=== PATIENT | female | born 1960 | race Caucasian/White ===

== ENCOUNTER → 2020-09-03 15:12 | Outpatient (BNVA) | payer OTHER, SELFPAY | PROVIDERS: PCP Internal Medicine; Visit Provider Surgery Vascular Surgery | DX: I83.11 Varicose veins of right lower extremity with inflammation (principal) | CPT/HCPCS: 99203 ==

== ENCOUNTER → 2022-03-23 11:59 | Outpatient (RCR) | payer OTHER, SELFPAY ==
--- NOTE | 2020-09-16 17:28 | MHC.PT.EP ---
[facility] [place] Office [place] Office [place] Office [address] Shantal Espinoza [address] [phone] F: [phone] F: [phone] F: [phone] F: [phone] Physical Therapy Plan of Care Date of Evaluation: 09/16/20 Date of Surgery: Diagnosis: R hip and R knee pain. Assessment: Pt is a 60 y/o female referred to PT for R hip and knee OA who presents with decreased tolerance for walking, negotiating stairs, standing and sitting for duration secondary to decreased R hip and knee ROM and strength, gait abnormality, increased R LE tissue tension, and pain. Frequency and Duration: The patient will be seen 2x/wk x 5 wks. Short Term Goals: In 1 week: initiate HEP with evidence of compliance. In 3 Weeks: achieve > 120 degrees R knee flexion; initial 110. Skilled Nursing Goals: In 5 weeks: I with home program. In 5 weeks: Pt will be able to negotiate 1 flight of stairs with reciprocal fashion; initial: non reciprocal. Treatment Plan: Modalities to reduce pain, spasms and effusion. Manual therapy to restore motion and function. Therapeutic exercise to improve strength and flexibility. Neuromuscular re-education for posture and balance. Therapeutic activities to return to functional activities of daily living. Please sign and return to therapist. Thank you for your referral.
--- NOTE | 2020-09-23 16:31 | MHC.PT.DC ---
[facility] [place] Office [place] Office [place] Office [address] Masoud Espinoza [address] [phone] F: [phone] F: [phone] F: [phone] F: [phone] Physical Therapy Discharge Report Diagnosis: R hip and R knee pain. Date of Surgery: Date of Evaluation: 09/16/20 Date of Discharge: 09/23/20 Treatments to Date: 1 Cancellations to Date: 2 evaluations cancelled. No Shows to Date: 2. Discharge Status: Did not follow through with appointments despite reminder calls. Discharge Summary: Erika logged 2 no show appointments after her evaluation and is discharged per [facility] attendance policy. Electronically signed by: Timoteo Toledo PT. Please sign and return to therapist. Thank you for your referral.
--- NOTE | 2022-03-23 11:59 | MHC.PT.DC ---
[facility] [place] Office [place] Office [place] Office [address] Masoud Espinoza [address] [phone] F: [phone] F: [phone] F: [phone] F: [phone] Physical Therapy Discharge Report Diagnosis: R hip and R knee pain. Date of Surgery: Date of Evaluation: 09/16/20 Date of Discharge: 10/12/20 Treatments to Date: 1 Cancellations to Date: 0 No Shows to Date: 0 Discharge Status: Patient Elected to Stop Discharge Summary: Pt did not follow up with more appts. Pt is a 60 y/o female referred to PT for R hip and knee OA who presents with decreased tolerance for walking, negotiating stairs, standing and sitting for duration secondary to decreased R hip and knee ROM and strength, gait abnormality, increased R LE tissue tension, and pain. Electronically signed by: Kelvin Rowan PT Please sign and return to therapist. Thank you for your referral.
== END | disposition home or self-care (01) ==
LOC: HO.PTCHIC 09-16 15:03
PROVIDERS: PCP Internal Medicine; Visit Provider Orthopaedic Surgery
DX: M16.11 Unilateral primary osteoarthritis, right hip (principal); M17.11 Unilateral primary osteoarthritis, right knee
CPT/HCPCS: 97110; 97116; 97161

== ENCOUNTER 2022-06-30 08:47 | Outpatient (REF) | payer OTHER, SELFPAY ==
--- NOTE | ~2022-06-30 | XR_ITS ---
EXAMINATION: XR PELVIS CLINICAL INFORMATION: Hip pain. COMPARISON: 07/06/[address] scan of 07/22/2020. TECHNIQUE: AP view of the pelvis. FINDINGS: There is severe degenerative change of the right hip which has progressed since previous CT scan of 07/22/2020 with deformity of the superior aspect of the right femoral head with flattening and increased sclerosis. There is loss of the joint space superiorly. There is some deformity of the acetabulum with what appears to be some superior subluxation of the right femoral head. There is no evidence of acute fracture or diastasis of the pelvis. Sacroiliac joints appear unremarkable. There is degenerative disc disease seen L4 through S1. Subchondral cyst formation is present. Patient is status post left total hip arthroplasty with components in position. XR/XR pelvis 1-2V IMPRESSION: Progression in severe right hip joint degenerative change compared to previous CT scan of 07/22/2020 as described.
== END 2022-06-30 08:48 | disposition home or self-care (01) ==
LOC: HO.HOSX 08:47
PROVIDERS: Visit Provider Orthopaedic Surgery
DX: M25.551 Pain in right hip (principal); M16.11 Unilateral primary osteoarthritis, right hip; Z96.642 Presence of left artificial hip joint
CPT/HCPCS: 72170; 99212

== ENCOUNTER → 2022-07-29 10:31 | Outpatient (REF) | payer OTHER, SELFPAY ==
--- NOTE | ~2022-07-29 | XR_ITS ---
EXAMINATION: XR CHEST CLINICAL INFORMATION: Weight gain. SOB. COMPARISON: None TECHNIQUE: 2 views of the chest were obtained. FINDINGS: The lungs are well-expanded and clear of acute process. The heart size and pulmonary vascularity is normal. There is mild spondylosis dorsal spine. No lytic process seen. XR/XR chest 2V IMPRESSION: Unremarkable chest exam. Mild spondylosis dorsal spine.
--- NOTE | 2022-07-29 10:35 | CA_ITS ---
Transthoracic Echocardiogram Patient (Last, First, Middle): Erika Smith J Gender: Female Date of : 1960 Age: 62 Procedure Date: 07/29/2022 Procedure Type: Transthoracic Echocardiogram Location: OP Height: 170.18 cm Weight: 99.79 kg BSA: 2.11 m2 Heart Rate: bpm BP: 122 / 60 mmHg Mis Manager: Referring MD: Luisito Gonzalez MD Material Crew Supervisor: Mk Baxter MD Symptoms: R94.31 ABNORMAL EKG, PRE OP Study Quality: Technically Difficult ECG Rhythm: Sinus Conclusions: - 1. Normal LV systolic function with impaired relaxation filling pattern 2. Normal cardiac valvular Doppler 3. Normal measured RV systolic pressure 4. No gross pericardial effusion Findings Left Ventricle Normal left ventricular size and systolic function. There is mildly increased left ventricular wall thickness. The visually estimated ejection fraction is between 55-60%. Regional wall motion abnormalities can not be excluded due to suboptimal endocardial definition. Spectral Doppler is indicative of an impaired relaxation filling pattern. E/E prime ratio is between 8 and 15 consistent with indeterminate filling pressures. Right Ventricle Normal right ventricular cavity size and systolic function. Atria The left atrium is normal in size. There is no evidence of interatrial shunt. The right atrium is normal in size. Aortic Valve The aortic valve structure and function is likely normal. There is no aortic valve stenosis. There is no aortic valve regurgitation. Mitral Valve There is mild anterior and posterior mitral leaflet thickening. There is trace mitral valve regurgitation. There is no mitral valve stenosis. Pulmonic Valve The pulmonic valve was not well visualized. Tricuspid Valve Likely normal tricuspid valve structure and function. There is trace tricuspid valve regurgitation. The right ventricular systolic pressure is normal. The right ventricular systolic pressure is 19 mmHg. Normal right atrial pressure. There is no evidence of pulmonary hypertension. Great Vessels All visible segments of the aorta are normal in size. The pulmonary artery was not well visualized. Venous The inferior vena cava is normal in size and collapses greater than 50% with inspiration. Pericardium/Pleural There is no evidence of pericardial effusion. Prior Study Comparison Changes noted compared to prior study dated: 07/31/2020. RV systolic pressure is measured to be normal on this study Measurements 2D Linear Measurements IVSd: 1.27 0.6-0.9/0.6-1.0 cm LVIDd: 4.31 3.9-5.3/4.2-5.9 cm LVIDd Index: 2.04 2.4-3.2/2.2-3.1 cm/m2 LVIDs: 2.67 2.0-3.6 cm LVPWd: 1.23 0.7-1.1 cm Ao Root: 3.00 2.1-3.5 cm LA Diam: 3.30 2.7-3.8/3.0-4.0 cm LAIDs Index: 1.56 1.5-2.3 cm/m2 LV Mass: 245.19 67-162/88-224 g LV Mass Index: 116.20 43-95/49-115 g/m2 LVOT Diam: 2.00 3.0+(-)1.3 cm Mitral Valve MV Pk E: 0.58 MV PK A: 0.87 MV Decel Time: 177.00 E/A: 0.70 E'Lateral: 10.60 E'Medial: 4.46 E/E' Med: 13.00 E/E' Lat: 5.50 PHT: 52.00 MVA PHT: 4.23 Decel [place]: 3.27 Aortic Valve AoV Pk Jose Luis: 2.08 AoV Mn Jose Luis: 1.22 AoV VTI: 0.36 AoV Pk Grad: 17.00 Aov Mn Grad: 8.00 AMENA Cont.VTI: 2.27 LVOT LVOT Pk Jose Luis: 1.28 LVOT Mn Jose Luis: 0.77 LVOT VTI: 0.26 LVOT Pk Grad: 7.00 LVOT Mn Grad: 3.00 LVOT Diam: 2.00 LVOT Area: 3.14 Diastolic Function MV Pk E: 0.58 MV Pk A: 0.87 E/A: 0.70 E'Medial: 4.46 E/E' Med: 13.00 E' Laterial: 10.60 E/E' Lat: 5.50 Right Ventricle TAPSE (mm): 32.00 TVS' Jose Luis: 14.00 Tricuspid Valve TR Pk Jose Luis: 2.01 TR Pk Grad: 16.00 RA Press: 3.00 RVSP: 19.00 Great Vessels Aorta Ao Root-2D: 3.00 2.0-3.7 cm Pulmonary Valve PV Pk Jose Luis: 1.18 Peak PV Grad: 6.00 Updated in Other Vendor System with Status of Final Mk Baxter MD electronically signed on 07/30/2022 12:20:21 PM with status of Final
[2022-07-29 12:37] LABS: Alanine Aminotransferase 50 U/L (0-31); Albumin Level 4.4 g/dL (3.5-5.0); Alkaline Phosphatase 98 U/L (39-117); Anion Gap 18 (12-20); Aspartate Amino Transferase 74 U/L (5-31); Bilirubin Total 1.5 mg/dL (0.0-1.0); Blood Urea Nitrogen 5 mg/dL (9-16); C Reactive Protein 0.42 mg/dL (< or = 0.50); Calcium 9.6 mg/dL (8.4-10.2); Carbon Dioxide 22 mmol/L (22-29); Chloride 99 mmol/L (96-108); Cholesterol 174 mg/dL; Estimated Glomerular Filt Rate > 60; Glucose Random 104 mg/dL (60-115); Potassium 4.3 mmol/L (3.3-5.1); Sodium 135 mmol/L (135-145); Total Protein 7.2 g/dL (6.5-8.0)
== END ==
LOC: HO.CARD 10:31
PROVIDERS: Visit Provider Internal Medicine
DX: Z00.00 Encounter for general adult medical examination without abnormal findings (principal); R63.5 Abnormal weight gain; E55.9 Vitamin D deficiency, unspecified; M19.90 Unspecified osteoarthritis, unspecified site; R94.31 Abnormal electrocardiogram [ECG] [EKG]
CPT/HCPCS: 36415; 71046; 80053; 82306; 82465; 84443; 86140; 93306

== ENCOUNTER → 2022-08-03 12:43 | Outpatient (BNVA) | payer OTHER, SELFPAY ==
--- NOTE | 2022-08-04 13:16 | HP_ITS ---
DATE OF SERVICE: 08/03/2022 HISTORY OF PRESENT ILLNESS: The patient is a 62-year-old female who is seen in the office for preop evaluation annual checkup on 07/21/2022. Patient is planning a right hip surgery for replacement for severe arthritis. The patient states she feels okay. She is using p.r.n. ibuprofen for the arthritis or diclofenac. She is also supposed to be on vitamin D. PAST MEDICAL HISTORY: Significant for arthritis in the hip, arthritis in the right shoulder, hypertension, back pain, varicose veins, left hip replacement in 2016, left carpal tunnel procedure, left knee surgery in the past, total hysterectomy. FAMILY HISTORY: Mother at 81. Father at 48 from heart disease. One brother at 35 from heart disease. Two sisters, 1 with arthritis from back problems. SOCIAL HISTORY: She lives with her daughter. She has 4 children. REVIEW OF SYSTEMS: No fevers, chills, or sweats. Weight has gone up by 24 pounds in the last 2 years. No headaches or dizziness. No peripheral edema. No palpitations or chest pain. Some shortness of breath with activity. Denies coughing or wheezing. No heartburn or stomach pains. No dysuria, arthritis in the joints as described. Sleep and appetite are normal. She does have seasonal allergies. She has a rash in the left ankle and atopic dermatitis. No complaints of bleeding problems. No swollen glands. PHYSICAL EXAMINATION: GENERAL: She is awake and alert, in no distress. VITAL SIGNS: Temperature 98.3, pulse 82, respirations 12, blood pressure is up at 134/104, oxygen saturation 96%, weight is 221, height is 5 feet 7 inches. HEENT: Clear. NECK: Supple. No nodes, bruits, or masses. HEART: Sounds S1 and S2. Regular rate. LUNGS: Clear. ABDOMEN: Soft and nontender with positive bowel sounds. EXTREMITIES: Trace pulses. No clubbing, cyanosis, or edema. Some venous stasis changes. NEUROLOGIC: Cranial nerves II through XII are intact. She is awake and alert and oriented x3. ASSESSMENT AND PLAN: 1. Preop right total hip replacement scheduled. 2. Hypertension. Recheck with Cardiology. 3. Weight gain, patient advised. 4. Venous stasis disease. 5. EKG shows some nonspecific ST changes. The patient was referred for cardiology evaluation. The patient was seen by Dr. Salazar, who states she has low to intermediate cardiac risk for surgery. When Sofía checked her blood pressure on August 03, she was 126/84 with a pulse of 88, and her EKG was normal in their office. They did an echo, which does not show any wall motion abnormalities. She has a 1/6 to 2/6 systolic ejection murmur and described as aortic sclerosis. Based on the cardiology evaluation, she is medically stable for the proposed procedure with the description of intermediate risk as above. As a smoker, she also has increased risk related to that. She may have some peripheral vascular disease, which will have to be followed carefully postoperatively. MD JESÚS Miller/CORINNE / [id number]
== END ==
PROVIDERS: PCP Internal Medicine; Visit Provider Internal Medicine
DX: Z01.810 Encounter for preprocedural cardiovascular examination (principal); M16.11 Unilateral primary osteoarthritis, right hip; R94.31 Abnormal electrocardiogram [ECG] [EKG]; F17.210 Nicotine dependence, cigarettes, uncomplicated
CPT/HCPCS: 93005; 99202

== ENCOUNTER → 2022-08-04 13:51 | Outpatient (BNVA) | payer OTHER, SELFPAY | PROVIDERS: PCP Internal Medicine; Visit Provider Physician Assistant | DX: M16.11 Unilateral primary osteoarthritis, right hip (principal) | CPT/HCPCS: 99212 ==

== ENCOUNTER 2022-08-09 10:03 | Inpatient (IN) | payer OTHER, SELFPAY ==
[2022-08-02 12:03] VITALS: BMI 33.2
[2022-08-02 12:11] VITALS: BP 133/87; PULSE 86; RESP 20; O2SAT 97
[2022-08-02 12:49] LABS: MANUAL DIFF FLAG NO
[2022-08-02 13:22] LABS: Basophils Percent Auto 0.5 % (0-2); Eosinophils Absolute Auto 0.2 X10*3/uL (0.0-0.4); Eosinophils Percent Auto 2.8 % (0-4); Hematocrit 39.2 % (37.0-47.0); Hemoglobin 14.2 g/dl (12.0-16.0); Imm Gran Abs Auto 0.02 X10*3/uL (0.00-0.03); Imm Gran Pct Auto 0.3 % (0.0-0.4); Lymphocytes Absolute Auto 1.7 X10*3/uL (1.2-4.9); Lymphocytes Percent Auto 23.3 % (20-40); Mean Corpuscular HGB Conc 36.2 g/dl (31.0-35.0); Mean Corpuscular Hemoglobin 37.5 pg (27.0-33.0); Mean Corpuscular Volume 103.4 fL (80.0-98.0); Mean Platelet Volume 10.6 fL (9.4-12.3); Monocytes Absolute Auto 0.6 X10*3/uL (0.1-1.2); Monocytes Percent Auto 8.1 % (2-11); Neutrophils Absolute Auto 4.8 x10*3/uL (2.0-8.3); Platelet Count 164 X10*3/uL (160-400); Red Blood Count 3.79 X10*6/uL (4.20-5.50); Red Cell Distribution Width 12.7 % (11.0-16.0); White Blood Count 7.4 X10*3/uL (4.8-10.8)
[2022-08-02 15:03] LABS: MRSA Nasal PCR NEGATIVE (Negative); SA Nasal PCR NEGATIVE (Negative)
--- NOTE | 2022-08-05 13:23 | P.CONAN_ITS ---
Documented by User: Nimco Mcginnis NP 08/05/22 13:26 HPI - Anesthesia Eval Consult details Narrative: 62yo F for Right Hip Total Replacement Cleared by PCP and Cardiology [facility] Active Problems Active Problems: All Active Problems (Updated 08/03/22 @ 13:24 by Marc Salazar MD) Smoking (Acute) Abnormal EKG (Acute) Preoperative cardiovascular examination (Acute) Varicose veins of right lower extremity with inflammation (Acute) Primary osteoarthritis of right hip (Acute) Past Medical History Medical History Anxiety Arthritis Carpal tunnel syndrome Heart murmur Family History Family History Father Heart problem Mother No problems noted. Surgical History Surgical History Abdominal mass H/O: hysterectomy History of arthroscopy of right knee History of carpal tunnel surgery of left wrist History of tonsillectomy History of tubal ligation Hx of section Status post left hip replacement Social History Social History Are you a primary home care and home health aides teacher to a significant other at home: No Do you presently have visiting nurse or other home services: No (to live with son post op) Patient Tobacco Use Status: Current everyday Tobacco user Tobacco use type: Cigarette Cigarettes Per Day: 5 Smoked in Last 30 Days: Yes Patient Interested in Nicotine Replacement: Yes Patient Given Instructions on How to Stop Smoking: No Second Hand Smoke Exposure: Yes Use of substances other than those prescribed or required for medical reasons: No Substance Use Frequency: Occasionally Have you been hit, kicked, punched, or otherwise hurt by someone within the past year? If so, by whom?: No Are you DNR?: No Advance Directives: No Advance Directives Information Provided: Yes (info given) Advance Directives on File: No Recently lost weight without trying: No Eating poorly because of decreased appetite: No Nutrition Risks: No Nutritional Risk Patient : No : No Current occupational status: unemployed Meds Allergies Allergy/AdvReac Type Severity Reaction Status Date / Time No Known Allergies Allergy Verified 08/04/22 14:02 [No Known Allergies*] Home Medications Medication Instructions Recorded Confirmed Last Taken Type acetaminophen 325 mg capsule 650 mg PO Q6H PRN 08/04/22 Unknown History (Tylenol) Exam Exam Date and Time: August 05, 2022 1323 Height,Weight and Vital Signs: Height 5 ft 7 in Weight 96.162 kg Last Vital Signs Pulse 86 08/02/22 12:11 Resp 20 08/02/22 12:11 BP 133/87 08/02/22 12:11 Pulse Ox 97 08/02/22 12:11 O2 Del Method 08/02/22 12:11 Pertinent Lab Results Pertinent Lab Results: Laboratory Tests 08/02/22 08/02/22 08/02/22 12:43 12:46 Unknown WBC 7.4 RBC 3.79 L Hgb 14.2 Hct 39.2 MCV 103.4 H MCH 37.5 H MCHC 36.2 H RDW 12.7 Plt Count 164 MPV 10.6 Immature Gran % (Auto) 0.3 Neut % (Auto) 65.0 Lymph % (Auto) 23.3 [place] % (Auto) 8.1 Eos % (Auto) 2.8 Baso % (Auto) 0.5 Lymph # (Auto) 1.7 [place] # (Auto) 0.6 Eos # (Auto) 0.2 Baso # (Auto) 0.0 Abs Immat Gran (auto) 0.02 Absolute Neuts (auto) 4.8 Absolute Nucleated RBC 0.000 Nucleated RBC % (auto) 0.0 Nasal Screen MRSA (PCR) NEGATIVE Nasal S. aureus Screen NEGATIVE Nasal MRSA/S.aureus Interp SEE NOTE Blood Type O Negative Antibody Screen NEGATIVE Laboratory Tests 07/29/22 11:39 Sodium 135 Potassium 4.3 Chloride 99 Carbon Dioxide 22 BUN 5 L Creatinine 0.60 Narrative Narrative: ECHO 07/2022 Conclusions: - 1. Normal LV systolic function with impaired relaxation filling pattern? 2. Normal cardiac valvular Doppler ? 3. Normal measured RV systolic pressure? 4. No gross pericardial effusion ? ? ? EKG 07/2022 ?sinus rhythm at 89/Min; no significant ST-T changes; normal MT and corrected QT Assessment and Plan Assessment Anesthesia Assessment: Chart Reviewed Documented by User: Cornelius Collins MD 08/09/22 16:57 PMFSH Past Medical History Medical History Anxiety Arthritis Carpal tunnel syndrome Heart murmur Family History Family History Father Heart problem Mother No problems noted. Family history of problems with anesthesia: No Surgical History Surgical History Abdominal mass H/O: hysterectomy History of arthroscopy of right knee History of carpal tunnel surgery of left wrist History of tonsillectomy History of tubal ligation Hx of section Status post left hip replacement History of Problems with Anesthesia: No Social History Social History Are you a primary home care and home health aides teacher to a significant other at home: No Do you presently have visiting nurse or other home services: No (to live with son post op) Patient Tobacco Use Status: Current everyday Tobacco user Tobacco use type: Cigarette Cigarettes Per Day: 5 Smoked in Last 30 Days: Yes Patient Interested in Nicotine Replacement: Yes Patient Given Instructions on How to Stop Smoking: No Second Hand Smoke Exposure: Yes Use of substances other than those prescribed or required for medical reasons: No Substance Use Frequency: Occasionally Have you been hit, kicked, punched, or otherwise hurt by someone within the past year? If so, by whom?: No Are you DNR?: No Advance Directives: No Advance Directives Information Provided: Yes (info given) Advance Directives on File: No Recently lost weight without trying: No Eating poorly because of decreased appetite: No Nutrition Risks: No Nutritional Risk Patient : No : No Current occupational status: unemployed Meds Allergies Allergy/AdvReac Type Severity Reaction Status Date / Time No Known Allergies Allergy Verified 08/04/22 14:02 [No Known Allergies*] Home Medications Medication Instructions Recorded Confirmed Last Taken Type acetaminophen 325 mg capsule 650 mg PO Q6H PRN 08/04/22 Unknown History (Tylenol) Exam Airway Mallampati Class: III TM Dist: >3cm Neck ROM: Full Denture: Upper and Lower Loose/Missing/Broken Teeth: Yes Heart: S1,S2 Lungs: b/l breath sounds Assessment and Plan Assessment Anesthesia Assessment: Anesthesia Plan Discussed and Smoking Cess. Discussed Final Anesthetic Review Family History of Problems with Anesthesia: No History of Problems with Anesthesia: No NPO: Yes ASA Class: III Final Preanesthetic Review: Meds/Allgs Chart Reviewed, Consent Obtained/Reviewed and Anes Risks/Benef Reviewed Patient Risk: Intermediate Procedure Risk: Intermediate Anesthetic Plan Anesthetic Plan: GA Disposition: Standard PACU
[2022-08-09] VITALS (15 sets, daily range): BP systolic 84–112; BP diastolic 51–81; PULSE 64–93; RESP 16–18; TEMP 36.2–37.1; O2SAT 96–100
--- NOTE | ~2022-08-09 | XR_ITS ---
EXAMINATION: XR HIP, RIGHT CLINICAL INFORMATION: Post right hip replacement COMPARISON: Previous x-ray from yesterday TECHNIQUE: AP view of the lower pelvis/both hips and AP and shoot through lateral view of the right hip. FINDINGS: There are bilateral hip replacements in satisfactory position. No fracture or dislocation is seen. There are postoperative changes to the soft tissues on the right. XR/XR hip RT w PEL1V IMPRESSION: No fracture or dislocation.
--- NOTE | ~2022-08-09 | CT_ITS ---
EXAMINATION: CT ANGIOGRAM CHEST, ABDOMEN AND PELVIS WITH LEFT UPPER EXTREMITY RUN-OFF CLINICAL INFORMATION: Decreased left upper extremity pulses. COMPARISON: Ultrasound from 08/10/2022 TECHNIQUE: Multiple axial images were obtained through the abdomen, pelvis, and lower extremities following the administration of 70 mL of Omnipaque 350 intravenous contrast. Sagittal, coronal, and MIP oblique sagittal reformatted images were obtained on the CT workstation, uploaded to PACS, and reviewed. Images were evaluated on independent dedicated 3-D workstation and 3-D images were reconstructed with concurrent radiologist supervision and subsequently interpreted. This CT examination was performed using dose optimization techniques as appropriate, variously including the following: *Automated exposure control *Adjustment of mA and/or kV according to patient size (this includes techniques or standardized protocols for targeted exams where dose is matched to indication/reason for exam; i.e. extremities or head) *Use of iterative reconstruction technique DLP: 980 mGy-cm FINDINGS: VASCULATURE: Aorta: Thoracic and abdominal aorta is normal in caliber. Diffuse calcified plaque is seen. No evidence of a aneurysm, stenosis or dissection. The right brachiocephalic artery, right subclavian artery, bilateral common carotid arteries and bilateral vertebral arteries are patent with mild calcified plaque. Celiac axis, superior mesenteric artery, inferior mesenteric artery and bilateral renal arteries are patent without significant stenosis. Right iliac arteries: Common iliac, external iliac and internal iliac arteries demonstrate mild atherosclerotic wall calcifications without significant stenosis. Left iliac arteries: Common iliac, external iliac and internal iliac arteries demonstrate mild atherosclerotic wall calcifications without significant stenosis. Left upper extremity: Heavily calcified plaque is seen at the ostium of the left subclavian artery causing a severe stenosis. The mid and distal portions of the left subclavian artery are patent without significant stenosis. The left axillary artery, brachial artery, radial artery, ulnar artery and interosseous artery are patent without significant stenosis. NONVASCULAR: Mild centrilobular emphysema. Subsegmental atelectasis seen in the bilateral lower lobes. Heart is normal in size. Pericardium is normal. Coronary artery calcification: Present Liver demonstrates a mildly nodular contour concerning for underlying cirrhosis. No focal hepatic lesions. Solid abdominal organs are otherwise unremarkable. Bowel loops are unremarkable. No free fluid seen in the abdomen and pelvis. Urinary bladder is unremarkable. No pathologic lymphadenopathy or mass lesion seen in the abdomen and pelvis. Patient is status post bilateral hip total arthroplasty. Degenerative disc disease seen throughout the thoracic and lumbar spine CT/CT angio chest aorta IMPRESSION: 1. Heavily calcified plaque seen at the ostium of the left subclavian artery causing a severe stenosis. Remaining arterial vessels of the left upper extremity are patent without significant stenosis 2. Atherosclerotic wall calcification seen within the thoracic and abdominal aorta without aneurysm, stenosis or dissection. 3. Coronary artery calcifications 4. Mild emphysema 5. Nodular contour of the liver concerning for underlying cirrhosis
--- NOTE | ~2022-08-09 | XR_ITS ---
EXAMINATION: XR PELVIS CLINICAL INFORMATION: Post right hip replacement COMPARISON: Previous x-ray June 2022 TECHNIQUE: AP view of the pelvis. FINDINGS: There is a new right hip replacement. Imaging of the right hip replacement is incomplete. The inferior stem of the femoral component is not included in the [id number]. No fracture or dislocation is seen. There is a left hip replacement in satisfactory position. There are postoperative changes to the soft tissues. XR/XR pelvis 1-2V IMPRESSION: Incomplete imaging of the right hip replacement. Inferior stem of the femoral component is not included in the [id number]. No fracture or dislocation seen.
--- NOTE | ~2022-08-09 | US_ITS ---
EXAMINATION: NONINVASIVE ASSESSMENT OF THE ARTERIES OF LEFT UPPER EXTREMITY Ravindra Dobson MD CLINICAL INFORMATION: Decreased radial pulse TECHNIQUE: Duplex Doppler techniques were used to examine the left upper extremity.. Velocity measurements and color flow Doppler imaging were performed in the subclavian arteries, axillary arteries and brachial arteries along with the radial and ulnar arteries COMPARISON: None FINDINGS: Left ARM: Triphasic flow is noted in the proximal subclavian artery with biphasic flow and mid subclavian artery with monophasic flow noted distal to this in the axillary, brachial and radial and ulnar arteries. Only minimal plaque is seen. Velocity measurements in cm per second are listed below: Subclavian artery proximal: 107 Subclavian artery mid: 59 Subclavian artery distal: 49 Axillary artery: 39 Brachial artery proximal: 35 Brachial artery mid: 44 Brachial artery distal: 40 Radial artery mid: 27 Ulnar artery mid: 35 US/US arterial duplex UE LT IMPRESSION: There is monophasic flow seen in the distal subclavian artery and all vessels distal to this. An inflow stenosis is suggested. CT angiography of the thoracic aorta and left upper extremity vasculature could always be performed for better evaluation
[2022-08-09] MEDS: oxyCODONE HCl ER 10 MG TAB.ER.12H PO ×2 (10:56→21:53)
[2022-08-09 11:00] LABS: COVID-19 Test Negative (Negative); IDNOW Serial# 08D9AD1C
[2022-08-09] MEDS: Lactated Ringers 1,000 ML 100 ML IVCONT (11:19)
--- NOTE | 2022-08-09 12:19 | MHC.SHP ---
Pre-Procedural Eval Section A Date of Service: 08/09/22 The patient is an INPATIENT: No Changes since office visit: Yes Patient answered all questions; No Cold of Flu in the past 2 weeks, No New Medical Problems and No Changes in Medication The History & Physical has been completed within 30 days and I have reviewed it.: Yes Section B Chief Complaint: RT MARCO A Allergies: Allergies Allergy/AdvReac Type Severity Reaction Status Date / Time No Known Allergies Allergy Verified 08/04/22 14:02 [No Known Allergies*] Plan I have reviewed the history and physical and performed a pertinent physical examination on my patient. No changes have occurred unless specified.
--- NOTE | 2022-08-09 16:15 | P.BOP_ITS ---
Brief Operative Note Date of Service: 08/09/22 Pre-op diagnosis: right hip OA Post-op diagnosis: same Procedure: Right MARCO A Implants: Dax 54 GIANCARLO cup with 4 acetabular screws Mcgreg[place] Accolade2 #6 132 +5 36 Surgeon: Panda Angelo MD Anesthesia: GETA and local Was an Risk Intern used for this Procedure?: Yes Risk Intern: Chuck Evangelista Estimated blood loss (mL): 200 IV fluids (mL): 1,000 Pathology: other Condition: stable Disposition: PACU
--- NOTE | 2022-08-09 16:16 | P.OP_ITS ---
Operative Note Operative Note Date of Service: 08/09/22 Narrative: Brief Operative Note Date of Service: 08/09/22 Pre-op diagnosis: right hip OA Post-op diagnosis: same Procedure: Right MARCO A Implants: [place] 54 GIANCARLO cup with 4 acetabular screws [place] Accolade2 #6 132 +5 36 Surgeon: Panda Angelo MD Anesthesia: GETA and local Was an Medical Reimbursement Specialist used for this Procedure?: Yes Medical Reimbursement Specialist: Chuck Evangelista Estimated blood loss (mL): 200 IV fluids (mL): 1,000 Pathology: other Condition: stable Disposition: PACU Procedure in detail: Patient was brought into the operating room and placed in the left lateral decubitus position. All bony prominences were well padded and the limb was prepped and draped in standard sterile fashion. Time-out was called to identify proper site procedure proper surgeon IV antibiotics and 1 g of transaxemic acid were administered. I began by making a curvilinear incision over the posterolateral aspect of the greater trochanter. Dissection was taken down to the tensor fascia which was incised in line with the incision and a Charnley retractor was placed. Cautery was used to maintain hemostasis. A werewolf device was also used. The hip was internally rotated and the external rotators were identified. The vessels were cauterized and a full-thickness capsular/external rotator layer was developed starting just proximal to the piriformis. This layer was tagged and a dull Hohmann retractor was placed underneath the neck in the hip was dislocated. A neck cut was made 1 cm proximal to the lesser trochanter and the head and neck were removed. The head was extremely deformed and it was not measurable. I started with 44mm reamer and medialized. THere was loss of superior bone and posterior bone. I medialized down to the inner table and there was insufficient bone for fixation posteriorly. I made sure not to ream superior and reamed up to a 54 and placeda 56 GIANCARLO cup. This required screws for fixation. @ acetabular screws were placed superiorly using standard AO technique. Two additional RIM screws were placed through the superior appendage of the cup. Prior to this I reamed the femoral head and placed medial bone graft in the acetabulum. I was satisfied with the stability of the cup. A neutral liner was impacted in place. I identified the piriformis insertion and used this as a starting point for my brittany cutter. The medius tendon was protected with a Hibs retractor. I then used a Charnley awl to identify the canal and a curved curette to remove the lateral bone. I irrigated copiously. I then sequentially broached in the patient's natural version to a size #6 and placed my trial implants (132 deg).. Using a trail head I took the hip through range of motion. I was very satisfied with the stability and length. Therefore I removed all instrumentation and copiously irrigated. I placed my final femoral implant and again took the hip through range of motion and was satisfied with the stability and length using a +5 36. I then irrigated for 3 minutes with iodine and placed 1 g of local tranaxemic acid. I then performed a capsular closure with 2.0 fiberwire, Juanito's fascia with 0 Vicryl, subcuticular with 2-0 Vicryl and the skin with stella. Patient was placed into a sterile dressing. Radiographs were obtained at the completion of the case and I was satisfied with the component position. Patient was extubated brought to the recovery room in stable condition. There were no known complications.
[2022-08-09] MEDS: ceFAZolin Sodium/Dextrose,Iso 2 GM/50 ML PIGGYBACK IV (19:19)
[2022-08-09] MEDS: Celecoxib 200 MG CAPSULE PO (21:53)
[2022-08-09] MEDS: Docusate Sodium 100 MG CAPSULE PO (21:53)
[2022-08-10] VITALS (9 sets, daily range): BP systolic 96–128; BP diastolic 57–76; PULSE 66–99; RESP 16–18; TEMP 35.6–36.8; O2SAT 94–98
[2022-08-10] MEDS: Lactated Ringers 1,000 ML 100 ML IVCONT ×2 (01:28→11:27)
[2022-08-10 07:01] LABS: MANUAL DIFF FLAG NO
[2022-08-10 07:15] LABS: Basophils Percent Auto 0.3 % (0-2); Eosinophils Percent Auto 0.1 % (0-4); Hematocrit 29.4 % (37.0-47.0); Hemoglobin 10.2 g/dl (12.0-16.0); Imm Gran Abs Auto 0.04 X10*3/uL (0.00-0.03); Imm Gran Pct Auto 0.4 % (0.0-0.4); Lymphocytes Absolute Auto 1.2 X10*3/uL (1.2-4.9); Lymphocytes Percent Auto 12.3 % (20-40); Mean Corpuscular HGB Conc 34.7 g/dl (31.0-35.0); Mean Corpuscular Hemoglobin 36.2 pg (27.0-33.0); Mean Corpuscular Volume 104.3 fL (80.0-98.0); Monocytes Absolute Auto 0.8 X10*3/uL (0.1-1.2); Monocytes Percent Auto 8.6 % (2-11); Neutrophils Absolute Auto 7.5 x10*3/uL (2.0-8.3); Neutrophils Percent Auto 78.3 % (45-73); Platelet Count 143 X10*3/uL (160-400); Red Blood Count 2.82 X10*6/uL (4.20-5.50); Red Cell Distribution Width 12.6 % (11.0-16.0); White Blood Count 9.6 X10*3/uL (4.8-10.8)
--- NOTE | 2022-08-10 07:32 | PM.PNORT ---
Subjective Subjective Date of Service: 08/10/22 Interval history: POD1 s/p RTHA. Patient is resting in bed comfortably. No overnight events. Pain is managed. No additional complaints. Physical Exam Vital Signs: Vital Signs: Last Vital Signs Temp 98 F 08/10/22 06:59 Pulse 72 08/10/22 06:59 Resp 18 08/10/22 06:59 BP 124/60 08/10/22 06:59 Pulse Ox 97 08/10/22 06:59 O2 Del Method 08/10/22 06:59 O2 Flow Rate 2 08/09/22 18:58 BMI result Body Mass Index 33.2 Const: General: cooperative, healthy appearing and no acute distress Resp: Effort & Inspection: normal respiratory effort and able to speak in complete sentences Cardio: Rate: regular rate Peripheral pulses: Peripheral pulses 2+ throughout GI: Palpation (GI): Soft to palpation Skin: Lesions: no lesions Rashes: no rashes Extrem: Other: Right hip Aquacel is clean, dry, and intact. Patient is able to dorsiflex and plantarflex. Able to move all digits. NVI. Procedures Date of Service Date of Service: 08/10/22 Progress Note: A&P Assessment and plan (1) S/P total right hip arthroplasty: Status: Acute Assessment and Plan: Continue pain mgmnt Begin Lovenox for dvt ppx begin PT for RTHA Dispo planning-Pending PT eval, pain mgmnt Time Spent With Patient Time: Total time spent is greater than 50% in coordination of care (as documented) at patient's floor/unit and/or counseling patient: Quality Stroke Does the patient have a stroke diagnosis?: No VTE Prior VTE?: No VTE Risk Level:: Medical - moderate - high VTE Device Contraindication: N/A - Device Ordered VTE Drug Contraindication: N/A - Med Ordered
[2022-08-10] MEDS: oxyCODONE HCl ER 10 MG TAB.ER.12H PO ×2 (07:40→20:40)
[2022-08-10] MEDS: HYDROmorphone HCl 0.5 MG/0.5 ML SYRINGE 0.25 MG IVPUSH (07:40)
[2022-08-10] MEDS: Celecoxib 200 MG CAPSULE PO ×2 (07:40→20:39)
[2022-08-10] MEDS: Docusate Sodium 100 MG CAPSULE PO ×2 (07:40→20:39)
[2022-08-10 08:09] LABS: Anion Gap 14 (12-20); Blood Urea Nitrogen 11 mg/dL (9-16); Calcium 8.8 mg/dL (8.4-10.2); Carbon Dioxide 23 mmol/L (22-29); Chloride 102 mmol/L (96-108); Creatinine Clr Calc Pharmacy 114.2; Estimated Glomerular Filt Rate > 60; Glucose Fasting 104 mg/dL (60-99); Potassium 4.3 mmol/L (3.3-5.1); Sodium 135 mmol/L (135-145)
--- NOTE | 2022-08-10 12:48 | P.CONHOSP_ITS ---
History of Present Illness Data of Consult Service Date: 08/10/22 Requesting physician: Panda Angelo Primary Care Provider: Luisito Gonzalez MD COUNTS INCLUDE 234 BEDS AT THE [facility] Medical History Anxiety Arthritis Carpal tunnel syndrome Heart murmur Family History Father Heart problem Mother No problems noted. Surgical History Abdominal mass H/O: hysterectomy History of arthroscopy of right knee History of carpal tunnel surgery of left wrist History of tonsillectomy History of tubal ligation Hx of section Status post left hip replacement Social History Are you a primary animal care provider to a significant other at home: No Do you presently have visiting nurse or other home services: No (to live with son post op) Patient Tobacco Use Status: Current everyday Tobacco user Tobacco use type: Cigarette Cigarettes Per Day: 5 Smoked in Last 30 Days: Yes Patient Interested in Nicotine Replacement: Yes Patient Given Instructions on How to Stop Smoking: No Second Hand Smoke Exposure: Yes Use of substances other than those prescribed or required for medical reasons: No Substance Use Frequency: Occasionally Currently Displaying Signs/Symptoms of Drug Intoxication Withdrawal: No Have you been hit, kicked, punched, or otherwise hurt by someone within the past year? If so, by whom?: No Are you DNR?: No Advance Directives: No Advance Directives Information Provided: Yes (info given) Advance Directives on File: No Recently lost weight without trying: No Eating poorly because of decreased appetite: No Nutrition Risks: No Nutritional Risk Patient : No : No Current occupational status: unemployed Meds Allergies Allergy/AdvReac Type Severity Reaction Status Date / Time No Known Allergies Allergy Verified 08/04/22 14:02 [No Known Allergies*] Active Medications: Current Medications Acetaminophen (Acetaminophen 325 Mg Tablet) 650 mg PO Q6H PRN PRN Reason: Pain, Mild (Pain Scale 1-3) Celecoxib (Celecoxib 200 Mg Capsule) 200 mg PO BID [facility] Last Admin: 08/10/22 07:40 Dose: 200 mg Docusate Sodium (Docusate Sodium 100 Mg Capsule) 100 mg PO BID [facility] Last Admin: 08/10/22 07:40 Dose: 100 mg Enoxaparin Sodium (Enoxaparin Sodium 40 Mg/0.4 Ml Syringe) 40 mg SUBCUT Q24H [facility] Fentanyl (Fentanyl Citrate/Pf 100 Mcg/2 Ml Vial) 25 mcg IVPUSH Q5M PRN; Protocol PRN Reason: Pain, Moderate (Pain Scale 4-6 Hydromorphone HCl (Hydromorphone Hcl 0.5 Mg/0.5 Ml Syringe) 0.25 mg IVPUSH Q5M PRN; Protocol PRN Reason: Pain, Severe (Pain Scale 7-10) Hydromorphone HCl (Hydromorphone Hcl 0.5 Mg/0.5 Ml Syringe) 0.25 mg IVPUSH Q4H PRN; Protocol PRN Reason: Pain, Severe (Pain Scale 7-10) Last Admin: 08/10/22 07:40 Dose: 0.25 mg Lactated Ringer's (Lr) 1,000 mls @ 100 mls/hr IVCONT .Q10H [facility] Stop: 08/10/22 16:17 Last Admin: 08/10/22 11:27 Dose: 100 mls/hr Sodium Chloride (Ns) 1,000 mls @ 999 mls/hr IV .Q1H1M [facility] Stop: 08/10/22 13:00 Ondansetron HCl (Ondansetron Hcl 4 Mg/2 Ml Vial) 4 mg IVPUSH Q8H PRN PRN Reason: Nausea and Vomiting Oxycodone HCl (Oxycodone Hcl Immed Release 5 Mg Tablet) 10 mg PO Q4H PRN PRN Reason: Pain, Moderate (Pain Scale 4-6 Oxycodone HCl (Oxycodone Hcl Er 10 Mg Tab.Er.12h) 10 mg PO BID [facility] Last Admin: 08/10/22 07:40 Dose: 10 mg Sodium Chloride (0.9 % Sodium Chloride Flush 3 Ml Syringe) 3 ml IVFLUSH QSHIFT [facility] Last Admin: 08/10/22 06:51 Dose: Not Given Home Medications Medication Instructions Recorded Confirmed Last Taken Type No Known Home Meds 08/09/22 08/09/22 Unknown History Physical Exam Vital Signs and Narrative: Vital Signs: Last Vital Signs Temp 96.4 F L 08/10/22 11:43 Pulse 78 08/10/22 11:43 Resp 16 08/10/22 11:43 BP 119/58 L 08/10/22 11:43 Pulse Ox 96 08/10/22 11:43 O2 Del Method 08/10/22 11:43 O2 Flow Rate 2 08/09/22 18:58 BMI result Body Mass Index 33.2 Results Labs CBC and Chem 7: 08/10/22 05:57 08/10/22 05:57 Labs: Laboratory Results - last 24 hr 08/10/22 08/10/22 05:57 05:57 MCV 104.3 H MCH 36.2 H MCHC 34.7 RDW 12.6 Plt Count 143 L MPV 11.0 Immature Gran % (Auto) 0.4 Neut % (Auto) 78.3 H Lymph % (Auto) 12.3 L Metcalfe % (Auto) 8.6 Eos % (Auto) 0.1 Baso % (Auto) 0.3 Lymph # (Auto) 1.2 [place] # (Auto) 0.8 Eos # (Auto) 0.0 Baso # (Auto) 0.0 Abs Immat Gran (auto) 0.04 H Absolute Neuts (auto) 7.5 Absolute Nucleated RBC 0.000 Nucleated RBC % (auto) 0.0 Anion Gap 14 Estim Creat Clear Calc 114.2 Estimated GFR > 60 Fasting Glucose 104 H Calcium 8.8 D Imaging Radiologist's Impressions: Impressions Pelvis X-Ray 08/09/22 16:03 IMPRESSION: Incomplete imaging of the right hip replacement. Inferior stem of the femoral component is not included in the [id number]. No fracture or dislocation seen.
[2022-08-10] MEDS: oxyCODONE HCl Immed Release 5 MG TABLET 10 MG PO ×2 (13:29→17:39)
[2022-08-10] MEDS: 0.9 % Sodium Chloride 1,000 ML 999 ML IV (13:31)
--- NOTE | 2022-08-10 13:54 | HO.PM.IMCN ---
History of Present Illness Data of Consult Service Date: 08/10/22 Requesting physician: Chuck Evangelista Primary Care Provider: Luisito Gonzalez MD [facility] Reason for consult: hypotension s/p right total hip arthroplasty 62 year old female who is a current every smoker with history of osteoarthritis, anxiety, cardiac murmur, and carpal tunnel syndrome admitted to orthopedics team for right total hip arthroplasty post-op day 1 with consult placed to medical team due to low blood pressures last night. Patient has persistent postoperative low normal blood pressure readings with SBP 90s and one recorded episode of hypotension at 84/57 that was not sustained. Nurse and patient note blood pressures had been taken on the left arm. Pt has been receiving IVF. Today, blood pressures have not been able to be obtained on the left arm and radial pulse is noted to be weak. Pt states bps were taken on left arm last week with pcp. Has no known history of PAD. Denies sob, lightheadedness, cp, palpitations, pain or numbness in the extremities or cyanosis. She has no complaints at this time. Review of Systems Review of Systems: General: No fevers, malaise, unintentional weight loss Cardiovascular: No chest pain, palpitations, or leg edema Respiratory: No shortness of breath, wheezing, cough Neuro: No headaches, weakness, paresthesias Skin: No rashes or lesions PMFSH Medical History Anxiety Arthritis Carpal tunnel syndrome Heart murmur Family History Father Heart problem Mother No problems noted. Surgical History Abdominal mass H/O: hysterectomy History of arthroscopy of right knee History of carpal tunnel surgery of left wrist History of tonsillectomy History of tubal ligation Hx of section Status post left hip replacement Social History Are you a primary professional healthcare representative to a significant other at home: No Do you presently have visiting nurse or other home services: No (to live with son post op) Patient Tobacco Use Status: Current everyday Tobacco user Tobacco use type: Cigarette Cigarettes Per Day: 5 Smoked in Last 30 Days: Yes Patient Interested in Nicotine Replacement: Yes Patient Given Instructions on How to Stop Smoking: No Second Hand Smoke Exposure: Yes Use of substances other than those prescribed or required for medical reasons: No Substance Use Frequency: Occasionally Currently Displaying Signs/Symptoms of Drug Intoxication Withdrawal: No Have you been hit, kicked, punched, or otherwise hurt by someone within the past year? If so, by whom?: No Are you DNR?: No Advance Directives: No Advance Directives Information Provided: Yes (info given) Advance Directives on File: No Recently lost weight without trying: No Eating poorly because of decreased appetite: No Nutrition Risks: No Nutritional Risk Patient : No : No Current occupational status: unemployed Meds Allergies Allergy/AdvReac Type Severity Reaction Status Date / Time No Known Allergies Allergy Verified 08/04/22 14:02 [No Known Allergies*] Active Medications: Current Medications Acetaminophen (Acetaminophen 325 Mg Tablet) 650 mg PO Q6H PRN PRN Reason: Pain, Mild (Pain Scale 1-3) Celecoxib (Celecoxib 200 Mg Capsule) 200 mg PO BID [facility] Last Admin: 08/10/22 07:40 Dose: 200 mg Docusate Sodium (Docusate Sodium 100 Mg Capsule) 100 mg PO BID [facility] Last Admin: 08/10/22 07:40 Dose: 100 mg Enoxaparin Sodium (Enoxaparin Sodium 40 Mg/0.4 Ml Syringe) 40 mg SUBCUT Q24H [facility] Fentanyl (Fentanyl Citrate/Pf 100 Mcg/2 Ml Vial) 25 mcg IVPUSH Q5M PRN; Protocol PRN Reason: Pain, Moderate (Pain Scale 4-6 Hydromorphone HCl (Hydromorphone Hcl 0.5 Mg/0.5 Ml Syringe) 0.25 mg IVPUSH Q5M PRN; Protocol PRN Reason: Pain, Severe (Pain Scale 7-10) Hydromorphone HCl (Hydromorphone Hcl 0.5 Mg/0.5 Ml Syringe) 0.25 mg IVPUSH Q4H PRN; Protocol PRN Reason: Pain, Severe (Pain Scale 7-10) Last Admin: 08/10/22 07:40 Dose: 0.25 mg Lactated Ringer's (Lr) 1,000 mls @ 100 mls/hr IVCONT .Q10H [facility] Stop: 08/10/22 16:17 Last Admin: 08/10/22 11:27 Dose: 100 mls/hr Ondansetron HCl (Ondansetron Hcl 4 Mg/2 Ml Vial) 4 mg IVPUSH Q8H PRN PRN Reason: Nausea and Vomiting Oxycodone HCl (Oxycodone Hcl Immed Release 5 Mg Tablet) 10 mg PO Q4H PRN PRN Reason: Pain, Moderate (Pain Scale 4-6 Last Admin: 08/10/22 13:29 Dose: 10 mg Oxycodone HCl (Oxycodone Hcl Er 10 Mg Tab.Er.12h) 10 mg PO BID [facility] Last Admin: 08/10/22 07:40 Dose: 10 mg Sodium Chloride (0.9 % Sodium Chloride Flush 3 Ml Syringe) 3 ml IVFLUSH QSHIFT [facility] Last Admin: 08/10/22 06:51 Dose: Not Given Home Medications Medication Instructions Recorded Confirmed Last Taken Type No Known Home Meds 08/09/22 08/09/22 Unknown History Physical Exam Vital Signs and Narrative: Vital Signs: Last Vital Signs Temp 96.4 F L 08/10/22 11:43 Pulse 78 08/10/22 11:43 Resp 16 08/10/22 11:43 BP 119/58 L 08/10/22 11:43 Pulse Ox 96 08/10/22 11:43 O2 Del Method 08/10/22 11:43 O2 Flow Rate 2 08/09/22 18:58 BMI result Body Mass Index 33.2 Constitutional - Awake and Alert, No apparent distress Eyes - PERRLA, EOMI Cardiovascular - S1S2, RRR, no edema. Left radial pulse 1+, right radial pulse 2+. 2+ pedal pulses b/l. Capillary refill <2s left hand Respiratory - Normal lung expansion, Normal respiratory effort, No respiratory distress, CTA bilaterally Gastrointestinal - NT / ND; +BS; No rebound or guarding Extremities - no calf tenderness bilaterally, no swelling Skin - Warm/Dry, no cyanosis Neurological - Alert & oriented x3, 5/5 strength BUE Psychological - Appropriate affect Results Labs CBC and Chem 7: 08/10/22 05:57 08/10/22 05:57 Labs: Laboratory Results - last 24 hr 08/10/22 08/10/22 05:57 05:57 MCV 104.3 H MCH 36.2 H MCHC 34.7 RDW 12.6 Plt Count 143 L MPV 11.0 Immature Gran % (Auto) 0.4 Neut % (Auto) 78.3 H Lymph % (Auto) 12.3 L Preston % (Auto) 8.6 Eos % (Auto) 0.1 Baso % (Auto) 0.3 Lymph # (Auto) 1.2 [place] # (Auto) 0.8 Eos # (Auto) 0.0 Baso # (Auto) 0.0 Abs Immat Gran (auto) 0.04 H Absolute Neuts (auto) 7.5 Absolute Nucleated RBC 0.000 Nucleated RBC % (auto) 0.0 Anion Gap 14 Estim Creat Clear Calc 114.2 Estimated GFR > 60 Fasting Glucose 104 H Calcium 8.8 D Imaging Radiologist's Impressions: Impressions Pelvis X-Ray 08/09/22 16:03 IMPRESSION: Incomplete imaging of the right hip replacement. Inferior stem of the femoral component is not included in the [id number]. No fracture or dislocation seen. Assessment and Plan (1) S/P total right hip arthroplasty: Status: Acute Plan 62 year old female who is a current every smoker with history of osteoarthritis, anxiety, cardiac murmur, and carpal tunnel syndrome admitted to orthopedics team for right total hip arthroplasty post-op day 1 with consult placed to medical team due to low blood pressures last night. 1- Weak left radial pulse -Left hand warm without cyanosis with 1+radial pulse, 2+right. No swelling, erythema, or warmth -Unable to capture blood pressure LUE -Arterial doppler RUE ordered -Pt has risk factors for PAD including smoking 2-Low blood pressure post-operatively -SBPs in the 90s. Bp 108/56 on exam RUE -Continue IVF -MOnitor BPs Thank you for this consult. Will continue to follow.
--- NOTE | 2022-08-10 14:39 | MHC.CM.PN ---
REFERRAL TO [facility] FOR HOME P.T. NEEDS. PATIENT CURRENTLY WITH FOOD SERVICES, RN, AND P.T. IN ROOM. THIS TAPPET ADJUSTER TO RETURN AT A MORE APPROPRIATE TIME TO COMPLETE ASSESSMENT.
--- NOTE | 2022-08-10 14:45 | HO.POSTANES ---
Post Anesthesia Evaluation Post Anesthesia Evaluation Vital Signs: Vital Signs Temp Pulse Resp BP Pulse Ox O2 Del Method 08/10/22 11:43 96.4 F L 78 16 119/58 L 96 Room Air 08/10/22 11:08 96.1 F L 99 17 128/76 97 Room Air 08/10/22 06:59 98 F 72 18 124/60 97 Room Air 08/10/22 03:29 97.4 F 66 17 114/68 97 Room Air Anesthesia: General Mental Status: Awake Pain Control: Satisfactory Nausea/Vomiting: None Hydration: Adequate Anesthesia-Related Issues: No Anes. Related Issues
--- NOTE | 2022-08-10 15:25 | MHC.CM.PN ---
PATIENT LIVES WITH HER DAUGHTER (NEW HCP) COPY TO BE PLACED IN CHART. PATIENT HAS A CANE BUT NO WALKER YET SHE WILL BE STAYING WITH HER SON JOE AT [address] IN [place]. MONTEZ MADE AWARE. JOEL BRISENO TOMORROW
[2022-08-10] MEDS: Enoxaparin Sodium 40 MG/0.4 ML SYRINGE SUBCUT (16:01)
[2022-08-10] MEDS: 0.9 % Sodium Chloride Flush 3 ML SYRINGE IVFLUSH (20:40)
[2022-08-11] VITALS (8 sets, daily range): BP systolic 114–148; BP diastolic 56–78; PULSE 69–95; RESP 18; TEMP 36.5–37.1; O2SAT 93–99
[2022-08-11 06:11] LABS: MANUAL DIFF FLAG NO
[2022-08-11 06:26] LABS: Basophils Absolute Auto 0.1 X10*3/uL (0.0-0.2); Basophils Percent Auto 0.7 % (0-2); Eosinophils Absolute Auto 0.2 X10*3/uL (0.0-0.4); Hematocrit 26.2 % (37.0-47.0); Hemoglobin 9.1 g/dl (12.0-16.0); Imm Gran Abs Auto 0.03 X10*3/uL (0.00-0.03); Imm Gran Pct Auto 0.4 % (0.0-0.4); Lymphocytes Absolute Auto 1.3 X10*3/uL (1.2-4.9); Lymphocytes Percent Auto 16.9 % (20-40); Mean Corpuscular HGB Conc 34.7 g/dl (31.0-35.0); Mean Corpuscular Hemoglobin 36.4 pg (27.0-33.0); Mean Corpuscular Volume 104.8 fL (80.0-98.0); Mean Platelet Volume 11.2 fL (9.4-12.3); Monocytes Absolute Auto 0.8 X10*3/uL (0.1-1.2); Monocytes Percent Auto 10.8 % (2-11); Neutrophils Absolute Auto 5.1 x10*3/uL (2.0-8.3); Neutrophils Percent Auto 68.2 % (45-73); Platelet Count 114 X10*3/uL (160-400); Red Cell Distribution Width 12.7 % (11.0-16.0); White Blood Count 7.4 X10*3/uL (4.8-10.8)
[2022-08-11 06:40] LABS: Anion Gap 13 (12-20); Blood Urea Nitrogen 10 mg/dL (9-16); Calcium 8.5 mg/dL (8.4-10.2); Carbon Dioxide 24 mmol/L (22-29); Chloride 103 mmol/L (96-108); Creatinine Clr Calc Pharmacy 120.3; Estimated Glomerular Filt Rate > 60; Glucose Fasting 121 mg/dL (60-99); Potassium 3.7 mmol/L (3.3-5.1); Sodium 136 mmol/L (135-145)
[2022-08-11] MEDS: oxyCODONE HCl ER 10 MG TAB.ER.12H PO ×2 (07:40→19:55)
[2022-08-11] MEDS: Docusate Sodium 100 MG CAPSULE PO ×2 (07:41→19:55)
[2022-08-11] MEDS: Celecoxib 200 MG CAPSULE PO ×2 (07:41→19:55)
[2022-08-11] MEDS: 0.9 % Sodium Chloride Flush 3 ML SYRINGE IVFLUSH ×3 (07:41→19:56)
[2022-08-11] MEDS: HYDROmorphone HCl 0.5 MG/0.5 ML SYRINGE 0.25 MG IVPUSH ×2 (07:42→15:30)
--- NOTE | 2022-08-11 08:50 | P.DS_ITS ---
DS: Providers Provider Date of Service: 08/12/22 Date of admission: 08/09/22 10:03 Primary care physician: Luisito Gonzalez MD Consults: 08/10/22 11:48 Consult to Hospitalist Routine Consulting Provider: Hospitalist Reason For Exam: s/p rt irina, hypotension 08/10/22 18:35 Consult to Vascular Surgery Routine Consulting Provider: Kevon Steinberg Reason for consultation: inflow stenosis subclavian artery lue DS: Diagnosis Discharge Diagnosis (1) S/P total right hip arthroplasty: Status: Acute DS: Summary Hospital Course Hospital Course: The patient underwent a successful right total hip arthroplasty, they were transferred to PACU and then to the floor to recover. During their stay, their vitals were stable, afebrile at 98.0. Labs were unremarkable, H/H 9.1/26.8. POD 1 they were started on Lovenox for DVT ppx, they also received Physical Therapy services twice a day. Prior to discharge, their dressing was changed, incision clean dry and intact, new Aquacel dressing applied and the plan was to be discharged home with VNA services. Time Spent with Patient Time attestation: Total time spent providing and/or coordinating discharge services: Discharge coordination time: Less than 30 minutes Quality: Safe Use of Opioids Does Pt have an Active Cancer Diagnosis on the Problem List?: No Quality: Stroke Does the patient have a stroke diagnosis?: No Physical Exam Vital Signs: Vital Signs: Last Vital Signs Temp 98 F 08/11/22 06:58 Pulse 75 08/11/22 06:58 Resp 18 08/11/22 06:58 BP 133/62 08/11/22 06:58 Pulse Ox 96 08/11/22 06:58 O2 Del Method 08/11/22 06:58 O2 Flow Rate 2 08/09/22 18:58 BMI result Body Mass Index 33.2 Extrem: Other: Right hip Aquacel is clean, dry, and intact. Incision site intact. No erythema or drainage. Sensation intact. Able to dorsiflex and plantarflex. NVI. DS: Data Data Completed and Pending Pending studies at discharge: Pending at discharge 08/09/22 15:29 Surgical [PTH] Routine Labs on day of discharge: Laboratory Results - last 24 hr 08/11/22 08/11/22 05:30 06:02 WBC 7.4 RBC 2.50 L Hgb 9.1 L Hct 26.2 L MCV 104.8 H MCH 36.4 H MCHC 34.7 RDW 12.7 Plt Count 114 L MPV 11.2 Immature Gran % (Auto) 0.4 Neut % (Auto) 68.2 Lymph % (Auto) 16.9 L [place] % (Auto) 10.8 Eos % (Auto) 3.0 Baso % (Auto) 0.7 Lymph # (Auto) 1.3 [place] # (Auto) 0.8 Eos # (Auto) 0.2 Baso # (Auto) 0.1 Abs Immat Gran (auto) 0.03 Absolute Neuts (auto) 5.1 Absolute Nucleated RBC 0.000 Nucleated RBC % (auto) 0.0 Sodium 136 Potassium 3.7 Chloride 103 Carbon Dioxide 24 Anion Gap 13 BUN 10 Creatinine 0.57 Estim Creat Clear Calc 120.3 Estimated GFR > 60 Fasting Glucose 121 H Calcium 8.5 Discharge Plan Discharge Patient Disposition: Home Health Service Discharge Diagnosis: RT IRINA Referrals: Chuck Evangelista PA-C [Physician Bioinformatics Developer] - 2 Weeks (2:00 [facility] Chuck Evangelista PA-C) Discharge Medications: New enoxaparin 40 mg/0.4 mL Syringe 40 mg subcut Q24H 42 Days Qty: 16.8 0RF celecoxib 200 mg Capsule 200 mg PO BID 14 Days Qty: 28 0RF acetaminophen 325 mg Tablet 650 mg PO Q6H PRN (Reason: Pain, Mild (Pain Scale 1-3)) 30 Days Qty: 240 0RF oxycodone 10 mg tablet 10 mg PO Q4H PRN (Reason: Pain, Moderate (Pain Scale 4-6) 7 Days Qty: 42 0RF Rx Instructions: Partial Fill upon patient request. docusate sodium 100 mg Capsule 100 mg PO BID 14 Days Qty: 28 0RF Discharge Orders: Discharge Order (Routine); Ordered 08/12/22 Ordered By: Patience Gandhi Diet: Regular diet Activity on Discharge: Use cane or walker Stand Alone Forms: Patient Portal Discharge page Care Plan Goals: Restore function of joint Health Concerns: none Plan of Treatment: Physical Therapy Pain management DVT prophylaxis Assessment: * Physical Therapy for Total hip arthroplasty: wbat, posterior precautions, gait training, ROM, strength * Limit stair climbing * No showering, no tub bath-keep dressing clean, dry and intact * No driving x6 weeks * Continue Lovenox once a day x 6 weeks * Follow up with [facility] Orthopedics in 2 weeks: 08/25/22 @ 2pm * --you will also have your first out patient PT jackie on the day of your post op appt-so please plan on being in the office that day for an extended period of time.
--- NOTE | 2022-08-11 13:27 | P.CONGS_ITS ---
History of Present Illness Consult details Consult date: 08/11/22 Narrative: Pleasant 62-year-old female who presented to to the hospital for right hip arthroplasty. Postprocedure she was noted to have a blood pressure differential between right and left arm. She actually reports that it had been noticed in her primary cares office prior to this admission. She reports that she may even have an element of hypertension noted on the right arm and she thought that was secondary to white coat syndrome. Upon discussion with her she is totally asymptomatic from the left arm. She denies any difficulty using it no pain or discomfort. Also of note she smokes about half pack per day Review of Systems Review of Systems: Yes all other systems are reviewed and are negative Constitutional: Constitutional: Reports no additional constitutional comp laints ENT: Reports Normal hearing present Cardiovascular: Cardiovascular: Denies chest pain, Denies chest pain at rest, Denies chest pain with activity and Denies pedal edema Respiratory: Respiratory: Denies cough Gastrointestinal: Gastrointestinal: Denies abdominal pain Musculoskeletal: Musculoskeletal: Denies abnormal gait, Denies muscle cramps and Denies radiating pain into limb Integumentary/Breasts: Skin/Breast: Denies skin ulcer and Denies wounds Neurologic: Reports Normal hearing present and Denies abnormal gait Psychiatric: Psychiatric: Reports no additional psychiatric complaints PMF Past Medical History Medical History Anxiety Arthritis Carpal tunnel syndrome Heart murmur Family History Family History Father Heart problem Mother No problems noted. Surgical History Surgical History Abdominal mass H/O: hysterectomy History of arthroscopy of right knee History of carpal tunnel surgery of left wrist History of tonsillectomy History of tubal ligation Hx of section Status post left hip replacement Social History Social History Are you a primary career development counselor to a significant other at home: No Do you presently have visiting nurse or other home services: No (to live with son post op) Patient Tobacco Use Status: Current everyday Tobacco user Tobacco use type: Cigarette Cigarettes Per Day: 5 Smoked in Last 30 Days: Yes Patient Interested in Nicotine Replacement: Yes Patient Given Instructions on How to Stop Smoking: No Second Hand Smoke Exposure: Yes Use of substances other than those prescribed or required for medical reasons: No Substance Use Frequency: Occasionally Currently Displaying Signs/Symptoms of Drug Intoxication Withdrawal: No Have you been hit, kicked, punched, or otherwise hurt by someone within the past year? If so, by whom?: No Are you DNR?: No Advance Directives: No Advance Directives Information Provided: Yes (info given) Advance Directives on File: No Recently lost weight without trying: No Eating poorly because of decreased appetite: No Nutrition Risks: No Nutritional Risk Patient : No : No service: No Current occupational status: unemployed Meds Allergies Allergy/AdvReac Type Severity Reaction Status Date / Time No Known Allergies Allergy Verified 08/04/22 14:02 [No Known Allergies*] Active Medications: Current Medications Acetaminophen (Acetaminophen 325 Mg Tablet) 650 mg PO Q6H PRN PRN Reason: Pain, Mild (Pain Scale 1-3) Celecoxib (Celecoxib 200 Mg Capsule) 200 mg PO BID [facility] Last Admin: 08/11/22 07:41 Dose: 200 mg Docusate Sodium (Docusate Sodium 100 Mg Capsule) 100 mg PO BID [facility] Last Admin: 08/11/22 07:41 Dose: 100 mg Enoxaparin Sodium (Enoxaparin Sodium 40 Mg/0.4 Ml Syringe) 40 mg SUBCUT Q24H [facility] Last Admin: 08/10/22 16:01 Dose: 40 mg Fentanyl (Fentanyl Citrate/Pf 100 Mcg/2 Ml Vial) 25 mcg IVPUSH Q5M PRN; Protocol PRN Reason: Pain, Moderate (Pain Scale 4-6 Hydromorphone HCl (Hydromorphone Hcl 0.5 Mg/0.5 Ml Syringe) 0.25 mg IVPUSH Q5M PRN; Protocol PRN Reason: Pain, Severe (Pain Scale 7-10) Hydromorphone HCl (Hydromorphone Hcl 0.5 Mg/0.5 Ml Syringe) 0.25 mg IVPUSH Q4H PRN; Protocol PRN Reason: Pain, Severe (Pain Scale 7-10) Last Admin: 08/11/22 07:42 Dose: 0.25 mg Ondansetron HCl (Ondansetron Hcl 4 Mg/2 Ml Vial) 4 mg IVPUSH Q8H PRN PRN Reason: Nausea and Vomiting Oxycodone HCl (Oxycodone Hcl Immed Release 5 Mg Tablet) 10 mg PO Q4H PRN PRN Reason: Pain, Moderate (Pain Scale 4-6 Last Admin: 08/10/22 17:39 Dose: 10 mg Oxycodone HCl (Oxycodone Hcl Er 10 Mg Tab.Er.12h) 10 mg PO BID [facility] Last Admin: 08/11/22 07:40 Dose: 10 mg Sodium Chloride (0.9 % Sodium Chloride Flush 3 Ml Syringe) 3 ml IVFLUSH QSHIFT [facility] Last Admin: 08/11/22 07:41 Dose: 3 ml Physical Exam Vital Signs: Vital Signs: Last Vital Signs Temp 98 F 08/11/22 10:47 Pulse 77 08/11/22 10:47 Resp 18 08/11/22 10:47 BP 125/60 08/11/22 10:47 Pulse Ox 99 08/11/22 10:47 O2 Del Method 08/11/22 10:47 O2 Flow Rate 2 08/09/22 18:58 BMI result Body Mass Index 33.2 Const: General: cooperative, healthy appearing and comfortable Orientation/consciousness: oriented to person, oriented to place and oriented to time HEENT: Head: Yes normal to inspection Neck: Neck: Yes normal visual inspection Carotids: no bruits Chest: Chest palpation & inspection: normal inspection of the chest Resp: Effort & Inspection: normal respiratory effort and able to speak in complete sentences Auscultation: clear to auscultation bilaterally, no crackles, no rales, no rhonchi and no wheezes Cardio: Other: Right arm palpable brachial radial and ulnar pulse, left arm palpable brachi al diminished radial pulse but is present. Rate: regular rate Rhythm: regular rhythm Heart sounds: S1 normal heart sound present and S2 normal heart sound present Bruits: no carotid bruits GI: Inspection: Yes normal to inspection Skin: Wounds: no wounds Hair: normal Neuro: General: oriented to person, oriented to place and oriented to time Cranial nerves: Yes CN's II-XII intact bilaterally and Yes Normal hearing present Cognition (Neuro): normal cognition Motor exam (neuro): 5/5 motor strength present throughout Extrem: Other: venous exam: No significant superficial varicosities or spider telangiectasias, minimal edema General: No clubbing, No cyanosis and No edema Psych: Appearance: grossly normal Mental Status: mental status grossly normal Speech and movement: Normal speech and movement present Results Labs Result diagrams: 08/11/22 05:30 08/11/22 06:02 Labs: Abnormal lab results 08/11/22 08/11/22 Range/Units 05:30 06:02 RBC 2.50 L (4.20-5.50) X10*6/uL Hgb 9.1 L (12.0-16.0) g/dl Hct 26.2 L (37.0-47.0) % MCV 104.8 H (80.0-98.0) fL MCH 36.4 H (27.0-33.0) pg Plt Count 114 L (160-400) X10*3/uL Lymph % (Auto) 16.9 L (20-40) % Fasting Glucose 121 H (60-99) mg/dL Short CBC 08/11/22 Range/Units 05:30 WBC 7.4 (4.8-10.8) X10*3/uL Hgb 9.1 L (12.0-16.0) g/dl Hct 26.2 L (37.0-47.0) % Plt Count 114 L (160-400) X10*3/uL BMP 08/11/22 06:02 Sodium 136 Potassium 3.7 Chloride 103 Carbon Dioxide 24 BUN 10 Creatinine 0.57 Calcium 8.5 All other labs normal. Assessment and Plan (1) Stenosis of left subclavian artery: Status: Acute Plan in short patient may have an element left subclavian stenosis. Noninvasive arterial ultrasound was reviewed and does appear to have monophasic flow Of the left arm. We did discuss risk factor modification and the importance of smoking cessation. She does not require any emergent intervention. She can follow up with me as an outpatient. Thank you for allowing us to assist in her care. If there are any questions or concerns please do not hesitate to contact us. Procedures Date of Service Date of Service: 08/11/22
[2022-08-11] MEDS: iohexoL 350 MG/ML 100 ML INFUS..BTL IV (14:00)
--- NOTE | 2022-08-11 15:30 | MHC.CM.PN ---
PATIENT EXPECTED TO RETURN HOME (TO HER SON'S HOME) TOMORROW 08/12/22 WILL NEED SCRIPT FOR WALKER AND TOILET RISER - ORTHO PA MADE AWARE.
[2022-08-11] MEDS: Enoxaparin Sodium 40 MG/0.4 ML SYRINGE SUBCUT (15:31)
[2022-08-11] MEDS: oxyCODONE HCl Immed Release 5 MG TABLET 10 MG PO (19:55)
--- NOTE | 2022-08-11 20:59 | PM.PNORT ---
Subjective Subjective Date of Service: 08/11/22 Interval history: POD 2 s/p RTHA. Patient is resting in bed comfortably. No overnight events. Pain is managed. No additional complaints. Physical Exam Vital Signs: Vital Signs: Last Vital Signs Temp 98.3 F 08/11/22 19:22 Pulse 74 08/11/22 19:22 Resp 18 08/11/22 19:22 BP 123/58 L 08/11/22 19:22 Pulse Ox 98 08/11/22 19:22 O2 Del Method 08/11/22 19:22 O2 Flow Rate 2 08/09/22 18:58 BMI result Body Mass Index 33.2 Const: General: cooperative, healthy appearing and no acute distress Resp: Effort & Inspection: normal respiratory effort and able to speak in complete sentences Cardio: Rate: regular rate Peripheral pulses: Peripheral pulses 2+ throughout GI: Palpation (GI): Soft to palpation Skin: General skin exam: no rashes or lesions noted Extrem: Other: incision clean dry and intact. Theresa intact. No erythema or effusion. Calf supple nontender. Neurovascularly intact. Procedures Date of Service Date of Service: 08/11/22 Progress Note: A&P Assessment and plan (1) S/P total right hip arthroplasty: Status: Acute Assessment and Plan: Continue pain mgmnt Lovenox for dvt ppx PT /OT for RTHA Vascular consult: +/- subclavian stenosis, no acute intervention warranted. Recommend smoking cessation. Dispo planning-Pending PT eval, pain mgmnt Time Spent With Patient Time: Total time spent is greater than 50% in coordination of care (as documented) at patient's floor/unit and/or counseling patient: Quality Stroke Does the patient have a stroke diagnosis?: No VTE Prior VTE?: No VTE Risk Level:: Medical - moderate - high VTE Device Contraindication: N/A - Device Ordered VTE Drug Contraindication: N/A - Med Ordered
[2022-08-12 03:11] VITALS: BP 143/65; PULSE 64; RESP 18; TEMP 36.6; O2SAT 96
[2022-08-12 07:02] VITALS: BP 150/69; PULSE 81; RESP 18; TEMP 36.1; O2SAT 99
[2022-08-12 07:10] LABS: MANUAL DIFF FLAG NO
[2022-08-12 07:22] LABS: Basophils Percent Auto 0.5 % (0-2); Eosinophils Absolute Auto 0.3 X10*3/uL (0.0-0.4); Eosinophils Percent Auto 4.5 % (0-4); Hematocrit 26.8 % (37.0-47.0); Hemoglobin 9.1 g/dl (12.0-16.0); Imm Gran Abs Auto 0.02 X10*3/uL (0.00-0.03); Imm Gran Pct Auto 0.3 % (0.0-0.4); Lymphocytes Absolute Auto 1.1 X10*3/uL (1.2-4.9); Lymphocytes Percent Auto 18.4 % (20-40); Mean Corpuscular Volume 105.9 fL (80.0-98.0); Mean Platelet Volume 11.6 fL (9.4-12.3); Monocytes Absolute Auto 0.5 X10*3/uL (0.1-1.2); Monocytes Percent Auto 8.8 % (2-11); Neutrophils Absolute Auto 4.1 x10*3/uL (2.0-8.3); Neutrophils Percent Auto 67.5 % (45-73); Platelet Count 125 X10*3/uL (160-400); Red Blood Count 2.53 X10*6/uL (4.20-5.50); Red Cell Distribution Width 12.7 % (11.0-16.0)
[2022-08-12 07:40] LABS: Anion Gap 16 (12-20); Blood Urea Nitrogen 9 mg/dL (9-16); Calcium 8.7 mg/dL (8.4-10.2); Carbon Dioxide 23 mmol/L (22-29); Chloride 102 mmol/L (96-108); Creatinine Clr Calc Pharmacy 124.6; Estimated Glomerular Filt Rate > 60; Glucose Fasting 134 mg/dL (60-99); Potassium 3.5 mmol/L (3.3-5.1); Sodium 137 mmol/L (135-145)
[2022-08-12 09:07] VITALS: BP 150/69; PULSE 81; O2SAT 99
[2022-08-12] MEDS: oxyCODONE HCl ER 10 MG TAB.ER.12H PO (09:48)
[2022-08-12] MEDS: Docusate Sodium 100 MG CAPSULE PO (09:48)
[2022-08-12] MEDS: Celecoxib 200 MG CAPSULE PO (09:48)
[2022-08-12] MEDS: 0.9 % Sodium Chloride Flush 3 ML SYRINGE IVFLUSH ×2 (09:48→14:28)
--- NOTE | 2022-08-12 09:51 | MHC.CM.PN ---
Addendum entered by Kristan David 08/12/22 15:12: INSURANCE AUTH RECEIVED, NEGATIVE COVID RESULTS SENT PT WILL DC TO [facility] VIA [employer] BLS AT 1700 HOURS Addendum entered by Kristan David 08/12/22 13:03: CM RECEIVED A CALL FROM [facility] LIAISON WHO REPORTS CONCERN REGARDING PTS INITIAL ASSESSMENT HE REPORTS ON THE NURSING ASSESSMENT IT INDICATES PT DOES NOT USE ANY SUBSTANCES THAT ARE NOT PRESCRIBED HOWEVER UNDER THAT IT SAYS OCCASIONALLY. CM MET WITH PT WHO REPORTS IT WAS [place] THAT SHE USED A FEW TIMES FOR PAIN CM UPDATED LIAISON WHO REPORTS THAT IS FINE AND HE IS STILL WAITING FOR INSURANCE AUTH Original Note: PATIENT SEEN BY PT/OT THIS MORNING AND IS NOW STR APPROPRIATE PT REPORTS SHE FEELS SHE NEEDS STR SHE IS UNABLE TO STAND/WALK CM INFORMED HER THAT HER INSURANCE WAS CONTACTED WITH FEW FACILITIES, SHE IS AGREEABLE TO A BROAD REFERRAL BEING MADE. REFERRAL WAS PLACED AND [facility] IS OFFERING A BED FOR TODAY PENDING INSURANCE AUTH
[2022-08-12 11:15] VITALS: BP 122/75; PULSE 81; RESP 18; TEMP 36.1; O2SAT 96
[2022-08-12 11:22] LABS: COVID-19 Test Negative (Negative); IDNOW Serial# 55D5AD1C
[2022-08-12] MEDS: Enoxaparin Sodium 40 MG/0.4 ML SYRINGE SUBCUT (14:28)
[2022-08-12 14:43] VITALS: BP 122/75; PULSE 81; O2SAT 96
[2022-08-12 15:29] VITALS: BP 137/64; PULSE 76; RESP 17; TEMP 36.8; O2SAT 100
--- NOTE | 2022-08-12 16:55 | HO.PM.IMPN ---
Subjective Subjective Date of Service: 08/12/22 Interval History: seen and examined this morning follow up for hypotension following right MARCO A bp improved. no dizziness, sob, chest pain found to have left subclavian stenosis no overnight events Review of Systems Review of Systems: Yes all other systems are reviewed and are negative Constitutional Constitutional: Denies chills and Denies fever(s) ENT Ears, Nose, Mouth, and Throat: Denies dizziness Cardiovascular Cardiovascular: Denies chest pain, Denies palpitations and Denies dyspnea Respiratory Respiratory: Denies cough and Denies dyspnea Gastrointestinal Gastrointestinal: Denies abdominal pain, Denies diarrhea, Denies nausea and Denies vomiting Neurologic Neurologic: Denies dizziness Endocrine Endocrine: Denies palpitations Physical Exam Vital Signs: Vital Signs: Last Vital Signs Temp 98.2 F 08/12/22 15:29 Pulse 76 08/12/22 15:29 Resp 17 08/12/22 15:29 BP 137/64 08/12/22 15:29 Pulse Ox 100 08/12/22 15:29 O2 Del Method 08/12/22 15:29 O2 Flow Rate 2 08/09/22 18:58 BMI result Body Mass Index 33.2 Const: General: alert and awake Nutritional Appearance: overweight Orientation/consciousness: patient oriented x3 Resp: Effort & Inspection: normal respiratory effort and able to speak in complete sentences Auscultation: diminished lung sounds Cardio: Rate: regular rate Heart sounds: S1 normal heart sound present and S2 normal heart sound present GI: Inspection: No distended Palpation (GI): Soft to palpation and nontender Neuro: General: patient oriented x3 and CN's II-XI intact bilaterally Extrem: General: Yes no pedal edema Objective Data Active Medications Acetaminophen (Acetaminophen 325 Mg Tablet) 650 mg PO Q6H PRN PRN Reason: Pain, Mild (Pain Scale 1-3) Celecoxib (Celecoxib 200 Mg Capsule) 200 mg PO BID [facility] Last Admin: 08/12/22 09:48 Dose: 200 mg Documented By: UNRULY Docusate Sodium (Docusate Sodium 100 Mg Capsule) 100 mg PO BID [facility] Last Admin: 08/12/22 09:48 Dose: 100 mg Documented By: UNRULY Enoxaparin Sodium (Enoxaparin Sodium 40 Mg/0.4 Ml Syringe) 40 mg SUBCUT Q24H [facility] Last Admin: 08/12/22 14:28 Dose: 40 mg Documented By: UNRULY Fentanyl (Fentanyl Citrate/Pf 100 Mcg/2 Ml Vial) 25 mcg IVPUSH Q5M PRN; Protocol PRN Reason: Pain, Moderate (Pain Scale 4-6 Hydromorphone HCl (Hydromorphone Hcl 0.5 Mg/0.5 Ml Syringe) 0.25 mg IVPUSH Q5M PRN; Protocol PRN Reason: Pain, Severe (Pain Scale 7-10) Hydromorphone HCl (Hydromorphone Hcl 0.5 Mg/0.5 Ml Syringe) 0.25 mg IVPUSH Q4H PRN; Protocol PRN Reason: Pain, Severe (Pain Scale 7-10) Last Admin: 08/11/22 15:30 Dose: 0.25 mg Documented By: UNRULY Ondansetron HCl (Ondansetron Hcl 4 Mg/2 Ml Vial) 4 mg IVPUSH Q8H PRN PRN Reason: Nausea and Vomiting Oxycodone HCl (Oxycodone Hcl Immed Release 5 Mg Tablet) 10 mg PO Q4H PRN PRN Reason: Pain, Moderate (Pain Scale 4-6 Last Admin: 08/11/22 19:55 Dose: 10 mg Documented By: CHIARA Oxycodone HCl (Oxycodone Hcl Er 10 Mg Tab.Er.12h) 10 mg PO BID [facility] Last Admin: 08/12/22 09:48 Dose: 10 mg Documented By: UNRULY Sodium Chloride (0.9 % Sodium Chloride Flush 3 Ml Syringe) 3 ml IVFLUSH QSHIFT [facility] Last Admin: 08/12/22 14:28 Dose: 3 ml Documented By: UNRULY Labs CBC & Chem 7: 08/12/22 05:55 08/12/22 05:55 Labs: Laboratory Results - last 24 hr 08/12/22 08/12/22 08/12/22 05:55 05:55 11:00 MCV 105.9 H MCH 36.0 H MCHC 34.0 RDW 12.7 Plt Count 125 L MPV 11.6 Immature Gran % (Auto) 0.3 Neut % (Auto) 67.5 Lymph % (Auto) 18.4 L [place] % (Auto) 8.8 Eos % (Auto) 4.5 H Baso % (Auto) 0.5 Lymph # (Auto) 1.1 L [place] # (Auto) 0.5 Eos # (Auto) 0.3 Baso # (Auto) 0.0 Abs Immat Gran (auto) 0.02 Absolute Neuts (auto) 4.1 Absolute Nucleated RBC 0.000 Nucleated RBC % (auto) 0.0 Anion Gap 16 Estim Creat Clear Calc 124.6 Estimated GFR > 60 Fasting Glucose 134 H Calcium 8.7 COVID-19 ([place]) Negative COVID-19 Clin Com See Note Assessment and Plan (1) Stenosis of left subclavian artery: Status: Acute (2) S/P total right hip arthroplasty: Status: Acute Plan 62 year old female who is a current every smoker with history of osteoarthritis, anxiety, cardiac murmur, and carpal tunnel syndrome admitted to orthopedics team for right total hip arthroplasty post-op day 1 with consult placed to medical team due to low blood pressures last night. Weak left radial pulse arterial ultrasound showed monophasic flow the left arm and severe stenosis of left subclavian artery seen by vascular surgery, no acute intervention required -outpatient follow-up recommended Low blood pressure post-operatively Improved with IVF tobacco dependence smoking cessation advised POD#2 s/p right MARCO A management per ortho dvt ppx - lovenox attending - dr. ewing Quality Stroke Does the patient have a stroke diagnosis?: No VTE Prior VTE?: No VTE Risk Level:: Medical - moderate - high VTE Device Contraindication: N/A - Device Ordered VTE Drug Contraindication: N/A - Med Ordered
[2022-08-12] MEDS: oxyCODONE HCl Immed Release 5 MG TABLET 10 MG PO (17:07)
== END 2022-08-12 18:19 | disposition skilled nursing facility (03) | DRG 324 ==
LOC: HO.SSSA 10:18 → HO.S3 19:22
PROVIDERS: Physician Assistant; Admitting Provider Orthopaedic Surgery; PCP Internal Medicine; Visit Provider Orthopaedic Surgery
PROC: 0SR90JA Replacement of Right Hip Joint with Synthetic Substitute, Uncemented, Open Approach (ICD-10-PCS; CPT 27130; principal; 2022-08-09 11:50)
DX: M16.11 Unilateral primary osteoarthritis, right hip (principal); F17.210 Nicotine dependence, cigarettes, uncomplicated; I70.208 Unspecified atherosclerosis of native arteries of extremities, other extremity; I95.81 Postprocedural hypotension; R01.1 Cardiac murmur, unspecified; F41.9 Anxiety disorder, unspecified; Z96.642 Presence of left artificial hip joint; Z71.6 Tobacco abuse counseling; Z20.822 Contact with and (suspected) exposure to COVID-19; Z79.899 Other long term (current) drug therapy
CPT/HCPCS: 36415; 71275; 72170; 73206; 73502; 80048; 85025; 86850; 86900; 86901; 87635; 87640; 87641; 88305; 88311; 93931; 97110; 97116; 97162; 97166; 97535; C1713; C1776; J0131; J0690; J1100; J1170; J1650; J2250; J2370; J2405; J2795; J3010; Q9967

== ENCOUNTER 2022-08-18 13:01 | Emergency (ER) | payer OTHER, SELFPAY ==
--- NOTE | ~2022-08-18 | CT_ITS ---
EXAMINATION: CT HIP WITH CONTRAST, RIGHT CLINICAL INFORMATION: Status post hip arthroplasty with cellulitis and drainage. COMPARISON: Pelvis and right hip radiographs 08/11/2022 TECHNIQUE: Axial images were obtained through the right hip following the intravenous administration of 85 mL Omnipaque 350. Coronal and sagittal reformatted images were generated. This CT examination was performed using dose optimization techniques as appropriate, variously including the following: *Automated exposure control *Adjustment of mA and/or kV according to patient size (this includes techniques or standardized protocols for targeted exams where dose is matched to indication/reason for exam; i.e. extremities or head) *Use of iterative reconstruction technique DLP: 227 mGy-cm FINDINGS: Status post noncemented right total hip arthroplasty. No periprosthetic fracture or dislocation. No periprosthetic radiolucency. No periosteal reaction. No periarticular fluid collection to suggest abscess. There is skin edema and subcutaneous edema overlying the lateral aspect of the hip and thigh. A couple small bubbles of subcutaneous gas in the subcutaneous fat anterolateral to the greater trochanter, presumably representing resolving postoperative gas. No other tracking soft tissue gas. Moderate to severe right gluteus minimus minimus muscle atrophy is noted. Prominent right inguinal lymph node measuring 1.1 cm in short axis is most likely reactive. Visualized bladder is grossly unremarkable, limited assessment due to streak artifact. CT/CT hip RT w IV con IMPRESSION: 1. Skin and subcutaneous edema overlying the lateral left hip and along the thigh consistent with history of cellulitis. 2. No loculated fluid collection/abscess identified. 3. Couple small bubbles of subcutaneous gas, likely resolving postoperative change. No other tracking gas identified.
--- NOTE | 2022-08-18 13:24 | ED_ITS ---
HPI - General Adult General Chief complaint: General Medical Stated complaint: surgical wound check Time Seen by Provider: 08/18/22 13:23 Source: patient Mode of arrival: ambulatory History of Present Illness HPI narrative: 62-year-old female with a past medical history of anxiety, carpal tunnel, s/p right hip total arthroplasty on 08/12/[address] Angelo, presenting to the ED for active drainage from surgical site. Patient was evaluated in orthopedic office on 08/16, new Aquacel dressing was applied, patient is currently at [facility] getting physical therapy, was also started on Keflex at their facility at outpatient venous duplex ultrasound which was unremarkable per patient. States today after physical therapy noted large amount of wetness to RLE. denies increasing pain, fever, chills, numbness/ tingling, SOB Onset (ago): day(s) Related Data Previous Rx's Medication Instructions Recorded acetaminophen 325 mg tablet 650 mg PO Q6H PRN Pain, Mild (Pain 08/10/22 Scale 1-3) 30 days #240 tabs celecoxib 200 mg capsule 200 mg PO BID 14 days #28 caps 08/10/22 docusate sodium 100 mg capsule 100 mg PO BID 14 days #28 caps 08/10/22 enoxaparin 40 mg/0.4 mL 40 mg (0.4 mL) subcut Q24H 42 days 08/10/22 subcutaneous syringe #16.8 mL oxycodone 10 mg tablet 10 mg PO Q4H PRN Pain, Moderate 08/10/22 (Pain Scale 4-6 7 days #42 tabs Elevated toliet seat #1 ea 08/18/22 doxycycline hyclate 100 mg tablet 100 mg PO BID 7 days #14 tabs 08/18/22 Allergies Allergy/AdvReac Type Severity Reaction Status Date / Time No Known Allergies Allergy Verified 08/04/22 14:02 [No Known Allergies*] Review of Systems Review of Systems: Constitutional: No Fever, No Chills, No Fatigue, No Malaise ENT/Mouth: No Ear Pain, No Nasal Congestion,No sore throat, No Rhinorrhea, No Swallowing Difficulty Eyes: No Eye Pain, No Swelling, No Redness, No Vision Changes Cardiovascular: No Chest Pain, No SOB, No Dyspnea on Exertion, No Orthopnea, No Edema, No Palpitations Respiratory: No Cough, No Sputum, No Dyspnea Gastrointestinal: No Nausea, No Vomiting, No Diarrhea, No Constipation, No Abdominal pain Genitourinary: No Dysuria, No Urinary Frequency, No Hematuria, No Flank Pain Musculoskeletal: + joint pain, No Myalgias, No Joint Swelling Skin: No Skin Lesions, No rash Neuro: No Weakness, No Numbness, No Paresthesias, No Loss of Consciousness, No Dizziness, No Headache Yes all other systems are reviewed and are negative Constitutional: Constitutional: Reports as per [facility] Past Medical History Attestation statement: The following information was validated with the patient. Medical History Anxiety Arthritis Carpal tunnel syndrome Heart murmur Surgical History Abdominal mass H/O: hysterectomy History of arthroscopy of right knee History of carpal tunnel surgery of left wrist History of tonsillectomy History of tubal ligation Hx of section Status post left hip replacement Family History Family History Father Heart problem Mother No problems noted. Social History Social History Are you a primary healthcare network consultant to a significant other at home: No Do you presently have visiting nurse or other home services: No (to live with son post op) Patient Tobacco Use Status: Current everyday Tobacco user Tobacco use type: Cigarette Cigarettes Per Day: 5 Second Hand Smoke Exposure: Yes Advance Directives: Yes Advance Directives on File: Yes Advance Directives Date on File: 08/15/22 Patient : No service: No Current occupational status: unemployed Physical Exam ED Vital Signs: Vital Signs - 24 hr 08/18/22 13:29 Temperature 98.7 F Pulse Rate 74 Respiratory Rate 18 Blood Pressure 113/52 L Pulse Oximetry 97 Oxygen Delivery Method Room Air BMI result Body Mass Index 32.8 Const General: cooperative, healthy appearing and no acute distress Orientation/consciousness: patient oriented x3 Limitations: no limitations HENMT Head: Yes normal to inspection and Yes atraumatic Ears: hearing grossly normal bilaterally General nose exam: Normal external nose present Face and sinus: Yes normal facial exam Eyes General: appearance normal, both eyes and all related structures EOM: EOMs intact bilaterally Neck Neck: Yes normal visual inspection and Yes no meningeal signs Resp Effort & Inspection: normal respiratory effort and no respiratory distress Auscultation: clear to auscultation bilaterally Cardio Rate: regular rate Heart sounds: S1 normal heart sound present and S2 normal heart sound present Peripheral pulses: Peripheral pulses 2+ throughout GI Inspection: Yes normal to inspection Palpation (GI): Soft to palpation, nontender, no guarding and not rigid Skin Rashes: no rashes Wounds: no wounds Neuro General: patient oriented x3, tone normal and no meningeal signs Extrem Other: please refer to image above. [place] intact to the right hip with surrounding erythema and warmth. Active bloody drainage noted with small hematoma distally. No fluctuance or induration. No streaking. Neurovascular intact distally Course Course Course Narrative: -1456-- empiric IV Zosyn and IVF ordered - H&H at patient's baseline (slowly dropping since postsurgical, no evidence of extensive extravasation at wound site) no leukocytosis. Mild hyponatremia at 133, labs otherwise reassuring. CT hip RT w IV con IMPRESSION: ? 1. Skin and subcutaneous edema overlying the lateral left hip and along the thigh consistent with history of cellulitis. 2. No loculated fluid collection/abscess identified. 3. Couple small bubbles of subcutaneous gas, likely resolving postoperative change. No other tracking gas identified. >> case discussed with Orthopoedics Dr. Angelo. Does not feel patient is having significant drainage or evidence of infection/joint at this time, small hematoma as noted. Was seen in their office 2 days ago. reports their nurse will be visiting patient in her rehab/ home and she should be seeing them in the office early next week. Stressed with patient importance of needing to move/ ambulate and risk of infected hip. She verbalized understanding. Will discharge with p.o. antibiotics back to SNF Medical Decision Making MDM Narrative Medical decision making narrative: 62-year-old female with a past medical history of anxiety, arthritis, carpal tunnel, s/p right hip total arthroplasty on 08/12/[address] Angelo, presenting to the ED for active drainage from surgical site. on exam vital signs stable, NAD, nontoxic appearing, physical exam as above, please refer to image. Concern for wound site infection vs underlying abscess or seroma. low suspicion for DVT. Low suspicion for septic joint plan: Labs, lactic/ blood cultures, CT, orthopedic consult Medical Records Medical records reviewed: Yes I reviewed the patient's medical records. Lab Data Lab results reviewed: Yes I reviewed the patient's lab results. Result diagrams: 08/18/22 14:43 08/18/22 14:43 Labs: Lab Results 08/18/22 08/18/22 08/18/22 Range/Units 14:43 14:43 14:43 WBC 7.8 (4.8-10.8) X10*3/uL RBC 2.52 L (4.20-5.50) X10*6/uL Hgb 8.9 L (12.0-16.0) g/dl Hct 25.9 L (37.0-47.0) % MCV 102.8 H (80.0-98.0) fL MCH 35.3 H (27.0-33.0) pg MCHC 34.4 (31.0-35.0) g/dl RDW 12.4 (11.0-16.0) % Plt Count 212 D (160-400) X10*3/uL MPV 10.5 (9.4-12.3) fL Immature Gran % (Auto) 0.8 H (0.0-0.4) % Neut % (Auto) 62.1 (45-73) % Lymph % (Auto) 23.3 (20-40) % Delta % (Auto) 10.1 (2-11) % Eos % (Auto) 3.3 (0-4) % Baso % (Auto) 0.4 (0-2) % Lymph # (Auto) 1.8 (1.2-4.9) X10*3/uL Delta # (Auto) 0.8 (0.1-1.2) X10*3/uL Eos # (Auto) 0.3 (0.0-0.4) X10*3/uL Baso # (Auto) 0.0 (0.0-0.2) X10*3/uL Abs Immat Gran (auto) 0.06 H (0.00-0.03) X10*3/uL Absolute Neuts (auto) 4.9 (2.0-8.3) x10*3/uL Absolute Nucleated RBC 0.000 (0.0-0.012) X10*3/uL Nucleated RBC % (auto) 0.0 (0.0-0.2) /100WBC PT 13.9 H (10.0-13.1) SEC INR 1.2 H (0.9-1.1) Sodium (135-145) mmol/L Potassium (3.3-5.1) mmol/L Chloride (96-108) mmol/L Carbon Dioxide (22-29) mmol/L Anion Gap (12-20) BUN (9-16) mg/dL Creatinine (0.5-1.4) mg/dL Estim Creat Clear Calc Estimated GFR Random Glucose (60-115) mg/dL Lactic Acid 1.0 (0.5-2.0) mmol/L Calcium (8.4-10.2) mg/dL 08/18/22 Range/Units 14:43 WBC (4.8-10.8) X10*3/uL RBC (4.20-5.50) X10*6/uL Hgb (12.0-16.0) g/dl Hct (37.0-47.0) % MCV (80.0-98.0) fL MCH (27.0-33.0) pg MCHC (31.0-35.0) g/dl RDW (11.0-16.0) % Plt Count (160-400) X10*3/uL MPV (9.4-12.3) fL Immature Gran % (Auto) (0.0-0.4) % Neut % (Auto) (45-73) % Lymph % (Auto) (20-40) % Delta % (Auto) (2-11) % Eos % (Auto) (0-4) % Baso % (Auto) (0-2) % Lymph # (Auto) (1.2-4.9) X10*3/uL Delta # (Auto) (0.1-1.2) X10*3/uL Eos # (Auto) (0.0-0.4) X10*3/uL Baso # (Auto) (0.0-0.2) X10*3/uL Abs Immat Gran (auto) (0.00-0.03) X10*3/uL Absolute Neuts (auto) (2.0-8.3) x10*3/uL Absolute Nucleated RBC (0.0-0.012) X10*3/uL Nucleated RBC % (auto) (0.0-0.2) /100WBC PT (10.0-13.1) SEC INR (0.9-1.1) Sodium 133 L (135-145) mmol/L Potassium 3.7 (3.3-5.1) mmol/L Chloride 99 (96-108) mmol/L Carbon Dioxide 24 (22-29) mmol/L Anion Gap 14 (12-20) BUN 10 (9-16) mg/dL Creatinine 0.59 (0.5-1.4) mg/dL Estim Creat Clear Calc 115.6 Estimated GFR > 60 Random Glucose 103 (60-115) mg/dL Lactic Acid (0.5-2.0) mmol/L Calcium 8.6 (8.4-10.2) mg/dL Discharge Plan Discharge Clinical Impression: Cellulitis Patient Disposition: er SNF Transfer Details: [facility] Instructions: Cellulitis (ED) Additional Instructions: your blood work was reassuring today. Your CT scan shows cellulitis, no evidence of abscess or other fluid collection. Doxycycline is an antibiotic, please take as prescribed, 100 mg twice daily for 7 days You need to follow-up in Dr. Angelo office early next week. His nurse will visit you at home/[facility]. YOU NEED TO BE UP/ MOVING AND AMBULATING, YOUR PUTTING HERSELF AT RISK OF INFECTING HER JOINT IF YOUR NOT MOVING if symptoms persist or worsen, redness worsens, spreads, you develop fever, or persistent unremitting drainage return to the emergency department Prescriptions: New doxycycline hyclate 100 mg tablet 100 mg PO BID 7 Days Qty: 14 0RF No Action (DME) Elevated toliet seat See Rx Instructions .ROUTE .MEDSUPPLY Qty: 1 0RF Rx Instructions: As directed enoxaparin 40 mg/0.4 mL Syringe 40 mg subcut Q24H 42 Days Qty: 16.8 0RF celecoxib 200 mg Capsule 200 mg PO BID 14 Days Qty: 28 0RF acetaminophen 325 mg Tablet 650 mg PO Q6H PRN (Reason: Pain, Mild (Pain Scale 1-3)) 30 Days Qty: 240 0RF oxycodone 10 mg tablet 10 mg PO Q4H PRN (Reason: Pain, Moderate (Pain Scale 4-6) 7 Days Qty: 42 0RF Rx Instructions: Partial Fill upon patient request. docusate sodium 100 mg Capsule 100 mg PO BID 14 Days Qty: 28 0RF Referrals: Panda Angelo MD [Physician] - 5 days ( early next week)
[2022-08-18 13:29] VITALS: BP 113/52; BP 92/60; PULSE 60; PULSE 74; RESP 18; TEMP 37.1; O2SAT 97; BMI 32.8
[2022-08-18 14:50] LABS: MANUAL DIFF FLAG NO
[2022-08-18 15:02] LABS: Basophils Percent Auto 0.4 % (0-2); Eosinophils Absolute Auto 0.3 X10*3/uL (0.0-0.4); Eosinophils Percent Auto 3.3 % (0-4); Hematocrit 25.9 % (37.0-47.0); Hemoglobin 8.9 g/dl (12.0-16.0); Imm Gran Abs Auto 0.06 X10*3/uL (0.00-0.03); Imm Gran Pct Auto 0.8 % (0.0-0.4); Lymphocytes Absolute Auto 1.8 X10*3/uL (1.2-4.9); Lymphocytes Percent Auto 23.3 % (20-40); Mean Corpuscular HGB Conc 34.4 g/dl (31.0-35.0); Mean Corpuscular Hemoglobin 35.3 pg (27.0-33.0); Mean Corpuscular Volume 102.8 fL (80.0-98.0); Mean Platelet Volume 10.5 fL (9.4-12.3); Monocytes Absolute Auto 0.8 X10*3/uL (0.1-1.2); Monocytes Percent Auto 10.1 % (2-11); Neutrophils Absolute Auto 4.9 x10*3/uL (2.0-8.3); Neutrophils Percent Auto 62.1 % (45-73); Platelet Count 212 X10*3/uL (160-400); Red Blood Count 2.52 X10*6/uL (4.20-5.50); Red Cell Distribution Width 12.4 % (11.0-16.0); White Blood Count 7.8 X10*3/uL (4.8-10.8)
[2022-08-18 15:03] LABS: INTERNATIONAL NORM RATIO 1.2 (0.9-1.1); Prothrombin Time 13.9 SEC (10.0-13.1)
[2022-08-18 15:06] LABS: Anion Gap 14 (12-20); Blood Urea Nitrogen 10 mg/dL (9-16); Calcium 8.6 mg/dL (8.4-10.2); Carbon Dioxide 24 mmol/L (22-29); Chloride 99 mmol/L (96-108); Creatinine Clr Calc Pharmacy 115.6; Estimated Glomerular Filt Rate > 60; Glucose Random 103 mg/dL (60-115); Potassium 3.7 mmol/L (3.3-5.1); Sodium 133 mmol/L (135-145)
[2022-08-18] MEDS: iohexoL 350 MG/ML 100 ML INFUS..BTL IV (16:55)
[2022-08-18] MEDS: Piperacillin Sodium/Tazobactam 4.5 GM in 0.9 % Sodium Chloride 100 ML IV (18:12)
[2022-08-18] MEDS: 0.9 % Sodium Chloride 1,000 ML 999 ML IV (18:13)
--- NOTE | 2022-08-18 18:58 | PC.NURSE ---
pt going back to [facility] with Ramez. Ramez is not sure how long but there are two people in the que ahead of this pt
--- NOTE | 2022-08-18 19:58 | PC.NURSE ---
Report attempted to be called to [facility] twice . report given to EMT patient in transport to facility . patient aware of plan of care .
== END 2022-08-18 20:01 | disposition skilled nursing facility (03) ==
PROVIDERS: Physician Assistant; Emergency Provider Student in an Organized Health Care Education/Training Program; PCP Internal Medicine
DX: L03.115 Cellulitis of right lower limb (principal); T81.89XA Other complications of procedures, not elsewhere classified, initial encounter; Y82.8 Other medical devices associated with adverse incidents; Y92.9 Unspecified place or not applicable; Z96.641 Presence of right artificial hip joint
CPT/HCPCS: 36415; 73701; 80048; 83605; 85025; 85610; 87040; 96365; 99284; J2543; Q9967

== ENCOUNTER 2022-08-31 11:05 | Day surgery (SDC) | payer OTHER, SELFPAY ==
--- NOTE | 2022-08-30 09:29 | HO.ANESPROP2 ---
Documented by User: Nimco Mcginnis NP 08/30/22 09:32 HPI - Anesthesia Eval Consult details Narrative: 62yo F for Right I&D of hip s/p total hip 07/2022 with GA-ETT Lovenox post total hip PMFSH Active Problems Active Problems: All Active Problems (Updated 08/29/22 @ 11:48 by Jennifer Rios) Seroma, post-traumatic (Acute) Hematoma (Acute) Stenosis of left subclavian artery (Acute) Weak arterial pulse (Acute) S/P total right hip arthroplasty (Acute) Smoking (Acute) Abnormal EKG (Acute) Preoperative cardiovascular examination (Acute) Varicose veins of right lower extremity with inflammation (Acute) Primary osteoarthritis of right hip (Acute) Past Medical History Medical History Anxiety Arthritis Carpal tunnel syndrome Heart murmur Family History Family History Father Heart problem Mother No problems noted. Family history of problems with anesthesia: No Surgical History Surgical History Abdominal mass H/O: hysterectomy History of arthroscopy of right knee History of carpal tunnel surgery of left wrist History of tonsillectomy History of tubal ligation Hx of section Status post left hip replacement History of Problems with Anesthesia: No Social History Social History Are you a primary progressive care manager to a significant other at home: No Do you presently have visiting nurse or other home services: No (to live with son post op) Patient Tobacco Use Status: Current someday Tobacco user Tobacco use type: Cigarette Cigarettes Per Day: 5 Years Smoked: 45 Smoked in Last 30 Days: Yes Second Hand Smoke Exposure: Yes Use of substances other than those prescribed or required for medical reasons: No Are you DNR?: No Advance Directives: No Advance Directives Information Provided: Yes Advance Directives Date on File: 08/15/22 service: No Current occupational status: unemployed Meds Allergies Allergy/AdvReac Type Severity Reaction Status Date / Time No Known Allergies Allergy Verified 08/31/22 11:22 [No Known Allergies*] Exam Exam Date and Time: August 30, 2022928 Pertinent Lab Results Pertinent Lab Results: Laboratory Tests 08/18/22 08/18/22 14:43 14:43 WBC 7.8 Hgb 8.9 L Hct 25.9 L Plt Count 212 D Sodium 133 L Potassium 3.7 Chloride 99 Carbon Dioxide 24 BUN 10 Creatinine 0.59 Narrative Narrative: ECHO 07/2022 Conclusions: - 1. Normal LV systolic function with impaired relaxation filling pattern? 2. Normal cardiac valvular Doppler ? 3. Normal measured RV systolic pressure? 4. No gross pericardial effusion ? ? ? EKG 07/2022 ?sinus rhythm at 89/Min; no significant ST-T changes; normal MA and corrected QT Assessment and Plan Assessment Anesthesia Assessment: Chart Reviewed Final Anesthetic Review Family History of Problems with Anesthesia: No History of Problems with Anesthesia: No Documented by User: Cornelius Collins MD 08/31/22 15:45 PMFSH Past Medical History Medical History Anxiety Arthritis Carpal tunnel syndrome Heart murmur Family History Family History Father Heart problem Mother No problems noted. Surgical History Surgical History Abdominal mass H/O: hysterectomy History of arthroscopy of right knee History of carpal tunnel surgery of left wrist History of tonsillectomy History of tubal ligation Hx of section Status post left hip replacement Social History Social History Are you a primary progressive care manager to a significant other at home: No Do you presently have visiting nurse or other home services: No (to live with son post op) Patient Tobacco Use Status: Current someday Tobacco user Tobacco use type: Cigarette Cigarettes Per Day: 5 Years Smoked: 45 Smoked in Last 30 Days: Yes Second Hand Smoke Exposure: Yes Use of substances other than those prescribed or required for medical reasons: No Are you DNR?: No Advance Directives: No Advance Directives Information Provided: Yes Advance Directives Date on File: 08/15/22 service: No Current occupational status: unemployed Meds Allergies Allergy/AdvReac Type Severity Reaction Status Date / Time No Known Allergies Allergy Verified 08/31/22 11:22 [No Known Allergies*] Exam Airway Mallampati Class: III TM Dist: >3cm Neck ROM: Full Denture: Upper and Lower Loose/Missing/Broken Teeth: Yes Heart: S1,S2 Lungs: b/l breath sounds Assessment and Plan Assessment Anesthesia Assessment: Anesthesia Plan Discussed and Smoking Cess. Discussed Final Anesthetic Review NPO: Yes ASA Class: III Final Preanesthetic Review: Meds/Allgs Chart Reviewed, Consent Obtained/Reviewed and Anes Risks/Benef Reviewed Patient Risk: Intermediate Procedure Risk: Intermediate Anesthetic Plan Anesthetic Plan: GA Disposition: Standard PACU
[2022-08-31] VITALS (13 sets, daily range): BP systolic 89–160; BP diastolic 43–68; PULSE 64–76; RESP 14–17; TEMP 36.8–37.2; O2SAT 90–100; BMI 32.8
[2022-08-31] MEDS: Lactated Ringers 1,000 ML 100 ML IVCONT (11:49)
--- NOTE | 2022-08-31 12:02 | MHC.SHP ---
Pre-Procedural Eval Section A Date of Service: 08/31/22 The patient is an INPATIENT: No Changes since office visit: Yes Patient answered all questions; No Cold of Flu in the past 2 weeks, No New Medical Problems and No Changes in Medication The History & Physical has been completed within 30 days and I have reviewed it.: Yes Section B Chief Complaint: Traumatic secondary and recurrent hemorrhage Allergies: Allergies Allergy/AdvReac Type Severity Reaction Status Date / Time No Known Allergies Allergy Verified 08/31/22 11:22 [No Known Allergies*] Plan I have reviewed the history and physical and performed a pertinent physical examination on my patient. No changes have occurred unless specified.
--- NOTE | 2022-08-31 13:22 | W.PM.OPN ---
Operative Note Operative Note Date of Service: 08/31/22
--- NOTE | 2022-08-31 13:24 | PM.OP ---
Brief Operative Note Date of Service: 08/31/22 Pre-op diagnosis: Right hip post operative seroma Post-op diagnosis: same Procedure: irrigation and debridement right hip Surgeon: Panda Angelo MD Anesthesia: GETA and local Was an Superintendent [employer] used for this Procedure?: Yes Superintendent [employer]: Patience Gandhi Estimated blood loss (mL): 50 IV fluids (mL): 500 Pathology: other (culture) Condition: stable Disposition: PACU
--- NOTE | 2022-09-06 11:25 | W.PM.OPN ---
Operative Note Operative Note Date of Service: 08/31/22 Narrative: Date of Service: 08/31/22 Pre-op diagnosis: Right hip post operative seroma Post-op diagnosis: same Procedure: irrigation and debridement right hip Surgeon: Panda Angelo MD Anesthesia: GETA and local Was an Photoengraving Finisher used for this Procedure?: Yes Photoengraving Finisher: Patience Gandhi Estimated blood loss (mL): 50 IV fluids (mL): 500 Pathology: other (culture) Condition: stable Disposition: PACU Procedure in detail: Patient was brought into the operating room and placed in the left lateral decubitus position. All bony prominences were well padded and the limb was prepped and draped in standard sterile fashion. Time-out was called to identify proper site procedure proper surgeon IV antibiotics were administered. The most distal cm of the incision was erythematous with seromatous discharge. I made an incision over the distal half of the prior incision. I expressed fat and seromatous fluid. Thefre was no josue purulence. I explored the wound and there was an intact tensor fascia with no deep involvement. I debrided necrotic tissue aggressively using a rongeur and a currette.. I copiously irrigated with 6 L saline. I then closed with a running nylon. Patient was placed into a sterile dressing. Cultures were taken. Pateint was extubated and taken to recovery room in stable condition. There were no known complications.
== END 2022-08-31 16:14 | disposition home or self-care (01) ==
PROVIDERS: PCP Internal Medicine; Visit Provider Orthopaedic Surgery
PROC: (CPT 10140; principal; 2022-08-31 12:50)
DX: T79.2XXA Traumatic secondary and recurrent hemorrhage and seroma, initial encounter (principal); M96.842 Postprocedural seroma of a musculoskeletal structure following a musculoskeletal system procedure; Z96.641 Presence of right artificial hip joint; Y83.8 Other surgical procedures as the cause of abnormal reaction of the patient, or of later complication, without mention of misadventure at the time of the procedure; Y79.8 Miscellaneous orthopedic devices associated with adverse incidents, not elsewhere classified; Y92.9 Unspecified place or not applicable; F41.1 Generalized anxiety disorder; M19.90 Unspecified osteoarthritis, unspecified site; R01.1 Cardiac murmur, unspecified; Z79.899 Other long term (current) drug therapy; Z88.2 Allergy status to sulfonamides; F17.210 Nicotine dependence, cigarettes, uncomplicated
CPT/HCPCS: 10140; 87070; 87147; 87205; J0690; J1170; J2250; J2405; J2795; J3010

== ENCOUNTER 2022-09-16 11:47 | Day surgery (SDC) | payer OTHER, SELFPAY ==
[2022-09-16 12:23] VITALS: BP 141/69; PULSE 83; RESP 18; TEMP 36.8; O2SAT 96; BMI 31.3
[2022-09-16 13:19] VITALS: BP 115/64; PULSE 85; RESP 18; TEMP 37.4; O2SAT 99
[2022-09-16 13:20] VITALS: BP 146/73
--- NOTE | 2022-09-16 14:31 | PM.OP ---
Brief Operative Note Date of Service: 09/16/22 Pre-op diagnosis: Right hip post operative seroma Post-op diagnosis: same Procedure: irrigation and debridement with delayed primary closure right hip Implants: SANDHYA F7 drain Surgeon: Panda Angelo MD Anesthesia: local Was an Manager Banking used for this Procedure?: No Estimated blood loss (mL): 25 Pathology: none sent Condition: stable Disposition: PACU
--- NOTE | 2022-10-21 09:19 | W.PM.OPN ---
Operative Note Operative Note Date of Service: 09/16/22 Narrative: Date of Service: 09/16/22 Pre-op diagnosis: Right hip post operative seroma Post-op diagnosis: same Procedure: irrigation and debridement with delayed primary closure right hip Implants: SANDHYA F7 drain Surgeon: Panda Angelo MD Anesthesia: local Was an Wastewater Analyst Lab Analyst used for this Procedure?: No Estimated blood loss (mL): 25 Pathology: none sent Condition: stable Disposition: PACU Procedure in detail: Patient was brought to the operating room and placed in a sloppy lateral on the surgical table. All bony prominences were well padded. She was prepped and draped in standard sterile fashion and a time out was called to identify proper site, proper procedure and IV antibiotics per weight were administered. I began by opening up the distal half of the prior incision. There was no erythema or evidence of infection but the closure was incomplete and there was abundant seromatous fluid deep. There was no involvement deep to the fascia. I irrigated copiously with saline and debrided with tissue with a curette and rongeur until the tissue was bleeding and healthy. There was no evidence of infection. I then placed a SANDHYA drain and closed with interrupted vertical mattress nylon.
== END 2022-09-16 13:57 | disposition home or self-care (01) ==
PROVIDERS: PCP Internal Medicine; Visit Provider Orthopaedic Surgery
PROC: (CPT 13160; principal; 2022-09-16 12:30)
DX: T81.31XA Disruption of external operation (surgical) wound, not elsewhere classified, initial encounter (principal); T79.2XXA Traumatic secondary and recurrent hemorrhage and seroma, initial encounter; M16.11 Unilateral primary osteoarthritis, right hip; Y83.8 Other surgical procedures as the cause of abnormal reaction of the patient, or of later complication, without mention of misadventure at the time of the procedure; Y79.2 Prosthetic and other implants, materials and accessory orthopedic devices associated with adverse incidents; Y92.9 Unspecified place or not applicable; Z96.641 Presence of right artificial hip joint; R01.1 Cardiac murmur, unspecified; F41.1 Generalized anxiety disorder; Z88.2 Allergy status to sulfonamides; F17.210 Nicotine dependence, cigarettes, uncomplicated
CPT/HCPCS: 13160; 11044; J2795

== ENCOUNTER 2022-11-04 11:43 | Outpatient (REF) | payer OTHER, SELFPAY ==
--- NOTE | ~2022-11-04 | XR_ITS ---
EXAMINATION: XR HIP, RIGHT
== END 2022-11-04 11:44 | disposition home or self-care (01) ==
LOC: HO.HOSX 11:43
PROVIDERS: PCP Internal Medicine; Visit Provider Orthopaedic Surgery
DX: T79.2XXD Traumatic secondary and recurrent hemorrhage and seroma, subsequent encounter (principal); Z96.641 Presence of right artificial hip joint
CPT/HCPCS: 73502

== ENCOUNTER 2022-12-21 11:00 | Outpatient (RCR) | payer MEDICARE, OTHER, MEDICAID, SELFPAY ==
--- NOTE | 2022-10-12 12:57 | MHC.PT.EP ---
[facility] [place] Office [place] Office [place] Office [address] Masoud Espinoza [address] [phone] F: [phone] F: [phone] F: [phone] F: [phone] Physical Therapy Plan of Care Date of Evaluation: Date of Surgery: 08/09/22 Diagnosis: s/p R hip MARCO A (post approach) with delayed wound healing Assessment: Patient is 62 y.o. female who is referred to PT by Dr. Panda Angelo MD with Dx of s/p R MARCO A with delayed wound healing. PT Dx is consistent with post operative status, impairments include pain, limited ROM (limitations also with hip precautions), weakness, balance. Her functional limitations involve gait, stair use, bend/squat, prolonged standing, sleeping and being unable to work. Patient will need skilled and monitored PT due to delayed tissue healing, requires slow progression. Frequency and Duration: The patient will be seen 2x/week for 8 weeks Short Term Goals: 4 weeks Patient demonstrates consistency and safety awareness with posterior hip precautions to allow tissue healing. Patient is independent with HEP to increase strength and endurance in R LE. Deburring Machine Operator Goals: 8 weeks Patient presents with increased R hip extension 10 degrees to be able to restore normalized gait pattern. Patient presents with increased R hip glute med 4/5 to be able to ascend/descend stairs reciprocally with railing at home. Treatment Plan: Modalities to reduce pain, spasms and effusion. Manual therapy to restore motion and function. Therapeutic exercise to improve strength and flexibility. Neuromuscular re-education for posture and balance. Therapeutic activities to return to functional activities of daily living. Electronically signed by: Vita Hinton, PT, DPT Please sign and return to therapist. Thank you for your referral.
--- NOTE | 2022-12-21 11:47 | MHC.PT.DC ---
[facility] [place] Office [place] Office [place] Office [address] Masoud Espinoza [address] [phone] F: [phone] F: [phone] F: [phone] F: [phone] Physical Therapy Discharge Report Diagnosis: s/p R hip MARCO A (post approach) with delayed wound healing Date of Surgery: 08/09/22 Date of Evaluation: 10/12/22 Date of Discharge: 12/21/22 Treatments to Date: 12 Cancellations to Date: 5 No Shows to Date: 3 Discharge Status: Achieved Goals Improved Function Independent with HEP Discharge Summary: 12/21/2022: Pt has made progress since beginning skilled PT. She has been unable to wean off the cane however this is more related to her knee vs her hip. At this point max benefits of PT have been provided for her hip and skilled PT is no longer indicated. Recommend continuing with exercises at home to maintain all benefits thus far. Also recommend following up with ortho if the knee continues to give her problems. She is understanding and in agreement with plan. Electronically signed by: Nuria Ko, PT, DPT, ATC Please sign and return to therapist. Thank you for your referral.
== END 2022-12-21 11:49 | disposition home or self-care (01) ==
LOC: HO.PTCHIC 11:00
PROVIDERS: PCP Internal Medicine; Visit Provider Orthopaedic Surgery
DX: T81.31XA Disruption of external operation (surgical) wound, not elsewhere classified, initial encounter (principal); Z96.641 Presence of right artificial hip joint
CPT/HCPCS: 97110; 97112; 97116; 97162; 97530

== ENCOUNTER → 2023-01-30 11:07 | Outpatient (BNVA) | payer MEDICARE, MEDICAID, SELFPAY | PROVIDERS: PCP Internal Medicine; Visit Provider Orthopaedic Surgery | DX: T79.2XXD Traumatic secondary and recurrent hemorrhage and seroma, subsequent encounter (principal); M17.11 Unilateral primary osteoarthritis, right knee; Z96.641 Presence of right artificial hip joint | CPT/HCPCS: 99212 ==

== ENCOUNTER 2023-03-24 09:32 | Outpatient (REF) | payer MEDICARE, MEDICAID, SELFPAY ==
[2023-03-24 11:22] LABS: MANUAL DIFF FLAG NO
[2023-03-24 11:31] LABS: Basophils Percent Auto 0.4 % (0-2); Eosinophils Absolute Auto 0.2 X10*3/uL (0.0-0.4); Eosinophils Percent Auto 3.5 % (0-4); Hematocrit 38.2 % (37.0-47.0); Hemoglobin 13.3 g/dl (12.0-16.0); Imm Gran Abs Auto 0.01 X10*3/uL (0.00-0.03); Imm Gran Pct Auto 0.2 % (0.0-0.4); Lymphocytes Absolute Auto 1.2 X10*3/uL (1.2-4.9); Lymphocytes Percent Auto 27.3 % (20-40); Mean Corpuscular HGB Conc 34.8 g/dl (31.0-35.0); Mean Corpuscular Hemoglobin 34.8 pg (27.0-33.0); Mean Platelet Volume 10.6 fL (9.4-12.3); Monocytes Absolute Auto 0.4 X10*3/uL (0.1-1.2); Monocytes Percent Auto 7.7 % (2-11); Neutrophils Absolute Auto 2.8 x10*3/uL (2.0-8.3); Neutrophils Percent Auto 60.9 % (45-73); Platelet Count 153 X10*3/uL (160-400); Red Blood Count 3.82 X10*6/uL (4.20-5.50); Red Cell Distribution Width 13.6 % (11.0-16.0); White Blood Count 4.6 X10*3/uL (4.8-10.8)
[2023-03-24 12:33] LABS: Alanine Aminotransferase 37 U/L (0-31); Albumin Level 4.2 g/dL (3.5-5.0); Alkaline Phosphatase 95 U/L (39-117); Anion Gap 14 (12-20); Aspartate Amino Transferase 45 U/L (5-31); Bilirubin Total 1.6 mg/dL (0.0-1.0); Blood Urea Nitrogen 8 mg/dL (9-16); Calcium 9.5 mg/dL (8.4-10.2); Carbon Dioxide 23 mmol/L (22-29); Chloride 106 mmol/L (96-108); Cholesterol 158 mg/dL; Estimated Glomerular Filt Rate > 60; Glucose Random 90 mg/dL (60-115); Iron 98 mcg/dL (30-160); Percent Iron Saturation 39 % (15-50); Sodium 139 mmol/L (135-145); Total Iron Binding Capacity 250 mcg/dL (228-428); Total Protein 6.7 g/dL (6.5-8.0); Unsaturated Iron Binding 152 ug/dL
== END 2023-03-24 09:33 | disposition home or self-care (01) ==
LOC: HO.HMGCLDS 09:32
PROVIDERS: PCP Internal Medicine; Visit Provider Internal Medicine
DX: Z01.818 Encounter for other preprocedural examination (principal); D64.9 Anemia, unspecified; G45.8 Other transient cerebral ischemic attacks and related syndromes
CPT/HCPCS: 36415; 80053; 82465; 83540; 85025

== ENCOUNTER 2023-03-30 11:52 | Outpatient (REF) | payer MEDICARE, MEDICAID, SELFPAY ==
--- NOTE | ~2023-03-30 | XR_ITS ---
EXAMINATION: XR BOTH KNEES AP STANDING XR RIGHT KNEE, 2 VIEWS CLINICAL INFORMATION: Pain in the unspecified knee. COMPARISON: 07/29/2020 TECHNIQUE: Standing AP view of both knees and lateral and sunrise views of the right knee. FINDINGS: LEFT KNEE: Small marginal osteophytes and chondrocalcinosis are present in both the medial and lateral compartments without significant joint space narrowing. Osteophytes are also noted at the patella. Bones are osteopenic. No acute fractures. RIGHT KNEE: Severe lateral compartment joint space narrowing is again noted with increased articular cortical remodeling, articular sclerosis, and prominent lateral compartment osteophytes. There is patellofemoral compartment joint space narrowing which is more pronounced the lateral facets and associated with prominent marginal osteophytes and articular cortical remodeling. Valgus angulation is present at the right knee, similar to prior. No acute fractures. Bones are osteopenic. Calcific atherosclerosis is present in the popliteal and runoff arteries. Trace effusion. XR/XR knee standing BI IMPRESSION: 1. Severe lateral compartment osteoarthritis in the right knee with associated valgus angulation, similar to prior. 2. Moderate patellofemoral compartment osteoarthritis in the right knee. 3. Mild osteoarthritis in the medial and lateral compartments of the left knee.
--- NOTE | ~2023-03-30 | XR_ITS ---
EXAMINATION: XR BOTH KNEES AP STANDING XR RIGHT KNEE, 2 VIEWS CLINICAL INFORMATION: Pain in the unspecified knee. COMPARISON: 07/29/2020 TECHNIQUE: Standing AP view of both knees and lateral and sunrise views of the right knee. FINDINGS: LEFT KNEE: Small marginal osteophytes and chondrocalcinosis are present in both the medial and lateral compartments without significant joint space narrowing. Osteophytes are also noted at the patella. Bones are osteopenic. No acute fractures. RIGHT KNEE: Severe lateral compartment joint space narrowing is again noted with increased articular cortical remodeling, articular sclerosis, and prominent lateral compartment osteophytes. There is patellofemoral compartment joint space narrowing which is more pronounced the lateral facets and associated with prominent marginal osteophytes and articular cortical remodeling. Valgus angulation is present at the right knee, similar to prior. No acute fractures. Bones are osteopenic. Calcific atherosclerosis is present in the popliteal and runoff arteries. Trace effusion. XR/XR knee RT 2V IMPRESSION: 1. Severe lateral compartment osteoarthritis in the right knee with associated valgus angulation, similar to prior. 2. Moderate patellofemoral compartment osteoarthritis in the right knee. 3. Mild osteoarthritis in the medial and lateral compartments of the left knee.
--- NOTE | 2023-03-31 11:48 | HP_ITS ---
DATE OF SERVICE: 03/30/2023 HISTORY OF PRESENT ILLNESS: The patient is a 63-year-old female, who was seen in the office for preop evaluation on 03/20 prior to right total knee replacement scheduled with Dr. Angelo on April 04. Presently, patient is not on any medicines. PAST MEDICAL HISTORY: Significant for hypertension, left subclavian steal syndrome, arthritis of the knees, tobacco use, ongoing COPD, anemia, low vitamin D, left hip replacement and carpal tunnel on the left, left knee surgery in the past, total hysterectomy, back pain, varicose veins. FAMILY HISTORY: Mother at 81 from pelvic cancer, unknown utero-ovarian. Father from heart disease at 48. One brother from heart disease at 35. She has 2 sisters, alive. SOCIAL HISTORY: Lives with her daughter. She has 4 children. REVIEW OF SYSTEMS: She has taken off 5 pounds. No headaches. No fevers or sweats. No chest pains or palpitations. No peripheral edema. No complaints of shortness of breath. No stomach pains or heartburn. No dysuria. She does get up twice at night to go to the bathroom, arthritis as described. No speech or confusion problems. Sleep and appetite are normal. She does have hay fever. She has a superficial rash in the left lateral lower extremity. PHYSICAL EXAMINATION: GENERAL: She is awake and alert, in no distress. Somewhat anxious. VITAL SIGNS: Temperature 98.6, pulse 83, respirations 12, blood pressure 170/80 on the right, 120/80 on the left. Recheck 160/84 on the right. Awake and alert, in no distress. HEENT: TMs clear. Pharynx clear. NECK: Supple. No lymph nodes, bruits, or masses. HEART: Sounds S1, S2. Regular rate. LUNGS: Clear. A little distant. ABDOMEN: Soft and nontender. EXTREMITIES: No clubbing, cyanosis, or edema. 1 to 2+ pulses. NEUROLOGIC: Cranial nerves II through XII are intact. She is alert and oriented x3. She was asked to come back in for another blood pressure check and was 160/80 on March 30. She has been started on 5 mg of lisinopril, which she has had in the past and continued that. She is medically stable for the proposed surgery. I will be available if there are any medical issues. She has no reported allergies to medicines. MD JESÚS Miller/CORINNE / [id number]
== END 2023-03-30 11:53 | disposition home or self-care (01) ==
LOC: HO.HOSX 11:52
PROVIDERS: Visit Provider Physician Assistant
DX: Z01.818 Encounter for other preprocedural examination (principal); M17.11 Unilateral primary osteoarthritis, right knee; M25.562 Pain in left knee; Z79.899 Other long term (current) drug therapy
CPT/HCPCS: 73560; 73565; 99212

== ENCOUNTER 2023-04-04 07:30 | Day surgery (SDC) | payer MEDICARE, MEDICAID, SELFPAY ==
[2023-03-28 12:08] VITALS: BP 139/91; PULSE 68; RESP 16; O2SAT 98; BMI 28.9
--- NOTE | 2023-03-28 12:31 | HO.ANESPROP2 ---
Documented by User: Nimco Mcginnis NP 04/03/23 09:18 HPI - Anesthesia Eval Consult details Narrative: 63yo F for Right?Knee Replacement Total PCP cleared PMFSH Active Problems Active Problems: All Active Problems (Updated 01/30/23 @ 11:17 by Osman Kidd) Osteoarthritis of right knee (Acute) Postoperative wound breakdown (Acute) Seroma, post-traumatic (Acute) Hematoma (Acute) Stenosis of left subclavian artery (Acute) Weak arterial pulse (Acute) S/P total right hip arthroplasty (Acute) Smoking (Acute) Abnormal EKG (Acute) Preoperative cardiovascular examination (Acute) Varicose veins of right lower extremity with inflammation (Acute) Primary osteoarthritis of right hip (Acute) Past Medical History Medical History Anxiety Arthritis Carpal tunnel syndrome Heart murmur HTN (hypertension) Family History Family History Father Heart problem Mother No problems noted. Family history of problems with anesthesia: No Surgical History Surgical History Abdominal mass H/O: hysterectomy History of arthroscopy of right knee History of carpal tunnel surgery of left wrist History of tonsillectomy History of tubal ligation Hx of section Hx of total hip arthroplasty Status post left hip replacement Social History Social History Household Members: Family Household Members Other:: son Housing: House Are you a primary child care center administrator to a significant other at home: No Do you presently have visiting nurse or other home services: No Patient Tobacco Use Status: Current everyday Tobacco user Tobacco use type: Cigarette Cigarettes Per Day: 5 Years Smoked: 40 Smoked in Last 30 Days: Yes Patient Interested in Nicotine Replacement: No Patient Given Instructions on How to Stop Smoking: No Second Hand Smoke Exposure: Yes Use of substances other than those prescribed or required for medical reasons: No Currently Displaying Signs/Symptoms of Drug Intoxication Withdrawal: No Have you been hit, kicked, punched, or otherwise hurt by someone within the past year? If so, by whom?: No Do you feel safe in your current relationship?: No Current Relationship Is there a partner from a previous relationship who is making you feel unsafe now?: No Are you made to feel afraid or neglected: No Are you DNR?: No Advance Directives: Yes Advance Directives Information Provided: No Advance Directives on File: Yes Advance Directives Date on File: 08/15/22 Do you have thoughts of harming others: None Do you have a plan to hurt others: No Plan Recently lost weight without trying: No How much weight loss: Not applicable Eating poorly because of decreased appetite: No Nutrition screen score: 0 Nutrition Risks: No Nutritional Risk Patient : No : No Poor oral hygiene: No service: No Current occupational status: unemployed Narrative Narrative: No recent illness No CP/SOB with miinimal activity. Limited d/t pain Meds Allergies Allergy/AdvReac Type Severity Reaction Status Date / Time sulfamethoxazole Allergy Intermediate Rash Verified 04/04/23 07:54 [From Bactrim] trimethoprim [From Bactrim] Allergy Intermediate Rash Verified 04/04/23 07:54 Home Medications Medication Instructions Recorded Confirmed Last Taken Type ibuprofen 600 mg tablet 600 mg PO Q8H PRN Pain 01/30/23 03/30/23 03/14/23 History acetaminophen 325 mg tablet 650 mg PO Q6H PRN pain 03/27/23 03/30/23 04/03/23 History ascorbic acid (vitamin C) 500 mg 500 mg PO DAILY 03/27/23 03/30/23 04/03/23 History tablet (Vitamin C) cyanocobalamin (vitamin B-12) 1,000 mcg PO DAILY 03/27/23 03/30/23 04/03/23 History 1,000 mcg tablet (Vitamin B-12) ferrous sulfate 325 mg (65 mg 325 mg PO DAILY 03/27/23 03/30/23 04/02/23 History iron) tablet multivitamin 1 tab PO DAILY 03/27/23 03/30/23 04/02/23 History lisinopril 5 mg tablet 5 mg PO DAILY 04/04/23 04/04/23 04/03/23 History Exam Exam Date and Time: March 28, 2023 1231 Height,Weight and Vital Signs: Height 5 ft 7 in Weight 83.6 kg Last Vital Signs Pulse 68 03/28/23 12:08 Resp 16 03/28/23 12:08 BP 139/91 H 03/28/23 12:08 Pulse Ox 98 03/28/23 12:08 O2 Del Method Room Air 03/28/23 12:08 Pertinent Lab Results Pertinent Lab Results: Lab Results 03/28/23 03/28/23 Range/Units 12:30 13:00 Nasal Screen MRSA (PCR) NEGATIVE (Negative) Nasal S. aureus Screen NEGATIVE (Negative) Nasal MRSA/S.aureus Interp SEE NOTE Blood Type O Negative Antibody Screen NEGATIVE Laboratory Tests 03/24/23 03/24/23 09:54 09:54 WBC 4.6 L Hgb 13.3 D Hct 38.2 D Plt Count 153 L D Sodium 139 Potassium 4.0 Chloride 106 Carbon Dioxide 23 BUN 8 L Creatinine 0.62 Narrative Narrative: ECHO 07/2022 Conclusions: - 1. Normal LV systolic function with impaired relaxation filling pattern? 2. Normal cardiac valvular Doppler ? 3. Normal measured RV systolic pressure? 4. No gross pericardial effusion ? ? ? EKG 07/2022 ?sinus rhythm at 89/Min; no significant ST-T changes; normal ND and corrected QT Airway Mallampati Class: I TM Dist: >3cm Neck ROM: Full Denture: Upper and Lower Heart: RRR Lungs: CTAB Assessment and Plan Assessment Anesthesia Assessment: Anesthesia Plan Discussed, Smoking Cess. Discussed and PAT Visit Final Anesthetic Review Family History of Problems with Anesthesia: No Documented by User: Cornelius Collins MD 04/04/23 17:37 [facility] Past Medical History Medical History Anxiety Arthritis Carpal tunnel syndrome Heart murmur HTN (hypertension) Family History Family History Father Heart problem Mother No problems noted. Surgical History Surgical History Abdominal mass H/O: hysterectomy History of arthroscopy of right knee History of carpal tunnel surgery of left wrist History of tonsillectomy History of tubal ligation Hx of section Hx of total hip arthroplasty Status post left hip replacement History of Problems with Anesthesia: No Social History Social History Household Members: Family Household Members Other:: son Housing: House Are you a primary child care center administrator to a significant other at home: No Do you presently have visiting nurse or other home services: No Patient Tobacco Use Status: Current everyday Tobacco user Tobacco use type: Cigarette Cigarettes Per Day: 5 Years Smoked: 40 Smoked in Last 30 Days: Yes Patient Interested in Nicotine Replacement: No Patient Given Instructions on How to Stop Smoking: No Second Hand Smoke Exposure: Yes Use of substances other than those prescribed or required for medical reasons: No Currently Displaying Signs/Symptoms of Drug Intoxication Withdrawal: No Have you been hit, kicked, punched, or otherwise hurt by someone within the past year? If so, by whom?: No Do you feel safe in your current relationship?: No Current Relationship Is there a partner from a previous relationship who is making you feel unsafe now?: No Are you made to feel afraid or neglected: No Are you DNR?: No Advance Directives: Yes Advance Directives Information Provided: No Advance Directives on File: Yes Advance Directives Date on File: 08/15/22 Do you have thoughts of harming others: None Do you have a plan to hurt others: No Plan Recently lost weight without trying: No How much weight loss: Not applicable Eating poorly because of decreased appetite: No Nutrition screen score: 0 Nutrition Risks: No Nutritional Risk Patient : No : No Poor oral hygiene: No service: No Current occupational status: unemployed Meds Allergies Allergy/AdvReac Type Severity Reaction Status Date / Time sulfamethoxazole Allergy Intermediate Rash Verified 04/04/23 07:54 [From Bactrim] trimethoprim [From Bactrim] Allergy Intermediate Rash Verified 04/04/23 07:54 Home Medications Medication Instructions Recorded Confirmed Last Taken Type ibuprofen 600 mg tablet 600 mg PO Q8H PRN Pain 01/30/23 03/30/23 03/14/23 History acetaminophen 325 mg tablet 650 mg PO Q6H PRN pain 03/27/23 03/30/23 04/03/23 History ascorbic acid (vitamin C) 500 mg 500 mg PO DAILY 03/27/23 03/30/23 04/03/23 History tablet (Vitamin C) cyanocobalamin (vitamin B-12) 1,000 mcg PO DAILY 03/27/23 03/30/23 04/03/23 History 1,000 mcg tablet (Vitamin B-12) ferrous sulfate 325 mg (65 mg 325 mg PO DAILY 03/27/23 03/30/23 04/02/23 History iron) tablet multivitamin 1 tab PO DAILY 03/27/23 03/30/23 04/02/23 History lisinopril 5 mg tablet 5 mg PO DAILY 04/04/23 04/04/23 04/03/23 History Assessment and Plan Assessment Anesthesia Assessment: Chart Reviewed Final Anesthetic Review History of Problems with Anesthesia: No NPO: Yes ASA Class: III Final Preanesthetic Review: Meds/Allgs Chart Reviewed, Consent Obtained/Reviewed and Anes Risks/Benef Reviewed Patient Risk: Intermediate Procedure Risk: Intermediate Anesthetic Plan Anesthetic Plan: GA, Neuraxial Block:, Regional Block and Agree w/ Assess. and Plan Disposition: Standard PACU
[2023-03-28 14:39] LABS: MRSA Nasal PCR NEGATIVE (Negative); SA Nasal PCR NEGATIVE (Negative)
[2023-04-04] VITALS (16 sets, daily range): BP systolic 131–199; BP diastolic 62–92; PULSE 60–83; RESP 10–20; TEMP 36.4–37; O2SAT 97–100; BMI 29.0
--- NOTE | ~2023-04-04 | XR_ITS ---
EXAMINATION: XR KNEE, RIGHT CLINICAL INFORMATION: Right TKA. COMPARISON: None available. TECHNIQUE: 2 views of the right knee. FINDINGS: There is a total right knee arthroplasty with prosthetic components in satisfactory alignment. Immediate postoperative changes with surgical stella along the anterior skin and gas and fluid within the suprapatellar bursa is noted. XR/XR knee RT 2V IMPRESSION: Total right knee arthroplasty with prosthetic components in satisfactory alignment. Immediate postoperative changes are noted.
[2023-04-04 08:11] LABS: Hematocrit 37.9 % (37.0-47.0); Hemoglobin 13.4 g/dl (12.0-16.0)
[2023-04-04] MEDS: Lactated Ringers 1,000 ML 100 ML IVCONT ×3 (08:42→23:38)
--- NOTE | 2023-04-04 09:38 | MHC.SHP ---
Pre-Procedural Eval Section A Date of Service: 04/04/23 The patient is an INPATIENT: No Changes since office visit: No Cold of Flu in the past 2 weeks, No New Medical Problems, No Changes in Medication and No Patient answered all questions The History & Physical has been completed within 30 days and I have reviewed it.: Yes Section B Chief Complaint: Unilateral primary osteoarthritis, right knee Allergies: Allergies Allergy/AdvReac Type Severity Reaction Status Date / Time sulfamethoxazole Allergy Intermediate Rash Verified 04/04/23 07:54 [From Bactrim] trimethoprim [From Bactrim] Allergy Intermediate Rash Verified 04/04/23 07:54 Plan I have reviewed the history and physical and performed a pertinent physical examination on my patient. No changes have occurred unless specified. Time Spent With Patient Time: Total time managing care of this patient today ____ minutes.
--- NOTE | 2023-04-04 11:55 | P.BOP_ITS ---
Brief Operative Note Date of Service: 04/04/23 Pre-op diagnosis: Right knee OA Post-op diagnosis: same Procedure: Right TKA Implants: [employer] Triathlon cemented posterior stabilized 01/14/11/a Surgeon: Panda Angelo MD Anesthesia: GETA and regional Was an Client Services Account Manager used for this Procedure?: Yes Client Services Account Manager: Chuck Evangelista Estimated blood loss (mL): 150 IV fluids (mL): 800 Pathology: other Condition: stable Disposition: PACU
--- NOTE | 2023-04-04 11:57 | P.OP_ITS ---
Operative Note Operative Note Date of Service: 04/04/23 Narrative: Date of Service: 04/04/23 Pre-op diagnosis: Right knee OA Post-op diagnosis: same Procedure: Right TKA Implants: [place] Triathlon cemented posterior stabilized 01/14/11ps/29a Surgeon: Panda Angelo MD Anesthesia: GETA and regional Was an Trust Operations Assistant used for this Procedure?: Yes Trust Operations Assistant: Chuck Evangelista Estimated blood loss (mL): 150 IV fluids (mL): 800 Pathology: other Condition: stable Disposition: PACU Procedure in detail: The patient was brought to the operating room and prepped and draped in standard sterile fashion. A time-out was called to identify proper site proper procedure proper surgeon and IV antibiotics were administered. 1 g of IV tranexamic acid was administered. I began by making a midline incision to the retinaculum and performed a medial parapatellar arthrotomy. The patella was translated laterally and the knee was flexed up. The lateral comaprtment was eburnated. I performed a small medial peel and resected the infrapatellar fat pad. Jake's line was then used to drill my intramedullary femoral guide and my distal femur cut of 10 mm was made in 5 degrees of valgus while protecting the soft tissues. I then measured a # 3 femur and placed my cutting guide and made my anterior posterior and chamfer cuts protecting the soft tissues at all times. I then made my box but removing the PCL. Once I was satisfied with my cuts I turned my attention to the tibia. I removed the meniscus medially and laterally and , using an external cutting guide, in line with the tibial crest and the third ray, I made my distal tibial cut in 0 deg slope of while protecting the posterior soft tissues at all times. An extension block was used to confirm appropriate amount of bony resection. I then sized a #3tibia and once I was satisfied that there was complete tibial coverage I placed my trial and with the trial femur in place took the knee through range of motion. I was satisfied with the extension and flexion as well as the stability at 0, 30 and 90 degrees. I then turned my attention to the patella where I removed 1 cm from the undersurface of the patella and then trialed a 29a patellar button. Again the knee was taken through range of motion I was satisfied with the tracking. I then returned to the femur and plugged the canal and prepared the tibia. The knee was irrigated copiously asnd 2 bags of bone cement was mixed on the back table. I then cemented the patella, tibia and femur in standard fashion while applying compression. I trialed different inserts until I selected a #11 insert. The final insert was placed and a 3 minutes iodine soak with local TXA was performed. The knee was then closed with a running Quill suture, a 3 0 Vicryl and stella on the skin. Patient was then placed in sterile dressing and brought to recovery room in stable condition there were no known complications.
[2023-04-04] MEDS: HYDROmorphone HCl 0.5 MG/0.5 ML SYRINGE 0.25 MG IVPUSH ×4 (12:20→12:35)
[2023-04-04] MEDS: Acetaminophen 1,000 MG/100 ML PIGGYBACK 400 MG IV (12:20)
[2023-04-04] MEDS: hydrALAZINE HCl 20 MG/ML VIAL 5 MG IVPUSH (12:58)
--- NOTE | 2023-04-04 13:43 | PHA.MEDREC ---
Pharmacy Consult ? Medication Reconciliation Pharmacy has reviewed the medication reconciliation completed by nursing.
--- NOTE | 2023-04-04 14:39 | PM.IMCN ---
History of Present Illness Data of Consult Service Date: 04/04/23 Primary Care Provider: Luisito Gonzalez MD HPI Reason for consult: Medical management A 63 years old lady with PMH of HTN, smoking, COPD among others who presents to the hospital for right total knee scheduled as outpatient. No current complaints. BP controlled as outpatient. reports smoking. Hospitalist team asked to evaluated for medical management. Review of Systems Review of Systems: No fever, chills or weakness No chest pain, palpitation No shortness of breath or coughing No abdominal pain, nausea or vomiting No urinary symptoms No any rash or wounds Right knee pain PMFSH Medical History Anxiety Arthritis Carpal tunnel syndrome Heart murmur HTN (hypertension) Family History Father Heart problem Mother No problems noted. Surgical History Abdominal mass H/O: hysterectomy History of arthroscopy of right knee History of carpal tunnel surgery of left wrist History of tonsillectomy History of tubal ligation Hx of section Hx of total hip arthroplasty Status post left hip replacement Social History Household Members: Family Household Members Other:: son Housing: House Are you a primary intensive care ambulance paramedic to a significant other at home: No Do you presently have visiting nurse or other home services: No Patient Tobacco Use Status: Current everyday Tobacco user Tobacco use type: Cigarette Cigarettes Per Day: 5 Years Smoked: 40 Smoked in Last 30 Days: Yes Patient Interested in Nicotine Replacement: No Patient Given Instructions on How to Stop Smoking: No Second Hand Smoke Exposure: Yes Use of substances other than those prescribed or required for medical reasons: No Currently Displaying Signs/Symptoms of Drug Intoxication Withdrawal: No Have you been hit, kicked, punched, or otherwise hurt by someone within the past year? If so, by whom?: No Do you feel safe in your current relationship?: No Current Relationship Is there a partner from a previous relationship who is making you feel unsafe now?: No Are you made to feel afraid or neglected: No Are you DNR?: No Advance Directives: Yes Advance Directives Information Provided: No Advance Directives on File: Yes Advance Directives Date on File: 08/15/22 Do you have thoughts of harming others: None Do you have a plan to hurt others: No Plan Recently lost weight without trying: No How much weight loss: Not applicable Eating poorly because of decreased appetite: No Nutrition screen score: 0 Nutrition Risks: No Nutritional Risk Patient : No : No Poor oral hygiene: No service: No Current occupational status: unemployed Meds Allergies Allergy/AdvReac Type Severity Reaction Status Date / Time sulfamethoxazole Allergy Intermediate Rash Verified 04/04/23 07:54 [From Bactrim] trimethoprim [From Bactrim] Allergy Intermediate Rash Verified 04/04/23 07:54 Active Medications: Current Medications Acetaminophen (Acetaminophen 325 Mg Tablet) 650 mg PO Q6H PRN PRN Reason: Pain, Mild (Pain Scale 1-3) Aspirin (Aspirin 325 Mg Tablet) 325 mg PO BID GLADIS Celecoxib (Celecoxib 200 Mg Capsule) 200 mg PO BID GLADIS Docusate Sodium (Docusate Sodium 100 Mg Capsule) 100 mg PO BID GLADIS Hydromorphone HCl (Hydromorphone Hcl 0.5 Mg/0.5 Ml Syringe) 0.25 mg IVPUSH Q4H PRN; Protocol PRN Reason: Pain, Severe (Pain Scale 7-10) Promethazine HCl 12.5 mg/ (Sodium Chloride) 50.5 mls @ 202 mls/hr IV ONCE PRN PRN Reason: Nausea and Vomiting Lactated Ringer's (Lr) 1,000 mls @ 100 mls/hr IVCONT .Q10H GLADIS Stop: 04/05/23 10:42 Cefazolin Sodium/Dextrose (Ancef) 2 gm in 50 mls @ 100 mls/hr IV POSTOP ONE Stop: 04/04/23 17:29 Ondansetron HCl (Ondansetron Hcl 4 Mg/2 Ml Vial) 4 mg IVPUSH Q8H PRN PRN Reason: Nausea and Vomiting Oxycodone HCl (Oxycodone Hcl Immed Release 5 Mg Tablet) 5 mg PO Q4H PRN PRN Reason: Pain, Moderate(Pain Scale 4-6) Oxycodone HCl (Oxycodone Hcl Er 10 Mg Tab.Er.12h) 10 mg PO BID GLADIS Sodium Chloride (0.9 % Sodium Chloride Flush 3 Ml Syringe) 3 ml IVFLUSH QSHIFT [facility] Home Medications Medication Instructions Recorded Confirmed Last Taken Type ibuprofen 600 mg tablet 600 mg PO Q8H PRN Pain 01/30/23 03/30/23 03/14/23 History acetaminophen 325 mg tablet 650 mg PO Q6H PRN pain 03/27/23 03/30/23 04/03/23 History ascorbic acid (vitamin C) 500 mg 500 mg PO DAILY 03/27/23 03/30/23 04/03/23 History tablet (Vitamin C) cyanocobalamin (vitamin B-12) 1,000 mcg PO DAILY 03/27/23 03/30/23 04/03/23 History 1,000 mcg tablet (Vitamin B-12) ferrous sulfate 325 mg (65 mg 325 mg PO DAILY 03/27/23 03/30/23 04/02/23 History iron) tablet multivitamin 1 tab PO DAILY 03/27/23 03/30/23 04/02/23 History lisinopril 5 mg tablet 5 mg PO DAILY 04/04/23 04/04/23 04/03/23 History Physical Exam Vital Signs and Narrative: Vital Signs: Last Vital Signs Temp 97.6 F 04/04/23 14:26 Pulse 64 04/04/23 14:26 Resp 18 04/04/23 14:26 BP 166/80 H 04/04/23 14:26 Pulse Ox 99 04/04/23 14:26 O2 Del Method Room Air 04/04/23 14:26 O2 Flow Rate 2 04/04/23 13:30 BMI result Body Mass Index 28.9 Const: Other: Constitutional : Awake, interactive, not in distress Neck : Normal inspection, Supple Cardiovascular : RRR, no JVP, no lower extremity edema Respiratory : good bilateral air entry, no crackles, wheezes or rhonchi Gastrointestinal: soft, lax, Normal bowel sounds, Non tender Skin : Warm, Dry Skeletal: Right knee in dressing Neurological : Alert & oriented x3, No focal deficit Results Labs 04/04/23 08:06 Imaging Radiologist's Impressions: Impressions Knee X-Ray 04/04/23 12:35 IMPRESSION: Total right knee arthroplasty with prosthetic components in satisfactory alignment. Immediate postoperative changes are noted. Assessment and Plan (1) Osteoarthritis of right knee: Status: Acute Plan A 63 years old lady with PMH of HTN, smoking, COPD among others who presents to the hospital for right total knee scheduled as outpatient. Right knee arthroplasty orthopedic team following HTN continue Lisinopril smoking advised to quit Thank you for the consult. will sign off. please contact hospitalist team for any further questions. Time Spent With Patient Time: Total time managing care of this patient today ____ minutes.
[2023-04-04] MEDS: 0.9 % Sodium Chloride Flush 3 ML SYRINGE IVFLUSH (14:46)
[2023-04-04] MEDS: oxyCODONE HCl Immed Release 5 MG TABLET PO (15:00)
[2023-04-04] MEDS: ceFAZolin Sodium/Dextrose,Iso 2 GM/50 ML PIGGYBACK IV (16:53)
[2023-04-04] MEDS: oxyCODONE HCl ER 10 MG TAB.ER.12H PO (20:58)
[2023-04-04] MEDS: Celecoxib 200 MG CAPSULE PO (20:58)
[2023-04-04] MEDS: Docusate Sodium 100 MG CAPSULE PO (20:58)
[2023-04-04] MEDS: Acetaminophen 325 MG TABLET 650 MG PO (23:37)
[2023-04-05 03:27] VITALS: BP 131/75; PULSE 60; RESP 16; TEMP 36.8; O2SAT 98
[2023-04-05 06:23] LABS: MANUAL DIFF FLAG NO
[2023-04-05 06:28] LABS: Basophils Percent Auto 0.1 % (0-2); Hematocrit 29.1 % (37.0-47.0); Hemoglobin 10.2 g/dl (12.0-16.0); Imm Gran Abs Auto 0.03 X10*3/uL (0.00-0.03); Imm Gran Pct Auto 0.4 % (0.0-0.4); Lymphocytes Absolute Auto 0.8 X10*3/uL (1.2-4.9); Lymphocytes Percent Auto 11.3 % (20-40); Mean Corpuscular HGB Conc 35.1 g/dl (31.0-35.0); Mean Corpuscular Hemoglobin 35.2 pg (27.0-33.0); Mean Corpuscular Volume 100.3 fL (80.0-98.0); Mean Platelet Volume 10.9 fL (9.4-12.3); Monocytes Absolute Auto 0.5 X10*3/uL (0.1-1.2); Monocytes Percent Auto 7.2 % (2-11); Neutrophils Absolute Auto 5.9 x10*3/uL (2.0-8.3); Platelet Count 143 X10*3/uL (160-400); Red Cell Distribution Width 12.9 % (11.0-16.0); White Blood Count 7.3 X10*3/uL (4.8-10.8)
[2023-04-05 07:01] LABS: Anion Gap 13 (12-20); Blood Urea Nitrogen 10 mg/dL (9-16); Calcium 9.3 mg/dL (8.4-10.2); Carbon Dioxide 22 mmol/L (22-29); Chloride 104 mmol/L (96-108); Creatinine Clr Calc Pharmacy 103.7; Estimated Glomerular Filt Rate > 60; Glucose Fasting 133 mg/dL (60-99); Potassium 4.4 mmol/L (3.3-5.1); Sodium 135 mmol/L (135-145)
[2023-04-05 07:38] VITALS: BP 131/75; PULSE 60; O2SAT 98
[2023-04-05 07:44] VITALS: BP 143/63; PULSE 64; RESP 18; TEMP 36.4; O2SAT 96
--- NOTE | 2023-04-05 07:47 | PM.PNORT ---
Subjective Subjective Date of Service: 04/05/23 Interval history: POD1 s/p RTKA. No overnight events. Patient is sitting in the padilla after working with PT. Pain is managed. No additional complaints. Physical Exam Vital Signs: Vital Signs: Last Vital Signs Temp 98.2 F 04/05/23 03:27 Pulse 60 04/05/23 07:38 Resp 16 04/05/23 03:27 BP 131/75 04/05/23 07:38 Pulse Ox 98 04/05/23 07:38 O2 Del Method Room Air 04/05/23 03:27 O2 Flow Rate 2 04/04/23 13:30 BMI result Body Mass Index 29.0 Const: General: cooperative, healthy appearing and no acute distress Resp: Effort & Inspection: normal respiratory effort and able to speak in complete sentences Cardio: Rate: regular rate Peripheral pulses: Peripheral pulses 2+ throughout GI: Palpation (GI): Soft to palpation Skin: Lesions: no lesions Rashes: no rashes Extrem: Other: Right knee Aquacel is c/d/i. Able to perform knee flexion and extension. NVI. Procedures Date of Service Date of Service: 04/05/23 Progress Note: A&P Assessment and plan (1) Status post total knee replacement, right: Status: Acute Plan Continue pain mgmnt Begin ASA fordvt ppx begin PT for RTKA Dispo planning-Pending PT eval, pain mgmnt Time Spent With Patient Time: Total time managing care of this patient today ____ minutes. Quality Stroke Does the patient have a stroke diagnosis?: No VTE Prior VTE?: No VTE Risk Level:: Medical - moderate - high VTE Device Contraindication: N/A - Device Ordered VTE Drug Contraindication: N/A - Med Ordered
[2023-04-05] MEDS: Celecoxib 200 MG CAPSULE PO ×2 (08:05→22:12)
[2023-04-05] MEDS: oxyCODONE HCl ER 10 MG TAB.ER.12H PO ×2 (08:05→22:12)
[2023-04-05] MEDS: Docusate Sodium 100 MG CAPSULE PO ×2 (08:05→22:13)
[2023-04-05] MEDS: Multivitamin TABLET 1 TAB PO (08:06)
[2023-04-05] MEDS: lisinopriL 5 MG TABLET PO (08:06)
[2023-04-05] MEDS: 0.9 % Sodium Chloride Flush 3 ML SYRINGE IVFLUSH ×2 (08:07→14:49)
--- NOTE | 2023-04-05 09:32 | MHC.CM.PN ---
[id number] S/P RT TKA She lives by herself. She will stay with her son post op. [facility] will provide services. The address has been given to the [address] [place] DP home with [facility]. Her Dtr or Sister will provide transport.
[2023-04-05] MEDS: oxyCODONE HCl Immed Release 5 MG TABLET PO ×2 (10:43→14:49)
[2023-04-05] MEDS: Aspirin 325 MG TABLET PO ×2 (10:43→22:13)
[2023-04-05] MEDS: Acetaminophen 325 MG TABLET 650 MG PO (10:43)
--- NOTE | 2023-04-05 11:56 | HO.POSTANES ---
Post Anesthesia Evaluation Post Anesthesia Evaluation Date of Service: 04/05/23 Vital Signs: Vital Signs Temp Pulse Resp BP Pulse Ox O2 Del Method 04/05/23 07:44 97.5 F 64 18 143/63 H 96 Room Air 04/05/23 07:38 60 131/75 98 04/05/23 03:27 98.2 F 60 16 131/75 98 Room Air Anesthesia: Nerve Block and General Mental Status: Awake Pain Control: Satisfactory Nausea/Vomiting: None Hydration: Adequate Anesthesia-Related Issues: No Anes. Related Issues
[2023-04-05 13:48] VITALS: BP 143/63; PULSE 64; O2SAT 96
[2023-04-05 15:28] VITALS: BP 99/52; PULSE 56; RESP 18; TEMP 36.3; O2SAT 97
[2023-04-05 19:24] VITALS: BP 134/62; PULSE 68; RESP 18; TEMP 36.2; O2SAT 97
[2023-04-06 04:00] VITALS: BP 108/55; PULSE 57; RESP 18; TEMP 36.4; O2SAT 97
[2023-04-06] MEDS: HYDROmorphone HCl 0.5 MG/0.5 ML SYRINGE 0.25 MG IVPUSH (06:42)
[2023-04-06] MEDS: Acetaminophen 325 MG TABLET 650 MG PO (06:45)
[2023-04-06 07:03] LABS: MANUAL DIFF FLAG NO
[2023-04-06 07:12] LABS: Basophils Percent Auto 0.3 % (0-2); Eosinophils Absolute Auto 0.1 X10*3/uL (0.0-0.4); Eosinophils Percent Auto 1.9 % (0-4); Hematocrit 26.5 % (37.0-47.0); Hemoglobin 9.1 g/dl (12.0-16.0); Imm Gran Abs Auto 0.02 X10*3/uL (0.00-0.03); Imm Gran Pct Auto 0.3 % (0.0-0.4); Lymphocytes Absolute Auto 1.9 X10*3/uL (1.2-4.9); Lymphocytes Percent Auto 29.2 % (20-40); Mean Corpuscular HGB Conc 34.3 g/dl (31.0-35.0); Mean Corpuscular Hemoglobin 35.5 pg (27.0-33.0); Mean Corpuscular Volume 103.5 fL (80.0-98.0); Mean Platelet Volume 11.2 fL (9.4-12.3); Monocytes Absolute Auto 0.6 X10*3/uL (0.1-1.2); Monocytes Percent Auto 8.8 % (2-11); Neutrophils Absolute Auto 3.8 x10*3/uL (2.0-8.3); Neutrophils Percent Auto 59.5 % (45-73); Platelet Count 135 X10*3/uL (160-400); Red Blood Count 2.56 X10*6/uL (4.20-5.50); Red Cell Distribution Width 13.2 % (11.0-16.0); White Blood Count 6.3 X10*3/uL (4.8-10.8)
[2023-04-06 07:25] LABS: Anion Gap 12 (12-20); Blood Urea Nitrogen 13 mg/dL (9-16); Carbon Dioxide 24 mmol/L (22-29); Chloride 107 mmol/L (96-108); Creatinine Clr Calc Pharmacy 113.1; Estimated Glomerular Filt Rate > 60; Glucose Fasting 97 mg/dL (60-99); Sodium 139 mmol/L (135-145)
[2023-04-06 07:33] VITALS: BP 108/55; PULSE 57; O2SAT 97
[2023-04-06 07:44] VITALS: BP 148/70; PULSE 67; RESP 17; TEMP 36.3; O2SAT 97
[2023-04-06] MEDS: oxyCODONE HCl Immed Release 5 MG TABLET PO (08:04)
[2023-04-06] MEDS: 0.9 % Sodium Chloride Flush 3 ML SYRINGE IVFLUSH (08:08)
--- NOTE | 2023-04-06 08:43 | P.DS_ITS ---
DS: Providers Provider Date of Service: 04/06/23 Primary care physician: Luisito Gonzalez MD Consults: 04/04/23 14:19 Consult to Hospitalist Routine Comment: Consulting Provider: Hospitalist Reason For Exam: post op medical managmenet DS: Diagnosis Discharge Diagnosis (1) Status post total knee replacement, right: Status: Acute DS: Summary Hospital Course Hospital Course: The patient underwent a successful Right total knee arthroplasty on, was transferred to PACU and then to the floor to recover. During their stay, their vitals were stable, afebrile at 97.4. Labs were unremarkable, H/H 9.1/26.5. POD 1 she was started on Aspirin 325mg tabs po bid for DVT ppx, they also received Physical Therapy services twice a day. Physical therapy should include gait training, ROM to tolerance and quad strength. He is WBAT. Prior to discharge, his dressing was changed, incision clean dry and intact, new Aquacel dressing applied. The Aquacel dressing shoulder remain intact and dry at all times. Any concerns with the dressing, please contact orthopedic office. No showering. The plan is to be discharged home with VNA services Time Spent with Patient Time attestation: Total time managing care of this patient today ____ minutes. Discharge coordination time: Less than 30 minutes Quality: Safe Use of Opioids Does Pt have an Active Cancer Diagnosis on the Problem List?: No Quality: Stroke Does the patient have a stroke diagnosis?: No Physical Exam Vital Signs: Vital Signs: Last Vital Signs Temp 97.4 F 04/06/23 07:44 Pulse 67 04/06/23 07:44 Resp 17 04/06/23 07:44 BP 148/70 H 04/06/23 07:44 Pulse Ox 97 04/06/23 07:44 O2 Del Method Room Air 04/06/23 07:44 O2 Flow Rate 2 04/04/23 13:30 BMI result Body Mass Index 29.0 Const: General: cooperative, healthy appearing and no acute distress Resp: Effort & Inspection: normal respiratory effort and able to speak in complete sentences Cardio: Rate: regular rate Peripheral pulses: Peripheral pulses 2+ throughout GI: Palpation (GI): Soft to palpation Skin: Lesions: no lesions Rashes: no rashes Extrem: Other: Right knee Aquacel is c/d/i. Able to perform knee flexion and extension. NVI. DS: Data Data Completed and Pending Completed studies during hospitalization [Text1]: Procedures Replacement of Right Hip Joint with Synthetic Substitute, Uncemented, Open Approach (08/09/22) Pending studies at discharge: Pending at discharge 04/04/23 11:37 Surgical [PTH] Routine Labs on day of discharge: Laboratory Results - last 24 hr 04/06/23 04/06/23 05:32 05:32 WBC 6.3 RBC 2.56 L Hgb 9.1 L Hct 26.5 L MCV 103.5 H MCH 35.5 H MCHC 34.3 RDW 13.2 Plt Count 135 L MPV 11.2 Immature Gran % (Auto) 0.3 Neut % (Auto) 59.5 Lymph % (Auto) 29.2 [place] % (Auto) 8.8 Eos % (Auto) 1.9 Baso % (Auto) 0.3 Lymph # (Auto) 1.9 [place] # (Auto) 0.6 Eos # (Auto) 0.1 Baso # (Auto) 0.0 Abs Immat Gran (auto) 0.02 Absolute Neuts (auto) 3.8 Absolute Nucleated RBC 0.000 Nucleated RBC % (auto) 0.0 Sodium 139 Potassium 4.0 Chloride 107 Carbon Dioxide 24 Anion Gap 12 BUN 13 Creatinine 0.56 Estim Creat Clear Calc 113.1 Estimated GFR > 60 Fasting Glucose 97 Calcium 9.0 Discharge Plan Discharge Patient Disposition: Home Health Service Referrals: Chuck Evangelista PA-C [Physician [facility]] - 2 Weeks (04/20/23 1:00 Chuck Evangelista PA-C) Discharge Medications: New celecoxib 200 mg Capsule 200 mg PO BID 30 Days Qty: 60 0RF acetaminophen 325 mg Tablet 650 mg PO Q6H PRN (Reason: Pain, Mild (Pain Scale 1-3)) 30 Days Qty: 240 0RF aspirin 325 mg Tablet 325 mg PO BID 42 Days Qty: 84 0RF docusate sodium 100 mg Capsule 100 mg PO BID 14 Days Qty: 28 0RF oxycodone 5 mg Tablet 5 mg PO Q4H PRN (Reason: Pain, Moderate(Pain Scale 4-6)) 7 Days Qty: 42 0RF Rx Instructions: Partial Fill upon patient request. Continued (DME) Elevated toliet seat See Rx Instructions .ROUTE .MEDSUPPLY Qty: 1 0RF Rx Instructions: As directed (DME) shower bench See Rx Instructions .ROUTE .MEDSUPPLY Qty: 1 0RF Rx Instructions: M16.11 Right hip OA height 67 210 lbs Patient is unable to shower or lift leg beyond 90 degrees. multivitamin Tablet 1 tab PO DAILY cyanocobalamin (vitamin B-12) [Vitamin B-12] 1,000 mcg Tablet 1,000 mcg PO DAILY ascorbic acid (vitamin C) [Vitamin C] 500 mg Tablet 500 mg PO DAILY ferrous sulfate 325 mg (65 mg iron) Tablet 325 mg PO DAILY lisinopril 5 mg tablet 5 mg PO DAILY Discontinued acetaminophen 325 mg tablet 650 mg PO Q6H PRN (Reason: pain) ibuprofen 600 mg tablet 600 mg PO Q8H PRN (Reason: Pain) Discharge Orders: Discharge Order (Routine); Ordered 04/06/23 Ordered By: Chuck Evangelista Diet: Regular diet Activity on Discharge: Use cane or walker Activity Restrictions/Additional Instructions: Physical Therapy for Total knee arthroplasty: WBAT, gait training, ROM 0-12, quad strength * Limit stair climbing * No showering, no tub bath-keep dressing clean, dry and intact * No driving x6 weeks * Continue Aspirin twice a day x 6 weeks * Follow up with [facility] in 2 weeks: * --you will also have your first out patient PT jackie on the day of your post op appt-so please plan on being in the office that day for an extended period of time.
--- NOTE | 2023-04-06 08:45 | W.MHC.F2F ---
Service Date Service Date: 04/06/23 Encounter Date of encounter: 04/06/23 Reasons for Services Signs and symptoms assessed: Right knee pain with ambulation, diff with balance, unable to drive, poor gait Reason for physical therapy: home safety and mobility, therapeutic exercises, restore joint function, gait/transfer training, ADL training and energy conservation Reason for occupational therapy: home safety and mobility, therapeutic exercises, restore joint function, gait/transfer training, ADL training and energy conservation Homebound: Leaving the home is medically contraindicated at this time without the asist of a device and/or another person due th the listed conditions above and below. Reason homebound: unsteady gait / fall risk, pain with ambulation, poor balance / fall risk and unable to drive Homebound supporting statement: Pt. is considered home bound due to recent surgery. Unable to drive, poor balance, poor gait mechanics. Certification: Based on the above findings, I certify that this patient is confined to the home and needs intermittent jail care, physical therapy and/or speech therapy, or continues to need occupational therapy. The patient is under my care, and I have initiated the establishment of the plan of care. The patient will be followed by a physician who will periodically review the plan of care. Time Spent With Patient Time: Total time managing care of this patient today ____ minutes.
--- NOTE | 2023-04-06 09:08 | MHC.CM.PN ---
PATIENT IS DC HOME TODAY WITH NEW [facility] SERVICES. SHE WILL NOT DC ON [facility]. RN AWARE OF PLAN. DAUGHTER TO PROVIDE TRANSPORTATION
[2023-04-06] MEDS: Multivitamin TABLET 1 TAB PO (09:32)
[2023-04-06] MEDS: oxyCODONE HCl ER 10 MG TAB.ER.12H PO (09:32)
[2023-04-06] MEDS: Celecoxib 200 MG CAPSULE PO (09:32)
[2023-04-06] MEDS: Aspirin 325 MG TABLET PO (09:32)
[2023-04-06] MEDS: Docusate Sodium 100 MG CAPSULE PO (09:33)
[2023-04-06] MEDS: lisinopriL 5 MG TABLET PO (09:33)
== END 2023-04-06 10:05 | disposition home health service (06) ==
LOC: HO.SSS 07:30 → HO.S3 13:55
PROVIDERS: Physician Assistant; PCP Internal Medicine; Visit Provider Orthopaedic Surgery
PROC: (CPT 27447; principal; 2023-04-04 09:40)
DX: M17.11 Unilateral primary osteoarthritis, right knee (principal); R26.2 Difficulty in walking, not elsewhere classified; I10 Essential (primary) hypertension; R01.1 Cardiac murmur, unspecified; F41.1 Generalized anxiety disorder; Z79.899 Other long term (current) drug therapy; Z79.1 Long term (current) use of non-steroidal anti-inflammatories (NSAID); Z88.1 Allergy status to other antibiotic agents; Z96.642 Presence of left artificial hip joint; Z98.890 Other specified postprocedural states; F17.210 Nicotine dependence, cigarettes, uncomplicated
CPT/HCPCS: 27447; 36415; 73560; 80048; 85014; 85018; 85025; 86850; 86900; 86901; 87640; 87641; 88305; 88311; 97110; 97116; 97162; C1713; C1776; J0131; J0690; J1100; J1170; J2250; J2405

== ENCOUNTER 2023-04-12 13:07 | Outpatient (REF) | payer MEDICARE, MEDICAID, SELFPAY ==
--- NOTE | ~2023-04-12 | US_ITS ---
EXAMINATION: US ARTERIAL DUPLEX, NONINVASIVE, LEFT UPPER EXTREMITY CLINICAL INFORMATION: Decreased radial pulse. COMPARISON: Previous ultrasound July 2022 of the left upper extremity and CTA of the left upper extremity and chest July 2022. TECHNIQUE: Duplex Doppler techniques were used to examine the left upper extremity. Velocity measurements and color flow Doppler imaging were performed in the subclavian arteries, axillary arteries and brachial arteries along with the radial and ulnar arteries. FINDINGS: There is abnormal monophasic flow seen in the left subclavian, axillary, brachial, radial and ulnar arteries. There is case-decrease in peak systolic velocity seen in all vessels of the left upper extremity, maximum peak systolic velocity measuring 46 cm/s in the proximal subclavian artery. Findings are suggestive of proximal left subclavian artery stenosis and more distal decreased monophasic flow. This is slightly increased or may be worsened in severity compared to July 2022. US/US arterial duplex UE LT IMPRESSION: There is monophasic flow seen in the distal subclavian artery and all vessels distal to this. An inflow stenosis is suggested. Peak systolic velocities are slightly decreased compared to July 2022 exam suggestive of increasing more proximal left subclavian stenosis.
== END 2023-04-12 13:08 | disposition home or self-care (01) ==
LOC: HO.US 13:07
PROVIDERS: PCP Internal Medicine; Visit Provider Internal Medicine
DX: G45.8 Other transient cerebral ischemic attacks and related syndromes (principal)
CPT/HCPCS: 93931

== ENCOUNTER → 2023-04-13 15:49 | Outpatient (BNVA) | payer MEDICARE, MEDICAID, SELFPAY | PROVIDERS: PCP Internal Medicine; Visit Provider Physician Assistant ==

== ENCOUNTER 2023-04-13 16:21 | Outpatient (REF) | payer MEDICARE, MEDICAID, SELFPAY ==
--- NOTE | ~2023-04-13 | US_ITS ---
EXAMINATION: US VENOUS ULTRASOUND WITH DOPPLER LOWER EXTREMITY, RIGHT CLINICAL INFORMATION: Calf swelling COMPARISON: None available. TECHNIQUE: Ultrasound of the deep veins is performed from the hip to the calf with compression sonography and color and pulse Doppler assessment. Spectral analysis with color-flow imaging is performed. FINDINGS: There is normal venous compression and respiratory variation and augmented flow. The visualized common femoral vein, superficial femoral vein, profunda femoral vein, popliteal vein, shows no evidence of deep venous thrombosis. There is no significant popliteal fossa cyst. Limited evaluation of the peroneal veins due to swelling. The visualized posterior tibial veins appear patent. If the patient's symptoms persist, followup ultrasound in 5 days 7 days might be of value to exclude proximal propagation from a non-visualized calf vein. US/US venous duplex LE RT IMPRESSION: No DVT demonstrated in the right lower extremity extending from the common femoral vein to the popliteal vein. Limited evaluation of the calf veins. If the patient's symptoms persist, followup ultrasound in 5 days 7 days might be of value to exclude proximal propagation from a non-visualized calf vein.
== END 2023-04-13 16:22 | disposition home or self-care (01) ==
LOC: HO.US 16:21
PROVIDERS: PCP Internal Medicine; Visit Provider Physician Assistant
DX: R60.0 Localized edema (principal); Z96.651 Presence of right artificial knee joint
CPT/HCPCS: 93971; 99212

== ENCOUNTER → 2023-04-17 08:50 | Outpatient (BNVA) | payer MEDICARE, MEDICAID, SELFPAY | PROVIDERS: PCP Internal Medicine; Visit Provider Physician Assistant | DX: Z47.1 Aftercare following joint replacement surgery (principal); Z96.651 Presence of right artificial knee joint | CPT/HCPCS: 99212 ==

== ENCOUNTER → 2023-04-20 13:06 | Outpatient (BNVA) | payer MEDICARE, MEDICAID, SELFPAY | PROVIDERS: PCP Internal Medicine; Visit Provider Physician Assistant | DX: Z47.1 Aftercare following joint replacement surgery (principal); Z96.651 Presence of right artificial knee joint | CPT/HCPCS: 99212 ==

== ENCOUNTER → 2023-04-27 11:11 | Outpatient (BNVA) | payer MEDICARE, MEDICAID, SELFPAY | PROVIDERS: PCP Internal Medicine; Visit Provider Physician Assistant | DX: Z47.1 Aftercare following joint replacement surgery (principal); Z96.651 Presence of right artificial knee joint | CPT/HCPCS: 99212 ==

== ENCOUNTER 2023-05-23 13:09 | Outpatient (AMB) | payer MEDICARE, MEDICAID, SELFPAY ==
[2023-05-23 13:09] VITALS: BMI 29.1
--- NOTE | 2023-05-23 13:09 | MHC.OFFVIS ---
Intake Vital Signs 05/23/23 13:09 Height 5 ft 7 in Weight 186 lb BMI 29.1 Intake Visit Reasons: Re-Referral new issue L subclav steal Intake Note: pt states that Left UE does not have pulse, had Art US 04/12/23, no numbness, tingling or discoloration of Left UE Accompanied by: Self / Same As Patient Allergies sulfamethoxazole [From Bactrim] Allergy (Intermediate, Verified 05/23/23 13:16) Rash trimethoprim [From Bactrim] Allergy (Intermediate, Verified 05/23/23 13:16) Rash HPI Re-Referral new issue L subclav steal HPI Details Very pleasant 63-year-old female presents for repeat evaluation regarding left subclavian artery stenosis. Upon discussion with her she is doing fairly well. She denies any significant discomfort of the left upper extremity. She denies any claudication type symptoms. She is able to use it in function fairly well. She now presents for follow-up evaluation with ultrasound. In addition she had actually seen us back in August of 2020 regarding venous disease. She has had knee and hip replacement. She is currently recuperating from that. [facility] Medical History Anxiety Arthritis Carpal tunnel syndrome Heart murmur HTN (hypertension) Osteoarthritis of right knee Surgical History Abdominal mass H/O: hysterectomy History of arthroscopy of right knee History of carpal tunnel surgery of left wrist History of tonsillectomy History of tubal ligation Hx of section Hx of total hip arthroplasty Status post left hip replacement Family History Father Heart problem Mother No problems noted. Social History Household Members: Family Household Members Other:: son Housing: House Are you a primary resident care manager to a significant other at home: No Do you presently have visiting nurse or other home services: No Patient Tobacco Use Status: Current everyday Tobacco user Tobacco use type: Cigarette Cigarettes Per Day: 5 Years Smoked: 40 Second Hand Smoke Exposure: Yes Advance Directives Date on File: 08/15/22 service: No Current occupational status: unemployed Review of Systems Const Reports as per HPI ENT Reports no additional complaints Card Denies chest pain, Denies chest pain at rest and Denies chest pain with activity Resp Denies chest congestion and Denies cough GI Reports no additional complaints Musc Details: pain over varicosities, aching of lower extremities, swelling, cramping, heaviness and tiredness, itching Denies abnormal gait Skin/Breast Reports pruritus and Denies wounds Neuro Reports no additional complaints and Denies abnormal gait Psych Denies no additional complaints Physical Exam Vital Signs: BMI result Body Mass Index 29.1 Const General: cooperative, healthy appearing and comfortable Orientation/consciousness: oriented to person, oriented to place and oriented to time Neck Carotids: no bruits Chest Chest palpation & inspection: normal inspection of the chest and normal palpation of entire chest wall Resp Effort & Inspection: normal respiratory effort and able to speak in complete sentences Cardio Other: Left arm palpable brachial and radial pulse. Triphasic ulnar signal Rate: regular rate Heart sounds: S1 normal heart sound present and S2 normal heart sound present Peripheral pulses: Peripheral pulses 2+ throughout GI Inspection: Yes normal to inspection Skin Other: +2 edema, large rope-like varicosities greater than 4 mm CEAP Classification C4 - skin color changes Ep - Etiology Primary As - superficial veins P - reflux General skin exam: dry skin Neuro General: oriented to person, oriented to place and oriented to time Extrem Right lower extremity: full ROM, normal capillary refill and edema Left lower extremity: full ROM, normal capillary refill and edema Psych Mental Status: mental status grossly normal Results Reviewed Results Reviewed: Ultrasound dated 04/12/2023 demonstrates distal left subclavian artery monophasic flow. Written report and images were reviewed. Assessment & Plan Assessment & Plan (1) Varicose veins of right lower extremity with inflammation: Code(s): I83.11 - Varicose veins of right lower extremity with inflammation Plan: In short patient does have varicose veins which may need to be addressed at some point. At the current time they are stable and she is undergoing of orthopedic interventions. Would manage them conservatively for now. She is scheduled for routine follow-up in 3 months to reassess her varicosities in particular the right lower extremity. We did discuss routine conservative measures including compression elevation and exercise. (2) Stenosis of left subclavian artery: Code(s): I77.1 - Stricture of artery Plan: The patient does clearly have stenosis of the left subclavian artery. At the current time would manage this conservatively as she is asymptomatic. I did discuss the findings in the pathophysiology with the patient. In addition I did request that a time she have was blood pressures IVs or blood draws they use the right arm. Once again she will continue to follow us for venous disease. We will recheck arm status on follow-up in approximately 3 months time. Coding Level of Care Code Est Pt Level 4 (13350) Diagnoses Varicose veins of right lower extremity with inflammation I83.11 Stenosis of left subclavian artery I77.1
== END 2023-05-23 13:35 | disposition home or self-care (01) ==
LOC: HO.HVS 13:09
PROVIDERS: PCP Internal Medicine; Visit Provider Surgery Vascular Surgery
DX: I83.11 Varicose veins of right lower extremity with inflammation (principal); I77.1 Stricture of artery
CPT/HCPCS: 99214

== ENCOUNTER → 2023-05-23 13:09 | Outpatient (BNVA) | payer MEDICARE, MEDICAID, SELFPAY | PROVIDERS: PCP Internal Medicine; Visit Provider Surgery Vascular Surgery | DX: I83.11 Varicose veins of right lower extremity with inflammation (principal); I77.1 Stricture of artery | CPT/HCPCS: 99212 ==

== ENCOUNTER 2023-06-08 09:51 | Outpatient (REF) | payer MEDICARE, MEDICAID, SELFPAY ==
--- NOTE | ~2023-06-08 | XR_ITS ---
EXAMINATION: XR BOTH KNEES AP STANDING XR RIGHT KNEE, 2 VIEWS CLINICAL INFORMATION: Pain in the unspecified knee. COMPARISON: 03/30/2023 bilateral, 04/04/2023 right knee TECHNIQUE: Standing AP view of both knees and lateral and sunrise views of the right knee. FINDINGS: LEFT KNEE: Small medial and lateral marginal osteophytes with chondrocalcinosis redemonstrated. The bones are diffusely demineralized. RIGHT KNEE: Status post right knee total arthroplasty with prosthetic components in satisfactory alignment. Hardware appears intact. Surgical stella have been removed. Persistent joint effusion. The bones are diffusely demineralized. XR/XR knee RT 2V IMPRESSION: 1. Status post right knee total arthroplasty with prosthetic components in satisfactory alignment. Hardware appears intact. 2. Mild osteoarthritis in the medial and lateral compartments of the left knee.
--- NOTE | ~2023-06-08 | XR_ITS ---
EXAMINATION: XR BOTH KNEES AP STANDING XR RIGHT KNEE, 2 VIEWS CLINICAL INFORMATION: Pain in the unspecified knee. COMPARISON: 03/30/2023 bilateral, 04/04/2023 right knee TECHNIQUE: Standing AP view of both knees and lateral and sunrise views of the right knee. FINDINGS: LEFT KNEE: Small medial and lateral marginal osteophytes with chondrocalcinosis redemonstrated. The bones are diffusely demineralized. RIGHT KNEE: Status post right knee total arthroplasty with prosthetic components in satisfactory alignment. Hardware appears intact. Surgical stella have been removed. Persistent joint effusion. The bones are diffusely demineralized. XR/XR knee standing BI IMPRESSION: 1. Status post right knee total arthroplasty with prosthetic components in satisfactory alignment. Hardware appears intact. 2. Mild osteoarthritis in the medial and lateral compartments of the left knee.
== END 2023-06-08 09:52 | disposition home or self-care (01) ==
LOC: HO.HOSX 09:51
PROVIDERS: Visit Provider Orthopaedic Surgery
DX: Z47.1 Aftercare following joint replacement surgery (principal); Z96.651 Presence of right artificial knee joint
CPT/HCPCS: 73560; 73565

== ENCOUNTER 2023-06-08 11:12 | Outpatient (AMB) | payer MEDICARE, MEDICAID, SELFPAY ==
[2023-06-08 11:28] VITALS: BMI 29.1
--- NOTE | 2023-06-08 11:28 | MHC.OFFVIS ---
Intake Vital Signs 06/08/23 11:28 Height 5 ft 7 in Weight 186 lb BMI 29.1 Intake Visit Reasons: PO - RT TKA 04/04/23 NE Intake Note: Erika is a 63 year old female who presents today for a post operative follow up of her right knee. S/p Right TKA 04/04/23. Patient reports Allergies sulfamethoxazole [From Bactrim] Allergy (Intermediate, Verified 06/08/23 11:29) Rash trimethoprim [From Bactrim] Allergy (Intermediate, Verified 06/08/23 11:29) Rash HPI PO - RT TKA 04/04/23 NE HPI Details Erika is a 63 year old woman ~2 months S/P right TKA. She says she is doing well and continues to work with PT. She has some mild pain with activity but says this is tolerable. She complains of left knee pain, along with a clicking sensation in her knee. [facility] Medical History Anxiety Arthritis Carpal tunnel syndrome Heart murmur HTN (hypertension) Osteoarthritis of right knee Surgical History Abdominal mass H/O: hysterectomy History of arthroscopy of right knee History of carpal tunnel surgery of left wrist History of tonsillectomy History of tubal ligation Hx of section Hx of total hip arthroplasty Status post left hip replacement Family History Father Heart problem Mother No problems noted. Social History Household Members: Family Household Members Other:: son Housing: House Are you a primary career services coordinator to a significant other at home: No Do you presently have visiting nurse or other home services: No Patient Tobacco Use Status: Current everyday Tobacco user Tobacco use type: Cigarette Cigarettes Per Day: 5 Years Smoked: 40 Second Hand Smoke Exposure: Yes Advance Directives Date on File: 08/15/22 service: No Current occupational status: unemployed Review of Systems Const All systems reviewed & are unremarkable except as noted in HPI and below Physical Exam Vital Signs: BMI result Body Mass Index 29.1 Const General: no acute distress and alert Orientation/consciousness: patient oriented x3 Neuro General: patient oriented x3 Extrem Other: Right Knee: Well-healed incision 0-130 degrees ROM Psych Appearance: grossly normal Affect: normal affect Attitude: cooperative Results Reviewed Results Reviewed: I personally reviewed relevant radiographs. Right total knee arthroplasty in expected post operative position with no hardware complications or evidence of loosening Assessment & Plan Assessment & Plan (1) Status post total knee replacement, right: Code(s): Z96.651 - Presence of right artificial knee joint Plan: This is a 63 year old woman S/P right TKA, DOS: 04/04/23. She says she is doing well and continues to work with PT. She denies any symptoms of infection and is happy with the results of her surgery. I recommend she continue to work with PT and at-home strengthening exercises. Discussed dental prophylaxis. She will follow up in 9 months. Plan Scribed for Panda Angelo MD by Osman Kidd, medical research scientist, on 06/08/23 at 11:40 AM, EST. Orders: Orders XR knee RT 2V 06/08/23 M25.569 - Pain in unspecified knee XR knee standing BI 06/08/23 M25.569 - Pain in unspecified knee Coding Level of Care Code Global (69527) Diagnoses Status post total knee replacement, right Z96.651
== END 2023-06-08 12:05 | disposition home or self-care (01) ==
PROVIDERS: PCP Internal Medicine; Visit Provider Orthopaedic Surgery
DX: Z96.651 Presence of right artificial knee joint (principal)
CPT/HCPCS: 99024

== ENCOUNTER 2023-12-22 09:49 | Outpatient (AMB) | payer MEDICARE, MEDICAID, SELFPAY ==
--- NOTE | 2023-12-22 10:05 | MHC.OFFVIS ---
Intake Intake Visit Reasons: OV-RT TKA 04/04/23 NE-F/U Intake Note: Erika is a 63 year old female who presents today for a post operative follow up of her right knee. about 8 months S/p Right TKA 04/04/23. Patient reports that dhe has concerns of nerve damage and skin discoloration. She complaints of left knee and left shoulfer pain Allergies sulfamethoxazole [From Bactrim] Allergy (Intermediate, Verified 12/22/23 10:07) Rash trimethoprim [From Bactrim] Allergy (Intermediate, Verified 12/22/23 10:07) Rash HPI OV-RT TKA 04/04/23 NE-F/U HPI Details Erika is a 63 year old woman who presents ~8 1/2 months S/P right TKA. She reports having some concerns about her right knee but overall this is mild. Her primary complaints are left knee & shoulder pain. At her last appointment she was to continue with PT and at-home exercises. [facility] Medical History Anxiety Arthritis Carpal tunnel syndrome Heart murmur HTN (hypertension) Osteoarthritis of right knee Surgical History Abdominal mass H/O: hysterectomy History of arthroscopy of right knee History of carpal tunnel surgery of left wrist History of tonsillectomy History of tubal ligation Hx of section Hx of total hip arthroplasty Status post left hip replacement Family History Father Heart problem Mother No problems noted. Social History Household Members: Family Household Members Other:: son Housing: House Are you a primary nanny caregiver to a significant other at home: No Do you presently have visiting nurse or other home services: No Comment: to go to sons house post op Patient Tobacco Use Status: Current everyday Tobacco user Tobacco use type: Cigarette Cigarettes Per Day: 5 Years Smoked: 40 Second Hand Smoke Exposure: Yes Advance Directives Date on File: 08/15/22 service: No Current occupational status: unemployed Review of Systems Const All systems reviewed & are unremarkable except as noted in HPI and below Physical Exam Const General: no acute distress, alert and awake Orientation/consciousness: patient oriented x3 HEENT Head: Yes normocephalic and Yes atraumatic Eyes EOM: EOMs intact bilaterally Resp Effort & Inspection: normal respiratory effort and able to speak in complete sentences Cardio Jugular venous distension: no JVD Skin General skin exam: turgor normal Rashes: no rashes Neuro General: patient oriented x3 Extrem Other: Full ROM right knee with well healed incision, stable arc of motion and no effusion. Left knee with 10-120 deg motion and medial compartment ttp Left shoulder iwth 4_/5 EC + lag Crepitus and pain with motion Psych Appearance: grossly normal Affect: normal affect Attitude: cooperative Results Reviewed Results Reviewed: I personally reviewed relevant radiographs. Left shoulder with high riding humeral head. Assessment & Plan Assessment & Plan (1) Status post total knee replacement, right: Code(s): Z96.651 - Presence of right artificial knee joint Plan: Doing very well No issues (2) Left rotator cuff tear arthropathy: Code(s): M75.102 - Unspecified rotator cuff tear or rupture of left shoulder, not specified as traumatic; M12.812 - Other specific arthropathies, not elsewhere classified, left shoulder Plan: Injections vs surgery vs non operative treatment. I strongly suspect chromnic RTC arthropathy but an MRI would be warranted to assess tendons but she is not interested in additional intervention at this time. She will let me know when this changes. PT mentioned as well. (3) Arthritis of left knee: Code(s): M17.12 - Unilateral primary osteoarthritis, left knee Plan: Limited motion and occasional giving way. Not bothersomee enough to warrant intervention at this time. She would like to walk without giving way and I do think she would benefit from arthroplasty. She is not interested in more injections. Plan Prepared for Panda Angelo MD by Osman Kidd, electromedical service engineer, on 12/22/23 at 10:10 AM, EST. Orders: Orders XR shoulder LT min 2V 12/22/23 M25.519 - Pain in unspecified shoulder Coding Level of Care Code Est Pt Level 4 (83170) Diagnoses Status post total knee replacement, right Z96.651 Left rotator cuff tear arthropathy M75.102; M12.812 Arthritis of left knee M17.12
== END 2023-12-22 10:47 | disposition home or self-care (01) ==
PROVIDERS: PCP Internal Medicine; Visit Provider Orthopaedic Surgery
DX: M17.0 Bilateral primary osteoarthritis of knee (principal); Z96.651 Presence of right artificial knee joint; M75.102 Unspecified rotator cuff tear or rupture of left shoulder, not specified as traumatic
CPT/HCPCS: 99214

== ENCOUNTER 2023-12-22 09:49 | Outpatient (REF) | payer MEDICARE, MEDICAID, SELFPAY ==
--- NOTE | ~2023-12-22 | XR_ITS ---
EXAMINATION: XR SHOULDER, LEFT CLINICAL INFORMATION: Pain COMPARISON: None available. TECHNIQUE: Three views of the left shoulder. FINDINGS: No acute visible fracture or dislocation. Degenerative arthropathy of the left glenohumeral and acromioclavicular joint. Joint spaces and alignment are otherwise maintained. Soft tissues are unremarkable. Visualized portions of the left chest are unremarkable. XR/XR shoulder LT min 2V IMPRESSION: 1. No acute visible fracture or dislocation. 2. Degenerative arthropathy of the left glenohumeral and acromioclavicular joint.
== END 2023-12-22 09:50 | disposition home or self-care (01) ==
LOC: HO.HOSX 09:49
PROVIDERS: PCP Internal Medicine; Visit Provider Orthopaedic Surgery
DX: M75.102 Unspecified rotator cuff tear or rupture of left shoulder, not specified as traumatic (principal); M17.12 Unilateral primary osteoarthritis, left knee; Z96.651 Presence of right artificial knee joint
CPT/HCPCS: 73030; 99212

== ENCOUNTER 2024-03-21 12:55 | Outpatient (AMB) | payer MEDICARE, MEDICAID, SELFPAY ==
[2024-03-21 13:01] VITALS: BMI 29.1
--- NOTE | 2024-03-21 13:01 | MHC.OFFVIS ---
Vital Signs 03/21/24 13:01 Height 5 ft 7 in Weight 186 lb BMI 29.1 Intake Visit Reasons: OV-RT TKA 04/04/23 NE Intake Note: Erika is a 63 year old female who presents today for a follow up of her right knee. S/p Right TKA 04/04/23. Patient reports that she is doing alight. She explains that the left knee is not painful but it is crunching and popping. The left shoulder is quite painful and she is looking to proceed with MRI & surgery Allergies sulfamethoxazole [From Bactrim] Allergy (Intermediate, Verified 12/22/23 10:07) Rash trimethoprim [From Bactrim] Allergy (Intermediate, Verified 12/22/23 10:07) Rash HPI HPI OV-RT TKA 04/04/23 NE: Details: Erika is a 64-year-old woman who comes in today with ongoing and longstanding left shoulder pain and weakness. 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 She describes pain at night and difficulty with activities of daily living. She is tried physical therapy and had injections. This has been present for at least 2 years. It did worsen after her knee replacement while she was using a walker. [facility] Medical History Anxiety Arthritis Carpal tunnel syndrome Heart murmur HTN (hypertension) Osteoarthritis of right knee Surgical History Abdominal mass H/O: hysterectomy History of arthroscopy of right knee History of carpal tunnel surgery of left wrist History of tonsillectomy History of tubal ligation Hx of section Hx of total hip arthroplasty Status post left hip replacement Family History Father Heart problem Mother No problems noted. Social History Household Members: Family Household Members Other:: son Housing: House Are you a primary farm or ranch animal caretaker to a significant other at home: No Do you presently have visiting nurse or other home services: No Comment: to go to sons house post op Patient Tobacco Use Status: Current everyday Tobacco user Tobacco use type: Cigarette Cigarettes Per Day: 5 Years Smoked: 40 Second Hand Smoke Exposure: Yes Advance Directives Date on File: 08/15/22 service: No Current occupational status: unemployed Physical Exam Vital Signs: BMI result Body Mass Index 29.1 Const General: no acute distress, alert and awake Orientation/consciousness: patient oriented x3 HEENT Head: Yes normocephalic and Yes atraumatic Eyes EOM: EOMs intact bilaterally Resp Effort & Inspection: normal respiratory effort and able to speak in complete sentences Cardio Jugular venous distension: no JVD Skin General skin exam: turgor normal Rashes: no rashes Neuro General: patient oriented x3 Extrem Other: Full ROM right knee with well healed incision, stable arc of motion and no effusion. Left knee with 10-120 deg motion and medial compartment ttp Left shoulder iwth 4_/5 EC + lag Crepitus and pain with motion Psych Appearance: grossly normal Affect: normal affect Attitude: cooperative Results Reviewed Results Reviewed: I personally reviewed relevant radiographs. Proximal migration of the left humeral head consistent with rotator cuff arthropathy. Assessment & Plan Assessment & Plan (1) Left rotator cuff tear arthropathy: Code(s): M75.102 - Unspecified rotator cuff tear or rupture of left shoulder, not specified as traumatic; M12.812 - Other specific arthropathies, not elsewhere classified, left shoulder Category: Medical Plan: This is a 64-year-old woman with left rotator cuff arthropathy. She has been suffering for years and is extremely weak on clinical exam. I recommend total shoulder arthroplasty. I discussed this with her as well as the nonoperative options. I discussed with her the risks, benefits and alternatives to surgery including, but not limited to, infection, this location, pain, stiffness, need for further surgery, medical complications such as pneumonia, blood clots, cardiopulmonary complications. She expressed understanding and we will proceed forward accordingly. Coding Level of Care Code Est Pt Level 4 (15207) Diagnoses Left rotator cuff tear arthropathy M75.102; M12.812
== END 2024-03-21 13:39 | disposition home or self-care (01) ==
PROVIDERS: PCP Internal Medicine; Visit Provider Orthopaedic Surgery
DX: M75.102 Unspecified rotator cuff tear or rupture of left shoulder, not specified as traumatic (principal); M12.812 Other specific arthropathies, not elsewhere classified, left shoulder
CPT/HCPCS: 99214

== ENCOUNTER → 2024-03-21 12:55 | Outpatient (BNVA) | payer MEDICARE, MEDICAID, SELFPAY | PROVIDERS: PCP Internal Medicine; Visit Provider Orthopaedic Surgery | DX: M75.102 Unspecified rotator cuff tear or rupture of left shoulder, not specified as traumatic (principal); M12.812 Other specific arthropathies, not elsewhere classified, left shoulder; Z96.651 Presence of right artificial knee joint | CPT/HCPCS: 99212 ==

== ENCOUNTER 2024-04-13 06:31 | Outpatient (REF) | payer MEDICARE, MEDICAID, SELFPAY ==
[2024-04-13 11:50] LABS: Basophils Percent Auto 0.7 % (0-2); Eosinophils Absolute Auto 0.2 X10*3/uL (0.0-0.4); Eosinophils Percent Auto 4.6 % (0-4); Hematocrit 38.9 % (37.0-47.0); Hemoglobin 13.8 g/dl (12.0-16.0); Imm Gran Abs Auto 0.01 X10*3/uL (0.00-0.03); Imm Gran Pct Auto 0.2 % (0.0-0.4); Lymphocytes Absolute Auto 1.3 X10*3/uL (1.2-4.9); Lymphocytes Percent Auto 28.7 % (20-40); MANUAL DIFF FLAG NO; Mean Corpuscular HGB Conc 35.5 g/dl (31.0-35.0); Mean Corpuscular Hemoglobin 36.5 pg (27.0-33.0); Mean Corpuscular Volume 102.9 fL (80.0-98.0); Mean Platelet Volume 10.5 fL (9.4-12.3); Monocytes Absolute Auto 0.4 X10*3/uL (0.1-1.2); Monocytes Percent Auto 9.3 % (2-11); Neutrophils Absolute Auto 2.6 x10*3/uL (2.0-8.3); Neutrophils Percent Auto 56.5 % (45-73); Platelet Count 166 X10*3/uL (160-400); Red Blood Count 3.78 X10*6/uL (4.20-5.50); Red Cell Distribution Width 13.2 % (11.0-16.0); White Blood Count 4.6 X10*3/uL (4.8-10.8)
[2024-04-13 12:31] LABS: Alanine Aminotransferase 36 U/L (0-31); Albumin Level 4.2 g/dL (3.5-5.0); Alkaline Phosphatase 105 U/L (39-117); Anion Gap 14 (12-20); Aspartate Amino Transferase 77 U/L (5-31); Bilirubin Total 1.7 mg/dL (0.0-1.0); Blood Urea Nitrogen 7 mg/dL (9-16); Calcium 9.8 mg/dL (8.4-10.2); Carbon Dioxide 23 mmol/L (22-29); Chloride 99 mmol/L (96-108); Cholesterol 146 mg/dL (<200); Estimated Glomerular Filt Rate > 60; Glucose Fasting 101 mg/dL (60-99); HDL Cholesterol 61 mg/dL (>40); Iron 195 mcg/dL (30-160); LDL Cholesterol Calculated 70 mg/dL (<100); Percent Iron Saturation 77 % (15-50); Potassium 4.2 mmol/L (3.3-5.1); Sodium 132 mmol/L (135-145); Total Iron Binding Capacity 254 mcg/dL (228-428); Total Protein 7.1 g/dL (6.5-8.0); Triglycerides 77 mg/dL (<150); Unsaturated Iron Binding 59 ug/dL
[2024-04-13 12:33] LABS: Vitamin D 25-OH Total 25.8 ng/mL (>30)
[2024-04-13 12:37] LABS: Vitamin B12 556 pg/mL (200-900)
== END 2024-04-13 06:32 | disposition home or self-care (01) ==
LOC: HO.HMGCLDS 06:31
PROVIDERS: PCP Internal Medicine; Visit Provider Internal Medicine
DX: I10 Essential (primary) hypertension (principal); J44.9 Chronic obstructive pulmonary disease, unspecified; E55.9 Vitamin D deficiency, unspecified; D64.9 Anemia, unspecified
CPT/HCPCS: 36415; 80053; 80061; 82306; 82607; 83540; 85025

== ENCOUNTER 2024-04-23 16:49 | Outpatient (REF) | payer MEDICARE, MEDICAID, SELFPAY ==
--- NOTE | ~2024-04-23 | CT_ITS ---
EXAMINATION: CT SHOULDER WITHOUT CONTRAST, LEFT CLINICAL INFORMATION: Left shoulder arthropathy. Pain. Preoperative evaluation. COMPARISON: Left shoulder radiographs dated 12/22/2023. TECHNIQUE: Contiguous axial CT images of the left shoulder were obtained as per Tournier protocol. Multiplanar reformats were provided and reviewed. This CT examination was performed using dose optimization techniques as appropriate, variously including the following: *Automated exposure control *Adjustment of mA and/or kV according to patient size (this includes techniques or standardized protocols for targeted exams where dose is matched to indication/reason for exam; i.e. extremities or head) *Use of iterative reconstruction technique. DOSE: 243 mGy-cm. FINDINGS: Visualized left lung: Unremarkable. Bone/joint: Posterosuperior subluxation humeral head related to underlying rotator cuff tendon tears. Lwfspoxi-xx-qkhvtg glenohumeral joint space narrowing with marginal osteophytes. Posterior glenoid subchondral cystic change. Moderate acromioclavicular osteoarthritis. No concerning lytic or blastic osseous lesion. No fracture. Glenoid version: No significant glenoid retroversion. Estimated depth of the glenoid vault: Approximately 2.8 cm. Glenoid morphology: Walch Type a 2 Joint fluid/bursa/soft tissues: Complete, full-thickness tears of the supraspinatus and infraspinatus tendons with vwmzopij-sd-xwibum muscle atrophy. Moderate subscapularis muscle atrophy. No soft tissue mass or fluid collection. No axillary lymphadenopathy. CT/CT shoulder LT wo IV con IMPRESSION: 1. Complete, full-thickness tears of the supraspinatus and infraspinatus tendons with moderate to severe muscle atrophy. Moderate subscapularis muscle atrophy. Posterosuperior subluxation of the humeral head related to underlying rotator cuff tendon tears. 2. Vyeulgwt-fd-oywtxy glenohumeral osteoarthritis. Moderate acromioclavicular osteoarthritis.
== END 2024-04-23 16:50 | disposition home or self-care (01) ==
LOC: HO.CT 16:49
PROVIDERS: PCP Internal Medicine; Visit Provider Orthopaedic Surgery
DX: M12.812 Other specific arthropathies, not elsewhere classified, left shoulder (principal); M75.102 Unspecified rotator cuff tear or rupture of left shoulder, not specified as traumatic
CPT/HCPCS: 73200

== ENCOUNTER 2024-05-02 10:32 | Outpatient (REF) | payer MEDICARE, OTHER, SELFPAY ==
--- NOTE | ~2024-05-02 | MM_ITS ---
EXAMINATION: MM SCREENING DIGITAL BREAST TOMOSYNTHESIS, BILATERAL CLINICAL INFORMATION: Screening. Asymptomatic. COMPARISON: Mammography: This study is compared with prior exams dating back to 2015. There are no interval examinations. TECHNIQUE: Digital breast tomosynthesis is performed in both the craniocaudal and mediolateral oblique views along with computer-aided detection (CAD). Synthesized 2D images are generated from the tomosynthesis. FINDINGS: There are scattered areas of fibroglandular density (ACR BI-RADS breast composition Category b). There are no significant masses, abnormal calcifications, or other abnormalities. MM/MM tomosynthesis screening BI IMPRESSION: No mammographic evidence of malignancy. ASSESSMENT: BI-RADS BI-RADS 1 - Negative RECOMMENDATION: Routine annual mammography screening. 1 year F/U This examination should not preclude the clinical evaluation of a suspicious palpable abnormality. This patient's information was entered into a reminder system with a target due date for their next mammogram.
--- NOTE | ~2024-05-02 | MM_ITS ---
EXAMINATION: BONE DENSITOMETRY CLINICAL INDICATION: Encounter for screening for osteoporosis. COMPARISON: This is the patient's baseline examination. TECHNIQUE: Using a [employer] DXA System (software version: 13.1) manufactured by [employer], dual-energy x-ray absorptiometry was performed of the lumbar spine and left forearm radius 33%. Patient has had bilateral hip surgery. The images are of good technical quality. Summary results are attached. FINDINGS: AP SPINE L1-L4: BMD 1.543 g/cm2, Z-score 3.9, T-score 3.0, normal. LEFT FOREARM RADIUS 33%: BMD 0.650 g/cm2, Z-score -1.2, T-score -2.6, osteoporosis. IDENTIFIED RISK FACTORS: Menopause, hysterectomy, bilateral oophorectomy, alcohol use, current smoker. HISTORY OF FRACTURE: None listed. MEDICATIONS: Calcium supplements or multivitamin, vitamin D. MM/XR DEXA appendicular skeleton IMPRESSION: 1. DIAGNOSIS: Osteoporosis based on the lowest T-score value of -2.6 in the forearm radius 33% applying World Health Organization criteria. 2. 10-YEAR FRACTURE RISK PREDICTION, FRAX: According to the guidelines, FRAX calculation should only be performed on patients in the osteopenia bone density category. Therefore, FRAX was not performed on this patient. 3. Treatment Recommendations: NOF guidelines recommend consideration for treatment in postmenopausal women and men age 50 and older presenting with the following: -A hip or vertebral (clinical or morphometric) fracture. -T-score less than or equal to -2.5 at the femoral neck or spine after appropriate evaluation to exclude secondary causes. -Low bone mass at the hip or spine and a 10-year fracture probability by FRAX of greater than or equal to 3% for hip fracture or greater than or equal to 20% for major osteoporotic fracture based on the [place] adapted WHO algorithm. 4. Other Recommendations: All treatment decisions require clinical judgment and consideration of individual patient factors, including patient preferences, comorbidities, previous drug use, risk factors not captured in the FRAX model (e.g. frailty, falls, vitamin D deficiency, increased bone turnover, interval significant decline in bone density) and possible under or overestimation of fracture risk by FRAX. Additional medical evaluation for secondary cause of low bone mineral density may be appropriate. FUTURE SCAN RECOMMENDATION: People with diagnosed cases of osteoporosis or at high risk for fracture should have regular bone mineral density tests. For patients eligible for Medicare, routine testing is allowed once every 2 years. The testing frequency can be increased to one year for patients who have rapidly progressing disease, those who are receiving or discontinuing medical therapy to restore bone mass, or have additional risk factors.
== END 2024-05-02 10:33 | disposition home or self-care (01) ==
LOC: HO.MAMMO 10:32
PROVIDERS: PCP Internal Medicine; Visit Provider Internal Medicine
DX: Z12.31 Encounter for screening mammogram for malignant neoplasm of breast (principal); Z13.820 Encounter for screening for osteoporosis; Z78.0 Asymptomatic menopausal state
CPT/HCPCS: 77063; 77067; 77081

== ENCOUNTER → 2024-05-02 10:45 | Outpatient (BNV) | payer MEDICARE, MEDICAID, SELFPAY | PROVIDERS: PCP Internal Medicine; Visit Provider Radiology Diagnostic Radiology | DX: Z12.31 Encounter for screening mammogram for malignant neoplasm of breast (principal) | CPT/HCPCS: 77063; 77067 ==

== ENCOUNTER 2024-05-03 09:56 | Outpatient (REF) | payer MEDICARE, MEDICAID, SELFPAY ==
--- NOTE | ~2024-05-03 | MR_ITS ---
EXAMINATION: MR SHOULDER WITHOUT CONTRAST, LEFT CLINICAL INFORMATION: Left shoulder pain. COMPARISON: None available. TECHNIQUE: MRI of the shoulder without contrast was performed on a high-field scanner. FINDINGS: ROTATOR CUFF: The supraspinatus tendon is completely torn and retracted beyond the glenoid with near-complete tearing of the infraspinatus tendon with retraction, most fibers remaining intact. Undersurface partial tearing of the distal subscapularis tendon. Moderate/severe atrophy and fatty infiltration of the supraspinatus and infraspinatus muscles. Mild fatty atrophy of the subscapularis and teres minor muscles. BICEPS: High-grade partial tearing of the biceps tendon just proximal to the bicipital groove. CORACOACROMIAL ARCH: The undersurface of the acromion is curved with no subacromial spur. Moderate acromioclavicular osteoarthritis. LABRUM/CAPSULE: Undersurface tearing of the posterior labrum. GLENOHUMERAL JOINT/MARROW: Humeral head is superiorly subluxed and abuts the undersurface of the acromion. Degenerative spurring and mild edema along the greater tuberosity. Small joint effusion. Cartilage loss and degenerative cysts along the posterior glenoid rim. Osteophytes along the humeral head and neck junction. MR/MR shoulder LT wo con IMPRESSION: 1. Completely torn and retracted supraspinatus tendon with moderate/severe muscle atrophy and fatty infiltration. 2. Near-complete tearing of the infraspinatus tendon with retraction and moderate/severe muscle atrophy/fatty infiltration. 3. Undersurface partial tearing of the distal subscapularis tendon with mild muscle atrophy. 4. High-grade partial tearing of the biceps tendon just proximal to the bicipital groove. 5. Moderate acromioclavicular and glenohumeral osteoarthritis. Undersurface tearing of the posterior labrum. Humeral head is superiorly subluxed and abuts the undersurface of the acromion.
== END 2024-05-03 09:57 | disposition home or self-care (01) ==
LOC: HO.MRI 09:56
PROVIDERS: PCP Internal Medicine; Visit Provider Orthopaedic Surgery
DX: M12.812 Other specific arthropathies, not elsewhere classified, left shoulder (principal); M75.102 Unspecified rotator cuff tear or rupture of left shoulder, not specified as traumatic
CPT/HCPCS: 73221

== ENCOUNTER 2024-05-09 10:11 | Outpatient (REF) | payer MEDICARE, MEDICAID, SELFPAY ==
--- NOTE | ~2024-05-09 | US_ITS ---
EXAMINATION: US ABDOMEN COMPLETE CLINICAL INFORMATION: Elevated LFTs. COMPARISON: CT abdomen pelvis 07/29/2020 TECHNIQUE: Real-time imaging of the abdominal viscera. FINDINGS: PANCREAS: Normal. ABDOMINAL AORTA: The proximal, mid, and distal segments are normal in caliber. INFERIOR VENA CAVA: Visualized portions are normal. LIVER: The liver is enlarged measuring over 18 cm in cephalocaudad dimension. The liver contour is normal. There is diffuse increased liver parenchymal echogenicity, consistent with hepatic steatosis. No focal hepatic lesion. There is no intrahepatic biliary duct dilatation seen. Portal vein is patent with normal hepatopedal flow GALLBLADDER: Normal. The gallbladder is physiologically distended without evidence of stones, sludge, polyps, wall thickening or pericholecystic fluid. COMMON BILE DUCT: Normal in caliber measuring 0.3 cm in diameter. RIGHT KIDNEY: Normal. No hydronephrosis. No renal calculi or focal parenchymal lesions. The kidney measures 10.3 cm in maximum dimension. LEFT KIDNEY: Normal. No hydronephrosis. No renal calculi or focal parenchymal lesions. The kidney measures 10.6 cm in maximum dimension. SPLEEN: Normal. The spleen measures 10.0 cm in maximum dimension. FREE FLUID: None. US/US abdomen complete IMPRESSION: Enlarged fatty liver.
== END 2024-05-09 10:12 | disposition home or self-care (01) ==
LOC: HO.US 10:11
PROVIDERS: PCP Internal Medicine; Visit Provider Internal Medicine
DX: R74.01 Elevation of levels of liver transaminase levels (principal)
CPT/HCPCS: 76700

== ENCOUNTER 2024-05-11 10:38 | Outpatient (REF) | payer MEDICARE, OTHER, SELFPAY ==
[2024-05-11 16:09] LABS: Alanine Aminotransferase 60 U/L (0-31); Albumin Level 4.2 g/dL (3.5-5.0); Alkaline Phosphatase 123 U/L (39-117); Aspartate Amino Transferase 123 U/L (5-31); Bilirubin Direct 0.4 mg/dL (0.0-0.5); Bilirubin Total 0.9 mg/dL (0.0-1.0); C Reactive Protein 0.41 mg/dL (< or = 0.50); Total Protein 7.4 g/dL (6.5-8.0)
[2024-05-11 16:23] LABS: Ferritin 841 ng/mL (10-250)
== END 2024-05-11 10:39 | disposition home or self-care (01) ==
LOC: HO.HMGCLDS 10:38
PROVIDERS: PCP Internal Medicine; Visit Provider Internal Medicine
DX: R94.5 Abnormal results of liver function studies (principal); E61.1 Iron deficiency
CPT/HCPCS: 36415; 80076; 82728; 86140

== ENCOUNTER → 2024-05-23 11:00 | Outpatient (BNVA) | payer MEDICARE, OTHER, SELFPAY | PROVIDERS: PCP Internal Medicine | DX: Z01.818 Encounter for other preprocedural examination (principal) ==

== ENCOUNTER 2024-06-10 | Outpatient (REF) | payer MEDICARE, MEDICAID, SELFPAY ==
[2024-06-10 12:57] VITALS: BP 185/86; PULSE 80; RESP 16; O2SAT 98; BMI 30.7
--- NOTE | 2024-06-10 13:15 | HO.ANESPROP2 ---
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 I did discuss the findings in the pathophysiology with the patient. In addition I did request that a time she have was blood pressures IVs or blood draws they use the right arm. Rec'd 3 month f/u, but patient has not been seen since. Awaiting vascular recommendations. Per Dr Steinberg,vascular Stable from vascular surgery perspective for proposed left total shoulder arthroplasty. She does have a known history of left subclavian stenosis. Would do all blood pressures, IVs, blood draws from right upper extremity. Cardiac evaluation pending. High risk CIWA PMFSH Active Problems Active Problems: All Active Problems Arthritis of left knee (Acute) Left rotator cuff tear arthropathy (Acute) Calf swelling (Acute) Status post total knee replacement, right (Acute) Postoperative wound breakdown (Acute) Seroma, post-traumatic (Acute) Hematoma (Acute) Stenosis of left subclavian artery (Acute) Weak arterial pulse (Acute) S/P total right hip arthroplasty (Acute) Smoking (Acute) Abnormal EKG (Acute) Preoperative cardiovascular examination (Acute) Primary osteoarthritis of right hip (Acute) Varicose veins of right lower extremity with inflammation (Acute) Past Medical History Medical History (Updated 06/10/24 @ 15:36 by Marc Salazar MD) Alcohol drinker Liver enlargement Elevated liver enzymes Smoker COPD (chronic obstructive pulmonary disease) 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 Family history of problems with anesthesia: No (Sister long to wake) Surgical History Surgical History (Updated 06/10/24 @ 09:47 by Daniella Lorenzana RN) History of total right knee replacement (03/2023) Hx of total hip arthroplasty History of carpal tunnel surgery of left wrist History of tonsillectomy Hx of section History of tubal ligation History of arthroscopy of right knee Status post left hip replacement H/O: hysterectomy Abdominal mass History of Problems with Anesthesia: No Social History Social History (Updated 06/10/24 @ 10:45 by Daniella Lorenzana RN) Household Members: Family Household Members Other:: daughter Housing: Apartment Are you a primary insurance healthcare consultant to a significant other at home: No Do you presently have visiting nurse or other home services: No Comment: to go to [facility] post op Patient Tobacco Use Status: Current everyday Tobacco user Tobacco use type: Cigarette Cigarettes Per Day: 5 Years Smoked: 40 Smoked in Last 30 Days: Yes Patient Interested in Nicotine Replacement: No Second Hand Smoke Exposure: Yes Use of substances other than those prescribed or required for medical reasons: No Have you been hit, kicked, punched, or otherwise hurt by someone within the past year? If so, by whom?: No Are you DNR?: No Advance Directives: Yes Advance Directives Information Provided: No Advance Directives on File: Yes Advance Directives Date on File: 08/15/22 Recently lost weight without trying: No Nutrition Risks: No Nutritional Risk service: No Current occupational status: unemployed Meds Allergies Allergy/AdvReac Type Severity Reaction Status Date / Time sulfamethoxazole Allergy Intermediate Rash Verified 06/13/24 13:09 [From Bactrim] trimethoprim [From Bactrim] Allergy Intermediate Rash Verified 06/13/24 13:09 Home Medications ?Medication ?Instructions ?Recorded ?Confirmed ?Last Taken ?Type cholecalciferol (vitamin D3) 25 25 mcg PO DAILY 06/10/24 06/10/24 Unknown History mcg (1,000 unit) capsule (Vitamin D3) lisinopril 5 mg tablet 10 mg PO ONCE 06/10/24 06/10/24 Unknown History Exam Height,Weight and Vital Signs: Height 5 ft 6 in Weight 86.183 kg Last Vital Signs Pulse 80 06/10/24 12:57 Resp 16 06/10/24 12:57 BP 185/86 H 06/10/24 12:57 Pulse Ox 98 06/10/24 12:57 O2 Del Method Room Air 06/10/24 12:57 Narrative Narrative: US arterial duplex UE LT 2022 IMPRESSION: There is monophasic flow seen in the distal subclavian artery and all vessels distal to this. An inflow stenosis is suggested. Peak systolic velocities are slightly decreased compared to July 2022 exam suggestive of increasing more proximal left subclavian stenosis. Airway Mallampati Class: II TM Dist: >3cm Neck ROM: Full Denture: Upper and Lower Heart: RRR Lungs: CTAB Assessment and Plan Assessment Anesthesia Assessment: Anesthesia Plan Discussed, Smoking Cess. Discussed and PAT Visit Final Anesthetic Review Family History of Problems with Anesthesia: No (Sister long to wake) History of Problems with Anesthesia: No
[2024-06-10 14:56] LABS: MRSA Nasal PCR NEGATIVE (Negative); SA Nasal PCR NEGATIVE (Negative)
== END 2024-06-10 00:01 | disposition home or self-care (01) ==
LOC: HO.PAT
PROVIDERS: Physician Assistant; PCP Internal Medicine; Visit Provider Orthopaedic Surgery
DX: Z01.810 Encounter for preprocedural cardiovascular examination (principal); I25.10 Atherosclerotic heart disease of native coronary artery without angina pectoris
CPT/HCPCS: 86850; 86900; 86901; 87640; 87641

== ENCOUNTER 2024-06-10 13:56 | Outpatient (AMB) | payer MEDICARE, MEDICAID, SELFPAY ==
[2024-06-10 14:09] VITALS: BP 180/80; PULSE 73; BMI 29.7
--- NOTE | 2024-06-10 14:09 | A.OFFVIS_ITS ---
Vital Signs 06/10/24 14:09 Height 5 ft 7 in Weight 189 lb 9.561 oz BMI 29.7 BP 180/80 H Blood Pressure Location Rt brachial Position Sitting Pulse 73 Pulse Source Monitor Intake Visit Reasons: Preop/ shaquille / TKA /6 abn ekg (HS pt) Allergies sulfamethoxazole [From Bactrim] Allergy (Intermediate, Verified 05/23/24 11:09) Rash trimethoprim [From Bactrim] Allergy (Intermediate, Verified 05/23/24 11:09) Rash Medication List - Last Reconciled 06/10/24 by Marc Salazar MD cholecalciferol (vitamin D3) (Vitamin D3) 25 mcg PO DAILY [Elevated toliet seat As directed] lisinopril 10 mg PO ONCE [shower bench M16.11 Right hip OA height 67 210 lbs Patient is unable to shower or lift leg beyond 90 degrees. ] HPI Comments Details: Erika returns for follow-up. Last seen in 2021. Previously, she was seen in consultation regarding preoperative evaluation for hip surgery. Currently, she is here for preoperative evaluation regarding shoulder surgery. No clear-cut cardiac symptoms. Longest smoking on still smokes. Additionally, has been diagnosed to have subclavian stenosis. No known coronary disease but has not been evaluated in the past. Blood pressure seems quite high but she states she is anxious. 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 Social History (Updated 06/10/24 @ 10:45 by Daniella Lorenzana, RN) Household Members: Family Household Members Other:: daughter Housing: Apartment Are you a primary care transition manager to a significant other at home: No Do you presently have visiting nurse or other home services: No Comment: aware of trip hazard Patient Tobacco Use Status: Current everyday Tobacco user Tobacco use type: Cigarette Cigarettes Per Day: 5 Years Smoked: 40 Second Hand Smoke Exposure: Yes Advance Directives Date on File: 08/15/22 service: No Current occupational status: unemployed Review of Systems Const Denies weakness ENT Denies dizziness Card Denies chest pain, Denies chest pain with activity, Denies syncope, Denies rapid heart rate, Denies pedal edema, Denies edema, Denies leg edema, Denies lightheadedness, Denies palpitations, Denies dyspnea, Denies dyspnea on exertion and Denies orthopnea Resp Denies cough, Denies dyspnea and Denies dyspnea on exertion GI Denies hematochezia and Denies change in stool character Musc Denies abnormal gait, Denies muscle cramps, Denies muscle weakness, Denies numbness, Denies radiating pain into limb and Denies tingling Neuro Denies abnormal gait, Denies dizziness, Denies syncope, Denies numbness, Denies tingling and Denies weakness Endo Denies palpitations Physical Exam Vital Signs: Last Vital Signs Pulse 73 06/10/24 14:09 BP 180/80 H 06/10/24 14:09 BMI result Body Mass Index 29.7 Const General: comfortable and no acute distress Orientation/consciousness: patient oriented x3 HEENT Other: Unremarkable Head: Yes normal to inspection Neck Neck: Yes normal visual inspection Chest Chest palpation & inspection: normal inspection of the chest Resp Auscultation: clear to auscultation bilaterally Cardio Palpation: normal PMI Heart sounds: S1 normal heart sound present, S2 normal heart sound present, no gallops, Murmur heart sound present systolic II/ and at the right sternal border and no rubs GI Palpation (GI): Soft to palpation Back/Spine/Pelvis Other: unremarkable Skin General skin exam: no rashes or lesions noted Neuro General: patient oriented x3 Extrem General: Yes normal to inspection Psych Mental Status: mental status grossly normal Office Procedures EKG Details: EKG with underlying sinus rhythm at 73/Min; no significant ST-T changes and otherwise [place]remark[place] [id number], Complete Assessment & Plan Assessment & Plan (1) Preoperative cardiovascular examination: Code(s): Z01.810 - Encounter for preprocedural cardiovascular examination Category: Medical (2) HTN (hypertension): Code(s): I10 - Essential (primary) hypertension Category: Medical (3) Atherosclerotic cardiovascular disease: Code(s): I25.10 - Atherosclerotic heart disease of [place] coronary artery without angina pectoris Category: Medical Plan In the prior chest CTA, description of left subclavian stenosis. Thoracic and abdominal aortic calcification. Coronary calcification. Blood pressure seems quite high today. She blames on anxiety however. Overall, smoker, poorly controlled hypertension, known vascular disease. Recommend further workup with echocardiogram and stress test for further evaluation. With regard to hypertension, will need to be better controlled. She is only on lisinopril 10 mg daily. We can add amlodipine 10 mg daily. If necessary, then go up on the lisinopril dosing. Once the testing reviewed, we can make an addendum. Blood pressure will also need to be better controlled before surgery. Orders: Orders CA echo transthoracic complete Today I25.10 - Atherosclerotic heart disease of [place] coronary artery without angina pectoris, Z01.810 - Encounter for preprocedural cardiovascular examination CA stress test Today R07.2 - Precordial pain, Z01.810 - Encounter for preprocedural cardiovascular examination NM cardiolite stress test Today R07.2 - Precordial pain, Z01.810 - Encounter for preprocedural cardiovascular examination Medications: New amlodipine 10 mg PO DAILY 90 tabs 3RF I10 - Essential (primary) hypertension Coding Level of Care Code Est Pt Level 4 (83083) Diagnoses Preoperative cardiovascular examination Z01.810 HTN (hypertension) I10 Atherosclerotic cardiovascular disease I25.10 CPT Codes EKG - CPT: [id number], Complete ([id number])
== END 2024-06-10 14:45 | disposition home or self-care (01) ==
PROVIDERS: PCP Internal Medicine; Visit Provider Internal Medicine
DX: I10 Essential (primary) hypertension (principal); I25.10 Atherosclerotic heart disease of native coronary artery without angina pectoris; Z01.810 Encounter for preprocedural cardiovascular examination
CPT/HCPCS: 93010; 99214

== ENCOUNTER → 2024-06-10 13:56 | Outpatient (BNVA) | payer MEDICARE, OTHER, SELFPAY | PROVIDERS: PCP Internal Medicine; Visit Provider Internal Medicine | DX: Z01.810 Encounter for preprocedural cardiovascular examination (principal); I10 Essential (primary) hypertension; I25.10 Atherosclerotic heart disease of native coronary artery without angina pectoris; R07.2 Precordial pain | CPT/HCPCS: 93005; 99212 ==

== ENCOUNTER → 2024-06-11 10:19 | Outpatient (REF) | payer MEDICARE, OTHER, SELFPAY ==
--- NOTE | ~2024-06-11 | NM_ITS ---
Lexiscan Myocardial perfusion study Indication: Preoperative cardiovascular evaluation Technique: The patient was brought in for a Lexiscan perfusion study on 06/11/2024 and was injected 0.4 mg of Lexiscan intravenously. Within a minute of this injection 30 mCi of sestamibi was given intravenously. Images were obtained using the SPECT gamma camera interlaced with the gating device. Images were obtained in supine position. Resting perfusion study was performed on 06/12/2024. Patient was administered 30 mCi of sestamibi intravenously at rest. Images were then obtained in supine position. Images were processed with the software and compared side to side in short axis, horizontal long axis and vertical long axis views. Total DLP 118mGy-cm. Findings: Raw acquisition reviewed. The stress perfusion study showed no significant perfusion abnormality. Both uncorrected as well as CT attenuation corrected images were reviewed. The gated study shows normal LV systolic function with calculated LVEF of 67%. LV cavity is normal in size. The gated study shows normal wall thickening and contraction of segments. Resting study shows no significant perfusion abnormality. Gating at rest reveals normal wall motion with ejection fraction at 66%. The findings are consistent with no clear reversible or fixed perfusion abnormality. NM/NM cardiolite stress test Impression: 1. Myocardial perfusion imaging study shows probably normal myocardial perfusion. No clear evidence of any ischemia or infarction. 2. Gated LVEF is 67% during stress and 66% during rest. 3. Transient ischemic dilatation not present. EKG component of the test reported separately.
--- NOTE | 2024-06-11 10:21 | CA_ITS ---
Acquisition Time: 2024-06-11 10:41:36 Total Exercise Time: 00:01:37 Test Indications: CAD Medications: LISINOPRIL AMLODIPINE Protocol: ASHU Max HR: 155 BPM 100% of Pred: 155 BPM Max BP: 210/090 mmHG Max Work Load: 3.9 METS Exercise stress test exercise 1 min 37 sec of Ashu protocol achieving 94% MPHR, with request to stop due to leg pain, with mild to moderate SOB, no chest discomfort, with isolated PVCs, with hypertensive response to exercise, resting HTN, with ST depressions leads 2, 3, aVF, V4-V6. with test changed to pharmacological due to suboptimal testing. Pharmacological stress test with Lexiscan injection once blood pressure returned to baseline, without anginal symptooms, with ispolated PVCs and venticular biminey, with normotensive response to injection, with nondiagnoistic EKGs. Aminophylline 75mg IVP given to reverse Lexisscan. Nuclear images pending. Test reviewed with Dr. Coats. Referred By: Marc Salazar Overread By: Velvet Gardner
== END ==
LOC: HO.CARD 10:19
PROVIDERS: Visit Provider Internal Medicine
DX: Z01.810 Encounter for preprocedural cardiovascular examination (principal); R07.2 Precordial pain
CPT/HCPCS: 78452; 93017; A9500; J0280; J2785

== ENCOUNTER → 2024-06-11 10:21 | Outpatient (BNV) | payer MEDICARE, MEDICAID, SELFPAY | PROVIDERS: Visit Provider Nurse Practitioner | DX: Z01.810 Encounter for preprocedural cardiovascular examination (principal) | CPT/HCPCS: 78452; 93016; 93018 ==

== ENCOUNTER → 2024-06-12 07:46 | Outpatient (REF) | payer MEDICARE, MEDICAID, SELFPAY ==
--- NOTE | 2024-06-12 07:48 | CA_ITS ---
Transthoracic Echocardiogram Patient (Last, First, Middle): Erika Smith J Gender: Female Date of : 1960 Age: 64 Procedure Date: 06/12/2024 Procedure Type: Transthoracic Echocardiogram Location: OP Height: 170.18 cm Weight: 85.73 kg BSA: 1.97 m2 Heart Rate: 68 bpm BP: 168 / 80 mmHg Child Adolescent Psychiatrist: SB Referring MD: Marc Salazar MD Outbound Sales Professional: Mk Baxter MD Symptoms: I25.10 - Atherosclerotic heart disease of [place] coronary artery without... Study Quality: Adequate ECG Rhythm: Sinus Conclusions: - 1. Normal LV ejection fraction 60 65% with impaired relaxation filling pattern with regional wall motion abnormality suggestive of coronary artery disease 2. Early mild aortic stenosis 3. Normal RV systolic pressure 4. Upper limits of normal ascending aortic size 5. No pericardial effusion Findings Left Ventricle Normal left ventricular size, thickness, and systolic function. The visually estimated ejection fraction is between 60-65%. Spectral Doppler is indicative of an impaired relaxation filling pattern. E/E prime ratio is between 8 and 15 consistent with indeterminate filling pressures. Wall Motion Rest Echo Findings The basal inferior and mid inferolateral segments are hypokinetic. The basal inferolateral segment is akinetic. All other scored wall segments showed normal motion. Right Ventricle Normal right ventricular cavity size and systolic function. Atria Both atria are normal in size. Aortic Valve The aortic valve was not well visualized. There is mild calcification of the aortic valve. There is mild aortic valve stenosis. The peak aortic gradient is 14 mmHg.The mean gradient is 7 mmHg. The aortic valve area is 1.86 cm2. There is no aortic valve regurgitation. Mitral Valve There is mild anterior and posterior mitral leaflet thickening. There is mild mitral annular calcification. There is trace mitral valve regurgitation. There is no mitral valve stenosis. Pulmonic Valve The pulmonic valve is likely normal. There is trace pulmonic valve regurgitation. Tricuspid Valve Likely normal tricuspid valve structure and function. There is trace tricuspid valve regurgitation. The right ventricular systolic pressure is normal. The right ventricular systolic pressure is 28 mmHg. Normal right atrial pressure. There is no evidence of pulmonary hypertension. Great Vessels The pulmonary artery was not well visualized. There is no dilatation of the ascending aorta. Venous The inferior vena cava is normal in size and collapses greater than 50% with inspiration. Pericardium/Pleural There is no evidence of pericardial effusion. Prior Study Comparison Changes noted compared to prior study dated: 07/29/2022. new regional wall motion abnormalities noted Measurements 2D Linear Measurements IVSd: 1.02 0.6-0.9/0.6-1.0 cm LVIDd: 4.36 3.9-5.3/4.2-5.9 cm LVIDd Index: 2.21 2.4-3.2/2.2-3.1 cm/m2 LVIDs: 3.31 2.0-3.6 cm LA Diam: 3.80 2.7-3.8/3.0-4.0 cm LAIDs Index: 1.93 1.5-2.3 cm/m2 LVOT Diam: 1.90 3.0+(-)1.3 cm 2D Systolic Function EF 4C: 48.80 >55% EF 2C: 66.10 >55% EF BiP: 61.00 >55% Mitral Valve MV Pk E: 0.80 MV PK A: 0.90 MV Decel Time: 151.00 E/A: 0.90 E'Lateral: 9.36 E'Medial: 5.55 E/E' Med: 14.40 E/E' Lat: 8.50 PHT: 44.00 MVA PHT: 5.00 Decel Williamson: 5.27 Aortic Valve AoV Pk Jose Luis: 1.88 AoV Mn Jose Luis: 1.24 AoV VTI: 0.43 AoV Pk Grad: 14.00 Aov Mn Grad: 7.00 AMENA Cont.VTI: 1.86 LVOT LVOT Pk Jose Luis: 1.23 LVOT Mn Jose Luis: 0.86 LVOT VTI: 0.28 LVOT Pk Grad: 6.00 LVOT Mn Grad: 3.00 LVOT Diam: 1.90 LVOT Area: 2.84 Diastolic Function MV Pk E: 0.80 MV Pk A: 0.90 E/A: 0.90 E'Medial: 5.55 E/E' Med: 14.40 E' Laterial: 9.36 E/E' Lat: 8.50 Right Ventricle TAPSE (mm): 26.30 TVS' Jose Luis: 14.20 Tricuspid Valve TR Pk Jose Luis: 2.25 TR Pk Grad: 20.00 RA Press: 8.00 RVSP: 28.00 Great Vessels Aorta Sinus of Valsalva: 2.70 2.0-3.5 cm Ao Asc: 3.50 2.1-3.4 cm Pulmonary Veins Pulm Vein S/D 1.40 Pulmonary Valve PV Pk Jose Luis: 0.94 Peak PV Grad: 4.00 Updated in Other Vendor System with Status of Final Mk Baxter MD electronically signed on 06/12/2024 12:29:15 PM with status of Final
== END ==
LOC: HO.CARD 07:46
PROVIDERS: PCP Internal Medicine; Visit Provider Internal Medicine
DX: Z01.810 Encounter for preprocedural cardiovascular examination (principal); I25.10 Atherosclerotic heart disease of native coronary artery without angina pectoris
CPT/HCPCS: 93306

== ENCOUNTER → 2024-06-12 07:48 | Outpatient (BNV) | payer MEDICARE, MEDICAID, SELFPAY | PROVIDERS: PCP Internal Medicine; Visit Provider Internal Medicine Cardiovascular Disease | DX: I35.0 Nonrheumatic aortic (valve) stenosis (principal); I34.81 Nonrheumatic mitral (valve) annulus calcification | CPT/HCPCS: 93306 ==

== ENCOUNTER 2024-06-13 12:41 | Outpatient (AMB) | payer MEDICARE, MEDICAID, SELFPAY ==
--- NOTE | 2024-06-13 12:48 | MHC.OFFVIS ---
Intake Visit Reasons: Pre-Op: L TSA w/NE 06/18/24 Intake Note: Erika a 64 year old female who presents today for a preoperative visist s/p left TSA on 06/18/24 NE. Pain management agreement reviewed and signed. Allergies sulfamethoxazole [From Bactrim] Allergy (Intermediate, Verified 06/13/24 13:09) Rash trimethoprim [From Bactrim] Allergy (Intermediate, Verified 06/13/24 13:09) Rash HPI Comments Details: Ms Smith presents to the office today for preop visit. She is scheduled for right total shoulder arthroplasty with Dr. Angelo. She continues to have ongoing pain and difficulty with in the right shoulder, which is affecting her quality of life; therefore, she has elected to move forward with surgery. 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 Social History (Updated 06/10/24 @ 10:45 by Daniella Lorenzana RN) Household Members: Family Household Members Other:: daughter Housing: Apartment Are you a primary senior resident care director to a significant other at home: No Do you presently have visiting nurse or other home services: No Comment: to go to [facility] house post op Patient Tobacco Use Status: Current everyday Tobacco user Tobacco use type: Cigarette Cigarettes Per Day: 5 Years Smoked: 40 Smoked in Last 30 Days: Yes Patient Interested in Nicotine Replacement: No Second Hand Smoke Exposure: Yes Use of substances other than those prescribed or required for medical reasons: No Have you been hit, kicked, punched, or otherwise hurt by someone within the past year? If so, by whom?: No Are you DNR?: No Advance Directives: Yes Advance Directives Information Provided: No Advance Directives on File: Yes Advance Directives Date on File: 08/15/22 Recently lost weight without trying: No Nutrition Risks: No Nutritional Risk service: No Current occupational status: unemployed Review of Systems Const All systems reviewed & are unremarkable except as noted in HPI and below Physical Exam Const General: cooperative, healthy appearing, comfortable, no acute distress, well developed and alert Orientation/consciousness: patient oriented x3 HEENT Head: Yes normal to inspection, Yes normocephalic and Yes atraumatic Eyes General: appearance normal, both eyes and all related structures EOM: EOMs intact bilaterally Neck Neck: Yes normal visual inspection and Yes no lymphadenopathy Chest Chest palpation & inspection: normal inspection of the chest Resp Effort & Inspection: normal respiratory effort and able to speak in complete sentences Auscultation: clear to auscultation bilaterally, crackles (no), rales (no), rhonchi (no) and wheezes (no) Cardio Jugular venous distension: no JVD Rate: regular rate Rhythm: regular rhythm Heart sounds: S1 normal heart sound present, S2 normal heart sound present, Murmur heart sound present (no) and Rub heart sound present (no) Peripheral pulses: Peripheral pulses 2+ throughout GI Inspection: Yes normal to inspection Palpation (GI): Soft to palpation Skin General skin exam: no rashes or lesions noted Rashes: no rashes Neuro General: patient oriented x3 Extrem Other: Full ROM right knee with well healed incision, stable arc of motion and no effusion. Left knee with 10-120 deg motion and medial compartment ttp Left shoulder iwth 4_/5 EC + lag Crepitus and pain with motion General: Yes normal to inspection, Yes no pedal edema and Yes no calf tenderness Psych Appearance: grossly normal Mental Status: mental status grossly normal Speech and movement: Normal speech and movement present Affect: normal affect Attitude: cooperative Assessment & Plan Assessment & Plan (1) Left rotator cuff tear arthropathy: Code(s): M75.102 - Unspecified rotator cuff tear or rupture of left shoulder, not specified as traumatic; M12.812 - Other specific arthropathies, not elsewhere classified, left shoulder Category: Medical Plan: At this time the patients surgery has been postponed due to the need for further cardiac workup. Coding Level of Care Code Est Pt Level 3 (63404) Diagnoses Left rotator cuff tear arthropathy M75.102; M12.812
== END 2024-06-13 14:30 | disposition home or self-care (01) ==
PROVIDERS: PCP Internal Medicine; Visit Provider Physician Assistant
DX: M75.102 Unspecified rotator cuff tear or rupture of left shoulder, not specified as traumatic (principal); M12.812 Other specific arthropathies, not elsewhere classified, left shoulder
CPT/HCPCS: 99024

== ENCOUNTER → 2024-06-13 12:41 | Outpatient (BNVA) | payer MEDICARE, MEDICAID, SELFPAY | PROVIDERS: PCP Internal Medicine; Visit Provider Physician Assistant | DX: Z01.818 Encounter for other preprocedural examination (principal); M75.102 Unspecified rotator cuff tear or rupture of left shoulder, not specified as traumatic; M12.812 Other specific arthropathies, not elsewhere classified, left shoulder | CPT/HCPCS: 99212 ==

== ENCOUNTER 2025-03-12 11:08 | Outpatient (AMB) | payer MEDICARE, MEDICAID, SELFPAY ==
--- NOTE | 2025-03-12 11:10 | MHC.OFFVIS ---
Vital Signs 03/12/25 11:13 Height 5 ft 7 in Weight 190 lb 14.725 oz BMI 29.9 BP 160/82 H Blood Pressure Location Rt brachial Position Sitting Pulse 86 Intake Visit Reasons: cta follow up [employer] Required: No Accompanied by: Self / Same As Patient Allergies sulfamethoxazole [From Bactrim] Allergy (Intermediate, Verified 06/13/24 13:09) Rash trimethoprim [From Bactrim] Allergy (Intermediate, Verified 06/13/24 13:09) Rash Medication List - Last Reconciled 03/12/25 by Marc Salazar MD amlodipine 10 mg PO DAILY cholecalciferol (vitamin D3) (Vitamin D3) 25 mcg PO DAILY [Elevated toliet seat As directed] lisinopril 10 mg PO ONCE [shower bench M16.11 Right hip OA height 67 210 lbs Patient is unable to shower or lift leg beyond 90 degrees. ] HPI Comments Details: Erika returns for follow-up. Last year, she was seen in consultation for preoperative evaluation regarding shoulder surgery but it does not appear that it materialize. She has undergone comprehensive workup including echocardiogram, stress test as well as coronary CTA. Overall, she states she feels good. No anginal-type symptoms. Unfortunately, she still smokes. She also drinks regularly. Previous diagnosis of subclavian stenosis. Otherwise, no new concerns. Last time, blood pressure was high and she was prescribed amlodipine in addition to her lisinopril. However, she states that she is still taking only the lisinopril and not the amlodipine. 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 Social History Household Members: Family Household Members Other:: daughter Housing: Apartment Are you a primary md do resident urgent care to a significant other at home: No Do you presently have visiting nurse or other home services: No 75 years or older and lives alone: No Comment: to go to [facility] house post op Patient Tobacco Use Status: Current everyday Tobacco user Tobacco use type: Cigarette Cigarettes Per Day: 5 Years Smoked: 40 Second Hand Smoke Exposure: Yes Advance Directives Date on File: 08/15/22 service: No Current occupational status: unemployed Review of Systems Const Denies chills, Denies fatigue, Denies fever(s), Denies frequent falls, Denies weakness, Denies weight gain and Denies weight loss ENT Denies dizziness Card Denies chest pain, Denies leg edema, Denies lightheadedness, Denies palpitations, Denies dyspnea and Denies dyspnea on exertion Resp Denies cough, Denies dyspnea and Denies dyspnea on exertion GI Denies hematochezia Musc Denies abnormal gait, Denies muscle weakness, Denies numbness, Denies radiating pain into limb and Denies tingling Neuro Denies abnormal gait, Denies dizziness, Denies frequent falls, Denies numbness, Denies tingling and Denies weakness Endo Denies fatigue and Denies palpitations Physical Exam Vital Signs: Last Vital Signs Pulse 86 03/12/25 11:13 BP 160/82 H 03/12/25 11:13 BMI result Body Mass Index 29.9 Const General: comfortable and no acute distress Orientation/consciousness: patient oriented x3 HEENT Other: Unremarkable Head: Yes normal to inspection Neck Neck: Yes normal visual inspection Chest Chest palpation & inspection: normal inspection of the chest Resp Auscultation: clear to auscultation bilaterally Cardio Palpation: normal PMI Heart sounds: S1 normal heart sound present, S2 normal heart sound present, no gallops, no murmurs and no rubs GI Palpation (GI): Soft to palpation Back/Spine/Pelvis Other: unremarkable Skin General skin exam: no rashes or lesions noted Neuro General: patient oriented x3 Extrem General: Yes normal to inspection Psych Mental Status: mental status grossly normal Assessment & Plan Assessment & Plan (1) Atherosclerotic cardiovascular disease: Code(s): I25.10 - Atherosclerotic heart disease of [place] coronary artery without angina pectoris Category: Medical Plan: In the echocardiogram, LVEF is 60-65%. Inferior/inferolateral wall motion abnormalities. Early mild aortic stenosis. Myocardial perfusion imaging study shows probably normal perfusion. In the coronary CTA, widespread [id number] stenosis. Overall, aggressive risk factor modification. Must stop smoking. Take low-dose aspirin. Start statins. (2) HTN (hypertension): Code(s): I10 - Essential (primary) hypertension Category: Medical Plan: Blood pressure is not well controlled because of noncompliance. Continue her lisinopril. Advised her to resume the amlodipine. (3) Smoking: Code(s): F17.200 - Nicotine dependence, unspecified, uncomplicated Category: Social Hx Plan: Strongly advised to stop. (4) Abnormal LFTs: Code(s): R79.89 - Other specified abnormal findings of blood chemistry Category: Medical Plan: We will need monitoring because of statin use. Could be related to alcohol excess. We discussed about this today. There is also suggestion of possible cirrhosis on the cardiac CTA and we also discussed about that. Plan Discussion Notes I discussed with the patient the critical nature of her conditions, emphasizing the importance of adhering to her prescribed antihypertensive therapy with amlodipine and lisinopril for optimal control of her blood pressure. We talked about the benefits of adding an 81 mg aspirin daily and a cholesterol-lowering medication to prevent further cardiovascular events. Smoking cessation and alcohol abstinence were highlighted as non-negotiables in managing her coronary artery disease and liver health. We reviewed the implications of her diagnostic imaging, particularly concerns of vascular blockages and potential liver cirrhosis, which necessitate lifestyle shifts and immediate intervention. The patient was informed about the planned follow-up in three months, at which point additional diagnostic tests will be ordered to assess the control of her conditions. We have a mutual agreement on these steps, considering the seriousness of potential complications if not addressed. Patient was informed and verbally consented to the use of an ambient scribe for clinic note documentation during this visit. Orders: Orders Liver Panel 2 Months I25.10 - Atherosclerotic heart disease of [place] coronary artery without angina pectoris Lipid Panel 2 Months E78.5 - Hyperlipidemia, unspecified Medications: New atorvastatin 10 mg PO QPM 90 tabs 1RF Refilled amlodipine 10 mg PO DAILY 90 tabs 3RF I10 - Essential (primary) hypertension Patient Instructions: - Take your prescribed medications: amlodipine 10 mg and lisinopril 10 mg every day as instructed. - Take an 81 mg baby aspirin daily. - [employer] medications from the pharmacy as soon as they are available. - Quit smoking completely to avoid worsening health conditions. - Stop drinking alcohol to protect your liver. - Contact the pharmacy or doctor's office regarding any issues with medication refills. - Follow up in three months to evaluate your condition and perform necessary tests. - Call the office if you experience any chest pain or other concerning symptoms. Coding Level of Care Code Est Pt Level 4 (86063) Complex EM visit Add On G2211 Diagnoses Atherosclerotic cardiovascular disease I25.10 HTN (hypertension) I10 Smoking F17.200 Abnormal LFTs R79.89
[2025-03-12 11:13] VITALS: BP 160/82; PULSE 86; BMI 29.9
== END 2025-03-12 11:29 | disposition home or self-care (01) ==
LOC: HO.HCS 11:09
PROVIDERS: Visit Provider Internal Medicine
DX: I25.10 Atherosclerotic heart disease of native coronary artery without angina pectoris (principal); I10 Essential (primary) hypertension; F17.200 Nicotine dependence, unspecified, uncomplicated; R79.89 Other specified abnormal findings of blood chemistry
CPT/HCPCS: 99214; G2211

== ENCOUNTER → 2025-03-12 11:08 | Outpatient (BNVA) | payer MEDICARE, MEDICAID, SELFPAY | PROVIDERS: Visit Provider Internal Medicine | DX: I25.10 Atherosclerotic heart disease of native coronary artery without angina pectoris (principal); I10 Essential (primary) hypertension; E78.5 Hyperlipidemia, unspecified; F17.210 Nicotine dependence, cigarettes, uncomplicated; R79.89 Other specified abnormal findings of blood chemistry | CPT/HCPCS: 99212 ==

== ENCOUNTER 2025-04-27 04:58 | Inpatient (IN) | payer MEDICARE, MEDICAID, SELFPAY ==
[2025-04-27] VITALS (25 sets, daily range): BP systolic 84–136; BP diastolic 46–70; PULSE 79–114; RESP 16–24; TEMP 36.7–38.8; O2SAT 88–98; BMI 29.7
--- NOTE | ~2025-04-27 | US_ITS ---
CLINICAL HISTORY: Assess for cirrhosis and ascites. US abdomen limited Comparison: None Findings: Liver is upper limits of normal in size and demonstrates normal echotexture. Main portal vein is patent and hepatopetal. No intrahepatic biliary ductal dilatation. The liver has a slightly lobulated contour. No ascites seen. IMPRESSION: 1. No ascites. 2. Slightly lobulated contour of an otherwise normal liver, which could be artifactual or related to underlying cirrhosis. This document has been electronically signed by: Rakesh Hayes MD on 04/27/2025 15:46:34
--- NOTE | ~2025-04-27 | XR_ITS ---
CLINICAL HISTORY: fall 2 view right femur Comparison: None Findings: No fractures or dislocations. Prosthesis and knee prosthesis components are normally aligned and intact. No knee effusion. No significant arthritic change. No other radiopaque foreign body. There is regional arterial calcification. IMPRESSION: 1. Normal right femur This document has been electronically signed by: Rusty Adame MD on 04/27/2025 08:05:09
--- NOTE | ~2025-04-27 | XR_ITS ---
CLINICAL HISTORY: fall PELVIS, TWO VIEWS FINDINGS: Bony structures are intact. Components of the hip prostheses are well aligned. There is aortoiliac calcification. IMPRESSION: No acute findings This document has been electronically signed by: Rusty Adame MD on 04/27/2025 08:04:23
--- NOTE | ~2025-04-27 | XR_ITS ---
CLINICAL HISTORY: fever 1 view chest x-ray Comparison: None Findings: There is right middle and lower lobe consolidation, possible atelectasis or pneumonia. Normal size heart. No acute fracture. IMPRESSION: 1. Right middle and lower lobe consolidation, differential considerations noted. This document has been electronically signed by: Rusty Adame MD on 04/27/2025 06:21:45
--- NOTE | 2025-04-27 05:30 | PC.NURSE ---
this proposal writer informed Dr Wells that will be calling sepsis on this patient do to pt's clinical signs and vs, this rn was educated and instructed on not calling sepsis at this time by the provider pt is coming from home and reports that she lives with family, pt's general appearance in unkept, pt was incontinent of feces that appeared slightly dark in color-md aware of this findings, pt color is almost ashen like and warm to touch, pt's sclera are yellow-pt does report that she drinks 2 beers or so daily but has not had a drink in a couple of days, pt reports feeling generally weak to the point she can't get out bed, having lower extremities pain 10/10 and general pain, pt also states fell down sometimes this morning, denies head strike states she landed on her knees, abrasion noticed to the left knee but pt is reporting pain in the right thigh area, pt also reported that she has been down on the ground for about three hours , sinus tach on the monitor
--- NOTE | 2025-04-27 05:32 | ECG_ITS ---
Test Reason : WEAKNESS Blood Pressure : */* mmHG Vent. Rate : 106 BPM Atrial Rate : 106 BPM P-R Int : 132 ms QRS Dur : 92 ms QT Int : 338 ms P-R-T Axes : 10 30 39 degrees QTcB Int : 448 ms Sinus tachycardia Otherwise normal ECG When compared with ECG of 06-Jul-2020 09:16, Vent. rate has increased by 36 bpm Nonspecific T wave abnormality now evident in Lateral leads Referred By: Sherri Wells Electronically Signed By: LES SHAH MD
--- NOTE | 2025-04-27 05:39 | ED.WEAKNESS ---
HPI - Weakness General Chief complaint: Weakness Stated complaint: failure to thrive, soiled herself, NPO, H20 Time Seen by Provider: 04/27/25 05:31 Source: patient and EMS Mode of arrival: EMS Limitations: no limitations History of Present Illness ED Provider: Dr. Sherri Wells HPI Narrative: Patient comes to the emergency room via ambulance from home. According to EMS, the family reported that the patient has been feeling weak, has p.o. intake, reports lower extremity pain. Patient states that she was very weak this morning and fell, they estimate that she was on the floor for about 3 hours. Patient is adamant that she did not hit her head or lost consciousness. Patient states she landed on her knees. Also, EMS reported the family is concerned that the patient is drinking too much alcohol. Patient is not very forthcoming with her alcohol intake. Related Data Home Medications ?Medication ?Instructions ?Recorded ?Confirmed cholecalciferol (vitamin D3) 25 25 mcg PO DAILY 06/10/24 03/12/25 mcg (1,000 unit) capsule (Vitamin D3) lisinopril 5 mg tablet 10 mg PO ONCE 06/10/24 03/12/25 Previous Rx's ?Medication ?Instructions ?Recorded Elevated toliet seat #1 ea 08/18/22 shower bench #1 ea 09/09/22 amlodipine 10 mg tablet 10 mg PO DAILY #90 tabs 03/12/25 atorvastatin 10 mg tablet 10 mg PO QPM #90 tabs 03/12/25 Allergies Allergy/AdvReac Type Severity Reaction Status Date / Time sulfamethoxazole Allergy Intermediate Rash Verified 04/27/25 05:11 [From Bactrim] trimethoprim [From Bactrim] Allergy Intermediate Rash Verified 04/27/25 05:11 Review of Systems Review of Systems: Constitutional : No Weight loss, No Fever, No Chills, No Night Sweats, complaining of fatigue and generalized malaise ENT/Mouth : No Hearing loss, No Ear Pain, No Nasal Congestion, No Sinus Pain, No Hoarseness, No sore throat, No Rhinorrhea, No Swallowing Difficulty Eyes: No Eye Pain, No Swelling, No Redness, No Foreign Body, No Discharge, No Vision Changes Cardiovascular : No Chest Pain, No SOB, No Dyspnea on Exertion, No Orthopnea, No Edema, No Palpitations Respiratory : No Cough, No Sputum, No Wheezing, No Smoke Exposure, No Dyspnea Gastrointestinal : No Nausea, No Vomiting, No Diarrhea, No Constipation, No abdominal Pain, No Hematochezia, No Melena Genitourinary : no irregular bleeding, No Dysuria, No Urinary Frequency, No Hematuria, No Urinary Incontinence, No Urgency, No Flank Pain, No Urinary Flow Changes, No Hesitancy Musculoskeletal : Complaining of bilateral lower extremity pain/weakness, No Myalgias, No Joint Swelling Skin : No Skin Lesions, No rash Neuro : No Weakness, No Numbness, No Paresthesias, No Loss of Consciousness, No Dizziness, No Headache Psych : No Anxiety/Panic, No Depression, No SI/HI/AH/VH, per family, drinks more than patient admits to Heme/Lymph: No Bruising, No Bleeding,No Lymphadenopathy Endocrine : No Polyuria, No Polydipsia, No Temperature Intolerance [facility] Past Medical History Medical History Alcohol drinker Liver enlargement Elevated liver enzymes Smoker COPD (chronic obstructive pulmonary disease) 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 Social History Social History Household Members: Family Household Members Other:: daughter Housing: Apartment Are you a primary managed care coordinator to a significant other at home: No Do you presently have visiting nurse or other home services: No Alcohol intake: current Alcohol intake frequency: 3 or more drinks per day Comment: to go to sons house post op Patient Tobacco Use Status: Current everyday Tobacco user Tobacco use type: Cigarette Cigarettes Per Day: 5 Years Smoked: 40 Smoked in Last 30 Days: Yes Second Hand Smoke Exposure: Yes Use of substances other than those prescribed or required for medical reasons: No Advance Directives: No Advance Directives Information Provided: Yes Advance Directives Date on File: 08/15/22 Do you have a plan to hurt others: No Plan service: No Current occupational status: unemployed Physical Exam Vital Signs: Vital Signs: Last Vital Signs Temp 100.5 F H 04/27/25 06:44 Pulse 96 04/27/25 07:43 Resp 20 04/27/25 07:43 BP 99/55 L 04/27/25 07:43 Pulse Ox 94 04/27/25 07:43 O2 Del Method Room Air 04/27/25 07:43 BMI result Body Mass Index 29.7 Const: Other: Appearance: Alert. Oriented X3. Seems to be a bit slow to respond but still responding appropriately Eyes: Pupils equal, round and reactive to light. ENT: Pharynx normal. Neck: Normal inspection. Neck supple. No lymph nodes noted. No crepitus CVS: Normal heart rate and rhythm. Pulses normal. Normal S1 and S2 Respiratory: No respiratory distress. Breath sounds normal. No Wheezing. No rales , occasionally coughing Abdomen: Soft, no tenderness to palpation at all in any of the quadrants. No rigidity. No distention. Skin: Skin warm and dry. Normal skin color. Normal skin turgor. Extremities: No lower extremity edema. No Lacerations. No Rash Neuro: Oriented X 3. No motor deficit. No sensory deficit. Moving all extremities. No slurred speech. CN 2 through 12 grossly intact Psych: calm, cooperative, flat affect Course Course Course Narrative: At 05:30, I was informed by the patient's nurse that the patient has a fever of 101.9, heart rate 114. Patient's blood pressure is normal, 115/63. Given patient's set of complaints and the above-mentioned vitals, it is possible that patient may have a UTI? Patient has history of COPD, occasionally coughing but reports no shortness of breath. Patient is empirically being treated with IV fluids and ceftriaxone. That the patient's mental status, it is possible that patient may have a UTI. However, at this time, 05:30, sepsis is not suspected. Of note, patient is an alcoholic, patient has had elevated LFTs in the past and it is expected that the LFTs will be high secondary to EtOH abuse rather than sepsis Medications Administered Generic Name Dose Route Start Last Admin Trade Name Frefracisco PRN Reason Stop Dose Admin Azithromycin 500 mg/ Sodium 250 mls @ 125 mls/hr 04/27/25 07:26 04/27/25 07:47 Chloride IV 04/27/25 09:25 125 mls/hr ONCE ONE Administration Discontinued Medications Generic Name Dose Route Start Last Admin Trade Name Merlyn PRN Reason Stop Dose Admin Acetaminophen 975 mg 04/27/25 06:17 04/27/25 06:26 Acetaminophen 325 Mg Tablet PO 04/27/25 06:18 975 mg ONCE ONE Administration Ceftriaxone Sodium 1 gm 04/27/25 05:35 04/27/25 05:53 Ceftriaxone Sodium 1 Gm Vial IVPUSH 04/27/25 05:36 1 gm ONCE ONE Administration Sodium Chloride 2,600 mls @ 999 mls/hr 04/27/25 05:35 04/27/25 06:10 Ns IVCONT 04/27/25 08:11 Infused .Q2H37M ONE Infusion Pantoprazole Sodium 80 mg 04/27/25 07:33 04/27/25 07:47 Pantoprazole Sodium 40 Mg/10 Ml Vial IVPUSH 04/27/25 07:34 80 mg ONCE ONE Administration Medical Decision Making Medical Decision Making MDM Narrative: At 05:40, we received the labs. Patient's lactic acid is 4.3. Sepsis is suspected. When patient arrived, patient was started on IV fluids and covered with IV antibiotics. However, also at 05:40 we received patient's chemistry. Patient has a sodium of 120. Patient already received 220 mL of IV fluid at a rate of 999 mL/hour. At this time, we will stop the fluids due to severe hyponatremia, and to avoid osmotic demyelination syndrome. My interpretation of chemistry. Patient's sodium is 120, BUN 12, creatinine 0.58. Urinalysis mildly positive for UTI, chest x-ray positive for pneumonia. Patient's sepsis is likely secondary to the above-mentioned, UTI and sepsis. Patient's LFTs are elevated, likely secondary to alcohol abuse. Ammonia levels pending. I was informed by the patient's nurse that the patient had some black stool when they were cleaning her up. Patient denies any hematemesis or melena to her knowledge. Occult blood was sent and it is positive for blood Patient's troponin is bumped at 70. With no have previous troponins for comparison. EKG does not show any acute abnormalities. Patient has no chest pain at all. Elevation in troponin is likely secondary to all of patient's comorbidities My interpretation of x-rays of the hip and femur: Metal hardware is intact, no dislocation. I do not see any obvious fractures. At 07:45: I performed a FOCUS exam I discussed the patient with the hospitalist team, PER Becker. Patient's sodium is borderline at 01:20. We will repeat a chemistry at 09:00, if appropriate for the floor, patient to be admitted to the medicine floor, otherwise patient will ICU. Sign out given to my colleague Dr. Cam Differential Diagnosis Differential Diagnoses: The differential diagnosis associated with the presentation includes (As above) Admission/Observation Consideration of admission/observation: Escalation of care including admission/observation considered Consult Healthcare Provider Management of the patient was discussed with: Hospitalist Lab Data MDM Lab Attestation statement: I reviewed the patient's lab results. 04/27/25 05:41 04/27/25 05:41 Labs: Lab Results 04/27/25 04/27/25 04/27/25 Range/Units 05:38 05:40 05:41 WBC 10.9 H (4.8-10.8) X10*3/uL RBC 3.70 L (4.20-5.50) X10*6/uL Hgb 13.4 (12.0-16.0) g/dl Hct 35.0 L (37.0-47.0) % MCV 94.6 (80.0-98.0) fL MCH 36.2 H (27.0-33.0) pg MCHC 38.3 H (31.0-35.0) g/dl RDW 12.2 (11.0-16.0) % Plt Count 95 L D (160-400) X10*3/uL MPV 12.7 H (9.4-12.3) fL Immature Gran % (Auto) 1.4 H (0.0-0.4) % Neut % (Auto) 87.9 H (45-73) % Lymph % (Auto) 3.7 L (20-40) % [place] % (Auto) 6.6 (2-11) % Eos % (Auto) 0.0 (0-4) % Baso % (Auto) 0.4 (0-2) % Lymph # (Auto) 0.4 L (1.2-4.9) X10*3/uL [place] # (Auto) 0.7 (0.1-1.2) X10*3/uL Eos # (Auto) 0.0 (0.0-0.4) X10*3/uL Baso # (Auto) 0.0 (0.0-0.2) X10*3/uL Abs Immat Gran (auto) 0.15 H (0.00-0.03) X10*3/uL Absolute Neuts (auto) 9.6 H (2.0-8.3) x10*3/uL Absolute Nucleated RBC 0.000 (0.0-0.012) X10*3/uL Nucleated RBC % (auto) 0.0 (0.0-0.2) /100WBC Smear Tech's Comments VERIFIED Sodium 120 L* (135-145) mmol/L Potassium 3.4 (3.3-5.1) mmol/L Chloride 87 L (96-108) mmol/L Carbon Dioxide 20 L (22-29) mmol/L Anion Gap 16 (12-20) BUN 12 (9-16) mg/dL Creatinine 0.58 (0.5-1.4) mg/dL Estim Creat Clear Calc 107.4 Estimated GFR > 60 Random Glucose 135 H (60-115) mg/dL Lactic Acid 4.3 H* (0.5-2.0) mmol/L Calcium 8.5 D (8.4-10.2) mg/dL Magnesium 1.8 (1.6-2.6) mg/dL Total Bilirubin 2.2 H (0.0-1.0) mg/dL Direct Bilirubin 1.5 H (0.0-0.5) mg/dL AST 111 H (5-31) U/L ALT 28 (0-31) U/L Alkaline Phosphatase 106 (39-117) U/L Ammonia (13-55) umol/L Troponin I High Sens 70.6 H* (<3.5-17.0) ng/L Total Protein 6.3 L (6.5-8.0) g/dL Albumin 3.2 L (3.5-5.0) g/dL Urine Color Urine Appearance Urine pH (5.0-9.0) Ur Specific [place] (1.005-1.025) Urine Protein (Neg-Trace) mg/dL Urine Glucose (UA) (Negative) mg/dL Urine Ketones (Negative) mg/dL Urine Blood (Negative) Urine Nitrite (Negative) Ur Leukocyte Esterase (Negative) Urine RBC (0-2) /HPF Urine WBC (0-5) /HPF Ur Squamous Epith Cells (0-2) /HPF Urine Bacteria (None Seen) Hyaline Casts (0-2) /LPF Stool Occult Blood (NEGATIVE) Urine Opiates Screen (Not Detect) Ur Buprenorphine Scrn (Not Detect) ng/mL Ur Oxycodone Screen (Not Detect) ng/mL Urine Methadone Screen (Not Detect) ng/mL Urine Fentanyl Screen (Not Detect) Ur Barbiturates Screen (Not Detect) Ur Phencyclidine Scrn (Not Detect) Ur Amphetamines Screen (Not Detect) U Benzodiazepines Scrn (Not Detect) Urine Cocaine Screen (Not Detect) U Marijuana (THC) Screen (Not Detect) Ethyl Alcohol < 10 mg/dL Influenza Type A (PCR) (Negative) Influenza Type B (PCR) (Negative) RSV RNA Qual (PCR) (Negative) SARS-CoV-2 RNA (RT-PCR) (Negative) 04/27/25 04/27/25 04/27/25 Range/Units 05:42 05:52 07:16 WBC (4.8-10.8) X10*3/uL RBC (4.20-5.50) X10*6/uL Hgb (12.0-16.0) g/dl Hct (37.0-47.0) % MCV (80.0-98.0) fL MCH (27.0-33.0) pg MCHC (31.0-35.0) g/dl RDW (11.0-16.0) % Plt Count (160-400) X10*3/uL MPV (9.4-12.3) fL Immature Gran % (Auto) (0.0-0.4) % Neut % (Auto) (45-73) % Lymph % (Auto) (20-40) % [place] % (Auto) (2-11) % Eos % (Auto) (0-4) % Baso % (Auto) (0-2) % Lymph # (Auto) (1.2-4.9) X10*3/uL [place] # (Auto) (0.1-1.2) X10*3/uL Eos # (Auto) (0.0-0.4) X10*3/uL Baso # (Auto) (0.0-0.2) X10*3/uL Abs Immat Gran (auto) (0.00-0.03) X10*3/uL Absolute Neuts (auto) (2.0-8.3) x10*3/uL Absolute Nucleated RBC (0.0-0.012) X10*3/uL Nucleated RBC % (auto) (0.0-0.2) /100WBC Smear Tech's Comments Sodium (135-145) mmol/L Potassium (3.3-5.1) mmol/L Chloride (96-108) mmol/L Carbon Dioxide (22-29) mmol/L Anion Gap (12-20) BUN (9-16) mg/dL Creatinine (0.5-1.4) mg/dL Estim Creat Clear Calc Estimated GFR Random Glucose (60-115) mg/dL Lactic Acid (0.5-2.0) mmol/L Calcium (8.4-10.2) mg/dL Magnesium (1.6-2.6) mg/dL Total Bilirubin (0.0-1.0) mg/dL Direct Bilirubin (0.0-0.5) mg/dL AST (5-31) U/L ALT (0-31) U/L Alkaline Phosphatase (39-117) U/L Ammonia 65 H (13-55) umol/L Troponin I High Sens (<3.5-17.0) ng/L Total Protein (6.5-8.0) g/dL Albumin (3.5-5.0) g/dL Urine Color Dark Yellow Urine Appearance Clear Urine pH 6.0 (5.0-9.0) Ur Specific [place] 1.015 (1.005-1.025) Urine Protein 30 (1+) H (Neg-Trace) mg/dL Urine Glucose (UA) Negative (Negative) mg/dL Urine Ketones Trace (Negative) mg/dL Urine Blood Large (3+) H (Negative) Urine Nitrite Negative (Negative) Ur Leukocyte Esterase Small (1+) H (Negative) Urine RBC 3-5 H (0-2) /HPF Urine WBC 0-5 (0-5) /HPF Ur Squamous Epith Cells 3-5 (0-2) /HPF Urine Bacteria None Seen (None Seen) Hyaline Casts 3-5 (0-2) /LPF Stool Occult Blood POSITIVE (NEGATIVE) Urine Opiates Screen Not Detected (Not Detect) Ur Buprenorphine Scrn Not Detected (Not Detect) ng/mL Ur Oxycodone Screen Not Detected (Not Detect) ng/mL Urine Methadone Screen Not Detected (Not Detect) ng/mL Urine Fentanyl Screen Not Detected (Not Detect) Ur Barbiturates Screen Not Detected (Not Detect) Ur Phencyclidine Scrn Not Detected (Not Detect) Ur Amphetamines Screen Not Detected (Not Detect) U Benzodiazepines Scrn Not Detected (Not Detect) Urine Cocaine Screen Not Detected (Not Detect) U Marijuana (THC) Screen POSITIVE H (Not Detect) Ethyl Alcohol mg/dL Influenza Type A (PCR) NEGATIVE (Negative) Influenza Type B (PCR) NEGATIVE (Negative) RSV RNA Qual (PCR) NEGATIVE (Negative) SARS-CoV-2 RNA (RT-PCR) NEGATIVE (Negative) Independent Interpretation I performed an independent interpretation of an: EKG Critical Care Time Critical Care Time Critical Care Time: Yes Total Critical Care Time: 90 Attestation: I have personally provided critical care time. Time includes review of lab data, radiology results, discussion with consultants, and monitoring for potential decompensation. Intervention performed as documented. Discharge Plan Discharge Clinical Impression: Acute hyponatremia, Sepsis, Weakness, Acute UTI, Pneumonia, Occult GI bleeding Patient Disposition: Admitted As Inpatient Print Language: Yoruba Sepsis Bolus Exclusion Sepsis Bolus Exclusion CHF/Renal Failure This patient met severe sepsis criteria due to the following condition(s):: Lactate>=4mmol/L In my clinical judgement the administration of 30 ml/kg of crystalloid would be detrimental to this patient due to the patient's following conditions:: Other (hyponatremia) Replace the 30 mls/kg with (Zero amount not acceptable and all fluids for severe sepsis must be given at GREATER than 125 mls/hr) Crystalloids amount given in mls: (rate must be at least 150cc/hr): 220 Colloids amount given in mls:: 0
[2025-04-27] MEDS: cefTRIAXone sodium 1 GM VIAL IVPUSH (05:53)
[2025-04-27] MEDS: 0.9 % Sodium Chloride 2,600 ML 999 ML IVCONT (05:55)
[2025-04-27 06:00] LABS: Appearance Urine Clear; Color Urine Dark Yellow; Glucose Urine UA Negative (Negative); Leukocyte Esterase Urine Small (1+) (Negative); Nitrite Urine Negative (Negative); Specific Gravity - Urine 1.015 (1.005-1.025); UMIC TRIGGER UACC YES; Urine Blood Large (3+) (Negative); Urine Ketones Trace mg/dL (Negative); Urine Protein 30 (1+) mg/dL (Neg-Trace)
[2025-04-27 06:01] LABS: Lactic Acid 4.3 mmol/L (0.5-2.0)
[2025-04-27 06:07] LABS: Ethanol < 10 mg/dL
[2025-04-27 06:08] LABS: Alanine Aminotransferase 28 U/L (0-31); Albumin Level 3.2 g/dL (3.5-5.0); Alkaline Phosphatase 106 U/L (39-117); Anion Gap 16 (12-20); Aspartate Amino Transferase 111 U/L (5-31); Bilirubin Direct 1.5 mg/dL (0.0-0.5); Bilirubin Total 2.2 mg/dL (0.0-1.0); Blood Urea Nitrogen 12 mg/dL (9-16); Calcium 8.5 mg/dL (8.4-10.2); Carbon Dioxide 20 mmol/L (22-29); Chloride 87 mmol/L (96-108); Creatinine Clr Calc Pharmacy 107.4; Estimated Glomerular Filt Rate > 60; Glucose Random 135 mg/dL (60-115); Magnesium 1.8 mg/dL (1.6-2.6); Potassium 3.4 mmol/L (3.3-5.1); Sodium 120 mmol/L (135-145); Total Protein 6.3 g/dL (6.5-8.0)
[2025-04-27 06:09] LABS: Amphetamine Screen Urine Not Detected (Not Detect); Barbiturates, Urine Not Detected (Not Detect); Benzodiazepines Screen Urine Not Detected (Not Detect); Buprenorphine Scr Not Detected (Not Detect); Cannabinoid Screen Urine POSITIVE (Not Detect); Cocaine Screen Urine Not Detected (Not Detect); Fentanyl, urine Not Detected (Not Detect); Methadone Screen, Urine Not Detected (Not Detect); Opiate Screen Urine Not Detected (Not Detect); Oxycodone Screen Urine Not Detected (Not Detect); Phencyclidine Screen Urine Not Detected (Not Detect)
--- NOTE | 2025-04-27 06:10 | PC.NURSE ---
iv fluids stopped do to the patients sodium coming back at 120, pt did received 249.75mlof ns at 999ml/hr
[2025-04-27 06:11] LABS: Bacteria Urine None Seen (None Seen); UACC Culture Trigger YES; WBC Urine 0-5 /HPF (0-5)
[2025-04-27 06:13] LABS: Troponin-I High Sensitivity 70.6 ng/L (<3.5-17.0)
[2025-04-27 06:14] LABS: Basophils Percent Auto 0.4 % (0-2); Hemoglobin 13.4 g/dl (12.0-16.0); Imm Gran Abs Auto 0.15 X10*3/uL (0.00-0.03); Imm Gran Pct Auto 1.4 % (0.0-0.4); Lymphocytes Absolute Auto 0.4 X10*3/uL (1.2-4.9); Lymphocytes Percent Auto 3.7 % (20-40); MANUAL DIFF FLAG SCAN; Mean Corpuscular Hemoglobin 36.2 pg (27.0-33.0); Mean Corpuscular Volume 94.6 fL (80.0-98.0); Mean Platelet Volume 12.7 fL (9.4-12.3); Monocytes Absolute Auto 0.7 X10*3/uL (0.1-1.2); Monocytes Percent Auto 6.6 % (2-11); Neutrophils Absolute Auto 9.6 x10*3/uL (2.0-8.3); Neutrophils Percent Auto 87.9 % (45-73); Red Cell Distribution Width 12.2 % (11.0-16.0); SCAN SMEAR FLAG 1; White Blood Count 10.9 X10*3/uL (4.8-10.8)
[2025-04-27 06:22] LABS: Mean Corpuscular HGB Conc 38.3 g/dl (31.0-35.0); Platelet Count 95 X10*3/uL (160-400)
[2025-04-27 06:23] LABS: SLIDE REVIEW VERIFIED
[2025-04-27 06:23] LABS: Influenza A PCR NEGATIVE (Negative); Influenza B PCR NEGATIVE (Negative); Resp Syncy Virus RNA Qual PCR NEGATIVE (Negative); SARS COV2 PCR INHOUSE NEGATIVE (Negative)
[2025-04-27] MEDS: Acetaminophen 325 MG TABLET 975 MG PO (06:26)
[2025-04-27 07:22] LABS: OBS Int Ctl Valid YES; OBS1 POSITIVE (NEGATIVE)
[2025-04-27 07:30] LABS: Ammonia 65 umol/L (13-55)
[2025-04-27 07:44] LABS: Reflex Lactate? Lactic Acid Added
[2025-04-27] MEDS: Azithromycin 500 MG in 0.9 % Sodium Chloride 250 ML 125 MG IV (07:47)
[2025-04-27] MEDS: Pantoprazole Sodium 40 MG/10 ML VIAL 80 MG IVPUSH (07:47)
[2025-04-27] MEDS: Lactulose 20 GM/30 ML SOLUTION PO (08:17)
[2025-04-27 08:22] LABS: ~Lactic Acid-LAB USE ONLY 2.2 mmol/L (0.5-2.0)
[2025-04-27 08:34] LABS: Sodium Urine Random < 20.0 mmol/L
[2025-04-27 08:34] LABS: Osmolality Urine 455 mosm/kg (373-1093)
[2025-04-27] MEDS: Albumin Human 25 % 100 ML 133.33 ML IV ×2 (08:57→10:10)
[2025-04-27 09:18] LABS: Anion Gap 13 (12-20); Blood Urea Nitrogen 11 mg/dL (9-16); Calcium 7.8 mg/dL (8.4-10.2); Carbon Dioxide 21 mmol/L (22-29); Chloride 90 mmol/L (96-108); Creatinine Clr Calc Pharmacy 122.2; Estimated Glomerular Filt Rate > 60; Glucose Random 139 mg/dL (60-115); Sodium 121 mmol/L (135-145)
[2025-04-27] MEDS: Potassium Chloride/H20 10 MEQ/100 ML PIGGYBACK 100 MEQ IV (09:36)
[2025-04-27] MEDS: Potassium Chloride Packet 20 MEQ PACKET 40 MEQ PO (09:36)
[2025-04-27] MEDS: Lactated Ringers 1,000 ML 999 ML IV (09:49)
[2025-04-27 09:57] LABS: Reflex Lactate? 2 Y
--- NOTE | 2025-04-27 10:14 | PC.NURSE ---
pt had a medium all liquid and tarry stool
[2025-04-27 10:34] LABS: ~Lactic Acid-LAB USE ONLY 2.3 mmol/L (0.5-2.0)
[2025-04-27] MEDS: LACTATED RINGERS 2580 ML IV (11:03)
[2025-04-27 11:07] LABS: MANUAL DIFF FLAG NO
--- NOTE | 2025-04-27 11:10 | PHA.MEDREC ---
Addendum entered by Manjula Lira RPh 04/27/25 12:26: MED REC REVIEWED BY [facility] Original Note: Pharmacy Consult ? Medication Reconciliation Pharmacy has completed the medication reconciliation. Spoke with patient to confirm medications. She takes a multivitamin every other day, last taken yesterday with the rest of her medications.
[2025-04-27 11:33] LABS: Troponin-I High Sensitivity 140.1 ng/L (<3.5-17.0)
[2025-04-27 11:35] LABS: Basophils Percent Auto 0.3 % (0-2); Imm Gran Abs Auto 0.08 X10*3/uL (0.00-0.03); Imm Gran Pct Auto 1.1 % (0.0-0.4); Lymphocytes Absolute Auto 0.4 X10*3/uL (1.2-4.9); Lymphocytes Percent Auto 5.8 % (20-40); Mean Corpuscular Volume 95.9 fL (80.0-98.0); Mean Platelet Volume 12.9 fL (9.4-12.3); Monocytes Absolute Auto 0.6 X10*3/uL (0.1-1.2); Monocytes Percent Auto 8.1 % (2-11); Neutrophils Absolute Auto 6.2 x10*3/uL (2.0-8.3); Neutrophils Percent Auto 84.7 % (45-73); Red Blood Count 2.92 X10*6/uL (4.20-5.50); Red Cell Distribution Width 12.2 % (11.0-16.0); SCAN SMEAR FLAG 1; White Blood Count 7.3 X10*3/uL (4.8-10.8)
[2025-04-27 11:37] LABS: Platelet Count 59 X10*3/uL (160-400)
[2025-04-27 11:38] LABS: Hemoglobin 9.4 g/dl (12.0-16.0); Mean Corpuscular Hemoglobin 32.9 pg (27.0-33.0)
[2025-04-27 11:39] LABS: Mean Corpuscular HGB Conc 33.6 g/dl (31.0-35.0)
--- NOTE | 2025-04-27 11:44 | PC.NURSE ---
pt had 4tth small BM, liquid very dark/black in color. Provider notified.
[2025-04-27] MEDS: Octreotide Acetate 100 MCG/ML AMPUL IVPUSH (12:42)
[2025-04-27 12:45] LABS: Cancel Lactic Acid Canceled
--- NOTE | 2025-04-27 13:00 | PC.NURSE ---
pt is having difficulty urinating multiple attempts to void but still nothing, bladder scan performed and showed greater then 1214ml
--- NOTE | 2025-04-27 13:06 | PM.IMHP ---
History of Present Illness Date of Service: 04/27/25 Attending physician on admission: Esvin Crystal Chief Complaint: Weakness Erika Smith is a 65 years old woman with past medical history significant for COPD, alcohol abuse and hypertension presents to the emergency department complaining of worsening generalized weakness has been going on for months. Patient is complaining of bilateral time numbness (right> left). She fell this morning and landed on her knees. Denied loss of consciousness, dizziness, shortness of breath, nausea, abdominal pain, cough, chest pain, vomiting or diarrhea. No fever or chills reported. She mentioned that her suicide in the darker side. She has an ongoing alcohol abuse -drinks beer and wine (was not very precise on how many alcoholic drinks she she consumes daily). Last alcoholic drink was 2 days ago. Denied history of variceal bleeding or endoscopies. She takes ibuprofen as needed. She asked tobacco smoker since age 15. Smokes marijuana in occasions. In the ED, she was found to have fever of 101.9 and tachycardia. Subsequently he started to develop worsening hypotension (lower 89/51). She is currently requiring 2 L/min supplemental oxygen via nasal cannula after her O2 sat dropped to 88%. Hemoglobin dropped from 13.4 to 9.4 over 6 hours. There is no leukocytosis. There is lactic acidosis 2.2--> 2.3. Platelets are trending down 95 --> 59. There is hyponatremia 120 --> 121. Hypokalemia, hypochloremia mildly elevated CO2 21. Renal function is normal. Glucose is 139. Troponin 17.6--> 140.1. Urine drug screen is positive for marijuana. ETOH level < 10 Urinalysis consistent with urinary tract infection. Stool for occult blood is positive. Viral testing is negative for influenza, RSV and COVID-19. ED tx: Ceftriaxone 1 g IV, azithromycin 500 mg IV, pantoprazole 80 mg IV, lactulose 20 g PO, potassium 40 mEq PO x1, LR 3,580 ml bolus, albumin 133.333 ml/hr, Tyleno 975 mg PO. Review of Systems Review of Systems: All 12 systems were reviewed and normal except as noted in HPI. 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 Surgical History History of total right knee replacement (03/2023) Hx of total hip arthroplasty History of carpal tunnel surgery of left wrist History of tonsillectomy Hx of section History of tubal ligation History of arthroscopy of right knee Status post left hip replacement H/O: hysterectomy Abdominal mass Social History Household Members: Family Household Members Other:: daughter Housing: Apartment Are you a primary critical care nurse practitioner to a significant other at home: No Do you presently have visiting nurse or other home services: No Alcohol intake: current Alcohol intake frequency: 3 or more drinks per day Comment: to go to [facility] post op Patient Tobacco Use Status: Current everyday Tobacco user Tobacco use type: Cigarette Cigarettes Per Day: 5 Years Smoked: 40 Smoked in Last 30 Days: Yes Second Hand Smoke Exposure: Yes Use of substances other than those prescribed or required for medical reasons: No Advance Directives: No Advance Directives Information Provided: Yes Advance Directives Date on File: 08/15/22 Do you have a plan to hurt others: No Plan service: No Current occupational status: unemployed Meds Allergies Allergy/AdvReac Type Severity Reaction Status Date / Time sulfamethoxazole Allergy Intermediate Rash Verified 04/27/25 05:11 [From Bactrim] trimethoprim [From Bactrim] Allergy Intermediate Rash Verified 04/27/25 05:11 Active Medications: Current Medications Acetaminophen (Acetaminophen 325 Mg Tablet) 975 mg PO Q6H PRN PRN Reason: Pain, Mild 1-3,fever,headache Ceftriaxone Sodium (Ceftriaxone Sodium 1 Gm Vial) 1 gm IVPUSH Q24H GLADIS Norepinephrine Bitartrate (Levophed) 8 mg in 250 mls @ 0 mls/hr IVCONT .Q0M GLADIS; Protocol Octreotide Acetate 500 mcg/ (Sodium Chloride) 501 mls @ 50.1 mls/hr IVCONT .Q10H [facility]IS Thiamine HCl 100 mg/ Sodium (Chloride) 101 mls @ 202 mls/hr IV DAILY [facility] Pantoprazole Sodium (Pantoprazole Sodium 40 Mg/10 Ml Vial) 40 mg IVPUSH BID@0630,1630 [facility] Sodium Chloride (0.9 % Sodium Chloride Flush 3 Ml Syringe) 3 ml IVFLUSH QSHIFT [facility] Home Medications ?Medication ?Instructions ?Recorded ?Confirmed ?Last Taken ?Type cholecalciferol (vitamin D3) 25 25 mcg PO DAILY 06/10/24 04/27/25 04/26/25 History mcg (1,000 unit) capsule (Vitamin D3) cyanocobalamin (vitamin B-12) 1,000 mcg PO DAILY 04/27/25 04/27/25 04/26/25 History 1,000 mcg tablet lisinopril 10 mg tablet 10 mg PO DAILY 04/27/25 04/27/25 04/26/25 History multivitamin 1 tab PO Q OTHER DAY 04/27/25 04/27/25 04/26/25 History Physical Exam Vital Signs and Narrative: Vital Signs: Last Vital Signs Temp 98.1 F 04/27/25 12:21 Pulse 84 04/27/25 12:21 Resp 20 04/27/25 12:21 BP 109/58 L 04/27/25 12:21 Pulse Ox 88 L 04/27/25 12:21 O2 Del Method Room Air 04/27/25 12:21 BMI result Body Mass Index 29.7 Constitutional - Awake and Alert, No apparent distress. HEENT - PER, EOMI. Status sclerae. Dry oral mucosa. Heart - Regular rate and rhythm, (+) murmur. Lungs - Normal lung expansion, Normal respiratory effort, No respiratory distress. No tachypnea. Decreased breath sound at bases. No wheezing. No crackles. No rhonchi. Abdomen - NT / ND; +BS; No rebound or guarding Extremities - No calf tenderness bilaterally, no swelling. Left knee: Superficial abrasion. No effusions. Musculoskeletal - Normal inspection, normal ROM Skin - Warm/Dry. Jaundice. Neurological - Alert & oriented x3. No focal weakness grossly noted. No facial droop. Normal speech. Psychological - Irritable. Results Labs 04/27/25 11:01 04/27/25 09:00 Labs: Laboratory Results - last 24 hr 0604/27/25 04/27/25 05:22 05:38 05:40 MCV MCH MCHC RDW Plt Count MPV Immature Gran % (Auto) Neut % (Auto) Lymph % (Auto) [place] % (Auto) Eos % (Auto) Baso % (Auto) Lymph # (Auto) [place] # (Auto) Eos # (Auto) Baso # (Auto) Abs Immat Gran (auto) Absolute Neuts (auto) Absolute Nucleated RBC Nucleated RBC % (auto) Smear Tech's Comments Anion Gap Estim Creat Clear Calc Estimated GFR Random Glucose Lactic Acid 4.3 H* Lactic Acid F/U @ 2Hr Lactic Acid F/U @ 4Hr Calcium Magnesium Total Bilirubin Direct Bilirubin AST ALT Alkaline Phosphatase Ammonia Troponin I High Sens Total Protein Albumin Urine Color Urine Appearance Urine pH Ur Specific [place] Urine Protein Urine Glucose (UA) Urine Ketones Urine Blood Urine Nitrite Ur Leukocyte Esterase Urine RBC Urine WBC Ur Squamous Epith Cells Urine Bacteria Hyaline Casts Urine Osmolality Ur Random Sodium < 20.0 Stool Occult Blood Urine Opiates Screen Ur Buprenorphine Scrn Ur Oxycodone Screen Urine Methadone Screen Urine Fentanyl Screen Ur Barbiturates Screen Ur Phencyclidine Scrn Ur Amphetamines Screen U Benzodiazepines Scrn Urine Cocaine Screen U Marijuana (THC) Screen Ethyl Alcohol < 10 Influenza Type A (PCR) Influenza Type B (PCR) RSV RNA Qual (PCR) SARS-CoV-2 RNA (RT-PCR) Blood Type Antibody Screen Crossmatch 04/27/25 04/27/25 04/27/25 05:41 05:42 05:52 MCV 94.6 MCH 36.2 H MCHC 38.3 H RDW 12.2 Plt Count 95 L D MPV 12.7 H Immature Gran % (Auto) 1.4 H Neut % (Auto) 87.9 H Lymph % (Auto) 3.7 L [place] % (Auto) 6.6 Eos % (Auto) 0.0 Baso % (Auto) 0.4 Lymph # (Auto) 0.4 L [place] # (Auto) 0.7 Eos # (Auto) 0.0 Baso # (Auto) 0.0 Abs Immat Gran (auto) 0.15 H Absolute Neuts (auto) 9.6 H Absolute Nucleated RBC 0.000 Nucleated RBC % (auto) 0.0 Smear Tech's Comments VERIFIED Anion Gap 16 Estim Creat Clear Calc 107.4 Estimated GFR > 60 Random Glucose 135 H Lactic Acid Lactic Acid F/U @ 2Hr Lactic Acid F/U @ 4Hr Calcium 8.5 D Magnesium 1.8 Total Bilirubin 2.2 H Direct Bilirubin 1.5 H AST 111 H ALT 28 Alkaline Phosphatase 106 Ammonia Troponin I High Sens 70.6 H* Total Protein 6.3 L Albumin 3.2 L Urine Color Dark Yellow Urine Appearance Clear Urine pH 6.0 Ur Specific [place] 1.015 Urine Protein 30 (1+) H Urine Glucose (UA) Negative Urine Ketones Trace Urine Blood Large (3+) H Urine Nitrite Negative Ur Leukocyte Esterase Small (1+) H Urine RBC 3-5 H Urine WBC 0-5 Ur Squamous Epith Cells 3-5 Urine Bacteria None Seen Hyaline Casts 3-5 Urine Osmolality 455 Ur Random Sodium Stool Occult Blood Urine Opiates Screen Not Detected Ur Buprenorphine Scrn Not Detected Ur Oxycodone Screen Not Detected Urine Methadone Screen Not Detected Urine Fentanyl Screen Not Detected Ur Barbiturates Screen Not Detected Ur Phencyclidine Scrn Not Detected Ur Amphetamines Screen Not Detected U Benzodiazepines Scrn Not Detected Urine Cocaine Screen Not Detected U Marijuana (THC) Screen POSITIVE H Ethyl Alcohol Influenza Type A (PCR) NEGATIVE Influenza Type B (PCR) NEGATIVE RSV RNA Qual (PCR) NEGATIVE SARS-CoV-2 RNA (RT-PCR) NEGATIVE Blood Type Antibody Screen Crossmatch 04/27/25 04/27/25 04/27/25 07:16 07:54 09:00 MCV MCH MCHC RDW Plt Count MPV Immature Gran % (Auto) Neut % (Auto) Lymph % (Auto) [place] % (Auto) Eos % (Auto) Baso % (Auto) Lymph # (Auto) [place] # (Auto) Eos # (Auto) Baso # (Auto) Abs Immat Gran (auto) Absolute Neuts (auto) Absolute Nucleated RBC Nucleated RBC % (auto) Smear Tech's Comments Anion Gap 13 Estim Creat Clear Calc 122.2 Estimated GFR > 60 Random Glucose 139 H Lactic Acid Lactic Acid F/U @ 2Hr 2.2 H* Lactic Acid F/U @ 4Hr Calcium 7.8 L D Magnesium Total Bilirubin Direct Bilirubin AST ALT Alkaline Phosphatase Ammonia 65 H Troponin I High Sens Total Protein Albumin Urine Color Urine Appearance Urine pH Ur Specific [place] Urine Protein Urine Glucose (UA) Urine Ketones Urine Blood Urine Nitrite Ur Leukocyte Esterase Urine RBC Urine WBC Ur Squamous Epith Cells Urine Bacteria Hyaline Casts Urine Osmolality Ur Random Sodium Stool Occult Blood POSITIVE Urine Opiates Screen Ur Buprenorphine Scrn Ur Oxycodone Screen Urine Methadone Screen Urine Fentanyl Screen Ur Barbiturates Screen Ur Phencyclidine Scrn Ur Amphetamines Screen U Benzodiazepines Scrn Urine Cocaine Screen U Marijuana (THC) Screen Ethyl Alcohol Influenza Type A (PCR) Influenza Type B (PCR) RSV RNA Qual (PCR) SARS-CoV-2 RNA (RT-PCR) Blood Type Antibody Screen Crossmatch 04/27/25 04/27/25 04/27/25 10:15 11:01 12:13 MCV 95.9 MCH 32.9 MCHC 33.6 RDW 12.2 Plt Count 59 L D MPV 12.9 H Immature Gran % (Auto) 1.1 H Neut % (Auto) 84.7 H Lymph % (Auto) 5.8 L [place] % (Auto) 8.1 Eos % (Auto) 0.0 Baso % (Auto) 0.3 Lymph # (Auto) 0.4 L [place] # (Auto) 0.6 Eos # (Auto) 0.0 Baso # (Auto) 0.0 Abs Immat Gran (auto) 0.08 H Absolute Neuts (auto) 6.2 Absolute Nucleated RBC 0.000 Nucleated RBC % (auto) 0.0 Smear Tech's Comments Anion Gap Estim Creat Clear Calc Estimated GFR Random Glucose Lactic Acid Lactic Acid F/U @ 2Hr Lactic Acid F/U @ 4Hr 2.3 H* Calcium Magnesium Total Bilirubin Direct Bilirubin AST ALT Alkaline Phosphatase Ammonia Troponin I High Sens 140.1 H* D Total Protein Albumin Urine Color Urine Appearance Urine pH Ur Specific [place] Urine Protein Urine Glucose (UA) Urine Ketones Urine Blood Urine Nitrite Ur Leukocyte Esterase Urine RBC Urine WBC Ur Squamous Epith Cells Urine Bacteria Hyaline Casts Urine Osmolality Ur Random Sodium Stool Occult Blood Urine Opiates Screen Ur Buprenorphine Scrn Ur Oxycodone Screen Urine Methadone Screen Urine Fentanyl Screen Ur Barbiturates Screen Ur Phencyclidine Scrn Ur Amphetamines Screen U Benzodiazepines Scrn Urine Cocaine Screen U Marijuana (THC) Screen Ethyl Alcohol Influenza Type A (PCR) Influenza Type B (PCR) RSV RNA Qual (PCR) SARS-CoV-2 RNA (RT-PCR) Blood Type O Negative Antibody Screen NEGATIVE Crossmatch See Detail Assessment and Plan (1) GI bleeding: Status: Acute (2) Pneumonia: Status: Acute (3) Acute UTI: Status: Acute (4) Acute hyponatremia: Status: Acute Plan Erika Smith is a 65 y/o woman admitted with: Acute blood loss anemia due gastrointestinal bleeding, DDx: Esophageal varices, gastritis, PUD, cancer, AVM; developed hypotension in ED. Admit to hospitalist service. Telemetry. Pulse oximetry. NPO. PRBC transfusion as the patient is hemodynamically unstable. Continue to monitor H&H, keep Hgb > 7.0. Protonix 80 mg IV x1 given IV then 40 mg IV every 12 hours. Vitamin K 5 mg IV. Start treatment with octreotide 100 mEq bolus then IV infusion. Check vitamin B12 and folic acid. Abdominal ultrasound. GI consult -Dr. Maher. Pneumonia, likely aspiration; UTI. Start vancomycin and Zosyn. Urine culture obtained -will follow results. Lactic acidosis, likely secondary to above, alcohol abuse and sepsis due to pneumonia UTI. Received IV fluids in ED. start empiric IV antibiotic therapy with vancomycin and Zosyn. Blood culture obtained -will follow results. Elevated troponin, likely secondary to anemia/demand ischemic. No chest pain. Continue to monitor troponin. Thrombocytopenia, likely secondary to chronic liver disease. Trending down. Continue to monitor for now. Hyponatremia, likely secondary to alcohol abuse and chronic liver disease. Check serum osmolality, urine osmolality and urine sodium. Continue to monitor Na+ level closely. Goal: increase 8-10 mEq/24 hours. Essential hypertension. Hold amlodipine and lisinopril due to hypotension and bleeding. Continue to monitor. COPD -no home oxygen. No symptoms. Bronchodilator therapy as needed. Patient advised to quit smoking. Hyperlipidemia. Restart statin when able. Alcohol abuse. CIWA. Thiamine 100 mg IV daily. Start folic acid and multivitamins when able. Phenobarbital protocol as needed. Patient was advised to abstain for drinking. Tobacco dependence. Tobacco cessation education. DVT prophylaxis: SCDs Code status: Full Patient will need hospitalization for at least 2 midnights for acute blood loss anemia secondary to gastrointestinal bleeding treatment with PRBC transfusions, close monitoring of vital signs and evaluation by subspecialty for possible procedure. Quality Stroke Does the patient have a stroke diagnosis?: No VTE Prior VTE?: No VTE Risk Level:: Medical - moderate - high VTE Device Contraindication: N/A - Device Ordered VTE Drug Contraindication: Treatment Not Indicated
[2025-04-27 13:19] LABS: INTERNATIONAL NORM RATIO 1.6 (0.9-1.1)
[2025-04-27] MEDS: Octreotide Acetate 500 MCG in 0.9 % Sodium Chloride 500 ML 50.1 MCG IVCONT ×2 (13:19→22:41)
--- NOTE | 2025-04-27 13:45 | PC.NURSE ---
reached out to hospitalist in regards of thr cbc to be draw at 1400, first unite was just hung a few minutes ago, new plan is to re-draw the cbc after the first unit is infused and before the second unit, lab is aware
[2025-04-27] MEDS: Thiamine HCL 100 MG in 0.9 % Sodium Chloride 100 ML 202 MG IV (13:46)
[2025-04-27] MEDS: PHENobarbitaL sodium 130 MG/ML IM ONCE 296 MG IM (14:01)
--- NOTE | 2025-04-27 14:38 | PC.NURSE ---
spoke to pharmacy a while ago about the zosyn not being verified and its because the pt needs repeat cmp to make sure that her renal functions are doing ok
[2025-04-27] MEDS: Phytonadione (Vit K1) 5 MG in 0.9 % Sodium Chloride 50 ML 50.5 MG IV (14:50)
--- NOTE | 2025-04-27 15:09 | PC.NURSE ---
Assumed care of this patient at 1500, patient currently has PRBCs, octerotide, vit K running, abx delay d/t other prioritized meds running. Patient alert, oriented in bed at this time. Patient currently admitted, waiting bed assignment at this time. Plan for CBC to be rechecked after 1st unit PRBCs finised, 1.30hr remaining at this time
[2025-04-27 15:10] LABS: Alanine Aminotransferase 53 U/L (0-31); Albumin Level 2.7 g/dL (3.5-5.0); Alkaline Phosphatase 70 U/L (39-117); Anion Gap 15 (12-20); Aspartate Amino Transferase 283 U/L (5-31); Bilirubin Total 2.1 mg/dL (0.0-1.0); Blood Urea Nitrogen 7 mg/dL (9-16); Carbon Dioxide 16 mmol/L (22-29); Chloride 99 mmol/L (96-108); Creatinine Clr Calc Pharmacy 144.9; Estimated Glomerular Filt Rate > 60; Glucose Random 109 mg/dL (60-115); Potassium 3.7 mmol/L (3.3-5.1); Sodium 126 mmol/L (135-145); Total Protein 5.3 g/dL (6.5-8.0)
[2025-04-27] MEDS: vancomycin/NS 2,000 MG/500 ML PLAST..BAG 250 MG IV (15:54)
--- NOTE | 2025-04-27 16:14 | PHA.PROG ---
Admission Date/Time: April 27, 2025 12:33 Indication: SEPSIS Weight in k kg Adjusted body weight in Kg: [place] body weight in Kg: Obesity Dosing Indication % IBW: Serum Creatinine - Last 168 Hours 04/27/25 04/27/25 04/27/25 05:41 09:00 14:40 Creatinine 0.58 0.51 0.43 L Estimated CrCl and GFR - Last 168 Hours 04/27/25 04/27/25 04/27/25 05:41 09:00 14:40 Estim Creat Clear Calc 107.4 122.2 144.9 Estimated GFR > 60 > 60 > 60 Vancomycin Loading Dose: 2000 MG Current Vancomycin Dosing Regimen: 1250 MG Q12H Vancomycin Monitoring using AUC goal of 400 - 600 range with trough as surrogate marker: LLZ=[id number] TROUGH=13.9 Date and Time for next Vancomycin Level to be drawn: 04/28/25@1400 Pharmacist Comments on Vancomycin Plan: CONSERVATIVE DOSING DUE TO CONCERN OF RENAL DETERIORATING Vancomycin dosing will take advantage of [employer] as a clinical decision support tool that uses Bayesian modeling to calculate individual patient's pharmacokinetic parameters and forecast the patient's drug concentration time course with the target goal AUC 24 range of 400 - 600 mg/L/hr.
[2025-04-27 16:55] LABS: Hematocrit 30.3 % (37.0-47.0); Hemoglobin 11.3 g/dl (12.0-16.0); Mean Corpuscular HGB Conc 37.3 g/dl (31.0-35.0); Mean Corpuscular Hemoglobin 36.1 pg (27.0-33.0); Mean Corpuscular Volume 96.8 fL (80.0-98.0); Mean Platelet Volume 12.9 fL (9.4-12.3); PLT CLUMP 1; Red Blood Count 3.13 X10*6/uL (4.20-5.50); Red Cell Distribution Width 12.5 % (11.0-16.0)
[2025-04-27] MEDS: Piperacillin Sodium/Tazobactam 4.5 GM in 0.9 % Sodium Chloride 100 ML IV ×2 (17:12→22:41)
[2025-04-27] MEDS: Pantoprazole Sodium 40 MG/10 ML VIAL IVPUSH (17:15)
[2025-04-27] MEDS: 0.9 % Sodium Chloride Flush 3 ML SYRINGE IVFLUSH (17:15)
[2025-04-27 17:18] LABS: PLT ABN DIST 1; Platelet Count 62 X10*3/uL (160-400)
[2025-04-27] MEDS: PHENobarbitaL sodium 130 MG/ML VIAL IM Q3Hx2 222 MG IM ×2 (17:20→20:08)
[2025-04-27 17:28] LABS: SLIDE REVIEW MANUAL DIFF
[2025-04-27 17:34] LABS: Band Neutrophils Percent 25 % (3-5); Metamyelocytes Absolute 0.2 X10*3/uL; Metamyelocytes Percent 2 %; Myelocytes Percent 1 %; Neutrophils Absolute Manual 8.1 X10*3/uL (2.0-8.3); Neutrophils Percent Manual 65 % (45-73)
[2025-04-27 17:35] LABS: Dohle Bodies PRESENT; Lymphocytes Absolute Manual 0.4 X10*3/uL (1.2-4.9); Lymphocytes Percent Manual 4 % (20-40); Monocytes Absolute Manual 0.3 X10*3/uL (0.1-1.2); Monocytes Percent Manual 3 % (2-11); Myelocytes Absolute 0.1 X10*/uL; Platelet Estimate DECREASED (NORMAL); Platelet Morphology Comment NORMAL; Toxic Vacuolation PRESENT
[2025-04-27 17:36] LABS: Burr Cells 1+ (0-2) /OIF; RBC Morphology NOTED
[2025-04-27 21:30] LABS: Mean Corpuscular HGB Conc 37.5 g/dl (31.0-35.0)
[2025-04-27 21:32] LABS: Hematocrit 31.2 % (37.0-47.0); Hemoglobin 11.7 g/dl (12.0-16.0); Mean Corpuscular Hemoglobin 36.6 pg (27.0-33.0); Mean Corpuscular Volume 97.5 fL (80.0-98.0); Mean Platelet Volume 13.2 fL (9.4-12.3); Red Cell Distribution Width 12.8 % (11.0-16.0); White Blood Count 6.6 X10*3/uL (4.8-10.8)
[2025-04-27 21:34] LABS: PLT ABN DIST 1; Platelet Count 57 X10*3/uL (160-400)
[2025-04-27 21:38] LABS: Sodium 128 mmol/L (135-145)
[2025-04-27 21:44] LABS: Lactic Acid 1.1 mmol/L (0.5-2.0)
[2025-04-28] VITALS (7 sets, daily range): BP systolic 112–139; BP diastolic 56–60; PULSE 75–101; RESP 16–20; TEMP 36.4–39.3; O2SAT 95–97
[2025-04-28] MEDS: vancomycin HCL 1,250 MG in 0.9 % Sodium Chloride 250 ML 166.67 MG IV (05:33)
[2025-04-28] MEDS: Pantoprazole Sodium 40 MG/10 ML VIAL IVPUSH ×2 (05:58→16:06)
[2025-04-28] MEDS: Piperacillin Sodium/Tazobactam 4.5 GM in 0.9 % Sodium Chloride 100 ML IV ×4 (05:59→22:19)
--- NOTE | 2025-04-28 06:41 | PM.GICN ---
History of Present Illness Data of Consult Service Date: 04/28/25 Primary Care Provider: Unknown Physician HPI Reason for consult: anemia 65 years old woman with hx of COPD, alcohol abuse and hypertension who I am seeing for anemia. She initially presented to the emergency department complaining of worsening generalized weakness with weakness in legs and burning pain when walking short distances. She does drink beer on a regular basis. She denies dizziness, shortness of breath, nausea, abdominal pain, cough, chest pain, vomiting or diarrhea. Her Hgb was low, but she is vague regards stool color, no rectal bleeding, nose bleeds or hematuria. Denies taking nsaids. O2 sats noted to be low on admission. LABS: Hemoglobin dropped from 13.4 to 9.4 over 6 hours. There is no leukocytosis. There is lactic acidosis 2.2--> 2.3. Platelets are trending down 95 --> 59. There is hyponatremia 120 --> 121. Hypokalemia, hypochloremia mildly elevated CO2 21. Renal function is normal. Glucose is 139. Troponin 17.6--> 140.1. Urine drug screen is positive for marijuana. ETOH level < 10 UA: large blood, leukocyte esterase IMAGING: US= possible cirrhosis CXR: RLL pneumonia Review of Systems Review of Systems: Constitutional : No Weight loss, No Fever, No Chills ENT/Mouth : No sore throat, No Rhinorrhea Eyes: No Swelling, No Redness Cardiovascular : No Chest Pain, No SOB, No Edema Respiratory : No Cough, No Sputum, No Wheezing Gastrointestinal : see HPI Genitourinary : NO Dysuria, No Urinary Frequency, No Hematuria, No Urgency Musculoskeletal : + joint pain, No Myalgias, No Joint Swelling Skin : No Skin Lesions, No rash Neuro : No Weakness, No Numbness, No Dizziness, No Headache Psych : No Anxiety/Panic, No Depression Heme/Lymph: No Bruising, No Lymphadenopathy Endocrine : No Polyuria, No Polydipsia All other systems reviewed and are negative. 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 Surgical History Surgical History History of total right knee replacement (03/2023) Hx of total hip arthroplasty History of carpal tunnel surgery of left wrist History of tonsillectomy Hx of section History of tubal ligation History of arthroscopy of right knee Status post left hip replacement H/O: hysterectomy Abdominal mass Social History Social History Household Members: Family Household Members Other:: daughter Housing: Apartment Are you a primary managed care liaison to a significant other at home: No Do you presently have visiting nurse or other home services: No 75 years or older and lives alone: No Alcohol intake: current Alcohol intake frequency: 3 or more drinks per day Comment: [facility] Patient Tobacco Use Status: Current everyday Tobacco user Tobacco use type: Cigarette Cigarettes Per Day: 5 Years Smoked: 40 e-Cigarette/Vaping Use: Currently Using Second Hand Smoke Exposure: Yes Advance Directives Date on File: 08/15/22 service: No Current occupational status: unemployed Meds Allergies Allergy/AdvReac Type Severity Reaction Status Date / Time sulfamethoxazole Allergy Intermediate Rash Verified 04/27/25 05:11 [From Bactrim] trimethoprim [From Bactrim] Allergy Intermediate Rash Verified 04/27/25 05:11 Active Medications: Current Medications Albuterol Sulfate (Albuterol Sulfate (0.083%) 2.5 Mg/3 Ml Vial.Neb) 2.5 mg INHALE Q3H PRN PRN Reason: wheezing Hydromorphone HCl (Hydromorphone Hcl 0.5 Mg/0.5 Ml Syringe) 0.5 mg IVPUSH Q3H PRN; Protocol PRN Reason: Pain, Severe (Pain Scale 7-10) Norepinephrine Bitartrate (Levophed) 8 mg in 250 mls @ 0 mls/hr IVCONT .Q0M [facility]; Protocol Octreotide Acetate 500 mcg/ (Sodium Chloride) 501 mls @ 50.1 mls/hr IVCONT .Q10H [facility] Last Admin: 04/27/25 22:41 Dose: 50 mcg/hr, 50.1 mls/hr Thiamine HCl 100 mg/ Sodium (Chloride) 101 mls @ 202 mls/hr IV DAILY [facility] Last Infusion: 04/27/25 14:20 Dose: Infused Vancomycin HCl 1,250 mg/ (Sodium Chloride) 250 mls @ 166.667 mls/hr IV Q12H [facility] Last Infusion: 04/28/25 06:29 Dose: 166.67 mls/hr Piperacillin Sod/Tazobactam (Sod 4.5 gm/ Sodium Chloride) 100 mls @ 200 mls/hr IV Q6H [facility] Last Infusion: 04/28/25 06:31 Dose: Infused Pantoprazole Sodium (Pantoprazole Sodium 40 Mg/10 Ml Vial) 40 mg IVPUSH BID@0630,1630 [facility] Last Admin: 04/28/25 05:58 Dose: 40 mg Pharmacy Consult (Consult Rx Etoh Phenob Im/Po) 1 each MISCELLANE ONCE PRN; Protocol PRN Reason: Consult order Phenobarbital (Phenobarbital 15 Mg Tablet) 45 mg PO BID [facility]; Protocol Stop: 04/29/25 21:01 Phenobarbital (Phenobarbital 30 Mg Tablet) 30 mg PO BID [facility]; Protocol Stop: 05/01/25 21:01 Phenobarbital (Phenobarbital 30 Mg Tablet) 30 mg PO DAILY [facility]; Protocol Stop: 05/03/25 09:01 Sodium Chloride (0.9 % Sodium Chloride Flush 3 Ml Syringe) 3 ml IVFLUSH QSHIFT [facility] Last Admin: 04/28/25 02:32 Dose: Not Given Home Medications ?Medication ?Instructions ?Recorded ?Confirmed ?Last Taken ?Type cholecalciferol (vitamin D3) 25 25 mcg PO DAILY 06/10/24 04/27/25 04/26/25 History mcg (1,000 unit) capsule (Vitamin D3) cyanocobalamin (vitamin B-12) 1,000 mcg PO DAILY 04/27/25 04/27/25 04/26/25 History 1,000 mcg tablet lisinopril 10 mg tablet 10 mg PO DAILY 04/27/25 04/27/25 04/26/25 History multivitamin 1 tab PO Q OTHER DAY 04/27/25 04/27/25 04/26/25 History Physical Exam Vital Signs: Vital Signs: Last Vital Signs Temp 98.7 F 04/28/25 04:00 Pulse 93 04/28/25 04:00 Resp 16 04/28/25 04:00 BP 118/58 L 04/28/25 04:00 Pulse Ox 95 04/28/25 04:00 O2 Del Method Nasal Cannula 04/28/25 04:00 O2 Flow Rate 2.5 04/28/25 04:00 BMI result Body Mass Index 29.7 EXAM: GENERAL: The patient is well developed and nontoxic. VITAL SIGNS:see workflow HEENT: Nonicteric sclerae, PERRLA, EOMI. Oropharynx clear. Moist mucous membranes. Conjunctivae appear well perfused. No thyroid mass. CHEST: Chest wall is nontender. HEART: Regular rate and rhythm without murmurs. LUNGS: Clear to auscultation bilaterally. ABDOMEN: Soft, positive bowel sounds, nontender, no organomegaly.no flank tenderness SKIN: No rash, no excessive bruising, petechiae, or purpura. NEUROLOGIC: Cranial nerves II-XII intact without motor/sensory deficit. reduced sensation both legs right > left up to thighs Psych: normal affect Results Labs 04/28/25 06:34 04/29/25 06:51 Labs: Short CBC 04/27/25 04/27/25 04/27/25 Range/Units 11:01 16:13 21:10 WBC 7.3 9.0 6.6 (4.8-10.8) X10*3/uL Hgb 9.4 L D 11.3 L D 11.7 L (12.0-16.0) g/dl Hct 28.0 L 30.3 L 31.2 L (37.0-47.0) % Plt Count 59 L D 62 L 57 L (160-400) X10*3/uL BMP 04/27/25 04/27/25 04/27/25 09:00 14:40 21:10 Sodium 121 L 126 L 128 L Potassium 3.0 L 3.7 D Chloride 90 L 99 Carbon Dioxide 21 L 16 L BUN 11 7 L Creatinine 0.51 0.43 L Calcium 7.8 L D 8.0 L Liver Function 04/27/25 Range/Units 14:40 Total Bilirubin 2.1 H (0.0-1.0) mg/dL AST 283 H (5-31) U/L ALT 53 H (0-31) U/L Alkaline Phosphatase 70 (39-117) U/L Albumin 2.7 L (3.5-5.0) g/dL Imaging Chest x-ray: Attestation: I personally reviewed and interpreted this imaging study as follows: (right LL infiltrate ) Assessment and Plan (1) GI bleeding: Qualifiers: GI bleed type/associated pathology: unspecified gastrointestinal hemorrhage type Qualified Code(s): K92.2 - Gastrointestinal hemorrhage, unspecified Status: Acute Plan 1/ Anemia, multifactoria could be from nutritional issues, bone marrow suppression from alcohol, blood loss, complicated by pneumonia and UTI, she may also have an element of hemolysis from alcohol use 2/ hyponatremia prob beer potomania or from pneumonia 3/ 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
[2025-04-28 06:56] LABS: MANUAL DIFF FLAG NO
[2025-04-28 07:13] LABS: Basophils Percent Auto 0.4 % (0-2); Eosinophils Percent Auto 0.2 % (0-4); Imm Gran Abs Auto 0.04 X10*3/uL (0.00-0.03); Imm Gran Pct Auto 0.7 % (0.0-0.4); Lymphocytes Absolute Auto 0.5 X10*3/uL (1.2-4.9); Lymphocytes Percent Auto 8.5 % (20-40); Mean Corpuscular HGB Conc 36.4 g/dl (31.0-35.0); Mean Corpuscular Hemoglobin 35.9 pg (27.0-33.0); Mean Corpuscular Volume 98.8 fL (80.0-98.0); Mean Platelet Volume 12.5 fL (9.4-12.3); Monocytes Absolute Auto 0.4 X10*3/uL (0.1-1.2); Monocytes Percent Auto 7.8 % (2-11); Neutrophils Absolute Auto 4.5 x10*3/uL (2.0-8.3); Neutrophils Percent Auto 82.4 % (45-73); Red Blood Count 3.34 X10*6/uL (4.20-5.50); White Blood Count 5.5 X10*3/uL (4.8-10.8)
[2025-04-28 07:16] LABS: Platelet Count 59 X10*3/uL (160-400)
[2025-04-28 07:39] LABS: Alanine Aminotransferase 69 U/L (0-31); Albumin Level 2.8 g/dL (3.5-5.0); Alkaline Phosphatase 70 U/L (39-117); Anion Gap 11 (12-20); Aspartate Amino Transferase 310 U/L (5-31); Bilirubin Total 1.9 mg/dL (0.0-1.0); Blood Urea Nitrogen 8 mg/dL (9-16); Calcium 7.9 mg/dL (8.4-10.2); Carbon Dioxide 25 mmol/L (22-29); Chloride 99 mmol/L (96-108); Creatinine Clr Calc Pharmacy 127.2; Estimated Glomerular Filt Rate > 60; Glucose Random 103 mg/dL (60-115); Potassium 3.4 mmol/L (3.3-5.1); Sodium 132 mmol/L (135-145); Total Protein 5.2 g/dL (6.5-8.0)
[2025-04-28 08:10] LABS: Vitamin B12 1039 pg/mL (200-900)
[2025-04-28] MEDS: PHENobarbitaL 15 MG TABLET 45 MG PO ×2 (09:14→21:32)
[2025-04-28] MEDS: Thiamine HCL 100 MG in 0.9 % Sodium Chloride 100 ML 202 MG IV (09:14)
[2025-04-28] MEDS: Octreotide Acetate 500 MCG in 0.9 % Sodium Chloride 500 ML 50.1 MCG IVCONT ×2 (09:15→19:04)
--- NOTE | 2025-04-28 09:50 | MHC.CM.PN ---
IMM 04/28. Pt self-care lives at home with her daughter Saritha. Pt will arrange her own transport home at discharge. HCP on file and verified. PCP: new PCP appointment coming up in June 2025, she is unsure of their name.
--- NOTE | 2025-04-28 10:27 | HO.PM.IMPN ---
Subjective Subjective Date of Service: 04/28/25 Interval History: seen and evaluated this morning feels anxious , mild tremors no reported bleeding Hb stable overnight no other events Review of Systems Review of Systems: Yes all other systems are reviewed and are negative Physical Exam Vital Signs: Vital Signs: Last Vital Signs Temp 97.9 F 04/28/25 08:00 Pulse 86 04/28/25 08:00 Resp 20 04/28/25 08:00 BP 112/56 L 04/28/25 08:00 Pulse Ox 97 04/28/25 08:00 O2 Del Method Nasal Cannula 04/28/25 08:00 O2 Flow Rate 2.5 04/28/25 08:00 BMI result Body Mass Index 29.7 Const: Other: Constitutional : Awake, interactive, mild tremors , scleral jaundice Neck : Normal inspection, Supple Cardiovascular : RRR, no JVP, no lower extremity edema Respiratory : good bilateral air entry, no crackles Gastrointestinal: soft, lax, Normal bowel sounds, Non tender Skin : Warm, Dry Neurological : Alert & oriented x3, No focal deficit Objective Data Active Medications Albuterol Sulfate (Albuterol Sulfate (0.083%) 2.5 Mg/3 Ml Vial.Neb) 2.5 mg INHALE Q3H PRN PRN Reason: wheezing Hydromorphone HCl (Hydromorphone Hcl 0.5 Mg/0.5 Ml Syringe) 0.5 mg IVPUSH Q3H PRN; Protocol PRN Reason: Pain, Severe (Pain Scale 7-10) Norepinephrine Bitartrate (Levophed) 8 mg in 250 mls @ 0 mls/hr IVCONT .Q0M [facility]; Protocol Octreotide Acetate 500 mcg/ (Sodium Chloride) 501 mls @ 50.1 mls/hr IVCONT .Q10H [facility] Last Admin: 04/28/25 09:15 Dose: 50 mcg/hr, 50.1 mls/hr Documented By: SOBEIDA Thiamine HCl 100 mg/ Sodium (Chloride) 101 mls @ 202 mls/hr IV DAILY [facility] Last Admin: 04/28/25 09:14 Dose: 202 mls/hr Documented By: SOBEIDA Vancomycin HCl 1,250 mg/ (Sodium Chloride) 250 mls @ 166.667 mls/hr IV Q12H [facility] Last Infusion: 04/28/25 07:40 Dose: Infused Documented By: SOBEIDA Piperacillin Sod/Tazobactam (Sod 4.5 gm/ Sodium Chloride) 100 mls @ 200 mls/hr IV Q6H [facility] Last Admin: 04/28/25 09:14 Dose: 200 mls/hr Documented By: SOBEIDA Pantoprazole Sodium (Pantoprazole Sodium 40 Mg/10 Ml Vial) 40 mg IVPUSH BID@0630,1630 [facility] Last Admin: 04/28/25 05:58 Dose: 40 mg Documented By: JAZMIN Pharmacy Consult (Consult Rx Etoh Phenob Im/Po) 1 each MISCELLANE ONCE PRN; Protocol PRN Reason: Consult order Phenobarbital (Phenobarbital 15 Mg Tablet) 45 mg PO BID [facility]; Protocol Stop: 04/29/25 21:01 Last Admin: 04/28/25 09:14 Dose: 45 mg Documented By: SOBEIDA Phenobarbital (Phenobarbital 30 Mg Tablet) 30 mg PO BID [facility]; Protocol Stop: 05/01/25 21:01 Phenobarbital (Phenobarbital 30 Mg Tablet) 30 mg PO DAILY [facility]; Protocol Stop: 05/03/25 09:01 Sodium Chloride (0.9 % Sodium Chloride Flush 3 Ml Syringe) 3 ml IVFLUSH QSHIFT [facility] Last Admin: 04/28/25 07:40 Dose: Not Given Documented By: SOBEIDA Non-Admin Reason: IV Running Labs 04/28/25 06:34 04/28/25 06:34 Labs: Laboratory Results - last 24 hr 04/27/25 04/27/25 04/27/25 10:15 11:01 12:13 MCV 95.9 MCH 32.9 MCHC 33.6 RDW 12.2 Plt Count 59 L D MPV 12.9 H Immature Gran % (Auto) 1.1 H Neut % (Auto) 84.7 H Lymph % (Auto) 5.8 L Burke % (Auto) 8.1 Eos % (Auto) 0.0 Baso % (Auto) 0.3 Lymph # (Auto) 0.4 L Burke # (Auto) 0.6 Eos # (Auto) 0.0 Baso # (Auto) 0.0 Abs Immat Gran (auto) 0.08 H Absolute Neuts (auto) 6.2 Absolute Nucleated RBC 0.000 Nucleated RBC % (auto) 0.0 Neutrophils % (Manual) Band Neutrophils % Lymphocytes % (Manual) Monocytes % (Manual) Metamyelocytes % Myelocytes % Abs Neuts (Manual) Lymphocytes # (Manual) Monocytes # (Manual) Metamyelocytes # Myelocytes # Toxic Vacuolation Dohle Bodies Platelet Estimate Plt Morphology Comment RBC Morphology Horacio Cells Smear Tech's Comments PT INR Anion Gap Estim Creat Clear Calc Estimated GFR Random Glucose Lactic Acid Lactic Acid F/U @ 4Hr 2.3 H* Calcium Magnesium Total Bilirubin AST ALT Alkaline Phosphatase Troponin I High Sens 140.1 H* D Total Protein Albumin Vitamin B12 Folate Blood Type O Negative Antibody Screen NEGATIVE Crossmatch See Detail 04/27/25 04/27/25 04/27/25 13:00 14:40 16:13 MCV 96.8 MCH 36.1 H MCHC 37.3 H RDW 12.5 Plt Count 62 L MPV 12.9 H Immature Gran % (Auto) Cancelled Neut % (Auto) Cancelled Lymph % (Auto) Cancelled Burke % (Auto) Cancelled Eos % (Auto) Cancelled Baso % (Auto) Cancelled Lymph # (Auto) Cancelled Burke # (Auto) Cancelled Eos # (Auto) Cancelled Baso # (Auto) Cancelled Abs Immat Gran (auto) Cancelled Absolute Neuts (auto) Cancelled Absolute Nucleated RBC 0.000 Nucleated RBC % (auto) 0.0 Neutrophils % (Manual) 65 Band Neutrophils % 25 H Lymphocytes % (Manual) 4 L Monocytes % (Manual) 3 Metamyelocytes % 2 Myelocytes % 1 Abs Neuts (Manual) 8.1 Lymphocytes # (Manual) 0.4 L Monocytes # (Manual) 0.3 Metamyelocytes # 0.2 Myelocytes # 0.1 Toxic Vacuolation PRESENT Dohle Bodies PRESENT Platelet Estimate DECREASED Plt Morphology Comment NORMAL RBC Morphology NOTED Horacio Cells 1+ (0-2) Smear Tech's Comments MANUAL DIFF PT 18.0 H INR 1.6 H Anion Gap 15 Estim Creat Clear Calc 144.9 Estimated GFR > 60 Random Glucose 109 Lactic Acid Lactic Acid F/U @ 4Hr Calcium 8.0 L Magnesium 2.0 Total Bilirubin 2.1 H AST 283 H ALT 53 H Alkaline Phosphatase 70 Troponin I High Sens Total Protein 5.3 L Albumin 2.7 L Vitamin B12 Folate Blood Type Antibody Screen Crossmatch 04/27/25 04/27/2504/28/25 17:39 21:10 06:34 MCV 97.5 98.8 H MCH 36.6 H 35.9 H MCHC 37.5 H 36.4 H RDW 12.8 13.0 Plt Count 57 L 59 L MPV 13.2 H 12.5 H Immature Gran % (Auto) 0.7 H Neut % (Auto) 82.4 H Lymph % (Auto) 8.5 L Burke % (Auto) 7.8 Eos % (Auto) 0.2 Baso % (Auto) 0.4 Lymph # (Auto) 0.5 L Burke # (Auto) 0.4 Eos # (Auto) 0.0 Baso # (Auto) 0.0 Abs Immat Gran (auto) 0.04 H Absolute Neuts (auto) 4.5 Absolute Nucleated RBC 0.000 0.000 Nucleated RBC % (auto) 0.0 0.0 Neutrophils % (Manual) Band Neutrophils % Lymphocytes % (Manual) Monocytes % (Manual) Metamyelocytes % Myelocytes % Abs Neuts (Manual) Lymphocytes # (Manual) Monocytes # (Manual) Metamyelocytes # Myelocytes # Toxic Vacuolation Dohle Bodies Platelet Estimate Plt Morphology Comment RBC Morphology [place] Cells Smear Tech's Comments PT INR Anion Gap 11 L Estim Creat Clear Calc 127.2 Estimated GFR > 60 Random Glucose 103 Lactic Acid 1.1 Lactic Acid F/U @ 4Hr Calcium 7.9 L Magnesium Total Bilirubin 1.9 H AST 310 H ALT 69 H Alkaline Phosphatase 70 Troponin I High Sens 86.0 H* Total Protein 5.2 L Albumin 2.8 L Vitamin B12 1039 H Folate 8.0 Blood Type Antibody Screen Crossmatch Microbiology Microbiology Results: Microbiology 04/27/25 05:40 Blood Culture - Preliminary Blood - Venous No growth after 24 hours. 04/27/25 05:37 Blood Culture - Preliminary Blood - Venous No growth after 24 hours. Assessment and Plan (1) GI bleeding: Status: Acute (2) Occult GI bleeding: Status: Acute (3) Acute UTI: Status: Acute (4) Pneumonia: Status: Acute (5) Weakness: Status: Acute (6) Sepsis: Status: Acute (7) Acute hyponatremia: Status: Acute Plan Erika Smith is a 65 y/o woman admitted with: Acute blood loss anemia due gastrointestinal bleeding DDx: Esophageal varices, gastritis, PUD, cancer, AVM Telemetry. Pulse oximetry PRBC transfusion, keep Hgb > 7.0. Protonix 40 mg IV every 12 hours. Vitamin K 5 mg IV. octreotide 100 mEq bolus then IV infusion Abdominal ultrasound GI consulted Pneumonia, likely aspiration; UTI complicated with sepsis vancomycin and Zosyn Urine and blood cultures pending Alcohol abuse with withdrawal CIWA. Thiamine 100 mg IV daily. Start folic acid and multivitamins Phenobarbital protocol Patient was advised to abstain for drinking. addiction team acute Lactic acidosis secondary to alcohol abuse and sepsis due to pneumonia UTI. improved with fluids Elevated troponin, likely secondary to anemia/demand ischemic. No chest pain. Continue to monitor troponin. Thrombocytopenia, likely secondary to chronic liver disease Trending down. Continue to monitor for now. acute Hyponatremia secondary to alcohol abuse and chronic liver disease serum osmolality, urine osmolality and urine sodium monitor BMP Essential hypertension Hold amlodipine and lisinopril due to hypotension and bleeding. Continue to monitor. COPD Bronchodilator therapy as needed. Patient advised to quit smoking. Hyperlipidemia Restart statin when able. Tobacco dependence Tobacco cessation education. DVT prophylaxis: SCDs Code status: Full Patient will need hospitalization overnight for acute blood loss anemia secondary to gastrointestinal bleeding treatment with PRBC transfusions, close monitoring of vital signs and evaluation by subspecialty for possible procedure. Quality Stroke Does the patient have a stroke diagnosis?: No VTE Prior VTE?: No VTE Risk Level:: Medical - moderate - high VTE Device Contraindication: N/A - Device Ordered VTE Drug Contraindication: Treatment Not Indicated
--- NOTE | 2025-04-28 14:02 | HO.ADDICT_ITS ---
History of Present Illness Date of Service: 04/28/2025 Chief Complaint: GI bleeding Reason for Consult: AUD HPI Narrative: Patient is a 65 year old female who presented to [facility] ED after a fall at home, reporting weakness and poor PO intake. She was ultimately admitted with concern for GI bleed, pneumonia and UTI Consult requested as patient's family expressed concern that patient was drinking too much at home--per notes, known history of AUD. Chart review shows that patient was initiated on phenobarbital protocol and CIWAs have been 4,34, overnight into today. LFTs elevated Patient seen in room 471. She is awake, alert, sitting up and eating lunch. Patient overall pleasant, however sharing displeasure with t/w inquiring about drinking, I am so tired of everyone asking me about drinking or withdrawal, it is not a problem . She politely declined to engage in any discussion around this topic Review of Systems Constitutional: Reports as per HPI Comments: patient declines Diagnostics Vital Signs (24Hr): Vital Signs - 24 hr 04/27/25 14:03 04/27/25 15:56 04/27/25 16:12 Temperature 98.4 F 98.5 F Pulse Rate 82 86 87 Respiratory Rate 20 21 H 24 H Blood Pressure 101/56 L 114/58 L 115/63 Pulse Oximetry 98 Oxygen Delivery Method Nasal Cannula Oxygen Flow Rate 2 04/27/25 16:16 04/27/25 17:26 04/27/25 19:33 Temperature 98.5 F 98.2 F 98.3 F Pulse Rate 87 88 84 Respiratory Rate 24 H 18 18 Blood Pressure 115/63 119/57 L 114/54 L Pulse Oximetry 96 97 96 Oxygen Delivery Method Nasal Cannula Nasal Cannula Nasal Cannula Oxygen Flow Rate 2 2.5 2.5 04/27/25 23:47 04/28/25 04:00 04/28/25 08:00 Temperature 98.9 F 98.7 F 97.9 F Pulse Rate 90 93 86 Respiratory Rate 16 16 20 Blood Pressure 110/56 L 118/58 L 112/56 L Pulse Oximetry 95 95 97 Oxygen Delivery Method Nasal Cannula Nasal Cannula Nasal Cannula Oxygen Flow Rate 2.5 2.5 2.5 04/28/25 12:00 Temperature 97.5 F Pulse Rate 96 Respiratory Rate 20 Blood Pressure 113/59 L Pulse Oximetry 96 Oxygen Delivery Method Nasal Cannula Oxygen Flow Rate 2.5 BMI result Body Mass Index 29.7 Labs 04/28/25 06:34 04/28/25 06:34 Labs: Laboratory Results - last 48 hr 04/27/25 04/27/25 04/27/25 05:22 05:38 05:40 WBC RBC Hgb Hct MCV MCH MCHC RDW Plt Count MPV Immature Gran % (Auto) Neut % (Auto) Lymph % (Auto) Wheeler % (Auto) Eos % (Auto) Baso % (Auto) Lymph # (Auto) Wheeler # (Auto) Eos # (Auto) Baso # (Auto) Abs Immat Gran (auto) Absolute Neuts (auto) Absolute Nucleated RBC Nucleated RBC % (auto) Neutrophils % (Manual) Band Neutrophils % Lymphocytes % (Manual) Monocytes % (Manual) Metamyelocytes % Myelocytes % Abs Neuts (Manual) Lymphocytes # (Manual) Monocytes # (Manual) Metamyelocytes # Myelocytes # Toxic Vacuolation Dohle Bodies Platelet Estimate Plt Morphology Comment RBC Morphology [place] Cells Smear Tech's Comments PT INR Sodium Potassium Chloride Carbon Dioxide Anion Gap BUN Creatinine Estim Creat Clear Calc Estimated GFR Random Glucose Lactic Acid 4.3 H* Lactic Acid F/U @ 2Hr Lactic Acid F/U @ 4Hr Calcium Magnesium Total Bilirubin Direct Bilirubin AST ALT Alkaline Phosphatase Ammonia Troponin I High Sens Total Protein Albumin Vitamin B12 Folate Urine Color Urine Appearance Urine pH Ur Specific [place] Urine Protein Urine Glucose (UA) Urine Ketones Urine Blood Urine Nitrite Ur Leukocyte Esterase Urine RBC Urine WBC Ur Squamous Epith Cells Urine Bacteria Hyaline Casts Urine Osmolality Ur Random Sodium < 20.0 Stool Occult Blood Urine Opiates Screen Ur Buprenorphine Scrn Ur Oxycodone Screen Urine Methadone Screen Urine Fentanyl Screen Ur Barbiturates Screen Ur Phencyclidine Scrn Ur Amphetamines Screen U Benzodiazepines Scrn Urine Cocaine Screen U Marijuana (THC) Screen Ethyl Alcohol < 10 Influenza Type A (PCR) Influenza Type B (PCR) RSV RNA Qual (PCR) SARS-CoV-2 RNA (RT-PCR) Blood Type Antibody Screen Crossmatch 04/27/25 04/27/25 04/27/25 05:41 05:42 05:52 WBC 10.9 H RBC 3.70 L Hgb 13.4 Hct 35.0 L MCV 94.6 MCH 36.2 H MCHC 38.3 H RDW 12.2 Plt Count 95 L D MPV 12.7 H Immature Gran % (Auto) 1.4 H Neut % (Auto) 87.9 H Lymph % (Auto) 3.7 L Wheeler % (Auto) 6.6 Eos % (Auto) 0.0 Baso % (Auto) 0.4 Lymph # (Auto) 0.4 L Wheeler # (Auto) 0.7 Eos # (Auto) 0.0 Baso # (Auto) 0.0 Abs Immat Gran (auto) 0.15 H Absolute Neuts (auto) 9.6 H Absolute Nucleated RBC 0.000 Nucleated RBC % (auto) 0.0 Neutrophils % (Manual) Band Neutrophils % Lymphocytes % (Manual) Monocytes % (Manual) Metamyelocytes % Myelocytes % Abs Neuts (Manual) Lymphocytes # (Manual) Monocytes # (Manual) Metamyelocytes # Myelocytes # Toxic Vacuolation Dohle Bodies Platelet Estimate Plt Morphology Comment RBC Morphology [place] Cells Smear Tech's Comments VERIFIED PT INR Sodium 120 L* Potassium 3.4 Chloride 87 L Carbon Dioxide 20 L Anion Gap 16 BUN 12 Creatinine 0.58 Estim Creat Clear Calc 107.4 Estimated GFR > 60 Random Glucose 135 H Lactic Acid Lactic Acid F/U @ 2Hr Lactic Acid F/U @ 4Hr Calcium 8.5 D Magnesium 1.8 Total Bilirubin 2.2 H Direct Bilirubin 1.5 H AST 111 H ALT 28 Alkaline Phosphatase 106 Ammonia Troponin I High Sens 70.6 H* Total Protein 6.3 L Albumin 3.2 L Vitamin B12 Folate Urine Color Dark Yellow Urine Appearance Clear Urine pH 6.0 Ur Specific [place] 1.015 Urine Protein 30 (1+) H Urine Glucose (UA) Negative Urine Ketones Trace Urine Blood Large (3+) H Urine Nitrite Negative Ur Leukocyte Esterase Small (1+) H Urine RBC 3-5 H Urine WBC 0-5 Ur Squamous Epith Cells 3-5 Urine Bacteria None Seen Hyaline Casts 3-5 Urine Osmolality 455 Ur Random Sodium Stool Occult Blood Urine Opiates Screen Not Detected Ur Buprenorphine Scrn Not Detected Ur Oxycodone Screen Not Detected Urine Methadone Screen Not Detected Urine Fentanyl Screen Not Detected Ur Barbiturates Screen Not Detected Ur Phencyclidine Scrn Not Detected Ur Amphetamines Screen Not Detected U Benzodiazepines Scrn Not Detected Urine Cocaine Screen Not Detected U Marijuana (THC) Screen POSITIVE H Ethyl Alcohol Influenza Type A (PCR) NEGATIVE Influenza Type B (PCR) NEGATIVE RSV RNA Qual (PCR) NEGATIVE SARS-CoV-2 RNA (RT-PCR) NEGATIVE Blood Type Antibody Screen Crossmatch 04/27/25 04/27/25 04/27/25 07:16 07:54 09:00 WBC RBC Hgb Hct MCV MCH MCHC RDW Plt Count MPV Immature Gran % (Auto) Neut % (Auto) Lymph % (Auto) Wheeler % (Auto) Eos % (Auto) Baso % (Auto) Lymph # (Auto) Wheeler # (Auto) Eos # (Auto) Baso # (Auto) Abs Immat Gran (auto) Absolute Neuts (auto) Absolute Nucleated RBC Nucleated RBC % (auto) Neutrophils % (Manual) Band Neutrophils % Lymphocytes % (Manual) Monocytes % (Manual) Metamyelocytes % Myelocytes % Abs Neuts (Manual) Lymphocytes # (Manual) Monocytes # (Manual) Metamyelocytes # Myelocytes # Toxic Vacuolation Dohle Bodies Platelet Estimate Plt Morphology Comment RBC Morphology [place] Cells Smear Tech's Comments PT INR Sodium 121 L Potassium 3.0 L Chloride 90 L Carbon Dioxide 21 L Anion Gap 13 BUN 11 Creatinine 0.51 Estim Creat Clear Calc 122.2 Estimated GFR > 60 Random Glucose 139 H Lactic Acid Lactic Acid F/U @ 2Hr 2.2 H* Lactic Acid F/U @ 4Hr Calcium 7.8 L D Magnesium Total Bilirubin Direct Bilirubin AST ALT Alkaline Phosphatase Ammonia 65 H Troponin I High Sens Total Protein Albumin Vitamin B12 Folate Urine Color Urine Appearance Urine pH Ur Specific [place] Urine Protein Urine Glucose (UA) Urine Ketones Urine Blood Urine Nitrite Ur Leukocyte Esterase Urine RBC Urine WBC Ur Squamous Epith Cells Urine Bacteria Hyaline Casts Urine Osmolality Ur Random Sodium Stool Occult Blood POSITIVE Urine Opiates Screen Ur Buprenorphine Scrn Ur Oxycodone Screen Urine Methadone Screen Urine Fentanyl Screen Ur Barbiturates Screen Ur Phencyclidine Scrn Ur Amphetamines Screen U Benzodiazepines Scrn Urine Cocaine Screen U Marijuana (THC) Screen Ethyl Alcohol Influenza Type A (PCR) Influenza Type B (PCR) RSV RNA Qual (PCR) SARS-CoV-2 RNA (RT-PCR) Blood Type Antibody Screen Crossmatch 04/27/25 04/27/25 04/27/25 10:15 11:01 12:13 WBC 7.3 RBC 2.92 L D Hgb 9.4 L D Hct 28.0 L MCV 95.9 MCH 32.9 MCHC 33.6 RDW 12.2 Plt Count 59 L D MPV 12.9 H Immature Gran % (Auto) 1.1 H Neut % (Auto) 84.7 H Lymph % (Auto) 5.8 L Wheeler % (Auto) 8.1 Eos % (Auto) 0.0 Baso % (Auto) 0.3 Lymph # (Auto) 0.4 L Wheeler # (Auto) 0.6 Eos # (Auto) 0.0 Baso # (Auto) 0.0 Abs Immat Gran (auto) 0.08 H Absolute Neuts (auto) 6.2 Absolute Nucleated RBC 0.000 Nucleated RBC % (auto) 0.0 Neutrophils % (Manual) Band Neutrophils % Lymphocytes % (Manual) Monocytes % (Manual) Metamyelocytes % Myelocytes % Abs Neuts (Manual) Lymphocytes # (Manual) Monocytes # (Manual) Metamyelocytes # Myelocytes # Toxic Vacuolation Dohle Bodies Platelet Estimate Plt Morphology Comment RBC Morphology [place] Cells Smear Tech's Comments PT INR Sodium Potassium Chloride Carbon Dioxide Anion Gap BUN Creatinine Estim Creat Clear Calc Estimated GFR Random Glucose Lactic Acid Lactic Acid F/U @ 2Hr Lactic Acid F/U @ 4Hr 2.3 H* Calcium Magnesium Total Bilirubin Direct Bilirubin AST ALT Alkaline Phosphatase Ammonia Troponin I High Sens 140.1 H* D Total Protein Albumin Vitamin B12 Folate Urine Color Urine Appearance Urine pH Ur Specific [place] Urine Protein Urine Glucose (UA) Urine Ketones Urine Blood Urine Nitrite Ur Leukocyte Esterase Urine RBC Urine WBC Ur Squamous Epith Cells Urine Bacteria Hyaline Casts Urine Osmolality Ur Random Sodium Stool Occult Blood Urine Opiates Screen Ur Buprenorphine Scrn Ur Oxycodone Screen Urine Methadone Screen Urine Fentanyl Screen Ur Barbiturates Screen Ur Phencyclidine Scrn Ur Amphetamines Screen U Benzodiazepines Scrn Urine Cocaine Screen U Marijuana (THC) Screen Ethyl Alcohol Influenza Type A (PCR) Influenza Type B (PCR) RSV RNA Qual (PCR) SARS-CoV-2 RNA (RT-PCR) Blood Type O Negative Antibody Screen NEGATIVE Crossmatch See Detail 04/27/25 04/27/25 04/27/25 13:00 14:40 16:13 WBC 9.0 RBC 3.13 L Hgb 11.3 L D Hct 30.3 L MCV 96.8 MCH 36.1 H MCHC 37.3 H RDW 12.5 Plt Count 62 L MPV 12.9 H Immature Gran % (Auto) Cancelled Neut % (Auto) Cancelled Lymph % (Auto) Cancelled Wheeler % (Auto) Cancelled Eos % (Auto) Cancelled Baso % (Auto) Cancelled Lymph # (Auto) Cancelled Wheeler # (Auto) Cancelled Eos # (Auto) Cancelled Baso # (Auto) Cancelled Abs Immat Gran (auto) Cancelled Absolute Neuts (auto) Cancelled Absolute Nucleated RBC 0.000 Nucleated RBC % (auto) 0.0 Neutrophils % (Manual) 65 Band Neutrophils % 25 H Lymphocytes % (Manual) 4 L Monocytes % (Manual) 3 Metamyelocytes % 2 Myelocytes % 1 Abs Neuts (Manual) 8.1 Lymphocytes # (Manual) 0.4 L Monocytes # (Manual) 0.3 Metamyelocytes # 0.2 Myelocytes # 0.1 Toxic Vacuolation PRESENT Dohle Bodies PRESENT Platelet Estimate DECREASED Plt Morphology Comment NORMAL RBC Morphology NOTED [place] Cells 1+ (0-2) Smear Tech's Comments MANUAL DIFF PT 18.0 H INR 1.6 H Sodium 126 L Potassium 3.7 D Chloride 99 Carbon Dioxide 16 L Anion Gap 15 BUN 7 L Creatinine 0.43 L Estim Creat Clear Calc 144.9 Estimated GFR > 60 Random Glucose 109 Lactic Acid Lactic Acid F/U @ 2Hr Lactic Acid F/U @ 4Hr Calcium 8.0 L Magnesium 2.0 Total Bilirubin 2.1 H Direct Bilirubin AST 283 H ALT 53 H Alkaline Phosphatase 70 Ammonia Troponin I High Sens Total Protein 5.3 L Albumin 2.7 L Vitamin B12 Folate Urine Color Urine Appearance Urine pH Ur Specific [place] Urine Protein Urine Glucose (UA) Urine Ketones Urine Blood Urine Nitrite Ur Leukocyte Esterase Urine RBC Urine WBC Ur Squamous Epith Cells Urine Bacteria Hyaline Casts Urine Osmolality Ur Random Sodium Stool Occult Blood Urine Opiates Screen Ur Buprenorphine Scrn Ur Oxycodone Screen Urine Methadone Screen Urine Fentanyl Screen Ur Barbiturates Screen Ur Phencyclidine Scrn Ur Amphetamines Screen U Benzodiazepines Scrn Urine Cocaine Screen U Marijuana (THC) Screen Ethyl Alcohol Influenza Type A (PCR) Influenza Type B (PCR) RSV RNA Qual (PCR) SARS-CoV-2 RNA (RT-PCR) Blood Type Antibody Screen Crossmatch 04/27/25 04/27/25 04/28/25 17:39 21:10 06:34 WBC 6.6 5.5 RBC 3.20 L 3.34 L Hgb 11.7 L 12.0 Hct 31.2 L 33.0 L MCV 97.5 98.8 H MCH 36.6 H 35.9 H MCHC 37.5 H 36.4 H RDW 12.8 13.0 Plt Count 57 L 59 L MPV 13.2 H 12.5 H Immature Gran % (Auto) 0.7 H Neut % (Auto) 82.4 H Lymph % (Auto) 8.5 L [place] % (Auto) 7.8 Eos % (Auto) 0.2 Baso % (Auto) 0.4 Lymph # (Auto) 0.5 L [place] # (Auto) 0.4 Eos # (Auto) 0.0 Baso # (Auto) 0.0 Abs Immat Gran (auto) 0.04 H Absolute Neuts (auto) 4.5 Absolute Nucleated RBC 0.000 0.000 Nucleated RBC % (auto) 0.0 0.0 Neutrophils % (Manual) Band Neutrophils % Lymphocytes % (Manual) Monocytes % (Manual) Metamyelocytes % Myelocytes % Abs Neuts (Manual) Lymphocytes # (Manual) Monocytes # (Manual) Metamyelocytes # Myelocytes # Toxic Vacuolation Dohle Bodies Platelet Estimate Plt Morphology Comment RBC Morphology [place] Cells Smear Tech's Comments PT INR Sodium 128 L 132 L Potassium 3.4 Chloride 99 Carbon Dioxide 25 Anion Gap 11 L BUN 8 L Creatinine 0.49 L Estim Creat Clear Calc 127.2 Estimated GFR > 60 Random Glucose 103 Lactic Acid 1.1 Lactic Acid F/U @ 2Hr Lactic Acid F/U @ 4Hr Calcium 7.9 L Magnesium Total Bilirubin 1.9 H Direct Bilirubin AST 310 H ALT 69 H Alkaline Phosphatase 70 Ammonia Troponin I High Sens 86.0 H* Total Protein 5.2 L Albumin 2.8 L Vitamin B12 1039 H Folate 8.0 Urine Color Urine Appearance Urine pH Ur Specific [place] Urine Protein Urine Glucose (UA) Urine Ketones Urine Blood Urine Nitrite Ur Leukocyte Esterase Urine RBC Urine WBC Ur Squamous Epith Cells Urine Bacteria Hyaline Casts Urine Osmolality Ur Random Sodium Stool Occult Blood Urine Opiates Screen Ur Buprenorphine Scrn Ur Oxycodone Screen Urine Methadone Screen Urine Fentanyl Screen Ur Barbiturates Screen Ur Phencyclidine Scrn Ur Amphetamines Screen U Benzodiazepines Scrn Urine Cocaine Screen U Marijuana (THC) Screen Ethyl Alcohol Influenza Type A (PCR) Influenza Type B (PCR) RSV RNA Qual (PCR) SARS-CoV-2 RNA (RT-PCR) Blood Type Antibody Screen Crossmatch Mental Status Exam Mental Status Exam Patient Appearance: Appropriate Level of Consciousness: Awake and Alert Patient Behavior: Appropriate and Guarded Affect Description: Blunted Speech Pattern: Clear Judgement: Fair Medications Medications Current Medications Albuterol Sulfate (Albuterol Sulfate (0.083%) 2.5 Mg/3 Ml Vial.Neb) 2.5 mg INHALE Q3H PRN PRN Reason: wheezing Hydromorphone HCl (Hydromorphone Hcl 0.5 Mg/0.5 Ml Syringe) 0.5 mg IVPUSH Q3H PRN; Protocol PRN Reason: Pain, Severe (Pain Scale 7-10) Norepinephrine Bitartrate (Levophed) 8 mg in 250 mls @ 0 mls/hr IVCONT .Q0M [facility]; Protocol Octreotide Acetate 500 mcg/ (Sodium Chloride) 501 mls @ 50.1 mls/hr IVCONT .Q10H [facility] Last Admin: 04/28/25 09:15 Dose: 50 mcg/hr, 50.1 mls/hr Thiamine HCl 100 mg/ Sodium (Chloride) 101 mls @ 202 mls/hr IV DAILY [facility] Last Infusion: 04/28/25 10:38 Dose: Infused Vancomycin HCl 1,250 mg/ (Sodium Chloride) 250 mls @ 166.667 mls/hr IV Q12H [facility] Last Infusion: 04/28/25 07:40 Dose: Infused Piperacillin Sod/Tazobactam (Sod 4.5 gm/ Sodium Chloride) 100 mls @ 200 mls/hr IV Q6H [facility] Last Infusion: 04/28/25 10:38 Dose: Infused Pantoprazole Sodium (Pantoprazole Sodium 40 Mg/10 Ml Vial) 40 mg IVPUSH BID@0630,1630 [facility] Last Admin: 04/28/25 05:58 Dose: 40 mg Pharmacy Consult (Consult Rx Etoh Phenob Im/Po) 1 each MISCELLANE ONCE PRN; Protocol PRN Reason: Consult order Phenobarbital (Phenobarbital 15 Mg Tablet) 45 mg PO BID [facility]; Protocol Stop: 04/29/25 21:01 Last Admin: 04/28/25 09:14 Dose: 45 mg Phenobarbital (Phenobarbital 30 Mg Tablet) 30 mg PO BID [facility]; Protocol Stop: 05/01/25 21:01 Phenobarbital (Phenobarbital 30 Mg Tablet) 30 mg PO DAILY [facility]; Protocol Stop: 05/03/25 09:01 Sodium Chloride (0.9 % Sodium Chloride Flush 3 Ml Syringe) 3 ml IVFLUSH QSHIFT GLADIS Last Admin: 04/28/25 07:40 Dose: Not Given Allergies Allergies Allergy/AdvReac Type Severity Reaction Status Date / Time sulfamethoxazole Allergy Intermediate Rash Verified 04/27/25 05:11 [From Bactrim] trimethoprim [From Bactrim] Allergy Intermediate Rash Verified 04/27/25 05:11 Assessment & Plan Assessment & Plan (1) Alcohol use disorder, moderate, dependence: Status: Acute Code(s): F10.20 - Alcohol dependence, uncomplicated Assessment and Plan: * declined to meet with t/w--unable to obtain any history related alcohol use * pheno taper in place. No withdrawal sx observed. * please reconsult should patient change her mind Total time managing care of this patient today _20___ minutes. 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 Surgical History Surgical History History of total right knee replacement (03/2023) Hx of total hip arthroplasty History of carpal tunnel surgery of left wrist History of tonsillectomy Hx of section History of tubal ligation History of arthroscopy of right knee Status post left hip replacement H/O: hysterectomy Abdominal mass Social History Social History Household Members: Family Household Members Other:: daughter Housing: Apartment Are you a primary dialysis patient care technician to a significant other at home: No Do you presently have visiting nurse or other home services: No 75 years or older and lives alone: No Alcohol intake: current Alcohol intake frequency: 3 or more drinks per day Comment: to go to [facility] house post op Patient Tobacco Use Status: Current everyday Tobacco user Tobacco use type: Cigarette Cigarettes Per Day: 5 Years Smoked: 40 e-Cigarette/Vaping Use: Currently Using Second Hand Smoke Exposure: Yes Advance Directives Date on File: 08/15/22 service: No Current occupational status: unemployed
[2025-04-28 14:32] LABS: Vancomycin Random 10.5 mcg/mL (15-20)
[2025-04-28] MEDS: Acetaminophen 325 MG TABLET 975 MG PO (16:06)
[2025-04-28] MEDS: vancomycin HCL 1,000 MG, vancomycin HCL 750 MG in 0.9 % Sodium Chloride 500 ML 267.5 MG IV (16:07)
[2025-04-28] MEDS: 0.9 % Sodium Chloride Flush 3 ML SYRINGE IVFLUSH ×2 (16:12→22:22)
[2025-04-28 16:56] LABS: Lactate Dehydrogenase 259 U/L (122-220)
[2025-04-28 16:58] LABS: Haptoglobin 181 mg/dL (63-273)
[2025-04-28 17:18] LABS: Lactic Acid 3.3 mmol/L (0.5-2.0)
[2025-04-28] MEDS: Lactated Ringers 1,000 ML 999 ML IV (18:04)
[2025-04-28 18:38] LABS: Reflex Lactate? Lactic Acid Added
[2025-04-28 18:44] LABS: Ammonia 70 umol/L (13-55)
[2025-04-28 20:01] LABS: ~Lactic Acid-LAB USE ONLY 2.7 mmol/L (0.5-2.0)
[2025-04-28 21:38] LABS: Reflex Lactate? 2 Y
[2025-04-28 22:33] LABS: ~Lactic Acid-LAB USE ONLY 2.1 mmol/L (0.5-2.0)
[2025-04-29] VITALS (7 sets, daily range): BP systolic 118–150; BP diastolic 61–78; PULSE 80–92; RESP 16–17; TEMP 36.1–38.3; O2SAT 94–97
[2025-04-29] MEDS: vancomycin HCL 1,000 MG, vancomycin HCL 750 MG in 0.9 % Sodium Chloride 500 ML 267.5 MG IV (03:06)
[2025-04-29] MEDS: Octreotide Acetate 500 MCG in 0.9 % Sodium Chloride 500 ML 50.1 MCG IVCONT ×2 (04:12→14:08)
[2025-04-29] MEDS: Piperacillin Sodium/Tazobactam 4.5 GM in 0.9 % Sodium Chloride 100 ML IV ×3 (04:16→16:09)
[2025-04-29] MEDS: Pantoprazole Sodium 40 MG/10 ML VIAL IVPUSH ×2 (05:15→15:53)
[2025-04-29 07:34] LABS: Creatinine Clr Calc Pharmacy 127.2; Estimated Glomerular Filt Rate > 60
[2025-04-29] MEDS: PHENobarbitaL 15 MG TABLET 45 MG PO ×2 (08:02→21:04)
[2025-04-29] MEDS: 0.9 % Sodium Chloride Flush 3 ML SYRINGE IVFLUSH ×2 (08:03→15:59)
[2025-04-29] MEDS: Thiamine HCL 100 MG in 0.9 % Sodium Chloride 100 ML 202 MG IV (08:06)
--- NOTE | 2025-04-29 13:30 | P.PNGI_ITS ---
Subjective Subjective Date of Service: 04/29/25 Interval History: feeling better no abdominal pain no melena or rectal bleeding sodium has improved Critical Care Time (minutes): 0 Physical Exam 2 Vital Signs: Vital Signs: Last Vital Signs Temp 98.0 F 04/29/25 11:02 Pulse 88 04/29/25 11:02 Resp 16 04/29/25 11:02 BP 148/71 H 04/29/25 11:02 Pulse Ox 97 04/29/25 11:02 O2 Del Method Nasal Cannula 04/29/25 11:02 O2 Flow Rate 2.5 04/29/25 11:02 BMI result Body Mass Index 29.7 EXAM: GENERAL: The patient is well developed and nontoxic. VITAL SIGNS:see workflow HEENT: Nonicteric sclerae, PERRLA, EOMI. Oropharynx clear. Moist mucous membranes. Conjunctivae appear well perfused. No thyroid mass. CHEST: Chest wall is nontender. HEART: Regular rate and rhythm without murmurs. LUNGS: Clear to auscultation bilaterally. ABDOMEN: Soft, positive bowel sounds, nontender, no organomegaly.no flank tenderness SKIN: No rash, no excessive bruising, petechiae, or purpura. NEUROLOGIC: Cranial nerves II-XII intact without motor/sensory deficit. Psych: normal affect Objective Data Labs 04/28/25 06:34 04/29/25 06:51 Labs: Laboratory Results - last 24 hr 04/28/25 04/28/25 04/28/25 13:54 16:31 16:33 Creatinine Estim Creat Clear Calc Estimated GFR Haptoglobin 181 Lactic Acid 3.3 H* Lactic Acid F/U @ 2Hr Lactic Acid F/U @ 4Hr Ammonia Lactate Dehydrogenase 259 H Random Vancomycin 10.5 L 04/28/25 04/28/25 04/28/25 18:25 19:29 21:56 Creatinine Estim Creat Clear Calc Estimated GFR Haptoglobin Lactic Acid Lactic Acid F/U @ 2Hr 2.7 H* Lactic Acid F/U @ 4Hr 2.1 H* Ammonia 70 H Lactate Dehydrogenase Random Vancomycin 04/29/25 06:51 Creatinine 0.49 L Estim Creat Clear Calc 127.2 Estimated GFR > 60 Haptoglobin Lactic Acid Lactic Acid F/U @ 2Hr Lactic Acid F/U @ 4Hr Ammonia Lactate Dehydrogenase Random Vancomycin Microbiology Microbiology Results: Microbiology 04/27/25 05:52 Urine Catheterized - Straight Catheter Urine Culture - Preliminary Culture in progress. 04/27/25 05:40 Blood - Venous Blood Culture - Preliminary No growth after 48 hours. 04/27/25 05:37 Blood - Venous Blood Culture - Preliminary No growth after 48 hours. Procedures Date of Service Date of Service: 04/29/25 Progress Note: A&P Assessment and plan (1) Occult GI bleeding: Status: Acute Plan 1/ Anemia, stable s/p PRBC. No overt GIB/ could be multifactorial from nutrition, alcohol use or occult bleeding, liver disease PLAN: 1/ EGD and colo tomorrow for further eval, recheck Na tomorrow and plts 2/ one dose Vit K tonight Time Spent With Patient Time: Total time managing care of this patient today ____ minutes. Quality Stroke Does the patient have a stroke diagnosis?: No VTE Prior VTE?: No VTE Risk Level:: Medical - moderate - high VTE Device Contraindication: N/A - Device Ordered VTE Drug Contraindication: Treatment Not Indicated
--- NOTE | 2025-04-29 14:08 | P.PNIM_ITS ---
Subjective Subjective Date of Service: 04/29/25 Interval History: seen and evaluated more alert and interactive still on O2 supplement cultures negative no other events Review of Systems Review of Systems: Yes all other systems are reviewed and are negative Physical Exam 2 Vital Signs: Vital Signs: Last Vital Signs Temp 98.0 F 04/29/25 11:02 Pulse 88 04/29/25 11:02 Resp 16 04/29/25 11:02 BP 148/71 H 04/29/25 11:02 Pulse Ox 97 04/29/25 11:02 O2 Del Method Nasal Cannula 04/29/25 11:02 O2 Flow Rate 2.5 04/29/25 11:02 BMI result Body Mass Index 29.7 Const: Other: Constitutional : Awake, interactive, mild tremors , scleral jaundice Neck : Normal inspection, Supple Cardiovascular : RRR, no JVP, no lower extremity edema Respiratory : good bilateral air entry, no crackles Gastrointestinal: soft, lax, Normal bowel sounds, Non tender Skin : Warm, Dry Neurological : Alert & oriented x3, No focal deficit Objective Data Active Medications Acetaminophen (Acetaminophen 325 Mg Tablet) 975 mg PO Q6H PRN PRN Reason: Fever Last Admin: 04/28/25 16:06 Dose: 975 mg Documented By: SOBEIDA Albuterol Sulfate (Albuterol Sulfate (0.083%) 2.5 Mg/3 Ml Vial.Neb) 2.5 mg INHALE Q3H PRN PRN Reason: wheezing Hydromorphone HCl (Hydromorphone Hcl 0.5 Mg/0.5 Ml Syringe) 0.5 mg IVPUSH Q3H PRN; Protocol PRN Reason: Pain, Severe (Pain Scale 7-10) Norepinephrine Bitartrate (Levophed) 8 mg in 250 mls @ 0 mls/hr IVCONT .Q0M GLADIS; Protocol Octreotide Acetate 500 mcg/ (Sodium Chloride) 501 mls @ 50.1 mls/hr IVCONT .Q10H [facility]ADIS Last Admin: 04/29/25 04:12 Dose: 50 mcg/hr, 50.1 mls/hr Documented By: KENYON Thiamine HCl 100 mg/ Sodium (Chloride) 101 mls @ 202 mls/hr IV DAILY GLADIS Last Infusion: 04/29/25 08:36 Dose: Infused Documented By: JOLIE Piperacillin Sod/Tazobactam (Sod 4.5 gm/ Sodium Chloride) 100 mls @ 200 mls/hr IV Q6H [facility] Last Infusion: 04/29/25 12:30 Dose: Infused Documented By: JOLIE Vancomycin HCl 1,000 mg/Vancomycin HCl 750 mg/ Sodium Chloride 535 mls @ 267.5 mls/hr IV Q12H [facility] Last Infusion: 04/29/25 05:06 Dose: Infused Documented By: KENYON Phytonadione 10 mg/ Sodium (Chloride) 51 mls @ 51 mls/hr IV ONCE ONE Stop: 04/29/25 14:32 Pantoprazole Sodium (Pantoprazole Sodium 40 Mg/10 Ml Vial) 40 mg IVPUSH BID@0630,1630 [facility] Last Admin: 04/29/25 05:15 Dose: 40 mg Documented By: KENYON Pharmacy Consult (Consult Rx Etoh Phenob Im/Po) 1 each MISCELLANE ONCE PRN; Protocol PRN Reason: Consult order Pharmacy Consult (Consult Rx Vancomycin Dosing) 1 each MISCELLANE DAILY PRN PRN Reason: Consult order Phenobarbital (Phenobarbital 15 Mg Tablet) 45 mg PO BID [facility]; Protocol Stop: 04/29/25 21:01 Last Admin: 04/29/25 08:02 Dose: 45 mg Documented By: JOLIE Phenobarbital (Phenobarbital 30 Mg Tablet) 30 mg PO BID [facility]; Protocol Stop: 05/01/25 21:01 Phenobarbital (Phenobarbital 30 Mg Tablet) 30 mg PO DAILY [facility]; Protocol Stop: 05/03/25 09:01 Polyethylene Glycol/Electrolytes (Peg 3350/Na Sulf,Bicarb,Cl/Kcl 4,000 Ml Soln.Recon) 4,000 ml PO ONCE ONE Stop: 04/29/25 18:15 Sodium Chloride (0.9 % Sodium Chloride Flush 3 Ml Syringe) 3 ml IVFLUSH QSHIFT [facility] Last Admin: 04/29/25 08:03 Dose: 3 ml Documented By: JOLIE Labs 04/28/25 06:34 04/29/25 06:51 Labs: Laboratory Results - last 24 hr 04/28/25 04/28/25 04/28/25 13:54 16:31 16:33 Estim Creat Clear Calc Estimated GFR Haptoglobin 181 Lactic Acid 3.3 H* Lactic Acid F/U @ 2Hr Lactic Acid F/U @ 4Hr Ammonia Lactate Dehydrogenase 259 H Random Vancomycin 10.5 L 04/28/25 04/28/25 04/28/25 18:25 19:29 21:56 Estim Creat Clear Calc Estimated GFR Haptoglobin Lactic Acid Lactic Acid F/U @ 2Hr 2.7 H* Lactic Acid F/U @ 4Hr 2.1 H* Ammonia 70 H Lactate Dehydrogenase Random Vancomycin 04/29/25 06:51 Estim Creat Clear Calc 127.2 Estimated GFR > 60 Haptoglobin Lactic Acid Lactic Acid F/U @ 2Hr Lactic Acid F/U @ 4Hr Ammonia Lactate Dehydrogenase Random Vancomycin Microbiology Microbiology Results: Microbiology 04/27/25 05:52 Urine Culture - Preliminary Urine Catheterized - Straight Catheter Culture in progress. 04/27/25 05:40 Blood Culture - Preliminary Blood - Venous No growth after 48 hours. 04/27/25 05:37 Blood Culture - Preliminary Blood - Venous No growth after 48 hours. Assessment and Plan (1) Alcohol use disorder, moderate, dependence: Status: Acute (2) GI bleeding: Status: Acute (3) Pneumonia: Status: Acute (4) Sepsis: Status: Acute (5) Acute hyponatremia: Status: Acute Plan Erika Smith is a 65 y/o woman admitted with: Acute blood loss anemia due gastrointestinal bleeding DDx: Esophageal varices, gastritis, PUD, cancer, AVM Hb stable at 12 PRBC transfused at least 1 unit of blood Protonix 40 mg IV every 12 hours. Vitamin K 10 mg IV one dose today octreotide IV infusion Abdominal ultrasound GI consulted . EGD and Colonoscopy tomorrow Pneumonia, likely aspiration; UTI complicated with sepsis Urine and blood cultures pending vancomycin and Zosyn Alcohol abuse with withdrawal CIWA. Thiamine 100 mg IV daily. folic acid and multivitamins Phenobarbital protocol Patient was advised to abstain for drinking. addiction team acute Lactic acidosis secondary to alcohol abuse and sepsis due to pneumonia UTI. improved with fluids Elevated troponin, likely secondary to anemia/demand ischemic. No chest pain. Continue to monitor troponin. Thrombocytopenia, likely secondary to chronic liver disease Trending down. Continue to monitor for now. acute Hyponatremia secondary to alcohol abuse and chronic liver disease Improved from 120 on admission to 132 serum osmolality, urine osmolality and urine sodium monitor BMP Essential hypertension Hold amlodipine and lisinopril due to hypotension and bleeding. Continue to monitor. COPD Bronchodilator therapy as needed. Patient advised to quit smoking. Hyperlipidemia Restart statin when able. Tobacco dependence Tobacco cessation education. DVT prophylaxis: SCDs Code status: Full Patient will need hospitalization overnight for acute blood loss anemia secondary to gastrointestinal bleeding treatment with PRBC transfusions, close monitoring of vital signs and evaluation by subspecialty for EGD and colonoscooy tomorrow Quality Stroke Does the patient have a stroke diagnosis?: No VTE Prior VTE?: No VTE Risk Level:: Medical - moderate - high VTE Device Contraindication: N/A - Device Ordered VTE Drug Contraindication: Treatment Not Indicated
[2025-04-29] MEDS: Phytonadione (Vit K1) 10 MG in 0.9 % Sodium Chloride 50 ML 51 MG IV (14:15)
--- NOTE | 2025-04-29 14:44 | HE.PHANOTE ---
RE: VANCO DOSING Trough came back as 16 mg/L and renal function is stable. Continue with dose 1750 mg q12h, next trough is scheduled for 04/30/25 @1400.
[2025-04-29] MEDS: Acetaminophen 325 MG TABLET 975 MG PO (15:59)
[2025-04-29] MEDS: vancomycin HCL 1,000 MG, vancomycin HCL 750 MG in 0.9 % Sodium Chloride 500 ML 265.5 MG IV (16:02)
[2025-04-29] MEDS: PEG 3350/Na Sulf,Bicarb,Cl/KCL 4,000 ML SOLN.RECON 4000 ML PO (18:25)
[2025-04-30] VITALS (10 sets, daily range): BP systolic 109–138; BP diastolic 52–85; PULSE 66–90; RESP 17–20; TEMP 36.2–37.2; O2SAT 90–96
[2025-04-30] MEDS: Piperacillin Sodium/Tazobactam 4.5 GM in 0.9 % Sodium Chloride 100 ML IV ×5 (00:36→22:59)
[2025-04-30] MEDS: Octreotide Acetate 500 MCG in 0.9 % Sodium Chloride 500 ML 50.1 MCG IVCONT ×2 (00:37→11:16)
[2025-04-30] MEDS: 0.9 % Sodium Chloride Flush 3 ML SYRINGE IVFLUSH ×4 (00:37→21:13)
[2025-04-30] MEDS: vancomycin HCL 1,000 MG, vancomycin HCL 750 MG in 0.9 % Sodium Chloride 500 ML 265.5 MG IV (05:15)
[2025-04-30 06:42] LABS: MANUAL DIFF FLAG NO
[2025-04-30 06:43] LABS: Basophils Percent Auto 0.6 % (0-2); Eosinophils Absolute Auto 0.1 X10*3/uL (0.0-0.4); Eosinophils Percent Auto 2.7 % (0-4); Hematocrit 33.2 % (37.0-47.0); Hemoglobin 11.9 g/dl (12.0-16.0); Imm Gran Abs Auto 0.04 X10*3/uL (0.00-0.03); Imm Gran Pct Auto 0.8 % (0.0-0.4); Lymphocytes Absolute Auto 0.6 X10*3/uL (1.2-4.9); Lymphocytes Percent Auto 13.1 % (20-40); Mean Corpuscular HGB Conc 35.8 g/dl (31.0-35.0); Mean Corpuscular Hemoglobin 36.3 pg (27.0-33.0); Mean Corpuscular Volume 101.2 fL (80.0-98.0); Mean Platelet Volume 12.9 fL (9.4-12.3); Monocytes Absolute Auto 0.5 X10*3/uL (0.1-1.2); Monocytes Percent Auto 11.2 % (2-11); Neutrophils Absolute Auto 3.4 x10*3/uL (2.0-8.3); Neutrophils Percent Auto 71.6 % (45-73); Red Blood Count 3.28 X10*6/uL (4.20-5.50); White Blood Count 4.8 X10*3/uL (4.8-10.8)
[2025-04-30 06:44] LABS: Platelet Count 72 X10*3/uL (160-400)
[2025-04-30 07:12] LABS: Alanine Aminotransferase 68 U/L (0-31); Albumin Level 2.5 g/dL (3.5-5.0); Alkaline Phosphatase 83 U/L (39-117); Anion Gap 10 (12-20); Aspartate Amino Transferase 185 U/L (5-31); Bilirubin Total 1.4 mg/dL (0.0-1.0); Blood Urea Nitrogen 6 mg/dL (9-16); Calcium 7.4 mg/dL (8.4-10.2); Carbon Dioxide 22 mmol/L (22-29); Chloride 104 mmol/L (96-108); Creatinine Clr Calc Pharmacy 135.5; Estimated Glomerular Filt Rate > 60; Glucose Random 98 mg/dL (60-115); Potassium 2.9 mmol/L (3.3-5.1); Sodium 133 mmol/L (135-145); Total Protein 4.6 g/dL (6.5-8.0)
[2025-04-30 07:24] LABS: INTERNATIONAL NORM RATIO 1.2 (0.9-1.1); Prothrombin Time 14.2 SEC (10.9-12.4)
[2025-04-30] MEDS: Pantoprazole Sodium 40 MG/10 ML VIAL IVPUSH (07:59)
--- NOTE | 2025-04-30 08:14 | PC.NURSE ---
pt finished golytely entirely and last few stools were watery clear yellow with no solid matter noted. She has been NPO since midnight.
[2025-04-30] MEDS: Thiamine HCL 100 MG in 0.9 % Sodium Chloride 100 ML 202 MG IV (09:20)
[2025-04-30] MEDS: Potassium Chloride/H20 10 MEQ/100 ML PIGGYBACK 100 MEQ IV ×4 (09:21→15:33)
[2025-04-30] MEDS: PHENobarbitaL 30 MG TABLET PO ×2 (09:21→21:11)
--- NOTE | 2025-04-30 12:17 | P.PNGI_ITS ---
Subjective Subjective Date of Service: 04/30/25 Interval History: Has a cough no overt GI bleeding no abdominal pain managed prep overnight Critical Care Time (minutes): 0 Physical Exam 2 Vital Signs: Vital Signs: Last Vital Signs Temp 97.6 F 04/30/25 11:25 Pulse 74 04/30/25 11:25 Resp 20 04/30/25 11:25 BP 138/69 04/30/25 11:25 Pulse Ox 94 04/30/25 11:25 O2 Del Method Room Air 04/30/25 11:25 O2 Flow Rate 2 04/30/25 07:55 BMI result Body Mass Index 29.7 EXAM: GENERAL: The patient is dishevelled VITAL SIGNS:see workflow HEENT: Nonicteric sclerae, PERRLA, EOMI. Oropharynx clear. Moist mucous membranes. Conjunctivae appear well perfused. No thyroid mass. CHEST: Chest wall is nontender. HEART: Regular rate and rhythm without murmurs. LUNGS: mild wheeze ABDOMEN: Soft, positive bowel sounds, nontender, no organomegaly.no flank tenderness SKIN: No rash, no excessive bruising, petechiae, or purpura. NEUROLOGIC: Cranial nerves II-XII intact without motor/sensory deficit. Psych: normal affect Objective Data Labs 04/30/25 06:35 04/30/25 06:35 Labs: Laboratory Results - last 24 hr 04/29/25 04/30/25 14:06 06:35 WBC 4.8 RBC 3.28 L Hgb 11.9 L Hct 33.2 L MCV 101.2 H MCH 36.3 H MCHC 35.8 H RDW 13.0 Plt Count 72 L MPV 12.9 H Immature Gran % (Auto) 0.8 H Neut % (Auto) 71.6 Lymph % (Auto) 13.1 L [place] % (Auto) 11.2 H Eos % (Auto) 2.7 Baso % (Auto) 0.6 Lymph # (Auto) 0.6 L [place] # (Auto) 0.5 Eos # (Auto) 0.1 Baso # (Auto) 0.0 Abs Immat Gran (auto) 0.04 H Absolute Neuts (auto) 3.4 Absolute Nucleated RBC 0.000 Nucleated RBC % (auto) 0.0 PT 14.2 H D INR 1.2 H Sodium 133 L Potassium 2.9 L* Chloride 104 Carbon Dioxide 22 Anion Gap 10 L BUN 6 L Creatinine 0.46 L Estim Creat Clear Calc 135.5 Estimated GFR > 60 Random Glucose 98 Calcium 7.4 L D Total Bilirubin 1.4 H Direct Bilirubin 1.0 H AST 185 H ALT 68 H Alkaline Phosphatase 83 Total Protein 4.6 L Albumin 2.5 L Random Vancomycin 16.0 Microbiology Microbiology Results: Microbiology 04/27/25 05:52 Urine Catheterized - Straight Catheter Urine Culture - Preliminary Yeast 04/28/25 16:32 Blood - Venous Blood Culture - Preliminary No growth after 24 hours. 04/28/25 16:32 Blood - Venous Blood Culture - Preliminary No growth after 24 hours. 04/27/25 05:40 Blood - Venous Blood Culture - Preliminary No growth after 48 hours. 04/27/25 05:37 Blood - Venous Blood Culture - Preliminary No growth after 48 hours. Procedures Date of Service Date of Service: 04/30/25 Progress Note: A&P Assessment and plan (1) GI bleeding: Status: Acute Assessment and Plan: 1/ Anemia, stable thus far, possible from neoplasia, gastritis, AVM, etc or nutritional issues PLAN: 1/ EGD and colo today, K is being replenished Time Spent With Patient Time: Total time managing care of this patient today ____ minutes. Quality Stroke Does the patient have a stroke diagnosis?: No VTE Prior VTE?: No VTE Risk Level:: Medical - moderate - high VTE Device Contraindication: N/A - Device Ordered VTE Drug Contraindication: Treatment Not Indicated
--- NOTE | 2025-04-30 12:28 | P.CONAN_ITS ---
HPI - Anesthesia Eval Consult details Narrative: for EGD and colonoscopy PMFSH Active Problems Active Problems: All Active Problems Alcohol use disorder, moderate, dependence (Acute) GI bleeding (Acute) Occult GI bleeding (Acute) Pneumonia (Acute) Acute UTI (Acute) Weakness (Acute) Sepsis (Acute) Acute hyponatremia (Acute) Abnormal LFTs (Acute) Atherosclerotic cardiovascular disease (Acute) Arthritis of left knee (Acute) Left rotator cuff tear arthropathy (Acute) Calf swelling (Acute) Status post total knee replacement, right (Acute) Postoperative wound breakdown (Acute) Seroma, post-traumatic (Acute) Hematoma (Acute) Stenosis of left subclavian artery (Acute) Weak arterial pulse (Acute) S/P total right hip arthroplasty (Acute) Smoking (Acute) Abnormal EKG (Acute) Preoperative cardiovascular examination (Acute) Primary osteoarthritis of right hip (Acute) Varicose veins of right lower extremity with inflammation (Acute) HTN (hypertension) (Acute) Past Medical History Medical History Alcohol drinker Liver enlargement Elevated liver enzymes Smoker COPD (chronic obstructive pulmonary disease) 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 Family history of problems with anesthesia: No Surgical History Surgical History History of total right knee replacement (03/2023) Hx of total hip arthroplasty History of carpal tunnel surgery of left wrist History of tonsillectomy Hx of section History of tubal ligation History of arthroscopy of right knee Status post left hip replacement H/O: hysterectomy Abdominal mass History of Problems with Anesthesia: No Social History Social History Household Members: Family Household Members Other:: daughter Housing: Apartment Are you a primary resident care coordinator to a significant other at home: No Do you presently have visiting nurse or other home services: No 75 years or older and lives alone: No Alcohol intake: current Alcohol intake frequency: 3 or more drinks per day Comment: to go to sons house post op Patient Tobacco Use Status: Current everyday Tobacco user Tobacco use type: Cigarette Cigarettes Per Day: 5 Years Smoked: 40 e-Cigarette/Vaping Use: Currently Using Second Hand Smoke Exposure: Yes Advance Directives Date on File: 08/15/22 service: No Current occupational status: unemployed Meds Allergies Allergy/AdvReac Type Severity Reaction Status Date / Time sulfamethoxazole (From Allergy Intermediate Rash Verified 04/27/25 05:11 Bactrim) trimethoprim (From Bactrim) Allergy Intermediate Rash Verified 04/27/25 05:11 Active Medications: Current Medications Acetaminophen (Acetaminophen 325 Mg Tablet) 975 mg PO Q6H PRN PRN Reason: Fever Last Admin: 04/29/25 15:59 Dose: 975 mg Albuterol Sulfate (Albuterol Sulfate (0.083%) 2.5 Mg/3 Ml Vial.Neb) 2.5 mg INHALE Q3H PRN PRN Reason: wheezing Hydromorphone HCl (Hydromorphone Hcl 0.5 Mg/0.5 Ml Syringe) 0.5 mg IVPUSH Q3H PRN; Protocol PRN Reason: Pain, Severe (Pain Scale 7-10) Norepinephrine Bitartrate (Levophed) 8 mg in 250 mls @ 0 mls/hr IVCONT .Q0M GLADIS; Protocol On Hold: 04/27/25 13:02 Octreotide Acetate 500 mcg/ (Sodium Chloride) 501 mls @ 50.1 mls/hr IVCONT .Q10H GLADIS Last Admin: 04/30/25 11:16 Dose: 50 mcg/hr, 50.1 mls/hr Thiamine HCl 100 mg/ Sodium (Chloride) 101 mls @ 202 mls/hr IV DAILY [facility] Last Infusion: 04/30/25 09:51 Dose: Infused Piperacillin Sod/Tazobactam (Sod 4.5 gm/ Sodium Chloride) 100 mls @ 200 mls/hr IV Q6H GLADIS Last Infusion: 04/30/25 12:05 Dose: Infused Vancomycin HCl 1,000 mg/Vancomycin HCl 750 mg/ Sodium Chloride 535 mls @ 267.5 mls/hr IV Q12H [facility] Last Infusion: 04/30/25 07:30 Dose: Infused Pantoprazole Sodium (Pantoprazole Sodium 40 Mg/10 Ml Vial) 40 mg IVPUSH BID@0630,1630 [facility] Last Admin: 04/30/25 07:59 Dose: 40 mg Pharmacy Consult (Consult Rx Etoh Phenob Im/Po) 1 each MISCELLANE ONCE PRN; Protocol PRN Reason: Consult order Pharmacy Consult (Consult Rx Vancomycin Dosing) 1 each MISCELLANE DAILY PRN PRN Reason: Consult order Phenobarbital (Phenobarbital 30 Mg Tablet) 30 mg PO BID [facility]; Protocol Stop: 05/01/25 21:01 Last Admin: 04/30/25 09:21 Dose: 30 mg Phenobarbital (Phenobarbital 30 Mg Tablet) 30 mg PO DAILY [facility]; Protocol Stop: 05/03/25 09:01 Sodium Chloride (0.9 % Sodium Chloride Flush 3 Ml Syringe) 3 ml IVFLUSH QSHIFT [facility] Last Admin: 04/30/25 09:21 Dose: 3 ml Home Medications ?Medication ?Instructions ?Recorded ?Confirmed ?Last Taken ?Type cholecalciferol (vitamin D3) 25 25 mcg PO DAILY 04/27/25 04/26/25 History mcg (1,000 unit) capsule (Vitamin D3) cyanocobalamin (vitamin B-12) 1,000 mcg PO DAILY 04/2704/27/25 04/26/25 History 1,000 mcg tablet lisinopril 10 mg tablet 10 mg PO DAILY 04/27/2504/1304/26/25 History multivitamin 1 tab PO Q OTHER DAY 5 04/27/25 04/26/25 History Exam Height,Weight and Vital Signs: Height 5 ft 7 in Weight 86 kg Last Vital Signs Temp 98.7 F 04/30/25 12:19 Pulse 76 04/30/25 12:19 Resp 17 04/30/25 12:19 BP 133/69 04/30/25 12:19 Pulse Ox 94 04/30/25 12:19 O2 Del Method Room Air 04/30/25 12:19 O2 Flow Rate 2 04/30/25 07:55 Pertinent Lab Results Pertinent Lab Results: Laboratory Tests 04/27/25 04/27/25 04/27/25 05:22 05:38 05:40 WBC RBC Hgb Hct MCV MCH MCHC RDW Plt Count MPV Immature Gran % (Auto) Neut % (Auto) Lymph % (Auto) [place] % (Auto) Eos % (Auto) Baso % (Auto) Lymph # (Auto) [place] # (Auto) Eos # (Auto) Baso # (Auto) Abs Immat Gran (auto) Absolute Neuts (auto) Absolute Nucleated RBC Nucleated RBC % (auto) Neutrophils % (Manual) Band Neutrophils % Lymphocytes % (Manual) Monocytes % (Manual) Metamyelocytes % Myelocytes % Abs Neuts (Manual) Lymphocytes # (Manual) Monocytes # (Manual) Metamyelocytes # Myelocytes # Toxic Vacuolation Dohle Bodies Platelet Estimate Plt Morphology Comment RBC Morphology Cha[place] Cells Smear Tech's Comments PT INR Sodium Potassium Chloride Carbon Dioxide Anion Gap BUN Creatinine Estim Creat Clear Calc Estimated GFR Random Glucose Haptoglobin Lactic Acid 4.3 H* Lactic Acid F/U @ 2Hr Lactic Acid F/U @ 4Hr Calcium Magnesium Total Bilirubin Direct Bilirubin AST ALT Alkaline Phosphatase Ammonia Lactate Dehydrogenase Troponin I High Sens Total Protein Albumin Vitamin B12 Folate Urine Color Urine Appearance Urine pH Ur Specific [place] Urine Protein Urine Glucose (UA) Urine Ketones Urine Blood Urine Nitrite Ur Leukocyte Esterase Urine RBC Urine WBC Ur Squamous Epith Cells Urine Bacteria Hyaline Casts Urine Osmolality Ur Random Sodium < 20.0 Stool Occult Blood Random Vancomycin Urine Opiates Screen Ur Buprenorphine Scrn Ur Oxycodone Screen Urine Methadone Screen Urine Fentanyl Screen Ur Barbiturates Screen Ur Phencyclidine Scrn Ur Amphetamines Screen U Benzodiazepines Scrn Urine Cocaine Screen U Marijuana (THC) Screen Ethyl Alcohol < 10 Influenza Type A (PCR) Influenza Type B (PCR) RSV RNA Qual (PCR) SARS-CoV-2 RNA (RT-PCR) Blood Type Antibody Screen Crossmatch 04/27/25 04/27/25 04/27/25 05:41 05:42 05:52 WBC 10.9 H RBC 3.70 L Hgb 13.4 Hct 35.0 L MCV 94.6 MCH 36.2 H MCHC 38.3 H RDW 12.2 Plt Count 95 L D MPV 12.7 H Immature Gran % (Auto) 1.4 H Neut % (Auto) 87.9 H Lymph % (Auto) 3.7 L [place] % (Auto) 6.6 Eos % (Auto) 0.0 Baso % (Auto) 0.4 Lymph # (Auto) 0.4 L [place] # (Auto) 0.7 Eos # (Auto) 0.0 Baso # (Auto) 0.0 Abs Immat Gran (auto) 0.15 H Absolute Neuts (auto) 9.6 H Absolute Nucleated RBC 0.000 Nucleated RBC % (auto) 0.0 Neutrophils % (Manual) Band Neutrophils % Lymphocytes % (Manual) Monocytes % (Manual) Metamyelocytes % Myelocytes % Abs Neuts (Manual) Lymphocytes # (Manual) Monocytes # (Manual) Metamyelocytes # Myelocytes # Toxic Vacuolation Dohle Bodies Platelet Estimate Plt Morphology Comment RBC Morphology Horacio Cells Smear Tech's Comments VERIFIED PT INR Sodium 120 L* Potassium 3.4 Chloride 87 L Carbon Dioxide 20 L Anion Gap 16 BUN 12 Creatinine 0.58 Estim Creat Clear Calc 107.4 Estimated GFR > 60 Random Glucose 135 H Haptoglobin Lactic Acid Lactic Acid F/U @ 2Hr Lactic Acid F/U @ 4Hr Calcium 8.5 D Magnesium 1.8 Total Bilirubin 2.2 H Direct Bilirubin 1.5 H AST 111 H ALT 28 Alkaline Phosphatase 106 Ammonia Lactate Dehydrogenase Troponin I High Sens 70.6 H* Total Protein 6.3 L Albumin 3.2 L Vitamin B12 Folate Urine Color Dark Yellow Urine Appearance Clear Urine pH 6.0 Ur Specific [place] 1.015 Urine Protein 30 (1+) H Urine Glucose (UA) Negative Urine Ketones Trace Urine Blood Large (3+) H Urine Nitrite Negative Ur Leukocyte Esterase Small (1+) H Urine RBC 3-5 H Urine WBC 0-5 Ur Squamous Epith Cells 3-5 Urine Bacteria None Seen Hyaline Casts 3-5 Urine Osmolality 455 Ur Random Sodium Stool Occult Blood Random Vancomycin Urine Opiates Screen Not Detected Ur Buprenorphine Scrn Not Detected Ur Oxycodone Screen Not Detected Urine Methadone Screen Not Detected Urine Fentanyl Screen Not Detected Ur Barbiturates Screen Not Detected Ur Phencyclidine Scrn Not Detected Ur Amphetamines Screen Not Detected U Benzodiazepines Scrn Not Detected Urine Cocaine Screen Not Detected U Marijuana (THC) Screen POSITIVE H Ethyl Alcohol Influenza Type A (PCR) NEGATIVE Influenza Type B (PCR) NEGATIVE RSV RNA Qual (PCR) NEGATIVE SARS-CoV-2 RNA (RT-PCR) NEGATIVE Blood Type Antibody Screen Crossmatch 04/27/25 04/27/25 04/27/25 07:16 07:54 09:00 WBC RBC Hgb Hct MCV MCH MCHC RDW Plt Count MPV Immature Gran % (Auto) Neut % (Auto) Lymph % (Auto) [place] % (Auto) Eos % (Auto) Baso % (Auto) Lymph # (Auto) [place] # (Auto) Eos # (Auto) Baso # (Auto) Abs Immat Gran (auto) Absolute Neuts (auto) Absolute Nucleated RBC Nucleated RBC % (auto) Neutrophils % (Manual) Band Neutrophils % Lymphocytes % (Manual) Monocytes % (Manual) Metamyelocytes % Myelocytes % Abs Neuts (Manual) Lymphocytes # (Manual) Monocytes # (Manual) Metamyelocytes # Myelocytes # Toxic Vacuolation Dohle Bodies Platelet Estimate Plt Morphology Comment RBC Morphology [place]in Cells Smear Tech's Comments PT INR Sodium 121 L Potassium 3.0 L Chloride 90 L Carbon Dioxide 21 L Anion Gap 13 BUN 11 Creatinine 0.51 Estim Creat Clear Calc 122.2 Estimated GFR > 60 Random Glucose 139 H Haptoglobin Lactic Acid Lactic Acid F/U @ 2Hr 2.2 H* Lactic Acid F/U @ 4Hr Calcium 7.8 L D Magnesium Total Bilirubin Direct Bilirubin AST ALT Alkaline Phosphatase Ammonia 65 H Lactate Dehydrogenase Troponin I High Sens Total Protein Albumin Vitamin B12 Folate Urine Color Urine Appearance Urine pH Ur Specific [place] Urine Protein Urine Glucose (UA) Urine Ketones Urine Blood Urine Nitrite Ur Leukocyte Esterase Urine RBC Urine WBC Ur Squamous Epith Cells Urine Bacteria Hyaline Casts Urine Osmolality Ur Random Sodium Stool Occult Blood POSITIVE Random Vancomycin Urine Opiates Screen Ur Buprenorphine Scrn Ur Oxycodone Screen Urine Methadone Screen Urine Fentanyl Screen Ur Barbiturates Screen Ur Phencyclidine Scrn Ur Amphetamines Screen U Benzodiazepines Scrn Urine Cocaine Screen U Marijuana (THC) Screen Ethyl Alcohol Influenza Type A (PCR) Influenza Type B (PCR) RSV RNA Qual (PCR) SARS-CoV-2 RNA (RT-PCR) Blood Type Antibody Screen Crossmatch 04/27/25 04/27/25 04/27/25 10:15 11:01 12:13 WBC 7.3 RBC 2.92 L D Hgb 9.4 L D Hct 28.0 L MCV 95.9 MCH 32.9 MCHC 33.6 RDW 12.2 Plt Count 59 L D MPV 12.9 H Immature Gran % (Auto) 1.1 H Neut % (Auto) 84.7 H Lymph % (Auto) 5.8 L [place] % (Auto) 8.1 Eos % (Auto) 0.0 Baso % (Auto) 0.3 Lymph # (Auto) 0.4 L [place] # (Auto) 0.6 Eos # (Auto) 0.0 Baso # (Auto) 0.0 Abs Immat Gran (auto) 0.08 H Absolute Neuts (auto) 6.2 Absolute Nucleated RBC 0.000 Nucleated RBC % (auto) 0.0 Neutrophils % (Manual) Band Neutrophils % Lymphocytes % (Manual) Monocytes % (Manual) Metamyelocytes % Myelocytes % Abs Neuts (Manual) Lymphocytes # (Manual) Monocytes # (Manual) Metamyelocytes # Myelocytes # Toxic Vacuolation Dohle Bodies Platelet Estimate Plt Morphology Comment RBC Morphology [place] Cells Smear Tech's Comments PT INR Sodium Potassium Chloride Carbon Dioxide Anion Gap BUN Creatinine Estim Creat Clear Calc Estimated GFR Random Glucose Haptoglobin Lactic Acid Lactic Acid F/U @ 2Hr Lactic Acid F/U @ 4Hr 2.3 H* Calcium Magnesium Total Bilirubin Direct Bilirubin AST ALT Alkaline Phosphatase Ammonia Lactate Dehydrogenase Troponin I High Sens 140.1 H* D Total Protein Albumin Vitamin B12 Folate Urine Color Urine Appearance Urine pH Ur Specific [place] Urine Protein Urine Glucose (UA) Urine Ketones Urine Blood Urine Nitrite Ur Leukocyte Esterase Urine RBC Urine WBC Ur Squamous Epith Cells Urine Bacteria Hyaline Casts Urine Osmolality Ur Random Sodium Stool Occult Blood Random Vancomycin Urine Opiates Screen Ur Buprenorphine Scrn Ur Oxycodone Screen Urine Methadone Screen Urine Fentanyl Screen Ur Barbiturates Screen Ur Phencyclidine Scrn Ur Amphetamines Screen U Benzodiazepines Scrn Urine Cocaine Screen U Marijuana (THC) Screen Ethyl Alcohol Influenza Type A (PCR) Influenza Type B (PCR) RSV RNA Qual (PCR) SARS-CoV-2 RNA (RT-PCR) Blood Type O Negative Antibody Screen NEGATIVE Crossmatch See Detail 04/27/25 04/27/25 04/27/25 13:00 14:40 16:13 WBC 9.0 RBC 3.13 L Hgb 11.3 L D Hct 30.3 L MCV 96.8 MCH 36.1 H MCHC 37.3 H RDW 12.5 Plt Count 62 L MPV 12.9 H Immature Gran % (Auto) Cancelled Neut % (Auto) Cancelled Lymph % (Auto) Cancelled [place] % (Auto) Cancelled Eos % (Auto) Cancelled Baso % (Auto) Cancelled Lymph # (Auto) Cancelled [place] # (Auto) Cancelled Eos # (Auto) Cancelled Baso # (Auto) Cancelled Abs Immat Gran (auto) Cancelled Absolute Neuts (auto) Cancelled Absolute Nucleated RBC 0.000 Nucleated RBC % (auto) 0.0 Neutrophils % (Manual) 65 Band Neutrophils % 25 H Lymphocytes % (Manual) 4 L Monocytes % (Manual) 3 Metamyelocytes % 2 Myelocytes % 1 Abs Neuts (Manual) 8.1 Lymphocytes # (Manual) 0.4 L Monocytes # (Manual) 0.3 Metamyelocytes # 0.2 Myelocytes # 0.1 Toxic Vacuolation PRESENT Dohle Bodies PRESENT Platelet Estimate DECREASED Plt Morphology Comment NORMAL RBC Morphology NOTED Horacio Cells 1+ (0-2) Smear Tech's Comments MANUAL DIFF PT 18.0 H INR 1.6 H Sodium 126 L Potassium 3.7 D Chloride 99 Carbon Dioxide 16 L Anion Gap 15 BUN 7 L Creatinine 0.43 L Estim Creat Clear Calc 144.9 Estimated GFR > 60 Random Glucose 109 Haptoglobin Lactic Acid Lactic Acid F/U @ 2Hr Lactic Acid F/U @ 4Hr Calcium 8.0 L Magnesium 2.0 Total Bilirubin 2.1 H Direct Bilirubin AST 283 H ALT 53 H Alkaline Phosphatase 70 Ammonia Lactate Dehydrogenase Troponin I High Sens Total Protein 5.3 L Albumin 2.7 L Vitamin B12 Folate Urine Color Urine Appearance Urine pH Ur Specific [place] Urine Protein Urine Glucose (UA) Urine Ketones Urine Blood Urine Nitrite Ur Leukocyte Esterase Urine RBC Urine WBC Ur Squamous Epith Cells Urine Bacteria Hyaline Casts Urine Osmolality Ur Random Sodium Stool Occult Blood Random Vancomycin Urine Opiates Screen Ur Buprenorphine Scrn Ur Oxycodone Screen Urine Methadone Screen Urine Fentanyl Screen Ur Barbiturates Screen Ur Phencyclidine Scrn Ur Amphetamines Screen U Benzodiazepines Scrn Urine Cocaine Screen U Marijuana (THC) Screen Ethyl Alcohol Influenza Type A (PCR) Influenza Type B (PCR) RSV RNA Qual (PCR) SARS-CoV-2 RNA (RT-PCR) Blood Type Antibody Screen Crossmatch 04/27/25 04/27/25 04/28/25 17:39 21:10 06:34 WBC 6.6 5.5 RBC 3.20 L 3.34 L Hgb 11.7 L 12.0 Hct 31.2 L 33.0 L MCV 97.5 98.8 H MCH 36.6 H 35.9 H MCHC 37.5 H 36.4 H RDW 12.8 13.0 Plt Count 57 L 59 L MPV 13.2 H 12.5 H Immature Gran % (Auto) 0.7 H Neut % (Auto) 82.4 H Lymph % (Auto) 8.5 L [place] % (Auto) 7.8 Eos % (Auto) 0.2 Baso % (Auto) 0.4 Lymph # (Auto) 0.5 L [place] # (Auto) 0.4 Eos # (Auto) 0.0 Baso # (Auto) 0.0 Abs Immat Gran (auto) 0.04 H Absolute Neuts (auto) 4.5 Absolute Nucleated RBC 0.000 0.000 Nucleated RBC % (auto) 0.0 0.0 Neutrophils % (Manual) Band Neutrophils % Lymphocytes % (Manual) Monocytes % (Manual) Metamyelocytes % Myelocytes % Abs Neuts (Manual) Lymphocytes # (Manual) Monocytes # (Manual) Metamyelocytes # Myelocytes # Toxic Vacuolation Dohle Bodies Platelet Estimate Plt Morphology Comment RBC Morphology Horacio Cells Smear Tech's Comments PT INR Sodium 128 L 132 L Potassium 3.4 Chloride 99 Carbon Dioxide 25 Anion Gap 11 L BUN 8 L Creatinine 0.49 L Estim Creat Clear Calc 127.2 Estimated GFR > 60 Random Glucose 103 Haptoglobin Lactic Acid 1.1 Lactic Acid F/U @ 2Hr Lactic Acid F/U @ 4Hr Calcium 7.9 L Magnesium Total Bilirubin 1.9 H Direct Bilirubin AST 310 H ALT 69 H Alkaline Phosphatase 70 Ammonia Lactate Dehydrogenase Troponin I High Sens 86.0 H* Total Protein 5.2 L Albumin 2.8 L Vitamin B12 1039 H Folate 8.0 Urine Color Urine Appearance Urine pH Ur Specific [place] Urine Protein Urine Glucose (UA) Urine Ketones Urine Blood Urine Nitrite Ur Leukocyte Esterase Urine RBC Urine WBC Ur Squamous Epith Cells Urine Bacteria Hyaline Casts Urine Osmolality Ur Random Sodium Stool Occult Blood Random Vancomycin Urine Opiates Screen Ur Buprenorphine Scrn Ur Oxycodone Screen Urine Methadone Screen Urine Fentanyl Screen Ur Barbiturates Screen Ur Phencyclidine Scrn Ur Amphetamines Screen U Benzodiazepines Scrn Urine Cocaine Screen U Marijuana (THC) Screen Ethyl Alcohol Influenza Type A (PCR) Influenza Type B (PCR) RSV RNA Qual (PCR) SARS-CoV-2 RNA (RT-PCR) Blood Type Antibody Screen Crossmatch 04/28/25 04/28/25 04/28/25 13:54 16:31 16:33 WBC RBC Hgb Hct MCV MCH MCHC RDW Plt Count MPV Immature Gran % (Auto) Neut % (Auto) Lymph % (Auto) [place] % (Auto) Eos % (Auto) Baso % (Auto) Lymph # (Auto) [place] # (Auto) Eos # (Auto) Baso # (Auto) Abs Immat Gran (auto) Absolute Neuts (auto) Absolute Nucleated RBC Nucleated RBC % (auto) Neutrophils % (Manual) Band Neutrophils % Lymphocytes % (Manual) Monocytes % (Manual) Metamyelocytes % Myelocytes % Abs Neuts (Manual) Lymphocytes # (Manual) Monocytes # (Manual) Metamyelocytes # Myelocytes # Toxic Vacuolation Dohle Bodies Platelet Estimate Plt Morphology Comment RBC Morphology [place] Cells Smear Tech's Comments PT INR Sodium Potassium Chloride Carbon Dioxide Anion Gap BUN Creatinine Estim Creat Clear Calc Estimated GFR Random Glucose Haptoglobin 181 Lactic Acid 3.3 H* Lactic Acid F/U @ 2Hr Lactic Acid F/U @ 4Hr Calcium Magnesium Total Bilirubin Direct Bilirubin AST ALT Alkaline Phosphatase Ammonia Lactate Dehydrogenase 259 H Troponin I High Sens Total Protein Albumin Vitamin B12 Folate Urine Color Urine Appearance Urine pH Ur Specific [place] Urine Protein Urine Glucose (UA) Urine Ketones Urine Blood Urine Nitrite Ur Leukocyte Esterase Urine RBC Urine WBC Ur Squamous Epith Cells Urine Bacteria Hyaline Casts Urine Osmolality Ur Random Sodium Stool Occult Blood Random Vancomycin 10.5 L Urine Opiates Screen Ur Buprenorphine Scrn Ur Oxycodone Screen Urine Methadone Screen Urine Fentanyl Screen Ur Barbiturates Screen Ur Phencyclidine Scrn Ur Amphetamines Screen U Benzodiazepines Scrn Urine Cocaine Screen U Marijuana (THC) Screen Ethyl Alcohol Influenza Type A (PCR) Influenza Type B (PCR) RSV RNA Qual (PCR) SARS-CoV-2 RNA (RT-PCR) Blood Type Antibody Screen Crossmatch 04/28/25 04/28/25 04/28/25 18:25 19:29 21:56 WBC RBC Hgb Hct MCV MCH MCHC RDW Plt Count MPV Immature Gran % (Auto) Neut % (Auto) Lymph % (Auto) [place] % (Auto) Eos % (Auto) Baso % (Auto) Lymph # (Auto) [place] # (Auto) Eos # (Auto) Baso # (Auto) Abs Immat Gran (auto) Absolute Neuts (auto) Absolute Nucleated RBC Nucleated RBC % (auto) Neutrophils % (Manual) Band Neutrophils % Lymphocytes % (Manual) Monocytes % (Manual) Metamyelocytes % Myelocytes % Abs Neuts (Manual) Lymphocytes # (Manual) Monocytes # (Manual) Metamyelocytes # Myelocytes # Toxic Vacuolation Dohle Bodies Platelet Estimate Plt Morphology Comment RBC Morphology Horacio Cells Smear Tech's Comments PT INR Sodium Potassium Chloride Carbon Dioxide Anion Gap BUN Creatinine Estim Creat Clear Calc Estimated GFR Random Glucose Haptoglobin Lactic Acid Lactic Acid F/U @ 2Hr 2.7 H* Lactic Acid F/U @ 4Hr 2.1 H* Calcium Magnesium Total Bilirubin Direct Bilirubin AST ALT Alkaline Phosphatase Ammonia 70 H Lactate Dehydrogenase Troponin I High Sens Total Protein Albumin Vitamin B12 Folate Urine Color Urine Appearance Urine pH Ur Specific [place] Urine Protein Urine Glucose (UA) Urine Ketones Urine Blood Urine Nitrite Ur Leukocyte Esterase Urine RBC Urine WBC Ur Squamous Epith Cells Urine Bacteria Hyaline Casts Urine Osmolality Ur Random Sodium Stool Occult Blood Random Vancomycin Urine Opiates Screen Ur Buprenorphine Scrn Ur Oxycodone Screen Urine Methadone Screen Urine Fentanyl Screen Ur Barbiturates Screen Ur Phencyclidine Scrn Ur Amphetamines Screen U Benzodiazepines Scrn Urine Cocaine Screen U Marijuana (THC) Screen Ethyl Alcohol Influenza Type A (PCR) Influenza Type B (PCR) RSV RNA Qual (PCR) SARS-CoV-2 RNA (RT-PCR) Blood Type Antibody Screen Crossmatch 04/29/25 04/29/25 04/30/25 06:51 14:06 06:35 WBC 4.8 RBC 3.28 L Hgb 11.9 L Hct 33.2 L MCV 101.2 H MCH 36.3 H MCHC 35.8 H RDW 13.0 Plt Count 72 L MPV 12.9 H Immature Gran % (Auto) 0.8 H Neut % (Auto) 71.6 Lymph % (Auto) 13.1 L [place] % (Auto) 11.2 H Eos % (Auto) 2.7 Baso % (Auto) 0.6 Lymph # (Auto) 0.6 L [place] # (Auto) 0.5 Eos # (Auto) 0.1 Baso # (Auto) 0.0 Abs Immat Gran (auto) 0.04 H Absolute Neuts (auto) 3.4 Absolute Nucleated RBC 0.000 Nucleated RBC % (auto) 0.0 Neutrophils % (Manual) Band Neutrophils % Lymphocytes % (Manual) Monocytes % (Manual) Metamyelocytes % Myelocytes % Abs Neuts (Manual) Lymphocytes # (Manual) Monocytes # (Manual) Metamyelocytes # Myelocytes # Toxic Vacuolation Dohle Bodies Platelet Estimate Plt Morphology Comment RBC Morphology Horacio Cells Smear Tech's Comments PT 14.2 H D INR 1.2 H Sodium 133 L Potassium 2.9 L* Chloride 104 Carbon Dioxide 22 Anion Gap 10 L BUN 6 L Creatinine 0.49 L 0.46 L Estim Creat Clear Calc 127.2 135.5 Estimated GFR > 60 > 60 Random Glucose 98 Haptoglobin Lactic Acid Lactic Acid F/U @ 2Hr Lactic Acid F/U @ 4Hr Calcium 7.4 L D Magnesium Total Bilirubin 1.4 H Direct Bilirubin 1.0 H AST 185 H ALT 68 H Alkaline Phosphatase 83 Ammonia Lactate Dehydrogenase Troponin I High Sens Total Protein 4.6 L Albumin 2.5 L Vitamin B12 Folate Urine Color Urine Appearance Urine pH Ur Specific [place] Urine Protein Urine Glucose (UA) Urine Ketones Urine Blood Urine Nitrite Ur Leukocyte Esterase Urine RBC Urine WBC Ur Squamous Epith Cells Urine Bacteria Hyaline Casts Urine Osmolality Ur Random Sodium Stool Occult Blood Random Vancomycin 16.0 Urine Opiates Screen Ur Buprenorphine Scrn Ur Oxycodone Screen Urine Methadone Screen Urine Fentanyl Screen Ur Barbiturates Screen Ur Phencyclidine Scrn Ur Amphetamines Screen U Benzodiazepines Scrn Urine Cocaine Screen U Marijuana (THC) Screen Ethyl Alcohol Influenza Type A (PCR) Influenza Type B (PCR) RSV RNA Qual (PCR) SARS-CoV-2 RNA (RT-PCR) Blood Type Antibody Screen Crossmatch Airway Mallampati Class: II TM Dist: >3cm Neck ROM: Full Denture: Upper and Lower Heart: ok Lungs: ok Assessment and Plan Assessment Anesthesia Assessment: Anesthesia Plan Discussed and Chart Reviewed Final Anesthetic Review Family History of Problems with Anesthesia: No History of Problems with Anesthesia: No NPO: Yes ASA Class: IV Final Preanesthetic Review: No Changes in Pt Med Stat, Meds/Allgs Chart Reviewed, Consent Obtained/Reviewed and Anes Risks/Benef Reviewed Patient Risk: High Procedure Risk: Intermediate Anesthetic Plan Anesthetic Plan: Agree w/ Assess. and Plan and TIVA Disposition: Standard PACU
--- NOTE | 2025-04-30 12:53 | P.OPN-COLO_ITS ---
Colonoscopy Operative Note Operative Note Date of Service: 04/30/25 Narrative: Operative Information Procedure Description: EGD, Colonoscopy Indication: anemia Anesthesia: MAC FLEXIBLE TRANSORAL UPPER GASTROINTESTINAL ENDOSCOPY AND COLONOSCOPY PROCEDURE NOTE UPPER ENDOSCOPY Consent: Indications for the procedure and potential complications of bleeding, perforation, reaction to medications and missed diagnosis were discussed with the patient and informed consent was obtained. Instrument: Olympus GIF H 190 J mid size upper endoscope Monitoring: Vital signs and clinical assessment, continuous EKG monitoring, Pulse oximetry, Carbon Dioxide monitoring and blood pressure monitoring were done throughout the procedure. Procedure: The patient was placed in the left lateral decubitis position and pre-procedure medications were administered and a bite block was placed. The endoscope was inserted into the mouth and advanced under direct vision to the third part of duodenum. A careful inspection was made as the upper endoscope was withdrawn including a retroflexed examination of the proximal stomach; Findings and interventions are described below. Findings: Larynx:normal Esophagus: GE junction at 40 cm, diaphragm hiatus at 40 cm, normal mucosa - no varices seen Stomach: Mosaic pattern and congestion proxiaml stomach consistent with portal hypertensive gastropathy Biopsies were obtained. Grade 2 flap valve on retroflexed examination of the cardia. no gastric varices seen. Mild ischemia in distal stomach noted with gastritis. Duodenum: moderate severe duodenitis in bulb and patchy erythema in second part of duodenum, no active bleeding seen, bx taken Intervention: Biopsies as noted above, COLONOSCOPY Instrument: Olympus variable stiffness pediatric scope 190L Colonoscopy Monitoring: Vital signs and clinical assessment, continuous EKG monitoring, Pulse oximetry, Carbon Dioxide monitoring and blood pressure monitoring were done throughout the procedure. Colon withdrawal time was 15 minutes. Procedure: The patient was placed in the left lateral decubitis position and pre-procedure medications were administered. After a digital rectal examination of the ano-rectum, the video colonoscope was inserted into the rectum and advanced through the colon to the cecum/TI. The colonoscope was slowly withdrawn in a retrograde panoramic fashion and the colon mucosa was carefully examined including a retroflexed view of the rectum. Findings and interventions are described below. Procedure Difficulty:moderate Findings: Terminal Ileum-normal, bx taken Cecum: erythema, bx taken, 2 mm sessile polyp near appendiceal orifice raised with eleview and then removed with cold forceps Ascending Colon: Transverse Colon -normal Descending Colon: 6-8 mm flat polyp lifted with eleview and removed with cold snare Sigmoid Colon: mild diverticulosis Rectum: Retroflexion with small internal hemorrhoids, grade I, patchy erythema with few erosions extending to distal sigmoid, bx taken Anorectum - normal Colon preparation: [place] Bowel Preparation Scale Right colon; 2 Transverse colon: 2 Left colon; 2 (0 = Unprepared colon segment with mucosa not seen due to solid stool that cannot be cleared. 1 = Portion of mucosa of the colon segment seen, but other areas of the colon segment not well seen due to staining, residual stool and/or opaque liquid. 2 = Minor amount of residual staining, small fragments of stool and/or opaque liquid, but mucosa of colon segment seen well. 3 = Entire mucosa of colon segment seen well with no residual staining, small fragments of stool or opaque liquid) Impression and Post Procedure Diagnosis: Endoscopy Findings: gastritis portal hypertensive gastropathy duodenitis Colonoscopy Findings: diverticulosis colon polyps x 2 internal hemorrhoids colitis possibly 2/2 prolapse or constipation related stercolitis Plan: Await Pathology results Repeat Colonoscopy in 3-4 years if adenomatous polyps, or earlier if clinically indicated High fiber diet leaflet avoid straining at stool, epsom salts and sitz bath, anusol supps or cream avoid constipation, cont wtih PPI, can stop octreotide Above findings were reviewed with the patient and relevant handouts were provided if indicated.
--- NOTE | 2025-04-30 13:12 | P.PNIM_ITS ---
Subjective Subjective Date of Service: 04/30/25 Interval History: seen and evaluated alert and interactive on O2 supplement cultures negative no other events Review of Systems Review of Systems: Yes all other systems are reviewed and are negative Physical Exam 2 Vital Signs: Vital Signs: Last Vital Signs Temp 98.7 F 04/30/25 12:19 Pulse 76 04/30/25 12:19 Resp 17 04/30/25 12:19 BP 133/69 04/30/25 12:19 Pulse Ox 94 04/30/25 12:19 O2 Del Method Room Air 04/30/25 12:19 O2 Flow Rate 2 04/30/25 07:55 BMI result Body Mass Index 29.7 Const: Other: Constitutional : Awake, interactive, mild tremors , scleral jaundice Neck : Normal inspection, Supple Cardiovascular : RRR, no JVP, no lower extremity edema Respiratory : good bilateral air entry, no crackles Gastrointestinal: soft, lax, Normal bowel sounds, Non tender Skin : Warm, Dry Neurological : Alert & oriented x3, No focal deficit Objective Data Active Medications Acetaminophen (Acetaminophen 325 Mg Tablet) 975 mg PO Q6H PRN PRN Reason: Fever Last Admin: 04/29/25 15:59 Dose: 975 mg Documented By: PARUL Albuterol Sulfate (Albuterol Sulfate (0.083%) 2.5 Mg/3 Ml Vial.Neb) 2.5 mg INHALE Q3H PRN PRN Reason: wheezing Hydromorphone HCl (Hydromorphone Hcl 0.5 Mg/0.5 Ml Syringe) 0.5 mg IVPUSH Q3H PRN; Protocol PRN Reason: Pain, Severe (Pain Scale 7-10) Norepinephrine Bitartrate (Levophed) 8 mg in 250 mls @ 0 mls/hr IVCONT .Q0M GLADIS; Protocol On Hold: 04/27/25 13:02 Octreotide Acetate 500 mcg/ (Sodium Chloride) 501 mls @ 50.1 mls/hr IVCONT .Q10H GLADIS Last Admin: 04/30/25 11:16 Dose: 50 mcg/hr, 50.1 mls/hr Documented By: BETHANY Thiamine HCl 100 mg/ Sodium (Chloride) 101 mls @ 202 mls/hr IV DAILY GLADIS Last Infusion: 04/30/25 09:51 Dose: Infused Documented By: BETHANY Piperacillin Sod/Tazobactam (Sod 4.5 gm/ Sodium Chloride) 100 mls @ 200 mls/hr IV Q6H [facility] Last Infusion: 04/30/25 12:05 Dose: Infused Documented By: BETHANY Vancomycin HCl 1,000 mg/Vancomycin HCl 750 mg/ Sodium Chloride 535 mls @ 267.5 mls/hr IV Q12H [facility] Last Infusion: 04/30/25 07:30 Dose: Infused Documented By: STAN Naloxone HCl (Naloxone Hcl 0.4 Mg/Ml Vial) 0.04 mg IVPUSH Q5M PRN PRN Reason: Excessive sedation or RR < 8 Pantoprazole Sodium (Pantoprazole Sodium 40 Mg/10 Ml Vial) 40 mg IVPUSH BID@0630,1630 [facility] Last Admin: 04/30/25 07:59 Dose: 40 mg Documented By: STAN Pharmacy Consult (Consult Rx Etoh Phenob Im/Po) 1 each MISCELLANE ONCE PRN; Protocol PRN Reason: Consult order Pharmacy Consult (Consult Rx Vancomycin Dosing) 1 each MISCELLANE DAILY PRN PRN Reason: Consult order Phenobarbital (Phenobarbital 30 Mg Tablet) 30 mg PO BID [facility]; Protocol Stop: 05/01/25 21:01 Last Admin: 04/30/25 09:21 Dose: 30 mg Documented By: BETHANY Phenobarbital (Phenobarbital 30 Mg Tablet) 30 mg PO DAILY [facility]; Protocol Stop: 05/03/25 09:01 Sodium Chloride (0.9 % Sodium Chloride Flush 3 Ml Syringe) 3 ml IVFLUSH QSHIFT [facility] Last Admin: 04/30/25 09:21 Dose: 3 ml Documented By: BETHANY Labs 04/30/25 06:35 04/30/25 06:35 Labs: Laboratory Results - last 24 hr 04/29/25 04/30/25 14:06 06:35 MCV 101.2 H MCH 36.3 H MCHC 35.8 H RDW 13.0 Plt Count 72 L MPV 12.9 H Immature Gran % (Auto) 0.8 H Neut % (Auto) 71.6 Lymph % (Auto) 13.1 L [place] % (Auto) 11.2 H Eos % (Auto) 2.7 Baso % (Auto) 0.6 Lymph # (Auto) 0.6 L [place] # (Auto) 0.5 Eos # (Auto) 0.1 Baso # (Auto) 0.0 Abs Immat Gran (auto) 0.04 H Absolute Neuts (auto) 3.4 Absolute Nucleated RBC 0.000 Nucleated RBC % (auto) 0.0 PT 14.2 H D INR 1.2 H Anion Gap 10 L Estim Creat Clear Calc 135.5 Estimated GFR > 60 Random Glucose 98 Calcium 7.4 L D Total Bilirubin 1.4 H Direct Bilirubin 1.0 H AST 185 H ALT 68 H Alkaline Phosphatase 83 Total Protein 4.6 L Albumin 2.5 L Random Vancomycin 16.0 Microbiology Microbiology Results: Microbiology 04/27/25 05:52 Urine Culture - Preliminary Urine Catheterized - Straight Catheter Yeast 04/28/25 16:32 Blood Culture - Preliminary Blood - Venous No growth after 24 hours. 04/28/25 16:32 Blood Culture - Preliminary Blood - Venous No growth after 24 hours. Assessment and Plan (1) Alcohol use disorder, moderate, dependence: Status: Acute (2) GI bleeding: Status: Acute (3) Pneumonia: Status: Acute (4) Weakness: Status: Acute (5) Sepsis: Status: Acute (6) Acute hyponatremia: Status: Acute Plan Erika Smith is a 65 y/o woman admitted with: Acute blood loss anemia due gastrointestinal bleeding DDx: Esophageal varices, gastritis, PUD, cancer, AVM Hb stable at 12 PRBC transfused at least 1 unit of blood Protonix 40 mg IV every 12 hours. Vitamin K 10 mg IV one dose octreotide IV infusion to DC Abdominal ultrasound GI consulted . EGD and Colonoscopy today Pneumonia, likely aspiration; UTI complicated with sepsis Urine and blood cultures negative dc vancomycin and keep Zosyn Alcohol abuse with withdrawal continue CIWA. Thiamine 100 mg IV daily. folic acid and multivitamins Phenobarbital protocol Patient was advised to abstain for drinking. addiction team acute Lactic acidosis secondary to alcohol abuse and sepsis due to pneumonia UTI. improved with fluids Elevated troponin, likely secondary to anemia/demand ischemic. No chest pain. Continue to monitor troponin. Thrombocytopenia, likely secondary to chronic liver disease Trending down. Continue to monitor for now. acute Hyponatremia secondary to alcohol abuse and chronic liver disease Improved from 120 on admission to 132 serum osmolality, urine osmolality and urine sodium monitor BMP Essential hypertension Hold amlodipine and lisinopril due to hypotension and bleeding. Continue to monitor. COPD Bronchodilator therapy as needed. Patient advised to quit smoking. Hyperlipidemia Restart statin when able. Tobacco dependence Tobacco cessation education. DVT prophylaxis: SCDs Code status: Full Patient will need hospitalization overnight for acute blood loss anemia secondary to gastrointestinal bleeding treatment with PRBC transfusions, close monitoring of vital signs and evaluation by subspecialty for EGD and colonoscooy tomorrow Quality Stroke Does the patient have a stroke diagnosis?: No VTE Prior VTE?: No VTE Risk Level:: Medical - moderate - high VTE Device Contraindication: N/A - Device Ordered VTE Drug Contraindication: Treatment Not Indicated
[2025-04-30] MEDS: Acetaminophen 325 MG TABLET 975 MG PO (14:22)
[2025-04-30 14:26] LABS: Vancomycin Random 21.1 mcg/mL (15-20)
--- NOTE | 2025-04-30 16:15 | MHC.CM.PN ---
EMR reviewed and per MD rounds, pt is not medically cleared for discharge at this time, PT eval pending.
[2025-04-30] MEDS: HYDROmorphone HCl 0.5 MG/0.5 ML SYRINGE IVPUSH (17:52)
[2025-05-01] VITALS (11 sets, daily range): BP systolic 111–142; BP diastolic 57–67; PULSE 68–82; RESP 16–20; TEMP 36.4–37.2; O2SAT 86–95
[2025-05-01] MEDS: Piperacillin Sodium/Tazobactam 4.5 GM in 0.9 % Sodium Chloride 100 ML IV ×4 (05:03→23:55)
[2025-05-01 07:02] LABS: MANUAL DIFF FLAG NO
[2025-05-01 07:04] LABS: Basophils Percent Auto 0.9 % (0-2); Eosinophils Absolute Auto 0.2 X10*3/uL (0.0-0.4); Eosinophils Percent Auto 4.8 % (0-4); Hematocrit 34.2 % (37.0-47.0); Imm Gran Abs Auto 0.05 X10*3/uL (0.00-0.03); Imm Gran Pct Auto 1.2 % (0.0-0.4); Lymphocytes Absolute Auto 0.8 X10*3/uL (1.2-4.9); Lymphocytes Percent Auto 17.5 % (20-40); Mean Corpuscular HGB Conc 35.1 g/dl (31.0-35.0); Mean Corpuscular Hemoglobin 35.8 pg (27.0-33.0); Mean Corpuscular Volume 102.1 fL (80.0-98.0); Mean Platelet Volume 12.2 fL (9.4-12.3); Monocytes Absolute Auto 0.5 X10*3/uL (0.1-1.2); Monocytes Percent Auto 11.1 % (2-11); Neutrophils Absolute Auto 2.8 x10*3/uL (2.0-8.3); Neutrophils Percent Auto 64.5 % (45-73); Platelet Count 100 X10*3/uL (160-400); Red Blood Count 3.35 X10*6/uL (4.20-5.50); Red Cell Distribution Width 12.8 % (11.0-16.0); White Blood Count 4.3 X10*3/uL (4.8-10.8)
[2025-05-01 07:21] LABS: Anion Gap 11 (12-20); Blood Urea Nitrogen 5 mg/dL (9-16); Calcium 7.7 mg/dL (8.4-10.2); Carbon Dioxide 24 mmol/L (22-29); Chloride 101 mmol/L (96-108); Creatinine Clr Calc Pharmacy 132.6; Estimated Glomerular Filt Rate > 60; Glucose Random 96 mg/dL (60-115); Potassium 3.2 mmol/L (3.3-5.1); Sodium 133 mmol/L (135-145)
[2025-05-01 07:27] LABS: Alanine Aminotransferase 68 U/L (0-31); Albumin Level 2.5 g/dL (3.5-5.0); Alkaline Phosphatase 97 U/L (39-117); Aspartate Amino Transferase 157 U/L (5-31); Bilirubin Direct 0.9 mg/dL (0.0-0.5); Bilirubin Total 1.2 mg/dL (0.0-1.0); Creatinine Clr Calc Pharmacy 129.8; Estimated Glomerular Filt Rate > 60; Total Protein 4.8 g/dL (6.5-8.0)
[2025-05-01] MEDS: 0.9 % Sodium Chloride Flush 3 ML SYRINGE IVFLUSH ×3 (09:18→20:55)
[2025-05-01] MEDS: HYDROmorphone HCl 0.5 MG/0.5 ML SYRINGE IVPUSH ×2 (09:19→20:55)
[2025-05-01] MEDS: Omeprazole 40 MG CAPSULE.DR PO ×2 (09:20→16:57)
[2025-05-01] MEDS: PHENobarbitaL 30 MG TABLET PO ×2 (09:20→20:55)
[2025-05-01] MEDS: Thiamine HCL 100 MG in 0.9 % Sodium Chloride 100 ML 200 MG IV (09:24)
[2025-05-01] MEDS: Potassium Chloride ER 20 MEQ TAB.ER.PRT PO (11:02)
[2025-05-01] MEDS: Benzonatate 100 MG CAPSULE PO ×3 (11:02→20:55)
--- NOTE | 2025-05-01 13:22 | MHC.CM.PN ---
Patient's first choice of STR is [facility], she has been accepted there, anticipate DC at 1pm on Mon05/02/25.
--- NOTE | 2025-05-01 15:26 | P.PNIM_ITS ---
Subjective Subjective Date of Service: 05/01/25 Interval History: seen and evaluated alert and interactive on O2 supplement complaining of cough no other events Review of Systems Review of Systems: Yes all other systems are reviewed and are negative Physical Exam 2 Vital Signs: Vital Signs: Last Vital Signs Temp 97.9 F 05/01/25 15:14 Pulse 77 05/01/25 15:14 Resp 20 05/01/25 15:14 BP 123/60 05/01/25 15:14 Pulse Ox 92 05/01/25 15:14 O2 Del Method Room Air 05/01/25 15:14 O2 Flow Rate 2 04/30/25 07:55 BMI result Body Mass Index 29.7 Const: Other: Constitutional : Awake, interactive, mild tremors , scleral jaundice Neck : Normal inspection, Supple Cardiovascular : RRR, no JVP, no lower extremity edema Respiratory : good bilateral air entry, no crackles Gastrointestinal: soft, lax, Normal bowel sounds, Non tender Skin : Warm, Dry Neurological : Alert & oriented x3, No focal deficit Objective Data Active Medications Acetaminophen (Acetaminophen 325 Mg Tablet) 975 mg PO Q6H PRN PRN Reason: Fever Last Admin: 04/30/25 14:22 Dose: 975 mg Documented By: BETHANY Albuterol Sulfate (Albuterol Sulfate (0.083%) 2.5 Mg/3 Ml Vial.Neb) 2.5 mg INHALE Q3H PRN PRN Reason: wheezing Benzonatate (Benzonatate 100 Mg Capsule) 100 mg PO TID GLADIS Last Admin: 05/01/25 11:02 Dose: 100 mg Documented By: CALE Gabapentin (Gabapentin 100 Mg Capsule) 200 mg PO BEDTIME [facility] Hydromorphone HCl (Hydromorphone Hcl 0.5 Mg/0.5 Ml Syringe) 0.5 mg IVPUSH Q3H PRN; Protocol PRN Reason: Pain, Severe (Pain Scale 7-10) Last Admin: 05/01/25 09:19 Dose: 0.5 mg Documented By: CALE Thiamine HCl 100 mg/ Sodium (Chloride) 101 mls @ 202 mls/hr IV DAILY GLADIS Last Infusion: 05/01/25 10:00 Dose: Infused Documented By: CALE Piperacillin Sod/Tazobactam (Sod 4.5 gm/ Sodium Chloride) 100 mls @ 200 mls/hr IV Q6H [facility] Last Infusion: 05/01/25 11:32 Dose: Infused Documented By: CALE Naloxone HCl (Naloxone Hcl 0.4 Mg/Ml Vial) 0.04 mg IVPUSH Q5M PRN PRN Reason: Excessive sedation or RR < 8 Omeprazole (Omeprazole 40 Mg Capsule.Dr) 40 mg PO DAILY@0630 [facility] Last Admin: 05/01/25 09:20 Dose: 40 mg Documented By: CALE Pharmacy Consult (Consult Rx Etoh Phenob Im/Po) 1 each MISCELLANE ONCE PRN; Protocol PRN Reason: Consult order Phenobarbital (Phenobarbital 30 Mg Tablet) 30 mg PO BID [facility]; Protocol Stop: 05/01/25 21:01 Last Admin: 05/01/25 09:20 Dose: 30 mg Documented By: CALE Phenobarbital (Phenobarbital 30 Mg Tablet) 30 mg PO DAILY [facility]; Protocol Stop: 05/03/25 09:01 Sodium Chloride (0.9 % Sodium Chloride Flush 3 Ml Syringe) [facility] Last Admin: 05/01/25 09:18 Dose: 3 ml Documented By: CALE Labs 05/01/25 06:16 05/01/25 06:16 Labs: Laboratory Results - last 24 hr 05/01/25 05/01/25 05/01/25 06:16 06:16 06:16 MCV 102.1 H MCH 35.8 H MCHC 35.1 H RDW 12.8 Plt Count 100 L D MPV 12.2 Immature Gran % (Auto) 1.2 H Neut % (Auto) 64.5 Lymph % (Auto) 17.5 L [place] % (Auto) 11.1 H Eos % (Auto) 4.8 H Baso % (Auto) 0.9 Lymph # (Auto) 0.8 L [place] # (Auto) 0.5 Eos # (Auto) 0.2 Baso # (Auto) 0.0 Abs Immat Gran (auto) 0.05 H Absolute Neuts (auto) 2.8 Absolute Nucleated RBC 0.000 Nucleated RBC % (auto) 0.0 Anion Gap 11 L Estim Creat Clear Calc 129.8 132.6 Estimated GFR > 60 > 60 Random Glucose 96 Calcium 7.7 L Total Bilirubin 1.2 H Direct Bilirubin 0.9 H AST 157 H ALT 68 H Alkaline Phosphatase 97 Total Protein 4.8 L Albumin 2.5 L Microbiology Microbiology Results: Microbiology 04/27/25 05:52 Urine Culture - Final Urine Catheterized - Straight Catheter Nasreen glabrata 04/28/25 16:32 Blood Culture - Preliminary Blood - Venous No growth after 48 hours. 04/28/25 16:32 Blood Culture - Preliminary Blood - Venous No growth after 48 hours. Assessment and Plan (1) Alcohol use disorder, moderate, dependence: Status: Acute (2) GI bleeding: Status: Acute Plan Erika Smith is a 65 y/o woman admitted with: Acute blood loss anemia due gastrointestinal bleeding Hb stable at 12 after PRBC transfused 1 unit of blood Protonix 40 mg IV every 12 hours., switch to PO Vitamin K 10 mg IV one dose dcd octreotide IV infusion Abdominal ultrasound GI consulted . EGD and Colonoscopy showed , Gastritis, Dyodenitis, Portal hypertensive gastropathy, diverticulosis, polyps and internal hemorroids with colitis changes high fiber diet , avoid constipation repeat Colonoscopy in 3-4 years Pneumonia, likely aspiration; UTI complicated with sepsis Urine and blood cultures negative dc vancomycin and continue Zosyn Acute hypokalemia replacement given Alcohol abuse with withdrawal continue CIWA. Thiamine, folic acid and multivitamins change to po Phenobarbital protocol Patient was advised to abstain for drinking. addiction team following acute Lactic acidosis secondary to alcohol abuse and sepsis due to pneumonia UTI. improved with fluids Elevated troponin, likely secondary to anemia/demand ischemic. No chest pain. Continue to monitor troponin. Thrombocytopenia, likely secondary to chronic liver disease Trending down. Continue to monitor for now. acute Hyponatremia secondary to alcohol abuse and chronic liver disease Improved from 120 on admission to 132 serum osmolality, urine osmolality and urine sodium monitor BMP Essential hypertension Hold amlodipine and lisinopril due to hypotension and bleeding. Continue to monitor. COPD Bronchodilator therapy as needed. Patient advised to quit smoking. Hyperlipidemia Restart statin when able. Tobacco dependence Tobacco cessation education. DVT prophylaxis: SCDs Code status: Full Patient will need hospitalization overnight for acute blood loss anemia secondary to gastrointestinal bleeding treatment with PRBC transfusions, close monitoring of vital signs and evaluation by subspecialty for EGD and colonoscooy tomorrow Quality Stroke Does the patient have a stroke diagnosis?: No VTE Prior VTE?: No VTE Risk Level:: Medical - moderate - high VTE Device Contraindication: N/A - Device Ordered VTE Drug Contraindication: Treatment Not Indicated
--- NOTE | 2025-05-01 18:05 | PC.NURSE ---
Dr Celis requested clamp trial of degroot catheter. Degroot clamped for 4 hours. Unclamped with 200cc urine draining. Bladder scanned for 214cc. Dr. Celis notified. Provider requested leaving degroot in situ.
[2025-05-01] MEDS: Gabapentin 100 MG CAPSULE 200 MG PO (20:55)
[2025-05-02 03:03] VITALS: BP 134/60; PULSE 71; RESP 18; TEMP 36.2; O2SAT 95
[2025-05-02] MEDS: Piperacillin Sodium/Tazobactam 4.5 GM in 0.9 % Sodium Chloride 100 ML IV ×2 (05:34→09:13)
[2025-05-02] MEDS: Omeprazole 40 MG CAPSULE.DR PO (05:34)
[2025-05-02 06:56] VITALS: BP 128/60; PULSE 71; RESP 20; TEMP 36.6; O2SAT 94
[2025-05-02 07:39] LABS: Creatinine Clr Calc Pharmacy 127.2; Estimated Glomerular Filt Rate > 60
[2025-05-02 07:52] LABS: Anion Gap 11 (12-20); Blood Urea Nitrogen 4 mg/dL (9-16); Calcium 8.1 mg/dL (8.4-10.2); Carbon Dioxide 27 mmol/L (22-29); Chloride 101 mmol/L (96-108); Creatinine Clr Calc Pharmacy 129.8; Estimated Glomerular Filt Rate > 60; Glucose Random 103 mg/dL (60-115); Potassium 3.5 mmol/L (3.3-5.1); Sodium 135 mmol/L (135-145)
[2025-05-02] MEDS: Folic Acid 1 MG TABLET PO (08:26)
[2025-05-02] MEDS: Benzonatate 100 MG CAPSULE PO ×2 (08:26→13:53)
[2025-05-02] MEDS: Thiamine HCL 100 MG TABLET PO (08:26)
[2025-05-02] MEDS: Multivitamin TABLET 1 TAB PO (08:26)
[2025-05-02] MEDS: PHENobarbitaL 30 MG TABLET PO (08:27)
[2025-05-02] MEDS: 0.9 % Sodium Chloride Flush 3 ML SYRINGE IVFLUSH (08:27)
--- NOTE | 2025-05-02 09:02 | MHC.CM.PN ---
PT MEDICALLY CLEARED FOR DC TO STR AT [facility] FOR TRANSPORT AT 1PM. IMM 05/02/25 DELIVERED BY PREVIOUS CM.
[2025-05-02] MEDS: oxyCODONE HCl Immed Release 5 MG TABLET PO ×2 (09:13→13:54)
--- NOTE | 2025-05-02 09:25 | PM.DS ---
DS: Providers Provider Date of Service: 05/02/25 Date of admission: 04/27/25 12:33 Date of discharge: 05/02/25 Primary care physician: Unknown Physician Consults: 04/27/25 12:26 Consult to Gastroenterology Routine Consulting Provider: Garry Maher Reason for consultation: CLD, GI bleeding, worsening anemia Has provider been notified: Yes 04/28/25 11:07 Addiction Medicine Provider Routine Consulting Provider: Addiction Covering Reason for consultation: alcohol abuse DS: Diagnosis Discharge Diagnosis (1) Alcohol use disorder, moderate, dependence: Status: Acute (2) GI bleeding: Status: Acute (3) Occult GI bleeding: Status: Acute (4) Pneumonia: Status: Acute (5) Weakness: Status: Acute (6) Sepsis: Status: Acute (7) Acute hyponatremia: Status: Acute (8) Abnormal LFTs: Status: Acute (9) Acute hypokalemia: Status: Acute DS: Summary Hospital Course Hospital Course: Admission note HPI Erika Smith is a 65 years old woman with past medical history significant for COPD, alcohol abuse and hypertension presents to the emergency department complaining of worsening generalized weakness has been going on for months. Patient is complaining of bilateral time numbness (right> left). She fell this morning and landed on her knees. Denied loss of consciousness, dizziness, shortness of breath, nausea, abdominal pain, cough, chest pain, vomiting or diarrhea. No fever or chills reported. She mentioned that her suicide in the darker side. She has an ongoing alcohol abuse -drinks beer and wine (was not very precise on how many alcoholic drinks she she consumes daily). Last alcoholic drink was 2 days ago. Denied history of variceal bleeding or endoscopies. She takes ibuprofen as needed. She asked tobacco smoker since age 15. Smokes marijuana in occasions. In the ED, she was found to have fever of 101.9 and tachycardia. Subsequently he started to develop worsening hypotension (lower 89/51). She is currently requiring 2 L/min supplemental oxygen via nasal cannula after her O2 sat dropped to 88%. Hemoglobin dropped from 13.4 to 9.4 over 6 hours. There is no leukocytosis. There is lactic acidosis 2.2--> 2.3. Platelets are trending down 95 --> 59. There is hyponatremia 120 --> 121. Hypokalemia, hypochloremia mildly elevated CO2 21. Renal function is normal. Glucose is 139. Troponin 17.6--> 140.1. Urine drug screen is positive for marijuana. ETOH level < 10 Urinalysis consistent with urinary tract infection. Stool for occult blood is positive. Viral testing is negative for influenza, RSV and COVID-19. ED tx: Ceftriaxone 1 g IV, azithromycin 500 mg IV, pantoprazole 80 mg IV, lactulose 20 g PO, potassium 40 mEq PO x1, LR 3,580 ml bolus, albumin 133.333 ml/hr, Tyleno 975 mg PO. Hospital course The patient was followed for the following: # Acute blood loss anemia due gastrointestinal bleeding Hb stable at 12 after PRBC transfused 1 unit of blood. no obvious bleeding noted. treated with Protonix 40 mg IV every 12 hours, Octreotide infusion and Vit K., switched to PO Omeprazole at time of discharge. Abdominal ultrasound was negative for any acute findings. GI consulted and did an EGD and Colonoscopy showed , Gastritis, Duodenitis, Portal hypertensive gastropathy, diverticulosis, polyps and internal hemorroids with colitis changes. recommended high fiber diet , avoid constipation and to continue with PPI and repeat Colonoscopy in 3-4 years. # Pneumonia, likely aspiration; UTI complicated with sepsis . Urine and blood cultures negative. Treated with vancomycin and continue Zosyn. To continue Augmentin for 5 more days. # Acute hypokalemia, replacement given and resolved. # Alcohol abuse with withdrawal. continue CIWA. Thiamine, folic acid and multivitamins change to po. Phenobarbital protocol finished. Patient was advised to abstain for drinking. addiction team followed her. # acute Lactic acidosis. secondary to alcohol abuse and sepsis due to pneumonia UTI. improved with fluids # Elevated troponin, likely secondary to anemia/demand ischemic. No chest pain. no intervention at this point # Thrombocytopenia, likely secondary to chronic liver disease. stable. # acute Hyponatremia secondary to alcohol abuse and chronic liver disease. Improved from 120 on admission to 135. serum osmolality, urine osmolality and urine sodium Discharge plan Continue Omeprazole two times a day Augmentin for 5 more days Start Gabapentin at bedtime Thiamine and Folic acid The patient will likely need less than 30 days of SNF stay. Time Attestation Discharge Coordination Time (in mins): 39 Quality: Safe Use of Opioids Does Pt have an Active Cancer Diagnosis on the Problem List?: No Quality: Stroke Does the patient have a stroke diagnosis?: No Physical Exam Vital Signs: Vital Signs: Last Vital Signs Temp 97.8 F 05/02/25 06:56 Pulse 71 05/02/25 06:56 Resp 20 05/02/25 06:56 BP 128/60 05/02/25 06:56 Pulse Ox 94 05/02/25 06:56 O2 Del Method Room Air 05/02/25 06:56 O2 Flow Rate 2 05/02/25 03:03 BMI result Body Mass Index 29.7 Const: Other: Constitutional : Awake, interactive, mild jaundice Neck : Normal inspection, Supple Cardiovascular : RRR, no JVP, no lower extremity edema Respiratory : good bilateral air entry, no crackles Gastrointestinal: soft, lax, Normal bowel sounds, Non tender Skin : Warm, Dry Neurological : Alert & oriented x3, No focal deficit DS: Data Data Completed and Pending Completed studies during hospitalization [Text1]: Procedures Replacement of Right Hip Joint with Synthetic Substitute, Uncemented, Open Approach (08/09/22) Pending studies at discharge: Pending at discharge 04/30/25 13:19 Surgical [PTH] Routine Labs on day of discharge: Laboratory Results - last 24 hr 05/02/25 05/02/25 06:52 06:53 Sodium 135 Potassium 3.5 Chloride 101 Carbon Dioxide 27 Anion Gap 11 L BUN 4 L Creatinine 0.49 L 0.48 L Estim Creat Clear Calc 127.2 129.8 Estimated GFR > 60 > 60 Random Glucose 103 Calcium 8.1 L Preliminary micro results at discharge 04/28/25 16:32 Blood Culture - Preliminary Blood - Venous No growth after 48 hours. 04/28/25 16:32 Blood Culture - Preliminary Blood - Venous No growth after 48 hours. Imaging Chest x-ray: Radiologist's impression: IMPRESSION: 1. No ascites. 2. Slightly lobulated contour of an otherwise normal liver, which could be artifactual or related to underlying cirrhosis. Discharge Plan Discharge Anticipated Discharge Date/Time: 05/02/25 09:20 Patient Disposition: Xfer SNF Discharge Diagnosis: GI bleed Alcohol abuse and withdrawal Pneumonia Referrals: [facility] [Outside] - 1 Day Referral Note: SHORT TERM REHAB Physician,Unknown J [Primary Care Provider, Medical] - 1 Week Discharge Medications: New omeprazole 40 mg Capsule,Delayed Release(Dr/Ec) 40 mg PO BID@0630,1630 Qty: 60 0RF folic acid 1 mg Tablet 1 mg PO DAILY Qty: 90 0RF gabapentin 100 mg Capsule 200 mg PO BEDTIME Qty: 60 0RF thiamine mononitrate (vit B1) 100 mg Tablet 100 mg PO DAILY Qty: 90 0RF amoxicillin-pot clavulanate 400-57 mg/5 mL suspension for reconstitution 10 ml PO BID 5 Days Qty: 100 0RF Continued (DME) Elevated toliet seat See Rx Instructions .ROUTE .MEDSUPPLY Qty: 1 0RF Rx Instructions: As directed (DME) shower bench See Rx Instructions .ROUTE .MEDSUPPLY Qty: 1 0RF Rx Instructions: M16.11 Right hip OA height 67 210 lbs Patient is unable to shower or lift leg beyond 90 degrees. cholecalciferol (vitamin D3) [Vitamin D3] 25 mcg (1,000 unit) Capsule 25 mcg PO DAILY multivitamin Tablet 1 tab PO Q OTHER DAY cyanocobalamin (vitamin B-12) 1,000 mcg Tablet 1,000 mcg PO DAILY lisinopril 10 mg tablet 10 mg PO DAILY amlodipine 10 mg tablet 10 mg PO DAILY Qty: 90 3RF atorvastatin 10 mg tablet 10 mg PO QPM Qty: 90 1RF Discharge Orders: Discharge Order (Routine); Ordered 05/02/25 Ordered By: Ted Celis Diet: Low salt diet Activity on Discharge: As tolerated Stand Alone Forms: Patient Portal Discharge page Print Language: Chinese Care Plan Goals: Continue Omeprazole two times a day Augmentin for 5 more days Start Gabapentin at bedtime Thiamine and Folic acid Health Concerns: GI bleed Alcohol abuse Pneumonia Plan of Treatment: Antibiotics Omeprazole Ganapentin Assessment: as above
[2025-05-02 10:55] VITALS: BP 131/59; PULSE 81; RESP 20; TEMP 36.6; O2SAT 94
[2025-05-02] MEDS: Acetaminophen 325 MG TABLET 975 MG PO (13:54)
== END 2025-05-02 14:38 | disposition skilled nursing facility (03) | DRG 871 ==
LOC: HO.ED 12:29 → HO.EDOVER 12:33 → HO.IMC 15:55
PROVIDERS: Emergency Medicine; Internal Medicine Gastroenterology; Physician Assistant Medical; Admitting Provider Internal Medicine; Emergency Provider Emergency Medicine; Visit Provider Student in an Organized Health Care Education/Training Program
PROC: 0DB78ZX Excision of Stomach, Pylorus, Via Natural or Artificial Opening Endoscopic, Diagnostic (ICD-10-PCS; principal; 2025-04-30 14:30)
DX: A41.9 Sepsis, unspecified organism (principal); J69.0 Pneumonitis due to inhalation of food and vomit; K29.71 Gastritis, unspecified, with bleeding; K29.81 Duodenitis with bleeding; K57.31 Diverticulosis of large intestine without perforation or abscess with bleeding; E87.1 Hypo-osmolality and hyponatremia; D62 Acute posthemorrhagic anemia; F10.239 Alcohol dependence with withdrawal, unspecified; K76.6 Portal hypertension; E87.21 Acute metabolic acidosis; E87.6 Hypokalemia; D69.59 Other secondary thrombocytopenia; J44.9 Chronic obstructive pulmonary disease, unspecified; E78.5 Hyperlipidemia, unspecified; K31.89 Other diseases of stomach and duodenum; K52.89 Other specified noninfective gastroenteritis and colitis; K64.0 First degree hemorrhoids; K63.5 Polyp of colon; K76.9 Liver disease, unspecified; D12.0 Benign neoplasm of cecum; I10 Essential (primary) hypertension; F17.210 Nicotine dependence, cigarettes, uncomplicated; Z71.6 Tobacco abuse counseling; I95.9 Hypotension, unspecified; Z71.41 Alcohol abuse counseling and surveillance of alcoholic; Z20.822 Contact with and (suspected) exposure to COVID-19; Z79.899 Other long term (current) drug therapy
CPT/HCPCS: 0241U; 36415; 71045; 72190; 73552; 76705; 80048; 80053; 80076; 80202; 80307; 81001; 81003; 82140; 82272; 82565; 82607; 82746; 83010; 83605; 83615; 83735; 83935; 84295; 84300; 84484; 85007; 85025; 85027; 85610; 86850; 86900; 86901; 86923; 87040; 87086; 87088; 88305; 88313; 88342; 93005; 97162; 99285; J0456; J0696; J1171; J2003; J2354; J2470; J2543; J2560; J2704; J3370; J3371; J3411; J3430; J3480; J7120; P9016; P9047

== ENCOUNTER → 2025-04-27 05:32 | Outpatient (BNV) | payer MEDICARE, MEDICAID, SELFPAY | PROVIDERS: Emergency Provider Emergency Medicine; Visit Provider Internal Medicine Cardiovascular Disease | DX: R00.0 Tachycardia, unspecified (principal) | CPT/HCPCS: 93010 ==

== ENCOUNTER → 2025-04-27 05:32 | Outpatient (BNV) | payer MEDICARE, MEDICAID, SELFPAY | PROVIDERS: Emergency Provider Emergency Medicine; Visit Provider Specialist | DX: K74.60 Unspecified cirrhosis of liver (principal); R18.8 Other ascites; R10.2 Pelvic and perineal pain; M79.651 Pain in right thigh; W19.XXXA Unspecified fall, initial encounter; R91.8 Other nonspecific abnormal finding of lung field | CPT/HCPCS: 71045; 72190; 73552 ==

== ENCOUNTER → 2025-04-27 12:33 | Outpatient (BNV) | payer MEDICARE, MEDICAID, SELFPAY | PROVIDERS: Admitting Provider Internal Medicine; Emergency Provider Emergency Medicine; Visit Provider Internal Medicine | DX: F10.20 Alcohol dependence, uncomplicated (principal); K92.2 Gastrointestinal hemorrhage, unspecified; R19.5 Other fecal abnormalities; J18.9 Pneumonia, unspecified organism; R53.1 Weakness; A41.9 Sepsis, unspecified organism; E87.1 Hypo-osmolality and hyponatremia; R79.89 Other specified abnormal findings of blood chemistry; E87.6 Hypokalemia | CPT/HCPCS: 99232; 99239 ==

== ENCOUNTER → 2025-04-27 12:33 | Outpatient (BNV) | payer MEDICARE, MEDICAID, SELFPAY | PROVIDERS: Admitting Provider Internal Medicine; Emergency Provider Emergency Medicine; Visit Provider Nurse Practitioner Psychiatric/Mental Health | DX: F10.20 Alcohol dependence, uncomplicated (principal) | CPT/HCPCS: 99221 ==

== ENCOUNTER → 2025-04-27 12:33 | Outpatient (BNV) | payer MEDICARE, MEDICAID, SELFPAY | PROVIDERS: Admitting Provider Internal Medicine; Emergency Provider Emergency Medicine; Visit Provider Internal Medicine Gastroenterology | DX: K92.2 Gastrointestinal hemorrhage, unspecified (principal); R19.5 Other fecal abnormalities | CPT/HCPCS: 99232 ==

== ENCOUNTER 2025-05-06 17:42 | Emergency (ER) | payer MEDICARE, MEDICAID, SELFPAY ==
--- NOTE | ~2025-05-06 | XR_ITS ---
CLINICAL HISTORY: cough, recent pneumonia 1 view chest x-ray Comparison: Prior chest radiographs most recently on 04/27/2025 Findings: Markedly reduced lung volumes. Persistent right basilar density appearing slightly larger when compared to prior exam. Possible superimposed right pleural effusion. No pneumothorax. Heart is obscured but appears enlarged. No acute soft tissue or osseous abnormality. Impression: 1. Hypoventilatory exam with interval increase in overall size and conspicuity of right basilar density. These findings may be accentuated in the setting of low lung volumes however worsening infectious or inflammatory process and/or superimposed pleural effusion can not be excluded. 2. Additional findings as above. This document has been electronically signed by: Aspen Alcantar MD on 05/06/2025 20:20:54
--- NOTE | ~2025-05-06 | CT_ITS ---
CLINICAL HISTORY: left flank pain, distention, recent colonoscopy CT abdomen and pelvis with contrast Comparison: Abdominal ultrasound 04/27/2025 Findings: Trace left-sided and small to moderate right-sided pleural effusions with adjacent areas of airspace consolidation. Cirrhotic appearance of the liver. No focal liver lesions. Patent portal vein. Splenomegaly. Adrenal glands, and pancreas are unremarkable. Nondistended gallbladder. No calcified gallstones. Mild right-sided and trace left-sided hydronephrosis. Kidneys enhance homogeneously. Nondistended stomach. No small bowel obstruction. Colon appears unremarkable. Extensively calcified but otherwise nonaneurysmal abdominal aorta and iliofemoral vessels. No pathologically enlarged lymph nodes. Moderate volume ascites. No free air. Limited evaluation of bladder and other pelvic structures due to interference from arthroplasty metal artifact. No lytic or sclerotic osseous lesions. Bilateral total hip arthroplasties. Moderate body wall edema. Impression: 1. Suspected liver cirrhosis along with splenomegaly concerning for component of portal hypertension. 2. Moderate volume ascites. 3. Bilateral pleural effusions, small on the left and small to moderate on the right. Adjacent areas of airspace consolidation favoring passive atelectasis however infection can not be excluded. 4. Additional findings as above. This document has been electronically signed by: Aspen Alcantar MD on 05/06/2025 22:16:20
[2025-05-06 18:04] VITALS: BP 128/69; BP 136/61; PULSE 86; PULSE 87; RESP 11; TEMP 36.8; O2SAT 90; O2SAT 91
[2025-05-06 18:31] VITALS: BP 124/64; PULSE 86; RESP 12; O2SAT 92
--- NOTE | 2025-05-06 18:54 | PC.NURSE ---
Addendum entered by Aviva Caraballo RN 05/06/25 19:05: Patient is a 65 years old woman with past medical history significant for COPD, alcohol abuse and hypertension recently admitted for worsening generalized weakness has been going on for months. She has an ongoing alcohol abuse -drinks beer and wine (was not very precise on how many alcoholic drinks she she consumes daily). Last alcoholic drink was 2prior to last admission She asked tobacco smoker since age 15. Smokes marijuana in occasions. During that admission, she was found to have fever of 101.9 and tachycardia. Subsequently he started to develop worsening hypotension (lower 89/51). She is currently requiring 2 L/min supplemental oxygen via nasal cannula after her O2 sat dropped to 88%. Hemoglobin dropped from 13.4 to 9.4 over 6 hours requiring a blood transfusion. There was lactic acidosis 2.2--> 2.3. Troponin 17.6--> 140.1. Urine drug screen is positive for marijuana. ETOH level < 10. Was discharged and sent to a local SNF. She presents today from that facility with severe abdominal pain. Patient alert and oriented. Respirations even and non-labored but pox noted to be in the low 90's. Abdomen firm, ascitic in appearance with generalize pain . Large eccymotic area noted to left flank and patient states it is from coughing. Florian patent and intact, draining straw colored urine. Positive pedal pulses with no edema noted. Original Note: Alcohol use disorder, moderate, dependence: Status: Acute (2) GI bleeding: Status: Acute (3) Occult GI bleeding: Status: Acute (4) Pneumonia: Status: Acute (5) Weakness: Status: Acute (6) Sepsis: Status: Acute (7) Acute hyponatremia: Status: Acute (8) Abnormal LFTs: Status: Acute (9) Acute hypokalemia: Status: Acute
[2025-05-06 18:55] LABS: MANUAL DIFF FLAG NO
[2025-05-06 19:00] LABS: Basophils Percent Auto 0.8 % (0-2); Eosinophils Absolute Auto 0.1 X10*3/uL (0.0-0.4); Eosinophils Percent Auto 1.9 % (0-4); Hematocrit 32.2 % (37.0-47.0); Hemoglobin 11.4 g/dl (12.0-16.0); Imm Gran Abs Auto 0.01 X10*3/uL (0.00-0.03); Imm Gran Pct Auto 0.2 % (0.0-0.4); Lymphocytes Absolute Auto 1.2 X10*3/uL (1.2-4.9); Lymphocytes Percent Auto 23.1 % (20-40); Mean Corpuscular HGB Conc 35.4 g/dl (31.0-35.0); Mean Corpuscular Hemoglobin 36.1 pg (27.0-33.0); Mean Corpuscular Volume 101.9 fL (80.0-98.0); Mean Platelet Volume 10.8 fL (9.4-12.3); Monocytes Absolute Auto 0.5 X10*3/uL (0.1-1.2); Monocytes Percent Auto 10.2 % (2-11); Neutrophils Absolute Auto 3.4 x10*3/uL (2.0-8.3); Neutrophils Percent Auto 63.8 % (45-73); Platelet Count 173 X10*3/uL (160-400); Red Blood Count 3.16 X10*6/uL (4.20-5.50); Red Cell Distribution Width 13.3 % (11.0-16.0); White Blood Count 5.3 X10*3/uL (4.8-10.8)
[2025-05-06 19:15] LABS: Alanine Aminotransferase 69 U/L (0-31); Albumin Level 2.7 g/dL (3.5-5.0); Alkaline Phosphatase 126 U/L (39-117); Anion Gap 12 (12-20); Aspartate Amino Transferase 104 U/L (5-31); Bilirubin Direct 0.8 mg/dL (0.0-0.5); Bilirubin Total 1.6 mg/dL (0.0-1.0); Blood Urea Nitrogen 4 mg/dL (9-16); Calcium 8.2 mg/dL (8.4-10.2); Carbon Dioxide 26 mmol/L (22-29); Chloride 102 mmol/L (96-108); Creatinine Clr Calc Pharmacy 137.6; Estimated Glomerular Filt Rate > 60; Glucose Random 95 mg/dL (60-115); Magnesium 1.6 mg/dL (1.6-2.6); Sodium 137 mmol/L (135-145); Total Protein 5.4 g/dL (6.5-8.0)
--- NOTE | 2025-05-06 19:42 | ED.GENADULT ---
HPI - General Adult General Chief complaint: General Medical Stated complaint: abd pain Time Seen by Provider: 05/06/25 18:56 Source: patient, RN notes reviewed and old records reviewed Mode of arrival: EMS Limitations: no limitations History of Present Illness ED Provider: Shannon HPI narrative: 65-year-old female with a past medical history significant for alcohol use disorder, COPD, hypertension presents for evaluation of abdominal pain. Patient was discharged from this facility 4 days ago on 05/02/2025 after being admitted for alcohol dependence, GI bleeding requiring transfusion, sepsis due to pneumonia She does take a baby aspirin in his currently finishing up a course of Augmentin due to aspiration pneumonitis She is not on any anticoagulation She has a large bruise to her left lower abdomen that she attributes to ?it started after I was coughing. ? She does feel as though her abdomen is distended more than usual She rates her pain as 10/10 The patient is worse with coughing Related Data Home Medications ?Medication ?Instructions ?Recorded ?Confirmed cholecalciferol (vitamin D3) 25 25 mcg PO DAILY 06/10/24 04/27/25 mcg (1,000 unit) capsule (Vitamin D3) cyanocobalamin (vitamin B-12) 1,000 mcg PO DAILY 04/27/25 04/27/25 1,000 mcg tablet lisinopril 10 mg tablet 10 mg PO DAILY 04/27/25 04/27/25 multivitamin 1 tab PO Q OTHER DAY 04/27/25 04/27/25 Previous Rx's ?Medication ?Instructions ?Recorded Elevated toliet seat #1 ea 08/18/22 shower bench #1 ea 09/09/22 amlodipine 10 mg tablet 10 mg PO DAILY #90 tabs 03/12/25 atorvastatin 10 mg tablet 10 mg PO QPM #90 tabs 03/12/25 amoxicillin 400 mg-potassium 10 ml PO BID 5 days #100 mL 05/02/25 clavulanate 57 mg/5 mL oral suspension folic acid 1 mg tablet 1 mg PO DAILY #90 tabs 05/02/25 gabapentin 100 mg capsule 200 mg (2 x 100 mg) PO BEDTIME #60 05/02/25 caps omeprazole 40 mg capsule,delayed 40 mg PO BID@0630,1630 #60 caps 05/02/25 release thiamine mononitrate (vit B1) 100 100 mg PO DAILY #90 tabs 05/02/25 mg tablet potassium chloride 20 mEq oral 40 meq PO DAILY #6 ea 05/07/25 packet tramadol 50 mg tablet 50 mg PO Q8H PRN severe pain 05/07/25 (scale score 7-10) #10 tabs Allergies Allergy/AdvReac Type Severity Reaction Status Date / Time sulfamethoxazole (From Allergy Intermediate Rash Verified 05/06/25 18:15 Bactrim) trimethoprim (From Bactrim) Allergy Intermediate Rash Verified 05/06/25 18:15 Review of Systems Constitutional: Constitutional: Denies body ache(s), Denies chills and Denies fever(s) Eyes: Eyes: Denies blurry vision and Denies irritation ENT: Denies dizziness and Denies dry mouth Cardiovascular: Cardiovascular: Denies chest pain and Reports dyspnea Respiratory: Respiratory: Reports cough, Reports pain with cough and Reports dyspnea Gastrointestinal: Gastrointestinal: Reports abdominal pain, Reports nausea, Denies vomiting and Denies hematemesis Musculoskeletal: Musculoskeletal: Denies back pain Integumentary/Breasts: Skin/Breast: Denies rash and Reports unusual bruising (left lower abdomen) Neurologic: Denies dizziness Psychiatric: Psychiatric: Denies anxiety [facility] Past Medical History Medical History Alcohol drinker Liver enlargement Elevated liver enzymes Smoker COPD (chronic obstructive pulmonary disease) 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 Social History Social History Household Members: Family Household Members Other:: daughter Housing: Apartment Are you a primary health care specialist to a significant other at home: No Do you presently have visiting nurse or other home services: No Alcohol intake: former Comment: to go to [facility] post op Patient Tobacco Use Status: Current everyday Tobacco user Tobacco use type: Cigarette Cigarettes Per Day: 5 Years Smoked: 40 Smoked in Last 30 Days: No e-Cigarette/Vaping Use: Currently Using Second Hand Smoke Exposure: Yes Advance Directives: No Advance Directives Information Provided: No Advance Directives Date on File: 08/15/22 service: No Current occupational status: unemployed Physical Exam ED Vital Signs: Vital Signs - 24 hr 05/06/25 18:04 05/06/25 18:31 05/06/25 21:01 Temperature 98.2 F Pulse Rate 86 86 Respiratory Rate 11 L 12 14 Blood Pressure 136/61 124/64 Pulse Oximetry 91 L 92 Oxygen Delivery Method Room Air Room Air 05/06/25 21:33 Temperature 98.4 F Pulse Rate 75 Respiratory Rate 12 Blood Pressure 113/49 L Pulse Oximetry 94 Oxygen Delivery Method Room Air BMI result Body Mass Index 30.0 Const Other: Nontoxic appearing General: comfortable, no acute distress, alert and awake Nutritional Appearance: well nourished Orientation/consciousness: patient oriented x3 HENMT Head: Yes normocephalic and Yes atraumatic Eyes Eyelids: Yes eyelids normal Conjunctivae: conjunctivae normal Sclerae: sclerae normal Corneas: corneas normal Pupils: Equal, round and reactive pupils present EOM: EOMs intact bilaterally Neck Neck: Yes full ROM Resp Effort & Inspection: normal respiratory effort, able to speak in complete sentences and not labored GI Other: There was a large left lower flank hematoma that is tender to palpation with guarding. Palpation (GI): Soft to palpation, not firm, Tenderness to palpation present (GI) in the LLQ and not rigid Auscultation: normoactive bowel sounds Skin General skin exam: elasticity normal Neuro General: patient oriented x3 Cranial nerves: Yes Equal, round and reactive pupils present and Yes Bilaterally intact EOM present Cognition (Neuro): normal cognition Extrem Other: Moving all extremities well without any obvious deformities Course Reevaluation(s) Reevaluation #1: Patient's CT scan shows moderate volume ascites, there was no infectious process within the abdomen. No significant intramuscular hematoma seen on the CT scan. The viewed portions of the lungs show likely atelectasis versus pneumonia. The patient does have mild cough reported but she has not been coughing in the emergency department, she has no leukocytosis, no fever and she is not hypoxic. This is favored to be less likely pneumonia. Given the moderate volume ascites and the patient's abdominal pain and recent admission for sepsis we did perform a diagnostic paracentesis, see procedure note Reevaluation #2: Patient's peritoneal fluid is not indicative of peritonitis. I discussed this with the patient, we will treat her pain with tramadol as she can not take NSAIDs or acetaminophen. We will also discharge her with potassium 40 mEq daily for the next 3 days and she will follow up with GI for her liver cirrhosis Time: 03:38 Medications Administered Discontinued Medications Generic Name Dose Route Start Last Admin Trade Name Freq PRN Reason Stop Dose Admin Lactated Ringer's 1,000 mls @ 999 mls/hr 05/06/25 20:45 05/06/25 22:45 Lr IV 05/06/25 21:45 Infused .Q1H1M STA Infusion Iohexol 100 ml 05/06/25 21:10 05/06/25 21:10 Iohexol 350 Mg/Ml 100 Ml Infus..Btl IV 05/06/25 21:11 85 ml ONCE ONE Administration Lidocaine HCl 5 ml 05/07/25 00:22 05/07/25 00:22 Lidocaine Hcl 1 % Mpf 5 Ml Vial INFILTRATI 05/07/25 00:23 5 ml ONCE ONE Administration Morphine Sulfate 4 mg 05/06/25 20:45 05/06/25 21:01 Morphine Sulfate 4 Mg/Ml Cartridge IVPUSH 05/06/25 20:46 4 mg ONCE ONE Administration Protocol Ondansetron HCl 4 mg 05/06/25 20:45 05/06/25 21:02 Ondansetron Hcl 4 Mg/2 Ml Vial IVPUSH 05/06/25 20:46 4 mg ONCE ONE Administration Procedures Paracentesis Time Out Performed: Yes Local Anesthetic: lidocaine 1% Amount of anesthesia used (mL): 5 Fluid: clear Post Procedure Exam: awake, alert Patient Tolerated Procedure: well Complications: none Medical Decision Making Medical Decision Making MDM Narrative: 65-year-old female with a past medical history as above presents for evaluation of left lower abdominal pain. She has a large hematoma in the area which she attributes to coughing. She also complains of abdominal distention. She did have a recent colonoscopy and also was transfused due to recent GI bleed. Her blood pressure today is stable, hemoglobin hematocrit are pending. The patient is quite well appearing. We will get a CT scan of the abdomen pelvis to evaluate for intramuscular hematoma. Differential Diagnosis Differential Diagnoses: The differential diagnosis associated with the presentation includes Bowel perforation Intramuscular hematoma Contusion Ascites Admission/Observation Consideration of admission/observation: Escalation of care including admission/observation considered Lab Data MDM Lab Attestation statement: I reviewed the patient's lab results. No leukocytosis. The patient has a mild anemia consistent with a baseline. Platelet count within normal range. Patient's potassium is low at 3.0 which was repleted. No significant renal abnormalities. The patient's bilirubin is elevated to 1.6 in his likely due to alcoholic liver cirrhosis. Additionally, the patient has a mild transaminitis with an AST of 104 and an ALT of 69 with an alk phos of 126. 05/06/25 18:51 05/06/25 18:51 Labs: Lab Results 05/06/25 05/06/25 05/06/25 Range/Units 18:51 19:19 21:37 WBC 5.3 (4.8-10.8) X10*3/uL RBC 3.16 L (4.20-5.50) X10*6/uL Hgb 11.4 L (12.0-16.0) g/dl Hct 32.2 L (37.0-47.0) % MCV 101.9 H (80.0-98.0) fL MCH 36.1 H (27.0-33.0) pg MCHC 35.4 H (31.0-35.0) g/dl RDW 13.3 (11.0-16.0) % Plt Count 173 D (160-400) X10*3/uL MPV 10.8 (9.4-12.3) fL Immature Gran % (Auto) 0.2 (0.0-0.4) % Neut % (Auto) 63.8 (45-73) % Lymph % (Auto) 23.1 (20-40) % [place] % (Auto) 10.2 (2-11) % Eos % (Auto) 1.9 (0-4) % Baso % (Auto) 0.8 (0-2) % Lymph # (Auto) 1.2 (1.2-4.9) X10*3/uL [place] # (Auto) 0.5 (0.1-1.2) X10*3/uL Eos # (Auto) 0.1 (0.0-0.4) X10*3/uL Baso # (Auto) 0.0 (0.0-0.2) X10*3/uL Abs Immat Gran (auto) 0.01 (0.00-0.03) X10*3/uL Absolute Neuts (auto) 3.4 (2.0-8.3) x10*3/uL Absolute Nucleated RBC 0.000 (0.0-0.012) X10*3/uL Nucleated RBC % (auto) 0.0 (0.0-0.2) /100WBC PT (10.9-12.4) SEC INR (0.9-1.1) Sodium 137 (135-145) mmol/L Potassium 3.0 L (3.3-5.1) mmol/L Chloride 102 (96-108) mmol/L Carbon Dioxide 26 (22-29) mmol/L Anion Gap 12 (12-20) BUN 4 L (9-16) mg/dL Creatinine 0.44 L (0.5-1.4) mg/dL Estim Creat Clear Calc 137.6 Estimated GFR > 60 Random Glucose 95 (60-115) mg/dL Lactic Acid 1.0 (0.5-2.0) mmol/L Calcium 8.2 L (8.4-10.2) mg/dL Magnesium 1.6 (1.6-2.6) mg/dL Total Bilirubin 1.6 H (0.0-1.0) mg/dL Direct Bilirubin 0.8 H (0.0-0.5) mg/dL AST 104 H (5-31) U/L ALT 69 H (0-31) U/L Alkaline Phosphatase 126 H (39-117) U/L Total Protein 5.4 L (6.5-8.0) g/dL Albumin 2.7 L (3.5-5.0) g/dL Urine Color Dark Yellow Urine Appearance Clear Urine pH >= 9.0 (5.0-9.0) Ur Specific [place] 1.020 (1.005-1.025) Urine Protein Trace (Neg-Trace) mg/dL Urine Glucose (UA) Negative (Negative) mg/dL Urine Ketones Trace (Negative) mg/dL Urine Blood Negative (Negative) Urine Nitrite Negative (Negative) Ur Leukocyte Esterase Moderate (2+) H (Negative) Urine RBC 0-2 (0-2) /HPF Urine WBC 11-20 H (0-5) /HPF Ur Squamous Epith Cells 0-2 (0-2) /HPF Urine Bacteria None Seen (None Seen) Hyaline Casts 0-2 (0-2) /LPF Peritoneal WBC X10*3/uL Peritoneal RBC X10*6/uL Periton Neutrophils % Periton Lymphocytes % Peritoneal Monocytes % Peritoneal Other Cells % 05/06/25 05/07/25 Range/Units 23:48 01:18 WBC (4.8-10.8) X10*3/uL RBC (4.20-5.50) X10*6/uL Hgb (12.0-16.0) g/dl Hct (37.0-47.0) % MCV (80.0-98.0) fL MCH (27.0-33.0) pg MCHC (31.0-35.0) g/dl RDW (11.0-16.0) % Plt Count (160-400) X10*3/uL MPV (9.4-12.3) fL Immature Gran % (Auto) (0.0-0.4) % Neut % (Auto) (45-73) % Lymph % (Auto) (20-40) % [place] % (Auto) (2-11) % Eos % (Auto) (0-4) % Baso % (Auto) (0-2) % Lymph # (Auto) (1.2-4.9) X10*3/uL [place] # (Auto) (0.1-1.2) X10*3/uL Eos # (Auto) (0.0-0.4) X10*3/uL Baso # (Auto) (0.0-0.2) X10*3/uL Abs Immat Gran (auto) (0.00-0.03) X10*3/uL Absolute Neuts (auto) (2.0-8.3) x10*3/uL Absolute Nucleated RBC (0.0-0.012) X10*3/uL Nucleated RBC % (auto) (0.0-0.2) /100WBC PT 14.8 H (10.9-12.4) SEC INR 1.3 H (0.9-1.1) Sodium (135-145) mmol/L Potassium (3.3-5.1) mmol/L Chloride (96-108) mmol/L Carbon Dioxide (22-29) mmol/L Anion Gap (12-20) BUN (9-16) mg/dL Creatinine (0.5-1.4) mg/dL Estim Creat Clear Calc Estimated GFR Random Glucose (60-115) mg/dL Lactic Acid (0.5-2.0) mmol/L Calcium (8.4-10.2) mg/dL Magnesium (1.6-2.6) mg/dL Total Bilirubin (0.0-1.0) mg/dL Direct Bilirubin (0.0-0.5) mg/dL AST (5-31) U/L ALT (0-31) U/L Alkaline Phosphatase (39-117) U/L Total Protein (6.5-8.0) g/dL Albumin (3.5-5.0) g/dL Urine Color Urine Appearance Urine pH (5.0-9.0) Ur Specific [place] (1.005-1.025) Urine Protein (Neg-Trace) mg/dL Urine Glucose (UA) (Negative) mg/dL Urine Ketones (Negative) mg/dL Urine Blood (Negative) Urine Nitrite (Negative) Ur Leukocyte Esterase (Negative) Urine RBC (0-2) /HPF Urine WBC (0-5) /HPF Ur Squamous Epith Cells (0-2) /HPF Urine Bacteria (None Seen) Hyaline Casts (0-2) /LPF Peritoneal WBC 0.060 X10*3/uL Peritoneal RBC 0.002 X10*6/uL Periton Neutrophils 5 % Periton Lymphocytes 8 % Peritoneal Monocytes 84 % Peritoneal Other Cells 3 % Radiology Impression Discussion of test interpretation with radiology: I have reviewed the radiologist's reading. Radiologist Impression: Findings: Trace left-sided and small to moderate right-sided pleural effusions with adjacent areas of airspace consolidation. Cirrhotic appearance of the liver. No focal liver lesions. Patent portal vein. Splenomegaly. Adrenal glands, and pancreas are unremarkable. Nondistended gallbladder. No calcified gallstones. Mild right-sided and trace left-sided hydronephrosis. Kidneys enhance homogeneously. Nondistended stomach. No small bowel obstruction. Colon appears unremarkable. Extensively calcified but otherwise nonaneurysmal abdominal aorta and iliofemoral vessels. No pathologically enlarged lymph nodes. Moderate volume ascites. No free air. Limited evaluation of bladder and other pelvic structures due to interference from arthroplasty metal artifact. No lytic or sclerotic osseous lesions. Bilateral total hip arthroplasties. Moderate body wall edema. Impression: 1. Suspected liver cirrhosis along with splenomegaly concerning for component of portal hypertension. 2. Moderate volume ascites. 3. Bilateral pleural effusions, small on the left and small to moderate on the right. Adjacent areas of airspace consolidation favoring passive atelectasis however infection can not be excluded. 4. Additional findings as above. This document has been electronically signed by: Aspen Alcantar MD on 05/06/2025 22:16:20 Discharge Plan Discharge Clinical Impression: Hematoma, Abdominal ascites, Acute hypokalemia Patient Disposition: Home, Self-Care Instructions: Hypokalemia (ED), Ascites (ED), Hematoma (ED) Additional Instructions: Your CT scan showed moderate ascites but there was no evidence of infection Your potassium was low at 3.0 and I recommend taking potassium daily for the next 3 days. You have a hematoma to your left abdominal wall. You may use tramadol for severe breakthrough pain Follow-up with GI at the number provided Prescriptions: New potassium chloride 20 mEq packet 40 meq PO DAILY Qty: 6 0RF tramadol 50 mg tablet 50 mg PO Q8H PRN (Reason: severe pain (scale score 7-10)) Qty: 10 0RF No Action (DME) Elevated toliet seat See Rx Instructions .ROUTE .MEDSUPPLY Qty: 1 0RF Rx Instructions: As directed (DME) shower bench See Rx Instructions .ROUTE .MEDSUPPLY Qty: 1 0RF Rx Instructions: M16.11 Right hip OA height 67 210 lbs Patient is unable to shower or lift leg beyond 90 degrees. cholecalciferol (vitamin D3) [Vitamin D3] 25 mcg (1,000 unit) Capsule 25 mcg PO DAILY multivitamin Tablet 1 tab PO Q OTHER DAY cyanocobalamin (vitamin B-12) 1,000 mcg Tablet 1,000 mcg PO DAILY lisinopril 10 mg tablet 10 mg PO DAILY omeprazole 40 mg Capsule,Delayed Release(Dr/Ec) 40 mg PO BID@0630,1630 Qty: 60 0RF folic acid 1 mg Tablet 1 mg PO DAILY Qty: 90 0RF gabapentin 100 mg Capsule 200 mg PO BEDTIME Qty: 60 0RF thiamine mononitrate (vit B1) 100 mg Tablet 100 mg PO DAILY Qty: 90 0RF amoxicillin-pot clavulanate 400-57 mg/5 mL suspension for reconstitution 10 ml PO BID 5 Days Qty: 100 0RF amlodipine 10 mg tablet 10 mg PO DAILY Qty: 90 3RF atorvastatin 10 mg tablet 10 mg PO QPM Qty: 90 1RF Print Language: Lithuanian
[2025-05-06 21:01] VITALS: RESP 14
[2025-05-06] MEDS: Morphine Sulfate 4 MG/ML CARTRIDGE IVPUSH (21:01)
[2025-05-06] MEDS: ondansetron HCL 4 MG/2 ML VIAL IVPUSH (21:02)
[2025-05-06] MEDS: iohexoL 350 MG/ML 100 ML INFUS..BTL IV (21:10)
[2025-05-06 21:33] VITALS: BP 113/49; PULSE 75; RESP 12; TEMP 36.9; O2SAT 94
[2025-05-06] MEDS: Lactated Ringers 1,000 ML 999 ML IV (21:34)
[2025-05-06 21:52] LABS: Appearance Urine Clear; Color Urine Dark Yellow; Glucose Urine UA Negative (Negative); Leukocyte Esterase Urine Moderate (2+) (Negative); Nitrite Urine Negative (Negative); PH >= 9.0 (5.0-9.0); UMIC TRIGGER UACC YES; Urine Blood Negative (Negative); Urine Ketones Trace mg/dL (Negative); Urine Protein Trace mg/dL (Neg-Trace)
[2025-05-06 22:26] LABS: Bacteria Urine None Seen (None Seen); Hyaline Casts Urine 0-2 /LPF (0-2); RBC Urine 0-2 /HPF (0-2); Squamous Epithelial Cell Urine 0-2 /HPF (0-2); UACC Culture Trigger YES
[2025-05-06 23:58] LABS: INTERNATIONAL NORM RATIO 1.3 (0.9-1.1); Prothrombin Time 14.8 SEC (10.9-12.4)
[2025-05-07] MEDS: Lidocaine HCl 1 % MPF 5 ML VIAL INFILTRATI (00:22)
[2025-05-07 01:45] LABS: MN% 81.2 %; PMN% 18.8 %; RBC Peritoneal Fluid 0.002 X10*6/uL
[2025-05-07 02:33] LABS: Lymphocyte Peritoneal Fl 8 %; Monocytes Peritoneal Fl 84 %; Other Peritioneal Fl 3 %
[2025-05-07 02:34] LABS: BF Shift QC OK YES; Man Diluent Bkgrd OK YES; Neutrophils Peritoneal Fluid 5 %
[2025-05-07] MEDS: Potassium Chloride ER 20 MEQ TAB.ER.PRT 60 MEQ PO (04:14)
[2025-05-07 04:15] VITALS: BP 145/73; PULSE 76; RESP 16; TEMP 36.6; O2SAT 98
[2025-05-07] MEDS: traMADoL HCL 50 MG TABLET PO (04:15)
[2025-05-07 08:19] LABS: HBS Num1 22.29 mIU/mL (0-7.99); HBc Num1 0.38 S/CO (0.00-0.79); HBsAGNum1 0.43 S/CO (0.00-0.99); HIV AB/AG Nonreactive (Nonreactive); HIV Num 1 0.17 S/CO (0.00-0.99); Hepatitis A Antibody IgM 2.41 Index (0-0.79); Hepatitis B Core Antibody Nonreactive (Nonreactive); Hepatitis B Surface Antigen Negative (Negative); ~HepC Num1 0.19 S/CO (0.00-0.79); ~Hepatitis B Surface Antibody REACTIVE (Nonreactive); ~Hepatitis C Antibody Nonreactive (Nonreactive)
[2025-05-07 08:36] LABS: ~Hepatitis A Antibody IgM Reactive (Nonreactive)
[2025-05-07 15:49] LABS: Glucose Peritoneal Fluid 98; LDH Peritoneal Fluid 41
[2025-05-07 15:50] LABS: Total Protein Peritoneal Fluid 0.7
== END 2025-05-07 05:11 | disposition home or self-care (01) ==
PROVIDERS: Physician Assistant; Emergency Provider Emergency Medicine
DX: R18.8 Other ascites (principal); E87.6 Hypokalemia; M79.81 Nontraumatic hematoma of soft tissue; R10.32 Left lower quadrant pain; D64.9 Anemia, unspecified; R05.9 Cough, unspecified; F17.210 Nicotine dependence, cigarettes, uncomplicated
CPT/HCPCS: 36415; 49082; 71045; 74177; 80053; 81001; 82248; 82945; 83605; 83615; 83735; 84157; 85025; 85610; 86704; 86706; 86709; 86803; 87040; 87070; 87073; 87086; 87205; 87340; 87389; 89051; 96361; 96374; 96375; 99285; J2003; J2270; J2405; J7120; Q9967

== ENCOUNTER → 2025-05-06 19:27 | Outpatient (BNV) | payer MEDICARE, MEDICAID, SELFPAY | PROVIDERS: Emergency Provider Emergency Medicine; Visit Provider Radiology Diagnostic Radiology | DX: R10.32 Left lower quadrant pain (principal); R14.0 Abdominal distension (gaseous); J18.9 Pneumonia, unspecified organism; R05.9 Cough, unspecified | CPT/HCPCS: 71045; 74177 ==

== ENCOUNTER → 2025-06-04 11:34 | Day surgery (SDC) | payer MEDICARE, MEDICAID, SELFPAY ==
--- OUTSIDE RECORDS SUMMARY | 2025-05-21 14:46 | XMS_ITS | Encounter Summary ---
Author Organization [employer] Address [address] [place] [address] Care Team Providers Care Senior Software Tester Name Role Phone Luisito Gonzalez MD Primary Care Provider [phone] Encounter Details Date Type Department Care Team (Late st Contact Info) Description 05/06/2025 Lab Requisition [facility] - Main Lab [address] [facility] [place] [phone] Kolby Burgos MD [address] [place] [address] Anemia, unspecified; Gastrointestinal hemorrhage, unspecified Social History Tobacco Use Types Packs/Day Years Used Date Smoking Tobacco: Never Assessed Comments Unknown Sex and Gender Information Value Date Recorded Sex Assigned at Not on file Legal Sex Female 11:06 AM EDT Gender Identity Not on file Sexual Orientation Not on file documented as of this encounter Plan of Treatment Upcoming Encounters Date Type Department Care Team (Late st Contact Info) Description 06/19/2025 8:30 AM EDT Office Visit Orthopedic Surgery - [place] [address] [phone] Don Parker DPM [address] [address] documented as of this encounter Procedures Procedure Name Priority Date/Time Associated Diagnosis Comments CBC WITH AUTO DIFFERENTIAL Routine 05/06/2025 5:10 AM EDT Anemia, unspecified Gastrointestinal hemorrhage, unspecified CBC AND DIFFERENTIAL Routine 05/06/2025 5:10 AM EDT Anemia, unspecified Gastrointestinal hemorrhage, unspecified COMPREHENSIVE METABOLIC PANEL Routine 05/06/2025 5:10 AM EDT Anemia, unspecified Gastrointestinal hemorrhage, unspecified documented in this encounter Results * (ABNORMAL) CBC auto differential (05/06/2025 5:10 AM EDT) WBC 4.3(L) 4.8 - 10.8 K/mcL LAB HEMETOLOGY METHOD 05/06/2025 7:18 AM [facility] LAB RBC 3.10(L) 3.80 - 4.80 M/mcL LAB HEMETOLOGY METHOD 05/06/2025 7:18 AM [facility] LAB Hemoglobin 11.0(L) 11.5 - 16.0 g/dL LAB HEMETOLOGY METHOD 05/06/2025 7:18 AM [facility] LAB Hematocrit 32.9(L) 35.0 - 47.0 % LAB HEMETOLOGY METHOD 05/06/2025 7:18 AM [facility] LAB MCV 106.8(H) 79.0 - 98.0 FL LAB HEMETOLOGY METHOD 05/06/2025 7:18 AM [facility] LAB MCH 35.7(H) 27.0 - 32.0 pcg LAB HEMETOLOGY METHOD 05/06/2025 7:18 AM [facility] LAB MCHC 33.4 32.0 - 37.0 g/dL LAB HEMETOLOGY METHOD 05/06/2025 7:18 AM [facility] LAB RDW 13.4 11.0 - 15.0 % LAB HEMETOLOGY METHOD 05/06/2025 7:18 AM [facility] LAB Platelets 170 130 - 400 K/mcL LAB HEMETOLOGY METHOD 05/06/2025 7:18 AM [facility] LAB MPV 11.8(H) 7.0 - 11.0 FL LAB HEMETOLOGY METHOD 05/06/2025 7:18 AM [facility] LAB NRBC 0.0 <1.0 % LAB HEMETOLOGY METHOD 05/06/2025 7:18 AM [facility] LAB NRBC Absolute 0.00 <0.10 K/mcL LAB HEMETOLOGY METHOD 05/06/2025 7:18 AM [facility] Neutrophils Relative 60.2 % LAB HEMETOLOGY METHOD 05/06/2025 7:18 AM [facility] Lymphocytes Relative 23.7 % LAB HEMETOLOGY METHOD 05/06/2025 7:18 AM [facility] Monocytes Relative 12.2 % LAB HEMETOLOGY METHOD 05/06/2025 7:18 AM [facility] Eosinophils Relative 2.8 % LAB HEMETOLOGY METHOD 05/06/2025 7:18 AM [facility] Basophils Relative 0.9 % LAB HEMETOLOGY METHOD 05/06/2025 7:18 AM [facility] Immature Granulocytes Relative 0.2 % LAB HEMETOLOGY METHOD 05/06/2025 7:18 AM [facility] Neutrophils Absolute 2.56 1.50 - 7.00 K/mcL LAB HEMETOLOGY METHOD 05/06/2025 7:18 AM [facility] Lymphocytes Absolute 1.01 1.00 - 5.00 K/mcL LAB HEMETOLOGY METHOD 05/06/2025 7:18 AM [facility] Monocytes Absolute 0.52 0.20 - 1.00 K/mcL LAB HEMETOLOGY METHOD 05/06/2025 7:18 AM [facility] Eosinophils Absolute 0.12 0.00 - 0.50 K/mcL LAB HEMETOLOGY METHOD 05/06/2025 7:18 AM [facility] Basophils Absolute 0.04 0.00 - 0.20 K/mcL LAB HEMETOLOGY METHOD 05/06/2025 7:[facility] Immature Granulocytes Absolute 0.01 0.00 - 0.03 K/mcL LAB HEMETOLOGY METHOD 05/06/2025 7:18 AM [facility] Blood Venous blood specimen / Unknown Venipuncture / Unknown 05/06/2025 5:10 AM EDT 05/06/2025 6:25 AM EDT us Kolby Burgos MD LAB BLOOD ORDERABLES Final Result [facility] [address] [place] [address], * (ABNORMAL) Comprehensive metabolic panel (05/06/2025 5:10 AM EDT) Sodium 135 133 - 145 mmol/L LAB CHEMISTRY METHOD 05/06/2025 8:57 AM [facility] Potassium 2.9(LL) 3.5 - 5.5 mmol/L LAB CHEMISTRY METHOD 05/06/2025 8:57 AM [facility] Chloride 98 96 - 110 mmol/L LAB CHEMISTRY METHOD 05/06/2025 8:57 AM [facility] CO2 31 21 - 32 mmol/L LAB CHEMISTRY METHOD 05/06/2025 8:57 AM [facility] Anion Gap 6 3 - 11 LAB CHEMISTRY METHOD 05/06/2025 8:57 AM [facility] Glucose 91 70 - 100 mg/dL LAB CHEMISTRY METHOD 05/06/2025 8:57 AM [facility] BUN 3(L) 5 - 25 mg/dL LAB CHEMISTRY METHOD 05/06/2025 8:57 AM [facility] Creatinine 0.41(L) 0.50 - 1.10 mg/dL LAB CHEMISTRY METHOD 05/06/2025 8:57 AM [facility] eGFR 109 >=60 mL/min/1. 73m2 LAB CHEMISTRY METHOD 05/06/2025 8:57 AM [facility] LAB Comment:Calculation based on the Chronic Kidney Disease Epidemiology Collaboration (CKD-EPI) equation refit without adjustment for race. BUN/Creatinine Ratio 7.3 LAB CHEMISTRY METHOD 05/06/2025 8:57 AM [facility] Calcium 8.2(L) 8.5 - 10.5 mg/dL LAB CHEMISTRY METHOD 05/06/2025 8:57 AM [facility] AST (SGOT) 93(H) 10 - 42 unit/L LAB CHEMISTRY METHOD 05/06/2025 8:57 AM [facility] ALT (SGPT) 74(H) 10 - 60 unit/L LAB CHEMISTRY METHOD 05/06/2025 8:57 AM [facility] Alkaline Phosphatase 134(H) 42 - 121 unit/L LAB CHEMISTRY METHOD 05/06/2025 8:57 AM [facility] Total Protein 4.9(L) 6.0 - 8.0 g/dL LAB CHEMISTRY METHOD 05/06/2025 8:57 AM [facility] Albumin 2.2(L) 3.2 - 5.0 g/dL LAB CHEMISTRY METHOD 05/06/2025 8:57 AM [facility] Total Bilirubin 1.6(H) 0.0 - 1.4 mg/dL LAB CHEMISTRY METHOD 05/06/2025 8:57 AM [facility] Blood Venous blood specimen / Unknown Venipuncture / Unknown 05/06/2025 5:10 AM EDT 05/06/2025 6:25 AM EDT us Kolby Burgos MD LAB BLOOD ORDERABLES Final Result [facility] [address] [place] [address], documented in this encounter Visit Diagnoses Diagnosis Anemia, unspecified Gastrointestinal hemorrhage, unspecified documented in this encounter Additional Health Concerns Infection Onset Date Last Indicated Resolved Time C. difficile Rule-Out 05/14/2025 05/14/20252024 11:24 AM EDT C. difficile 05/14/2025 05/14/2025 documented as of this encounter Care Teams Senior Software Tester Relationship Specialty Start Date End Date Luisito Gonzalez MD [address] [place] [address] Dr Kin [place] PCP - General 01/31/24 documented as of this encounter
--- NOTE | ~2025-06-04 | US_ITS ---
EXAMINATION: US ABDOMEN LIMITED HISTORY: ASCITES TECHNIQUE: Real-time grayscale ultrasound imaging of the 4 quadrants of the abdomen was performed to assess for ascites. COMPARISON: Comparison is made with the prior abdominal ultrasound dated 04/27/2025. FINDINGS: Sonographic examination of the 4 quadrants of the abdomen demonstrates no drainable ascites. US/US abdomen limited IMPRESSION: No evidence of abdominal ascites. Electronically signed by: Alexsander Kaplan MD 06/04/2025 02:00 PM EDT
[2025-06-04 11:55] VITALS: BMI 27.9
[2025-06-04 12:20] VITALS: BP 109/46; PULSE 76; RESP 20; TEMP 36.6; O2SAT 98
--- NOTE | 2025-06-04 13:18 | PC.NURSE ---
Report given to Mirian Vanessa ( Radiology, her name is not in the system)
--- NOTE | 2025-06-04 14:01 | PC.NURSE ---
No paracentesis was performed today. No fluids seen to be removed in radiology. IV removed. Ride called. Belongings returned and patient signed paperwork stating this. Patient waiting for ride in discharge area.
== END ==
LOC: HO.SSS 11:36
PROVIDERS: Visit Provider Internal Medicine
DX: R18.8 Other ascites (principal); Z53.8 Procedure and treatment not carried out for other reasons; K76.0 Fatty (change of) liver, not elsewhere classified; K76.9 Liver disease, unspecified; F10.10 Alcohol abuse, uncomplicated; J44.9 Chronic obstructive pulmonary disease, unspecified; I10 Essential (primary) hypertension; R20.0 Anesthesia of skin; G45.8 Other transient cerebral ischemic attacks and related syndromes; Z79.899 Other long term (current) drug therapy; Z98.890 Other specified postprocedural states
CPT/HCPCS: 76705; J2003

== ENCOUNTER → 2025-06-04 13:00 | Outpatient (BNV) | payer MEDICARE, MEDICAID, SELFPAY | PROVIDERS: Visit Provider Radiology Diagnostic Radiology | DX: R18.8 Other ascites (principal) | CPT/HCPCS: 76705 ==

== ENCOUNTER 2025-06-11 12:57 | Outpatient (AMB) | payer MEDICARE, MEDICAID, SELFPAY ==
--- NOTE | 2025-06-11 13:08 | A.OFFVIS_ITS ---
Vital Signs 06/11/25 13:09 Height 5 ft 7 in Weight 174 lb 2.643 oz BMI 27.3 BP 124/68 Blood Pressure Location Rt brachial Position Sitting Pulse 84 Pulse Source Pulse Oximeter Intake Visit Reasons: 3 mth f/up HS Allergies sulfamethoxazole (From Bactrim) Allergy (Intermediate, Verified 06/04/25 11:58) Rash trimethoprim (From Bactrim) Allergy (Intermediate, Verified 06/04/25 11:58) Rash Medication List - Last Reconciled 06/11/25 by Lisandro Zuniga NP amlodipine 10 mg PO DAILY atorvastatin 10 mg PO QPM cholecalciferol (vitamin D3) (Vitamin D3) 25 mcg PO DAILY cyanocobalamin (vitamin B-12) 1,000 mcg PO DAILY [Elevated toliet seat As directed] folic acid 1 mg PO DAILY gabapentin 200 mg (2 x 100 mg) PO BEDTIME lisinopril 10 mg PO DAILY multivitamin 1 tab PO Q OTHER DAY omeprazole 40 mg PO BID@0630,1630 potassium chloride 40 mEq PO DAILY [shower bench M16.11 Right hip OA height 67 210 lbs Patient is unable to shower or lift leg beyond 90 degrees. ] thiamine mononitrate (vit B1) 100 mg PO DAILY tramadol 50 mg PO Q8H PRN HPI Comments Details: This is a 65-year-old female patient coming in for a follow-up visit. Patient with a history of hypertension, coronary artery disease, COPD, liver cirrhosis, and alcohol abuse. Patient was seen in the past for preop risk stratification for which patient underwent echo, stress test, and coronary CTA that showed liver cirrhosis as well as mid to moderate coronary disease for which patient is currently on baby aspirin and low-dose statin therapy. Patient was in the hospital last month for GI bleed and abdominal ascites. Today, patient is denying any cardiac symptoms including exertional chest pain, shortness of breath, palpitations, dizziness, orthopnea, PND, leg edema, presyncope, or syncope. Patient's main concern today is ongoing abdominal swelling and firmness and right leg pain. Previously patient had an imaging that showed moderate volume ascites and was negative for peritonitis. Patient is following with GI in regards to this and plans on getting a sooner appointment. Patient is otherwise reporting compliance with all her medications. Patient does note that she is still drinking beer and wine occasionally and reports cutting down her tobacco use. 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 Social History Household Members: Family Household Members Other:: daughter Housing: Apartment Housing Other:: rehabilitation center Are you a primary childbirth and infant care teacher to a significant other at home: No Do you presently have visiting nurse or other home services: No 75 years or older and lives alone: No Alcohol intake: former Comment: to go to [facility] house post op Patient Tobacco Use Status: Former Tobacco user Tobacco use type: Cigarette Cigarettes Per Day: 5 Years Smoked: 40 e-Cigarette/Vaping Use: Currently Using Second Hand Smoke Exposure: Yes Advance Directives Date on File: 08/15/22 service: No Current occupational status: unemployed Review of Systems Const Denies weakness ENT Denies dizziness Card Denies chest pain, Denies chest pain with activity, Denies syncope, Denies rapid heart rate, Denies pedal edema, Denies edema, Denies leg edema, Denies lightheadedness, Denies palpitations, Denies dyspnea, Denies dyspnea on exertion and Denies orthopnea Resp Denies cough, Denies dyspnea and Denies dyspnea on exertion GI Denies hematochezia and Denies change in stool character Musc Denies abnormal gait, Denies muscle cramps, Denies muscle weakness, Denies numbness, Denies radiating pain into limb and Denies tingling Neuro Denies abnormal gait, Denies dizziness, Denies syncope, Denies numbness, Denies tingling and Denies weakness Endo Denies palpitations Physical Exam Vital Signs: Last Vital Signs Pulse 84 06/11/25 13:09 BP 124/68 06/11/25 13:09 BMI result Body Mass Index 27.3 Const General: cooperative, healthy appearing, comfortable and no acute distress Orientation/consciousness: patient oriented x3 HEENT Head: Yes normal to inspection Neck Neck: Yes normal visual inspection, Yes trachea midline and Yes supple Chest Chest palpation & inspection: normal inspection of the chest Resp Effort & Inspection: normal respiratory effort Auscultation: clear to auscultation bilaterally, no crackles, no rales, no rhonchi and no wheezes Cardio Jugular venous distension: no JVD Palpation: normal PMI Rate: regular rate Rhythm: regular rhythm Heart sounds: S1 normal heart sound present, S2 normal heart sound present, no click, no gallops, no murmurs and no rubs Peripheral pulses: Peripheral pulses 2+ throughout GI Inspection: Yes normal to inspection Palpation (GI): Soft to palpation Auscultation: normal bowel sounds Skin General skin exam: no rashes or lesions noted Neuro General: patient oriented x3 Extrem General: Yes normal to inspection, No no pedal edema and No calf tenderness Psych Appearance: grossly normal Mental Status: mental status grossly normal Speech and movement: Normal speech and movement present Assessment & Plan Assessment & Plan (1) Atherosclerotic cardiovascular disease: Code(s): I25.10 - Atherosclerotic heart disease of [place] coronary artery without angina pectoris Category: Medical Plan: 06/12/2024-myocardial perfusion imaging study showed likely normal perfusion. 02/19/2025-coronary CTA showed widespread coronary disease with moderate stenosis in the distal RCA, mild stenosis in the proximal and mid segments, mild stenosis in the proximal and mid LAD, and moderate stenosis in the mid circumflex with mild distal stenosis. Patient was started on low-dose aspirin therapy and statin therapy. Clinically stable and without any cardiac symptoms. Given his liver functions being elevated, titration of the statins we will be difficult. Patient was supposed to repeat lipid profile which she did not complete. Em phasize and completing this with an ideal LDL goal less than 70. Advised to avoid alcoholic beverages as well given her liver cirrhosis. Patient verbalizes understanding of this. Patient's abdominal firmness and swelling most likely related to her liver cirrhosis. Patient is request GI appointment sooner than November. (2) HTN (hypertension): Code(s): I10 - Essential (primary) hypertension Category: Medical Plan: Blood pressure today is well-controlled. Continue current regimen. Advised monitoring blood pressures at home with a goal less than 130/80. (3) Smoking: Code(s): F17.200 - Nicotine dependence, unspecified, uncomplicated Category: Social Hx Plan: Emphasized on the need for complete smoking cessation for her cardiovascular well being as well as overall health. Patient verbalizes understanding of this. Advised heart healthy diet, regular exercise, med compliance, and management of vascular risk factors. Patient is going to follow-up with her PCP about right leg pain. Follow-up in 6 months. In the interim, patient will call the office with any concerns or change in symptoms. This note was generated using voice recognition software. While every effort has been made to ensure accuracy and proper patient transport orderly, there may be occasional errors that could affect the content or meaning of the described symptoms. Orders: Orders Lipid Panel Today E78.5 - Hyperlipidemia, unspecified Liver Panel Today I25.10 - Atherosclerotic heart disease of [place] coronary artery without angina pectoris Coding Level of Care Code Est Pt Level 4 (15632) Complex EM visit Add On G2211 Diagnoses Atherosclerotic cardiovascular disease I25.10 HTN (hypertension) I10 Smoking F17.200 Time Spent (min) 32 Comment Time spent in reviewing the chart, test results, assessment, counseling and documentation.
[2025-06-11 13:09] VITALS: BP 124/68; PULSE 84; BMI 27.3
--- OUTSIDE RECORDS SUMMARY | 2025-06-11 13:30 | XMS_ITS | Encounter Summary ---
Author Organization [employer] Address [address] [place] [address] Care Team Providers Care Resident Care Manager Rn Name Role Phone Luisito Gonzalez MD Primary Care Provider [phone] Encounter Details Date Type Department Care Team (Late st Contact Info) Description 05/06/2025 Lab Requisition [facility] - Main Lab [address] [facility] [place] [phone] Kolby Burgos MD [address] [place] [address] Anemia, unspecified; Gastrointestinal hemorrhage, unspecified Social History [...] AM EDT Office Visit Orthopedic Surgery - [place] [address] [phone] Don Parker DPM [address] [address] documented as of this encounter Procedures Procedure [...] K/mcL LAB HEMETOLOGY METHOD 05/06/2025 7:18 AM [facility] RBC 3.10(L) 3.80 - 4.80 M/mcL LAB HEMETOLOGY METHOD 05/06/2025 7:18 AM [facility] Hemoglobin 11.0(L) 11.5 - 16.0 g/dL LAB HEMETOLOGY METHOD 05/06/2025 7:18 AM [facility] LAB Hematocrit 32.9(L) 35.0 - 47.0 % LAB HEMETOLOGY METHOD 05/06/2025 7:18 AM [facility] LAB MCV 106.8(H) 79.0 - 98.0 FL LAB HEMETOLOGY METHOD 05/06/2025 7:18 AM [facility] LAB MCH 35.7(H) 27.0 - 32.0 pcg LAB HEMETOLOGY METHOD 05/06/2025 7:18 AM [facility] MCHC 33.4 32.0 - 37.0 g/dL LAB HEMETOLOGY METHOD 05/06/2025 7:18 AM [facility] LAB RDW 13.4 11.0 - 15.0 % LAB HEMETOLOGY METHOD 05/06/2025 7:18 AM [facility] LAB Platelets 170 130 - 400 K/mcL LAB HEMETOLOGY METHOD 05/06/2025 7:18 AM [facility] MPV 11.8(H) 7.0 - 11.0 FL LAB HEMETOLOGY METHOD 05/06/2025 7:18 AM [facility] NRBC 0.0 <1.0 % LAB HEMETOLOGY METHOD 05/06/2025 7:18 AM [facility] NRBC Absolute 0.00 <0.10 K/mcL LAB HEMETOLOGY METHOD 05/06/2025 7:18 AM [facility] Neutrophils Relative 60.2 % LAB HEMETOLOGY METHOD 05/06/2025 7:18 AM [facility] Lymphocytes Relative 23.7 % LAB HEMETOLOGY METHOD 05/06/2025 7:18 AM [facility] Monocytes Relative 12.2 % LAB HEMETOLOGY METHOD 05/06/2025 7:18 AM [facility] Eosinophils Relative 2.8 % LAB HEMETOLOGY METHOD 05/06/2025 7:18 AM [facility] Basophils Relative 0.9 % LAB HEMETOLOGY METHOD 05/06/2025 7:18 AM [facility] Immature Granulocytes Relative 0.2 % LAB HEMETOLOGY METHOD 05/06/2025 7:18 AM [facility] Neutrophils Absolute 2.56 1.50 - 7.00 K/mcL LAB HEMETOLOGY METHOD 05/06/2025 7:18 AM [facility] Lymphocytes Absolute 1.01 1.00 - 5.00 K/mcL LAB HEMETOLOGY METHOD 05/06/2025 7:18 AM [facility] Monocytes Absolute 0.52 0.20 - 1.00 K/mcL LAB HEMETOLOGY METHOD 05/06/2025 7:18 AM [facility] Eosinophils Absolute 0.12 0.00 - 0.50 K/mcL LAB HEMETOLOGY METHOD 05/06/2025 7:18 AM [facility] Basophils Absolute 0.04 0.00 - 0.20 K/mcL LAB [facility] Imm[facility] Granulocytes Absolute 0.01 0.00 - 0.03 K/mcL LAB HEMETOLOGY METHOD 05/06/2025 7:18 AM [facility] Blood Venous blood specimen / Unknown Venipuncture / Unknown 05/06/2025 5:10 AM EDT 05/06/2025 6:25 AM EDT us Kolby Burgos MD LAB BLOOD ORDERABLES Final Result [facility] [address] [place] [address], * (ABNORMAL) Comprehensive metabolic panel (05/06/2025 5:10 AM EDT) Sodium 135 133 - 145 mmol/L LAB CHEMISTRY METHOD 05/06/2025 8:57 AM [facility] Potassium 2.9(LL) 3.5 - 5.5 mmol/L LAB CHEMISTRY METHOD 05/06/2025 8:57 AM [facility] Chloride 98 96 - 110 mmol/L LAB CHEMISTRY METHOD 05/06/2025 8:57 AM [facility] CO2 31 21 - 32 mmol/L LAB CHEMISTRY METHOD 05/06/2025 8:57 AM [facility] Anion Gap 6 3 - 11 LAB CHEMISTRY METHOD 05/06/2025 8:57 AM [facility] Glucose 91 70 - 100 mg/dL LAB CHEMISTRY METHOD 05/06/2025 8:57 AM [facility] BUN 3(L) 5 - 25 mg/dL LAB CHEMISTRY METHOD 05/06/2025 8:57 AM [facility] Creatinine 0.41(L) 0.50 - 1.10 mg/dL LAB CHEMISTRY METHOD 05/06/2025 8:57 AM [facility] eGFR 109 >=60 mL/min/1. 73m2 LAB CHEMISTRY METHOD 05/06/2025 8:57 AM [facility] Comment:Calculation based on the Chronic Kidney Disease Epidemiology Collaboration (CKD-EPI) equation refit without adjustment for race. BUN/Creatinine Ratio 7.3 LAB CHEMISTRY METHOD 05/06/2025 8:57 AM [facility] Calcium 8.2(L) 8.5 - 10.5 mg/dL LAB CHEMISTRY METHOD 05/06/2025 8:57 AM [facility] AST (SGOT) 93(H) 10 - 42 unit/L LAB CHEMISTRY METHOD 05/06/2025 8:57 AM [facility] ALT (SGPT) 74(H) 10 - 60 unit/L LAB CHEMISTRY METHOD 05/06/2025 8:57 AM [facility] Alkaline Phosphatase 134(H) 42 - 121 unit/L LAB CHEMISTRY METHOD 05/06/2025 8:57 AM [facility] Total Protein 4.9(L) 6.0 - 8.0 g/dL LAB CHEMISTRY METHOD 05/06/2025 8:57 AM [facility] Albumin 2.2(L) 3.2 - 5.0 g/dL LAB CHEMISTRY METHOD 05/06/2025 8:57 AM [facility] Total Bilirubin 1.6(H) 0.0 - 1.4 mg/dL LAB CHEMISTRY METHOD 05/06/2025 8:57 AM [facility] Blood Venous blood specimen / Unknown Venipuncture / Unknown 05/06/2025 5:10 AM EDT 05/06/2025 6:25 AM EDT us Kolby Burgos MD LAB BLOOD ORDERABLES Final Result [facility] [address] [place] [address], documented in this encounter Visit Diagnoses Diagnosis Anemia, unspecified Gastrointestinal hemorrhage, unspecified documented in this encounter Additional Health Concerns Infection Onset Date Last Indicated Resolved Time C. difficile Rule-Out 05/14/2025 05/14/20252024 11:24 AM EDT C. difficile 05/14/2025 05/14/2025 06/07/2025 7:05 PM EDT documented as of this encounter Care Teams Resident Care Manager Rn Relationship Specialty Start Date End Date Luisito Gonzalez MD [address] [place] [address] Dr Kin [place] PCP - General 01/31/24 documented as of this encounter
== END 2025-06-11 13:36 | disposition home or self-care (01) ==
LOC: HO.HCS 12:57
DX: I25.10 Atherosclerotic heart disease of native coronary artery without angina pectoris (principal); I10 Essential (primary) hypertension; F17.200 Nicotine dependence, unspecified, uncomplicated
CPT/HCPCS: 99214; G2211

== ENCOUNTER → 2025-06-11 12:57 | Outpatient (BNVA) | payer MEDICARE, MEDICAID, SELFPAY | DX: I25.10 Atherosclerotic heart disease of native coronary artery without angina pectoris (principal); I10 Essential (primary) hypertension; F17.200 Nicotine dependence, unspecified, uncomplicated; K74.60 Unspecified cirrhosis of liver; F10.10 Alcohol abuse, uncomplicated; R19.00 Intra-abdominal and pelvic swelling, mass and lump, unspecified site; Z79.82 Long term (current) use of aspirin; Z79.899 Other long term (current) drug therapy | CPT/HCPCS: 99212 ==

== ENCOUNTER 2025-06-17 13:55 | Outpatient (AMB) | payer MEDICARE, MEDICAID, SELFPAY ==
[2025-06-17 13:57] VITALS: BP 118/58; PULSE 87; RESP 18; O2SAT 97; BMI 27.0
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
--- OUTSIDE RECORDS SUMMARY | 2025-06-17 14:39 | XMS_ITS | Encounter Summary ---
Author Organization [employer] Address [address] [place] [address] Care Team Providers Care Vp Client Services Name Role Phone Luisito Gonzalez MD Primary Care Provider [phone] Encounter Details Date Type Department Care Team (Late st Contact Info) Description 05/06/2025 Lab Requisition [facility] - Main Lab [address] [facility] [place] [address] Kloby Burgos MD [address] [place] [address] Anemia, unspecified; Gastrointestinal hemorrhage, unspecified Social History [...] AM EDT Office Visit Orthopedic Surgery - [place] [address] [phone] Don Parker DPM [address] [address] documented as of this encounter Procedures Procedure [...] K/mcL LAB HEMETOLOGY METHOD 05/06/2025 7:18 AM [facility] RBC 3.10(L) 3.80 - 4.80 M/mcL LAB HEMETOLOGY METHOD 05/06/2025 7:18 AM [facility] Hemoglobin 11.0(L) 11.5 - 16.0 g/dL LAB HEMETOLOGY METHOD 05/06/2025 7:18 AM [facility] Hematocrit 32.9(L) 35.0 - 47.0 % LAB HEMETOLOGY METHOD 05/06/2025 7:18 AM [facility] MCV 106.8(H) 79.0 - 98.0 FL LAB HEMETOLOGY METHOD 05/06/2025 7:18 AM [facility] MCH 35.7(H) 27.0 - 32.0 pcg LAB HEMETOLOGY METHOD 05/06/2025 7:18 AM [facility] MCHC 33.4 32.0 - 37.0 g/dL LAB HEMETOLOGY METHOD 05/06/2025 7:18 AM [facility] RDW 13.4 11.0 - 15.0 % LAB HEMETOLOGY METHOD 05/06/2025 7:18 AM [facility] Platelets 170 130 - 400 K/mcL LAB HEMETOLOGY METHOD 05/06/2025 7:18 AM [facility] MPV 11.8(H) 7.0 - 11.0 FL LAB HEMETOLOGY METHOD 05/06/2025 7:18 AM [facility] NRBC 0.0 <1.0 % LAB HEMETOLOGY METHOD 05/06/2025 7:18 AM [facility] NRBC Absolute 0.00 <0.10 K/mcL LAB HEMETOLOGY METHOD 05/06/2025 7:18 AM [facility] Neutrophils Relative 60.2 % LAB HEMETOLOGY METHOD 05/06/2025 7:18 AM [facility] Lymphocytes Relative 23.7 % LAB HEMETOLOGY METHOD 05/06/2025 7:18 AM [facility] Monocytes Relative 12.2 % LAB HEMETOLOGY METHOD 05/06/2025 7:18 AM [facility] Eosinophils Relative 2.8 % LAB HEMETOLOGY METHOD 05/06/2025 7:18 AM [facility] Basophils Relative 0.9 % LAB HEMETOLOGY METHOD 05/06/2025 7:18 AM [facility] Immature Granulocytes Relative 0.2 % LAB HEMETOLOGY METHOD 05/06/2025 7:18 AM [facility] Neutrophils Absolute 2.56 1.50 - 7.00 K/mcL LAB HEMETOLOGY METHOD 05/06/2025 7:18 AM [facility] Lymphocytes Absolute 1.01 1.00 - 5.00 K/mcL LAB HEMETOLOGY METHOD 05/06/2025 7:18 AM [facility] Monocytes Absolute 0.52 0.20 - 1.00 K/mcL LAB HEMETOLOGY METHOD 05/06/2025 7:18 AM [facility] Eosinophils Absolute 0.12 0.00 - 0.50 K/mcL LAB HEMETOLOGY METHOD 05/06/2025 7:18 AM [facility] Basophils Absolute 0.04 0.00 - 0.20 K/mcL LAB HEMETOLOGY METHOD 05/06/2025 7:[facility] Immature Granulocytes Absolute 0.01 0.00 - 0.03 K/mcL LAB HEMETOLOGY METHOD 05/06/2025 7:18 AM [facility] Blood Venous blood specimen / Unknown Venipuncture / Unknown 05/06/2025 5:10 AM EDT 05/06/2025 6:25 AM EDT us Kolby Burgos MD LAB BLOOD ORDERABLES Final Result [facility] [address] [place] [address], * (ABNORMAL) Comprehensive metabolic panel (05/06/2025 5:10 AM EDT) Sodium 135 133 - 145 mmol/L LAB CHEMISTRY METHOD 05/06/2025 8:57 AM [facility] Potassium 2.9(LL) 3.5 - 5.5 mmol/L LAB CHEMISTRY METHOD 05/06/2025 8:57 AM [facility] Chloride 98 96 - 110 mmol/L LAB CHEMISTRY METHOD 05/06/2025 8:57 AM [facility] CO2 31 21 - 32 mmol/L LAB CHEMISTRY METHOD 05/06/2025 8:57 AM [facility] Anion Gap 6 3 - 11 LAB CHEMISTRY METHOD 05/06/2025 8:57 AM [facility] Glucose 91 70 - 100 mg/dL LAB CHEMISTRY METHOD 05/06/2025 8:57 AM [facility] BUN 3(L) 5 - 25 mg/dL LAB CHEMISTRY METHOD 05/06/2025 8:57 AM [facility] Creatinine 0.41(L) 0.50 - 1.10 mg/dL LAB CHEMISTRY METHOD 05/06/2025 8:57 AM [facility] eGFR 109 >=60 mL/min/1. 73m2 LAB CHEMISTRY METHOD 05/06/2025 8:57 AM [facility] Comment:Calculation based on the Chronic Kidney Disease Epidemiology Collaboration (CKD-EPI) equation refit without adjustment for race. BUN/Creatinine Ratio 7.3 LAB CHEMISTRY METHOD 05/06/2025 8:57 AM [facility] Calcium 8.2(L) 8.5 - 10.5 mg/dL LAB CHEMISTRY METHOD 05/06/2025 8:57 AM [facility] AST (SGOT) 93(H) 10 - 42 unit/L LAB CHEMISTRY METHOD 05/06/2025 8:57 AM [facility] ALT (SGPT) 74(H) 10 - 60 unit/L LAB CHEMISTRY METHOD 05/06/2025 8:57 AM [facility] Alkaline Phosphatase 134(H) 42 - 121 unit/L LAB CHEMISTRY METHOD 05/06/2025 8:57 AM [facility] Total Protein 4.9(L) 6.0 - 8.0 g/dL LAB CHEMISTRY METHOD 05/06/2025 8:57 AM [facility] Albumin 2.2(L) 3.2 - 5.0 g/dL LAB CHEMISTRY METHOD 05/06/2025 8:57 AM [facility] Total Bilirubin 1.6(H) 0.0 - 1.4 mg/dL LAB CHEMISTRY METHOD 05/06/2025 8:57 AM [facility] Blood Venous blood specimen / Unknown Venipuncture / Unknown 05/06/2025 5:10 AM EDT 05/06/2025 6:25 AM EDT us Kolby Burgos MD LAB BLOOD ORDERABLES Final Result [facility] [address] [place] [address], documented in this encounter Visit Diagnoses Diagnosis Anemia, unspecified Gastrointestinal hemorrhage, unspecified documented in this encounter Additional Health Concerns Infection Onset Date Last Indicated Resolved Time C. difficile Rule-Out 05/14/2025 05/14/20252024 11:24 AM EDT C. difficile 05/14/2025 05/14/2025 06/07/2025 7:05 PM EDT documented as of this encounter Care Teams Vp Client Services Relationship Specialty Start Date End Date Luisito Gonzalez MD [address] [place] [address] Dr Kin [place] PCP - General 01/31/24 documented as of this encounter
== END 2025-06-17 15:16 | disposition home or self-care (01) ==
LOC: HO.HMCH 13:56
DX: I10 Essential (primary) hypertension (principal); I25.10 Atherosclerotic heart disease of native coronary artery without angina pectoris; R79.89 Other specified abnormal findings of blood chemistry; F17.200 Nicotine dependence, unspecified, uncomplicated; R20.0 Anesthesia of skin; M79.609 Pain in unspecified limb; R20.2 Paresthesia of skin; F10.10 Alcohol abuse, uncomplicated

== ENCOUNTER → 2025-06-17 13:55 | Outpatient (BNVA) | payer MEDICARE, MEDICAID, SELFPAY | DX: I10 Essential (primary) hypertension (principal); I25.10 Atherosclerotic heart disease of native coronary artery without angina pectoris; R79.89 Other specified abnormal findings of blood chemistry; M79.604 Pain in right leg; R20.0 Anesthesia of skin; R20.2 Paresthesia of skin; F10.10 Alcohol abuse, uncomplicated | CPT/HCPCS: 96127; 99202 ==

== ENCOUNTER 2025-06-21 07:28 | Outpatient (REF) | payer MEDICARE, MEDICAID, SELFPAY ==
[2025-06-21 11:42] LABS: MANUAL DIFF FLAG NO
[2025-06-21 11:59] LABS: Hematocrit 35.4 % (37.0-47.0); Hemoglobin 11.8 g/dl (12.0-16.0); Imm Gran Abs Auto 0.01 X10*3/uL (0.00-0.03); Imm Gran Pct Auto 0.3 % (0.0-0.4); Lymphocytes Absolute Auto 1.5 X10*3/uL (1.2-4.9); Mean Corpuscular HGB Conc 33.3 g/dl (31.0-35.0); Mean Corpuscular Hemoglobin 34.5 pg (27.0-33.0); Mean Corpuscular Volume 103.5 fL (80.0-98.0); NRBC Abs Auto 0.000 X10*3/uL (0.0-0.012); NRBC Pct Auto 0.0 /100WBC (0.0-0.2); Platelet Count 143 X10*3/uL (160-400); Red Blood Count 3.42 X10*6/uL (4.20-5.50); White Blood Count 3.5 X10*3/uL (4.8-10.8)
[2025-06-21 12:15] LABS: Appearance Urine Cloudy; Glucose Urine UA Negative (Negative); PH 5.5 (5.0-9.0); Specific Gravity - Urine 1.015 (1.005-1.025); UMIC TRIGGER UACC YES
[2025-06-21 12:30] LABS: UACC Culture Trigger YES
[2025-06-21 12:45] LABS: Alanine Aminotransferase 25 U/L (0-31); Albumin Level 3.6 g/dL (3.5-5.0); Alkaline Phosphatase 127 U/L (39-117); Anion Gap 12 (12-20); Aspartate Amino Transferase 64 U/L (5-31); Blood Urea Nitrogen 5 mg/dL (9-16); Calcium 9.2 mg/dL (8.4-10.2); Carbon Dioxide 23 mmol/L (22-29); Chloride 109 mmol/L (96-108); Cholesterol 97 mg/dL (<200); Estimated Glomerular Filt Rate > 60; HDL Cholesterol 37 mg/dL (>40); Iron 87 mcg/dL (30-160); Percent Iron Saturation 53 % (15-50); Potassium 4.0 mmol/L (3.3-5.1); Sodium 140 mmol/L (135-145); Total Iron Binding Capacity 163 mcg/dL (228-428); Total Protein 6.7 g/dL (6.5-8.0); Triglycerides 64 mg/dL (<150); Unsaturated Iron Binding 76 ug/dL
[2025-06-21 13:01] LABS: Hemoglobin A1C 91.0980 umol/L; Total Hemoglobin (HGBA1C) 3214.0286 umol/L
[2025-06-21 13:07] LABS: Folate 14.1 ng/mL (> or = 4.0); Vitamin B12 990 pg/mL (200-900)
== END 2025-06-21 07:29 | disposition home or self-care (01) ==
LOC: HO.HMGCLDS 07:28
DX: I25.10 Atherosclerotic heart disease of native coronary artery without angina pectoris (principal); I10 Essential (primary) hypertension; I83.11 Varicose veins of right lower extremity with inflammation; E78.5 Hyperlipidemia, unspecified; R79.89 Other specified abnormal findings of blood chemistry; R94.31 Abnormal electrocardiogram [ECG] [EKG]
CPT/HCPCS: 36415; 80053; 80061; 80076; 81001; 82248; 82607; 82746; 83036; 83540; 84443; 85025; 85652; 86141; 87086; 87088; 87186

== ENCOUNTER 2025-07-18 15:05 | Outpatient (REF) | payer MEDICARE, MEDICAID, SELFPAY ==
--- NOTE | 2025-07-18 15:07 | EMG_ITS ---
Chief complaint: Leg numbness, right worse than left History of alcohol use. Reason for referral: Evaluate for neuropathy Referred by: Alexis Dorado NP Procedure done: Right lower extremity NCS/EMG Precautions and/or limitations: None The limb temperature was monitored continuously and remained between 32-36 degrees C during the performance of the NCS. Nerve Conduction Studies Anti Sensory Summary Table ?Stim Site NR Onset (ms) Norm Onset (ms) Peak (ms) Norm Peak (ms) O-P Amp (?V) Norm O-P Amp Site1 Site2 Delta-0 (ms) Dist (cm) Jose Luis (m/s) Norm Jose Luis (m/s) Left Sural Anti Sensory (Lat Mall) Calf NR <4.0 >5.0 Calf Lat Mall 14.0 Motor Summary Table ?Stim Site NR Onset (ms) Norm Onset (ms) O-P Amp (mV) Norm O-P Amp iAmp (mV) Amp (1st) (%) Site1 Site2 Delta-0 (ms) Dist (cm) Jose Luis (m/s) Norm Jose Luis (m/s) Right Peroneal Motor (Ext Dig Brev) Ankle NR <4.0 >2.5 Ankle Ext Dig Brev 0.0 B Fib NR B Fib Ankle 0.0 >40 Poplt NR Poplt B Fib 0.0 >40 Right Tibial Motor (Abd Pike Brev) Ankle NR <5 >2.5 Ankle Abd Pike Brev 0.0 Knee NR Knee Ankle 0.0 >40 EMG ?Side Muscle Nerve Root Ins Act Fibs Psw Amp Dur Poly Recrt Int Pat Comment Right AbdHallucis MedPlantar S1-2 Incr 1+ 1+ Nml Nml 0 Nml Complete Right AntTibialis Dp Br Peron L4-5 Nml Nml Nml Nml Nml 0 Nml Complete Right PostTibialis Tibial L5, S1 Nml Nml Nml Nml Nml 0 Nml Complete Right MedGastroc Tibial S1-2 Nml Nml Nml Nml Nml 0 Nml Complete Right VastusMed Femoral L2-4 Nml Nml Nml Nml Nml 0 Nml Complete Paraspinal EMG ?Side Muscle Nerve Root Ins Act Fibs Psw Comment Right Lumbar Upper Rami Nml Nml Nml Right Lumbar Mid Rami Nml Nml Nml Right Lumbar Lower Rami Nml Nml Nml FINDINGS: Right peroneal and tibial nerves showed absent response. Bilateral sural nerves showed absent response. Concentric needle EMG was performed in selected muscles of the left lower extremity and lumbar paraspinals. Study revealed signs of electric abnormalities as shown in the table above. Right AH showed increased insertional activity, PSWs and fibrillations. No denervation seen on proximal muscles or lumbar paraspinals. IMPRESSION: 1. This is an abnormal study. 2. There is electrodiagnostic evidence for sensorimotor peripheral neuropathy. 3. There is no electrodiagnostic evidence for lumbosacral plexopathy or lumbar radiculopathy. Thank you for your kind referral. Bailey Min MD, TAINA Board Certified, [place] Board of Physical Medicine and Rehabilitation (ABPMR) Board Certified, [place] Board of Electrodiagnostic Medicine (ABEM) [place] [id number] [facility]
--- OUTSIDE RECORDS SUMMARY | 2025-07-18 15:08 | XMS_ITS | Encounter Summary ---
Author Organization [employer] Address [address] [place] [address] Care Team Providers Care Drilling Engineering Manager Name Role Phone Luisito Gonzalez MD Primary Care Provider [phone] Encounter Details Date Type Department Care Team (Late st Contact Info) Description 05/12/2025 Lab Requisition [facility] - Main Lab [address] [facility] [place] [address] Kolby Burgos MD [address] [place], [place] [id number] Anemia, unspecified; Gastrointestinal hemorrhage, unspecified Social History Tobacco Use Types Packs/Day Years Used Date Smoking Tobacco: Never Assessed Comments Unknown Sex and Gender Information Value Date Recorded Sex Assigned at Not on file Legal Sex Female 11:06 AM EDT Gender Identity Not on file Sexual Orientation Not on file documented as of this encounter Plan of Treatment Not on file documented as of this encounter Procedures Procedure Name Priority Date/Time Associated Diagnosis Comments CBC WITH AUTO DIFFERENTIAL Routine 05/13/2025 8:56 AM EDT Anemia, unspecified Gastrointestinal hemorrhage, unspecified CULTURE BLOOD Routine 05/13/2025 8:56 AM EDT Anemia, unspecified Gastrointestinal hemorrhage, unspecified CBC AND DIFFERENTIAL Routine 05/13/2025 8:56 AM EDT Anemia, unspecified Gastrointestinal hemorrhage, unspecified LACTATE Routine 05/13/2025 8:56 AM EDT Anemia, unspecified Gastrointestinal hemorrhage, unspecified BASIC METABOLIC PANEL Routine 05/13/2025 8:56 AM EDT Anemia, unspecified Gastrointestinal hemorrhage, unspecified documented in this encounter Results * Lactate (05/13/2025 8:56 AM EDT) [facility] Lactate 1.2 0.4 - 2.0 mmol/L LAB CHEMISTRY METHOD 05/13/2025 10:16 AM EDT [facility] Blood Venous blood specimen / Unknown Venipuncture / Unknown 05/13/2025 8:56 AM EDT 05/13/2025 9:33 AM EDT us Kolby Burgos MD LAB BLOOD ORDERABLES Final Result [facility] [address] [place] [address], [place] [phone] * Culture blood (05/13/2025 8:56 AM EDT) [facility] Culture, Blood No growth at 5 days 05/18/2025 11:01 AM EDT [facility] Blood Venipuncture / Unknown 05/13/2025 8:56 AM EDT 05/13/2025 9:33 AM EDT us Kolby Burgos MD LAB MICROBIOLOGY - GENERAL ORDERABLES Final Result Performing Organization Address City/[facility]/ZIP Co de Phone Number [facility] [address] [place] [address], [place] [phone] * (ABNORMAL) CBC auto differential (05/13/2025 8:56 AM EDT) [facility] WBC 2.9(L) 4.8 - 10.8 K/mcL LAB HEMETOLOGY METHOD 05/13/2025 10:12 AM EDT [facility] RBC 3.00(L) 3.80 - 4.80 M/mcL LAB HEMETOLOGY METHOD 05/13/2025 10:12 AM EDT [facility] Hemoglobin 10.5(L) 11.5 - 16.0 g/dL LAB HEMETOLOGY METHOD 05/13/2025 10:12 AM [facility] Hematocrit 30.8(L) 35.0 - 47.0 % LAB HEMETOLOGY METHOD 05/13/2025 10:12 AM [facility] MCV 104.4(H) 79.0 - 98.0 FL LAB HEMETOLOGY METHOD 05/13/2025 10:12 AM [facility] MCH 35.6(H) 27.0 - 32.0 pcg LAB HEMETOLOGY METHOD 05/13/2025 10:12 AM [facility] MCHC 34.1 32.0 - 37.0 g/dL LAB HEMETOLOGY METHOD 05/13/2025 10:12 AM [facility] RDW 14.2 11.0 - 15.0 % LAB HEMETOLOGY METHOD 05/13/2025 10:12 AM [facility] Platelets 95(L) 130 - 400 K/mcL LAB HEMETOLOGY METHOD 05/13/2025 10:12 AM [facility] Comment:Large platelets seen . Reviewed by slide MPV 12.3(H) 7.0 - 11.0 FL LAB HEMETOLOGY METHOD 05/13/2025 10:12 AM [facility] NRBC 0.0 <1.0 % LAB HEMETOLOGY METHOD 05/13/2025 10:12 AM [facility] NRBC Absolute 0.00 <0.10 K/mcL LAB HEMETOLOGY METHOD 05/13/2025 10:12 AM [facility] Neutrophils Relative 65.7 % LAB HEMETOLOGY METHOD 05/13/2025 10:12 AM [facility] Lymphocytes Relative 15.6 % LAB HEMETOLOGY METHOD 05/13/2025 10:12 AM [facility] Monocytes Relative 16.3 % LAB HEMETOLOGY METHOD 05/13/2025 10:12 AM EDT [facility] Eosinophils Relative 1.4 % LAB HEMETOLOGY METHOD 05/13/2025 10:12 AM EDT [facility] Basophils Relative 0.7 % LAB HEMETOLOGY METHOD 05/13/2025 10:12 AM EDT [facility] Immature Granulocytes Relative 0.3 % LAB HEMETOLOGY METHOD 05/13/2025 10:12 AM EDT [facility] Neutrophils Absolute 1.90 1.50 - 7.00 K/mcL LAB HEMETOLOGY METHOD 05/13/2025 10:12 AM EDT [facility] Lymphocytes Absolute 0.45(L) 1.00 - 5.00 K/mcL LAB HEMETOLOGY METHOD 05/13/2025 10:12 AM EDT [facility] Monocytes Absolute 0.47 0.20 - 1.00 K/mcL LAB HEMETOLOGY METHOD 05/13/2025 10:12 AM EDT [facility] Eosinophils Absolute 0.04 0.00 - 0.50 K/mcL LAB HEMETOLOGY METHOD 05/13/2025 10:12 AM EDT [facility] Basophils Absolute 0.02 0.00 - 0.20 K/mcL LAB HEMETOLOGY METHOD 05/13/2025 10:12 AM EDT [facility] Immature Granulocytes Absolute 0.01 0.00 - 0.03 K/mcL LAB HEMETOLOGY METHOD 05/13/2025 10:12 AM EDT [facility] Blood Venous blood specimen / Unknown Venipuncture / Unknown 05/13/2025 8:56 AM EDT 05/13/2025 9:33 AM EDT us Kolby Burgos MD LAB BLOOD ORDERABLES Final Result [facility] [address] [place] [address], [place] [phone] * (ABNORMAL) Basic metabolic panel (05/13/2025 8:56 AM EDT) Sodium 132(L) 133 - 145 mmol/L LAB CHEMISTRY METHOD 05/13/2025 10:27 AM [facility] Potassium 3.7 3.5 - 5.5 mmol/L LAB CHEMISTRY METHOD 05/13/2025 10:27 AM [facility] Chloride 101 96 - 110 mmol/L LAB CHEMISTRY METHOD 05/13/2025 10:27 AM [facility] CO2 23 21 - 32 mmol/L LAB CHEMISTRY METHOD 05/13/2025 10:27 AM [facility] Anion Gap 8 3 - 11 LAB CHEMISTRY METHOD 05/13/2025 10:27 AM [facility] Glucose 96 70 - 100 mg/dL LAB CHEMISTRY METHOD 05/13/2025 10:27 AM [facility] BUN 4(L) 5 - 25 mg/dL LAB CHEMISTRY METHOD 05/13/2025 10:27 AM [facility] Creatinine 0.62 0.50 - 1.10 mg/dL LAB CHEMISTRY METHOD 05/13/2025 10:27 AM [facility] eGFR 98 >=60 mL/min/1. 73m2 LAB CHEMISTRY METHOD 05/13/2025 10:27 AM [facility] Comment:Calculation based on the Chronic Kidney Disease Epidemiology Collaboration (CKD-EPI) equation refit without adjustment for race. BUN/Creatinine Ratio 6.5 LAB CHEMISTRY METHOD 05/13/2025 10:27 AM [facility] Calcium 8.1(L) 8.5 - 10.5 mg/dL LAB CHEMISTRY METHOD 05/13/2025 10:27 AM [facility] Blood Venous blood specimen / Unknown Venipuncture / Unknown 05/13/2025 8:56 AM EDT 05/13/2025 9:33 AM EDT us Kolby Burgos MD LAB BLOOD ORDERABLES Final Result [facility] [place] ([facility]) [facility] [address] [place] [address], documented in this encounter Visit Diagnoses Diagnosis Anemia, unspecified Gastrointestinal hemorrhage, unspecified documented in this encounter Additional Health Concerns Infection Onset Date Last Indicated Resolved Time C. difficile Rule-Out 05/14/2025 05/14/20252024 11:24 AM EDT C. difficile 05/14/2025 05/14/2025 06/07/2025 7:05 PM EDT documented as of this encounter Care Teams Drilling Engineering Manager Relationship Specialty Start Date End Date Luisito Gonzalez MD [address] [place] [address] Dr Kin [place] PCP - General 01/31/24 documented as of this encounter
--- OUTSIDE RECORDS SUMMARY | 2025-07-18 15:08 | XMS_ITS | Clinical Summary ---
Author Organization [address] [facility] Address [address] [place] [address] Phone Care Team Providers Care Cat Sitter Name Role Phone Luisito Gonzalez MD Primary Care Provider [phone] Encounters Date Type Department Care Team Description 05/26/2025 Lab Requisition [facility] [address] [place] [address] Kolby Burgos MD Anemia, unspecified; Gastrointestinal hemorrhage, unspecified 05/19/2025 Lab Requisition [facility] [address] [place] [phone] Kolby Burgos MD Anemia, unspecified; Gastrointestinal hemorrhage, unspecified 05/15/2025 Lab Requisition [facility] [address] [place] [address] Kolby Burgos MD Diarrhea, unspecified 05/14/2025 Lab Requisition [facility] [address] [place] [address] Kolby Burgos MD Diarrhea, unspecified 05/13/2025 Lab Requisition [facility] [address] [place] [address] Kolby Burgos MD Urinary tract infection, site not specified 05/13/2025 Lab Requisition [facility] [address] [place] [address] Kolby Burgos MD Other specified anemias; Other disorders of electrolyte and fluid balance, not elsewhere classified; Bacteremia 05/12/2025 Lab Requisition [facility] Lab [address] [place] [address] Kolby Burgos MD Anemia, unspecified; Gastrointestinal hemorrhage, unspecified 05/07/2025 Lab Requisition [facility] Main Lab [address] [place] [address] Kolby Burgos MD Hypokalemia; Anemia, unspecified; retirement (current) use of anticoagulants 05/06/2025 Lab Requisition [facility] [address] [place] [address] Kolby Burgos MD Anemia, unspecified; Gastrointestinal hemorrhage, unspecified from Last 3 Months Social History Tobacco Use Types Packs/Day Years Used Date Smoking Tobacco: Never Assessed Comments Unknown Sex and Gender Information Value Date Recorded Sex Assigned at Not on file Legal Sex Female 11:06 AM EDT Gender Identity Not on file Sexual Orientation Not on file Last Filed Vital Signs Vital Sign Reading Time Taken Comments Blood Pressure - - Pulse - - Temperature - - Respiratory Rate - - Oxygen Saturation - - Inhaled Oxygen Concentration - - Weight 83.9 kg (185 lb) 02/12/2024 9:52 AM EDT Height 170.2 cm (5' 7 ) 02/12/2024 9:52 AM EDT Body Mass Index 28.97 02/12/2024 9:52 AM EDT Plan of Treatment Health Maintenance Due Date Last Done Comments Breast Cancer Screening 1960 DTaP,Tdap,and Td Vaccines (1 - Tdap) 1978 Pneumococcal Vaccine: 50+ Ye ars (1 of 1 - PCV) 2009 Zoster Vaccines (1 of 2) 2009 Colorectal Cancer Screening: Colonoscopy 06/07/2024 Falls Risk Assessment 06/07/2024 Hepatitis C Screening 06/07/2024 Medicare Annual Wellness Visit 06/07/2024 Osteoporosis Screening (Bone Density Screening) 06/07/2024 Social Influencers of Health Screening 06/07/2024 Depression Screening 11/13/2024 COVID-19 Vaccine ( - 2023-2 5 season) 2025 Influenza Vaccine (#1) 2025 RSV Immunization Adult Patie nts (1 - 1-dose 75+ series) 2034 HIB Vaccines Aged Out No longer eligi ble based on patient's age to complete this topic HPV Vaccines Aged Out No longer eligi ble based on patient's age to complete this topic Hepatitis A Vaccines Aged Out No long er eligible based on patient's age to complete this topic Hepatitis B Vaccines Aged Out No long er eligible based on patient's age to complete this topic IPV Vaccines Aged Out No longer eligi ble based on patient's age to complete this topic MMR Vaccines Aged Out No longer eligi ble based on patient's age to complete this topic Meningococcal ACWY Vaccine Aged Out N o longer eligible based on patient's age to complete this topic Meningococcal B Vaccine Aged Out No l onger eligible based on patient's age to complete this topic RSV Immunization Patients Un lucy 20 months Aged Out No longer eligible b ased on patient's age to complete this topic Varicella Vaccines Aged Out No longer eligible based on patient's age to complete this topic Procedures Procedure Name Priority Date/Time Associated Diagnosis Comments BASIC METABOLIC PANEL Routine 05/27/2025 7:22 AM EDT Anemia, unspecified Gastrointestinal hemorrhage, unspecified COMPLETE BLOOD COUNT Routine 05/27/2025 7:22 AM EDT Anemia, unspecified Gastrointestinal hemorrhage, unspecified BASIC METABOLIC PANEL Routine 05/20/2025 6:39 AM EDT Anemia, unspecified Gastrointestinal hemorrhage, unspecified COMPLETE BLOOD COUNT Routine 05/20/2025 6:39 AM EDT Anemia, unspecified Gastrointestinal hemorrhage, unspecified BASIC METABOLIC PANEL Routine 05/15/2025 8:17 AM EDT Diarrhea, unspecified COMPLETE BLOOD COUNT Routine 05/15/2025 8:17 AM EDT Diarrhea, unspecified CLOSTRIDIUM DIFFICILE TOXIN Routine 05/14/2025 12:00 AM EDT Diarrhea, unspecified CULTURE BLOOD Routine 05/13/2025 9:00 AM EDT Other specified anemias Other disorders of electrolyte and fluid balance, not elsewhere classified Bacteremia LACTATE Routine 05/13/2025 8:56 AM EDT Anemia, unspecified Gastrointestinal hemorrhage, unspecified CBC WITH AUTO DIFFERENTIAL Routine 05/13/2025 8:56 AM EDT Anemia, unspecified Gastrointestinal hemorrhage, unspecified CBC AND DIFFERENTIAL Routine 05/13/2025 8:56 AM EDT Anemia, unspecified Gastrointestinal hemorrhage, unspecified BASIC METABOLIC PANEL Routine 05/13/2025 8:56 AM EDT Anemia, unspecified Gastrointestinal hemorrhage, unspecified CULTURE BLOOD Routine 05/13/2025 8:56 AM EDT Anemia, unspecified Gastrointestinal hemorrhage, unspecified URINALYSIS WITH REFLEX MICROSCOPIC Routine 05/13/2025 4:00 AM EDT Urinary tract infection, site not specified URINALYSIS WITH REFLEX MICROSCOPIC Routine 05/13/2025 4:00 AM EDT Urinary tract infection, site not specified CULTURE URINE Routine 05/13/2025 4:00 AM EDT Urinary tract infection, site not specified PROTHROMBIN TIME WITH INR Routine 05/07/2025 12:19 PM EDT Hypokalemia Anemia, unspecified retirement (current) use of anticoagulants COMPREHENSIVE METABOLIC PANEL Routine 05/07/2025 8:25 AM EDT Hypokalemia Anemia, 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 COMPLETE BLOOD COUNT Routine 05/07/2025 8:25 AM EDT Hypokalemia Anemia, 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 WBC 3.9(L) 4.8 - 10.8 K/mcL LAB HEMETOLOGY METHOD 05/27/2025 9:32 AM [facility] RBC 3.10(L) 3.80 - 4.80 M/mcL LAB HEMETOLOGY METHOD 05/27/2025 9:32 AM [facility] Hemoglobin 10.7(L) 11.5 - 16.0 g/dL LAB HEMETOLOGY METHOD 05/27/2025 9:32 AM [facility] LAB Hematocrit 32.2(L) 35.0 - 47.0 % LAB HEMETOLOGY METHOD 05/27/2025 9:32 AM [facility] MCV 104.9(H) 79.0 - 98.0 FL LAB HEMETOLOGY METHOD 05/27/2025 9:32 AM [facility] MCH 34.9(H) 27.0 - 32.0 pcg LAB HEMETOLOGY METHOD 05/27/2025 9:32 AM [facility] MCHC 33.2 32.0 - 37.0 g/dL LAB HEMETOLOGY METHOD 05/27/2025 9:32 AM [facility] RDW 13.6 11.0 - 15.0 % LAB HEMETOLOGY METHOD 05/27/2025 9:32 AM [facility] Platelets 130 130 - 400 K/mcL LAB HEMETOLOGY METHOD 05/27/2025 9:32 AM [facility] MPV 12.4(H) 7.0 - 11.0 FL LAB HEMETOLOGY METHOD 05/27/2025 9:32 AM EDT [facility] NRBC 0.0 <1.0 % LAB HEMETOLOGY METHOD 05/27/2025 9:32 AM EDT [facility] NRBC Absolute 0.00 <0.10 K/mcL LAB HEMETOLOGY METHOD 05/27/2025 9:32 AM EDT [facility] Blood Venous blood specimen / Unknown Venipuncture / Unknown 05/27/2025 7:22 AM EDT 05/27/2025 9:12 AM EDT Kolby Burgos MD LAB BLOOD ORDERABLES Final Result [facility] [address] [place] [address], [place] [phone] * (ABNORMAL) Basic metabolic panel (05/27/2025 7:22 AM EDT) Only the most recent of4 resultswithin the time period is included. Sodium 136 133 - 145 mmol/L LAB CHEMISTRY METHOD 05/27/2025 10:10 AM [facility] Potassium 4.2 3.5 - 5.5 mmol/L LAB CHEMISTRY METHOD 05/27/2025 10:10 AM [facility] Chloride 104 96 - 110 mmol/L LAB CHEMISTRY METHOD 05/27/2025 10:10 AM [facility] CO2 25 21 - 32 mmol/L LAB CHEMISTRY METHOD 05/27/2025 10:10 AM [facility] Anion Gap 7 3 - 11 LAB CHEMISTRY METHOD 05/27/2025 10:10 AM [facility] Glucose 85 70 - 100 mg/dL LAB CHEMISTRY METHOD 05/27/2025 10:10 AM [facility] BUN 4(L) 5 - 25 mg/dL LAB CHEMISTRY METHOD 05/27/2025 10:10 AM EDT [facility] Creatinine 0.54 0.50 - 1.10 mg/dL LAB CHEMISTRY METHOD 05/27/2025 10:10 AM EDT [facility] eGFR 102 >=60 mL/min/1. 73m2 LAB CHEMISTRY METHOD 05/27/2025 10:10 AM EDT [facility] Comment:Calculation based on the Chronic Kidney Disease Epidemiology Collaboration (CKD-EPI) equation refit without adjustment for race. BUN/Creatinine Ratio 7.4 LAB CHEMISTRY METHOD 05/27/2025 10:10 AM EDT [facility] Calcium 9.1 8.5 - 10.5 mg/dL LAB CHEMISTRY METHOD 05/27/2025 10:10 AM EDT [facility] Blood Venous blood specimen / Unknown Venipuncture / Unknown 05/27/2025 7:22 AM EDT 05/27/2025 9:12 AM EDT us Kolby Burgos MD LAB BLOOD ORDERABLES Final Result [facility] [address] [place] [address], * (ABNORMAL) Clostridium difficile toxin (05/14/2025 12:00 AM EDT) Clostridium difficile GDH Antigen Positive( A) Negative 05/14/2025 11:24 AM EDT [facility] C difficile Toxins A+B, EIA Positive( AA) Negative 05/14/2025 11:24 AM EDT [facility] Comment: CRITICAL RESULT POSITIVE FOR TOXIN PRODUCING CLOSTRIDIOIDES DIFFICILE, NO ADDITIONAL TESTING IS NECESSARY. REPEAT SAMPLES SHOULD NOT BE SUBMITTED FOR TEST OF CURE. Stool Rectum structure / Unknown Non-blood Collection / Unknown 05/14/2025 05/14/2025 9:26 AM EDT us Kolby Burgos MD LAB MICROBIOLOGY - GENERAL ORDERABLES Final Result Performing Organization Address [facility]/ZIP Co de Phone Number [facility] [address] [place] [address], * Culture blood (05/13/2025 9:00 AM EDT) Only the most recent of2 resultswithin the time period is included. Pathologist [facility] Culture, Blood No growth at 5 days 05/18/2025 11:01 AM EDT [facility] Blood 05/13/2025 9:00 AM EDT 05/13/2025 9:37 AM EDT Kolby Burgos MD LAB MICROBIOLOGY - GENERAL ORDERABLES Final Result Performing Organization Address [facility] de Phone Number [facility] [address] [place] [address], * (ABNORMAL) CBC auto differential (05/13/2025 8:56 AM EDT) Only the most recent of2 resultswithin the time period is included. [facility] WBC 2.9(L) 4.8 - 10.8 K/mcL LAB HEMETOLOGY METHOD 05/13/2025 10:12 AM EDT [facility] RBC 3.00(L) 3.80 - 4.80 M/mcL LAB HEMETOLOGY METHOD 05/13/2025 10:12 AM EDT [facility] Hemoglobin 10.5(L) 11.5 - 16.0 g/dL LAB HEMETOLOGY METHOD 05/13/2025 10:12 AM EDT [facility] Hematocrit 30.8(L) 35.0 - 47.0 % LAB HEMETOLOGY METHOD 05/13/2025 10:12 AM EDT [facility] MCV 104.4(H) 79.0 - 98.0 FL LAB HEMETOLOGY METHOD 05/13/2025 10:12 AM [facility] MCH 35.6(H) 27.0 - 32.0 pcg LAB HEMETOLOGY METHOD 05/13/2025 10:12 AM [facility] MCHC 34.1 32.0 - 37.0 g/dL LAB HEMETOLOGY METHOD 05/13/2025 10:12 AM [facility] RDW 14.2 11.0 - 15.0 % LAB HEMETOLOGY METHOD 05/13/2025 10:12 AM [facility] Platelets 95(L) 130 - 400 K/mcL LAB HEMETOLOGY METHOD 05/13/2025 10:12 AM [facility] Comment:Large platelets seen . Reviewed by slide MPV 12.3(H) 7.0 - 11.0 FL LAB HEMETOLOGY METHOD 05/13/2025 10:12 AM [facility] NRBC 0.0 <1.0 % LAB HEMETOLOGY METHOD 05/13/2025 10:12 AM [facility] NRBC Absolute 0.00 <0.10 K/mcL LAB HEMETOLOGY METHOD 05/13/2025 10:12 AM [facility] Neutrophils Relative 65.7 % LAB HEMETOLOGY METHOD 05/13/2025 10:12 AM [facility] Lymphocytes Relative 15.6 % LAB HEMETOLOGY METHOD 05/13/2025 10:12 AM [facility] Monocytes Relative 16.3 % LAB HEMETOLOGY METHOD 05/13/2025 10:12 AM [facility] Eosinophils Relative 1.4 % LAB HEMETOLOGY METHOD 05/13/2025 10:12 AM [facility] Basophils Relative 0.7 % LAB HEMETOLOGY METHOD 05/13/2025 10:12 AM [facility] Immature Granulocytes Relative 0.3 % LAB HEMETOLOGY METHOD 05/13/2025 10:12 AM EDT [facility] Neutrophils Absolute 1.90 1.50 - 7.00 K/[facility] LAB HEMETOLOGY METHOD 05/13/2025 10:12 AM EDT [facility] Lymphocytes Absolute 0.45(L) 1.00 - 5.00 K/[facility] LAB HEMETOLOGY METHOD 05/13/2025 10:12 AM EDT [facility] Monocytes Absolute 0.47 0.20 - 1.00 K/[facility] LAB HEMETOLOGY METHOD 05/13/2025 10:12 AM EDT [facility] Eosinophils Absolute 0.04 0.00 - 0.50 K/[facility] LAB HEMETOLOGY METHOD 05/13/2025 10:12 AM EDT [facility] Basophils Absolute 0.02 0.00 - 0.20 K/mcL LAB HEMETOLOGY METHOD 05/13/2025 10:12 AM EDT [facility] Immature Granulocytes Absolute 0.01 0.00 - 0.03 K/[facility] LAB HEMETOLOGY METHOD 05/13/2025 10:12 AM EDT [facility] Blood Venous blood specimen / Unknown Venipuncture / Unknown 05/13/2025 8:56 AM EDT 05/13/2025 9:33 AM EDT Kolby Burgos MD LAB BLOOD ORDERABLES Final Result [facility] [address] [place] [address], * Lactate (05/13/2025 8:56 AM EDT) Lactate 1.2 0.4 - 2.0 mmol/L LAB CHEMISTRY METHOD 05/13/2025 10:16 AM EDT [facility] Blood Venous blood specimen / Unknown Venipuncture / Unknown 05/13/2025 8:56 AM EDT 05/13/2025 9:33 AM EDT us Kolby Burgos MD LAB BLOOD ORDERABLES Final Result [facility] [address] [place] [address], [place] [phone] * (ABNORMAL) Urinalysis with reflex microscopic (05/13/2025 4:00 AM EDT) Specific [place] Urine 1.014 1.003 - 1.030 LAB URINALYSIS - AUTOMATED METHOD 05/13/2025 12:10 PM EDT [facility] pH, Urine 8.5(A) 5.0 - 8.0 pH LAB URINALYSIS - AUTOMATED METHOD 05/13/2025 12:10 PM [facility] Leukocytes, Urine Moderate(A) Negative LAB URINALYSIS - AUTOMATED METHOD 05/13/2025 12:10 PM [facility] Nitrite, Urine Negative Negative LAB URINALYSIS - AUTOMATED METHOD 05/13/2025 12:10 PM [facility] Protein, Urine Trace <=Trace mg/dL LAB URINALYSIS - AUTOMATED METHOD 05/13/2025 12:10 PM [facility] Glucose, Urine Negative Negative mg/dL LAB URINALYSIS - AUTOMATED METHOD 05/13/2025 12:10 PM [facility] Ketones, Urine Negative Negative mg/dL LAB URINALYSIS - AUTOMATED METHOD 05/13/2025 12:10 PM [facility] Urobilinogen , Urine 0.2 0.2 - 1.0 mg/dL LAB URINALYSIS - AUTOMATED METHOD 05/13/2025 12:10 PM [facility] Bilirubin, Urine Negative Negative LAB URINALYSIS - AUTOMATED METHOD 05/13/2025 12:10 PM [facility] Blood, Urine Negative Negative LAB URINALYSIS - AUTOMATED METHOD 05/13/2025 12:10 PM EDT [facility] RBC, Urine 3.0 0 - 4 /HPF LAB URINALYSIS - AUTOMATED METHOD 05/13/2025 12:10 PM EDT [facility] WBC, Urine 6.0(H) 0 - 4 /HPF LAB URINALYSIS - AUTOMATED METHOD 05/13/2025 12:10 PM EDT [facility] Squamous Epithelial, Urine 80(H) 0 - 60 /LPF LAB URINALYSIS - AUTOMATED METHOD 05/13/2025 12:10 PM EDT [facility] Bacteria, Urine Negative Negative /HPF LAB URINALYSIS - AUTOMATED METHOD 05/13/2025 12:10 PM [facility] Hyaline Casts, Urine 3.0 0 - 3 /LPF LAB URINALYSIS - AUTOMATED METHOD 05/13/2025 12:10 PM EDT [facility] Urine Urine specimen obtained by clean catch procedure / Unknown 05/13/2025 4:00 AM EDT 05/13/2025 10:25 AM EDT us Kolby Burgos MD LAB URINE ORDERABLES Final Result [facility] [address] [place] [address], * Culture urine (05/13/2025 4:00 AM EDT) Culture, Urine 10,000-49,000 CFU/mL Mixed bacterial morphotypes present suggestive of possible contamination during collection. Suggest appropriate recollection if clinically indicated. 05/14/2025 10:00 AM EDT [facility] Urine Urine specimen obtained by clean catch procedure / Unknown 05/13/2025 4:00 AM EDT 05/13/2025 10:25 AM EDT us Kolby Burgos MD LAB MICROBIOLOGY - GENERAL ORDERABLES Final Result [facility] [address] [place] [address], * (ABNORMAL) Prothrombin time with INR (05/07/2025 12:19 PM EDT) [facility] Protime 14.5(H) 10.6 - 13.9 sec LAB COAGULATION METHOD 05/07/2025 1:23 PM EDT [facility] INR 1.2 LAB COAGULATION METHOD 05/07/2025 1:23 PM EDT [facility] Blood Venous blood specimen / Unknown Venipuncture / Unknown 05/07/2025 12:19 PM EDT 05/07/2025 8:53 AM EDT Kolby Burgos MD LAB BLOOD ORDERABLES Final Result Performing Organization Address [facility]/ZIP Co de Phone Number [facility] [address] [place] [address], [place] [phone] * (ABNORMAL) Comprehensive metabolic panel (05/07/2025 8:25 AM EDT) Only the most recent of2 resultswithin the time period is included. [facility] Sodium 137 133 - 145 mmol/L LAB CHEMISTRY METHOD 05/07/2025 10:48 AM EDT [facility] Potassium 3.7 3.5 - 5.5 mmol/L LAB CHEMISTRY METHOD 05/07/2025 10:48 AM EDT [facility] Chloride 102 96 - 110 mmol/L LAB CHEMISTRY METHOD 05/07/2025 10:48 AM EDT [facility] CO2 30 21 - 32 mmol/L LAB CHEMISTRY METHOD 05/07/2025 10:48 AM EDT [facility] Anion Gap 5 3 - 11 LAB CHEMISTRY METHOD 05/07/2025 10:48 AM EDT [facility] Glucose 81 70 - 100 mg/dL LAB CHEMISTRY METHOD 05/07/2025 10:48 AM [facility] BUN 5 5 - 25 mg/dL LAB CHEMISTRY METHOD 05/07/2025 10:48 AM [facility] Creatinine 0.36(L) 0.50 - 1.10 mg/dL LAB CHEMISTRY METHOD 05/07/2025 10:48 AM [facility] eGFR 112 >=60 mL/min/1. 73m2 LAB CHEMISTRY METHOD 05/07/2025 10:48 AM [facility] Comment:Calculation based on the Chronic Kidney Disease Epidemiology Collaboration (CKD-EPI) equation refit without adjustment for race. BUN/Creatinine Ratio 13.9 LAB CHEMISTRY METHOD 05/07/2025 10:48 AM [facility] Calcium 8.1(L) 8.5 - 10.5 mg/dL LAB CHEMISTRY METHOD 05/07/2025 10:48 AM [facility] AST (SGOT) 83(H) 10 - 42 unit/L LAB CHEMISTRY METHOD 05/07/2025 10:48 AM [facility] ALT (SGPT) 69(H) 10 - 60 unit/L LAB CHEMISTRY METHOD 05/07/2025 10:48 AM [facility] Alkaline Phosphatase 124(H) 42 - 121 unit/L LAB CHEMISTRY METHOD 05/07/2025 10:48 AM [facility] Total Protein 5.1(L) 6.0 - 8.0 g/dL LAB CHEMISTRY METHOD 05/07/2025 10:48 AM [facility] Albumin 2.2(L) 3.2 - 5.0 g/dL LAB CHEMISTRY METHOD 05/07/2025 10:48 AM [facility] Total Bilirubin 1.6(H) 0.0 - 1.4 mg/dL LAB CHEMISTRY METHOD 05/07/2025 10:48 AM [facility] Blood Venous blood specimen / Unknown Venipuncture / Unknown 05/07/2025 8:25 AM EDT 05/07/2025 8:53 AM EDT Kolby Burgos MD LAB BLOOD ORDERABLES Final Result [facility] [address] [place] [address], from Last 3 Months Insurance MEDICARE MEDICAID - [place] Care Teams Cat Sitter Relationship Specialty Start Date End Date Luisito Gonzalez MD [address] [place] [address] Dr Kin [place] PCP - General 01/31/24
--- OUTSIDE RECORDS SUMMARY | 2025-07-18 15:08 | XMS_ITS | Encounter Summary ---
Author Organization [facility] Address [address] [place] [address] Care Team Providers Care Flat Polisher Name Role Phone Luisito Gonzalez MD Primary Care Provider [phone] Encounter Details Date Type Department Care Team (Late st Contact Info) Description 05/13/2025 Lab Requisition [facility] Main Lab [address] [place] [address] Kolby Burgos MD [address] [place], [place] [id number] Other specified anemias; Other disorders of electrolyte and fluid balance, not elsewhere classified; Bacteremia Social History Tobacco Use Types Packs/Day Years [...] Procedure Name Priority Date/Time Associated Diagnosis Comments CULTURE BLOOD Routine 05/13/2025 9:00 AM EDT Other specified anemias Other disorders of electrolyte and fluid balance, not elsewhere classified Bacteremia documented in this encounter Results * Culture blood (05/13/2025 9:00 AM EDT) Culture, Blood No growth at 5 days 05/18/2025 11:01 AM EDT [facility] Blood 05/13/2025 9:00 AM EDT 05/13/2025 9:37 AM EDT us Kolby Burgos MD LAB MICROBIOLOGY - GENERAL ORDERABLES Final Result [facility] [address] [place] [address], documented in this encounter Visit Diagnoses Diagnosis Other specified anemias Other disorders of electrolyte and fluid balance, not elsewhere classified Bacteremia documented in this encounter Additional Health Concerns Infection Onset Date Last Indicated Resolved Time C. difficile Rule-Out 05/14/2025 05/14/20252024 11:24 AM EDT C. difficile 05/14/2025 05/14/2025 06/07/2025 7:05 PM EDT documented as of this encounter Care Teams Flat Polisher Relationship Specialty Start Date End Date Luisito Gonzalez MD [address] [place] [address] Dr Kin [place] PCP - General 01/31/24 documented as of this encounter
--- OUTSIDE RECORDS SUMMARY | 2025-07-18 15:08 | XMS_ITS | Encounter Summary ---
Author Organization [employer] Address [address] [place] [address] Care Team Providers Care Senior Windows Systems Engineer Name Role Phone Luisito Gonzalez MD Primary Care Provider [phone] Encounter Details Date Type Department Care Team (Late st Contact Info) Description 05/07/2025 Lab Requisition [facility] - Main Lab [address] [facility] [place] [address] Kolby Burgos MD [address] [place] [address] Hypokalemia; Anemia, unspecified; [facility] (current) use of anticoagulants Social History Tobacco Use Types Packs/Day Years [...] Procedure Name Priority Date/Time Associated Diagnosis Comments PROTHROMBIN TIME WITH INR Routine 05/07/2025 12:19 PM EDT Hypokalemia Anemia, unspecified [facility] (current) use of anticoagulants COMPLETE BLOOD COUNT Routine 05/07/2025 8:25 AM EDT Hypokalemia Anemia, unspecified [facility] (current) use of anticoagulants COMPREHENSIVE METABOLIC PANEL Routine 05/07/2025 8:25 AM EDT Hypokalemia Anemia, unspecified [facility] (current) use of anticoagulants documented in this encounter Results * (ABNORMAL) Prothrombin time with INR (05/07/2025 12:19 PM EDT) Protime 14.5(H) 10.6 - 13.9 sec LAB COAGULATION METHOD 05/07/2025 1:23 PM [facility] INR 1.2 LAB COAGULATION METHOD 05/07/2025 1:23 PM [facility] Blood Venous blood specimen / Unknown Venipuncture / Unknown 05/07/2025 12:19 PM EDT 05/07/2025 8:53 AM EDT Kolby Burgos MD LAB BLOOD ORDERABLES Final Result [facility] [address] [place] [address], * (ABNORMAL) Comprehensive metabolic panel (05/07/2025 8:25 AM EDT) Sodium 137 133 - 145 mmol/L LAB CHEMISTRY METHOD 05/07/2025 10:48 AM [facility] Potassium 3.7 3.5 - 5.5 mmol/L LAB CHEMISTRY METHOD 05/07/2025 10:48 AM [facility] Chloride 102 96 - 110 mmol/L LAB CHEMISTRY METHOD 05/07/2025 10:48 AM [facility] CO2 30 21 - 32 mmol/L LAB CHEMISTRY METHOD 05/07/2025 10:48 AM [facility] Anion Gap 5 3 - 11 LAB CHEMISTRY METHOD 05/07/2025 10:48 AM [facility] Glucose 81 70 - 100 mg/dL LAB CHEMISTRY METHOD 05/07/2025 10:48 AM [facility] BUN 5 5 - 25 mg/dL LAB CHEMISTRY METHOD 05/07/2025 10:48 AM [facility] Creatinine 0.36(L) 0.50 - 1.10 mg/dL LAB CHEMISTRY METHOD 05/07/2025 10:48 AM [facility] eGFR 112 >=60 mL/min/1. 73m2 LAB CHEMISTRY METHOD 05/07/2025 10:48 AM [facility] Comment:Calculation based on the Chronic Kidney Disease Epidemiology Collaboration (CKD-EPI) equation refit without adjustment for race. BUN/Creatinine Ratio 13.9 LAB CHEMISTRY METHOD 05/07/2025 10:48 AM [facility] Calcium 8.1(L) 8.5 - 10.5 mg/dL LAB CHEMISTRY METHOD 05/07/2025 10:48 AM [facility] AST (SGOT) 83(H) 10 - 42 unit/L LAB CHEMISTRY METHOD 05/07/2025 10:48 AM [facility] ALT (SGPT) 69(H) 10 - 60 unit/L LAB CHEMISTRY METHOD 05/07/2025 10:48 AM [facility] Alkaline Phosphatase 124(H) 42 - 121 unit/L LAB CHEMISTRY METHOD 05/07/2025 10:48 AM [facility] Total Protein 5.1(L) 6.0 - 8.0 g/dL LAB CHEMISTRY METHOD 05/07/2025 10:48 AM [facility] Albumin 2.2(L) 3.2 - 5.0 g/dL LAB CHEMISTRY METHOD 05/07/2025 10:48 AM [facility] Total Bilirubin 1.6(H) 0.0 - 1.4 mg/dL LAB CHEMISTRY METHOD 05/07/2025 10:48 AM [facility] Blood Venous blood specimen / Unknown Venipuncture / Unknown 05/07/2025 8:25 AM EDT 05/07/2025 8:53 AM EDT us Kolby Burgos MD LAB BLOOD ORDERABLES Final Result [facility] [address] [place] [address], * (ABNORMAL) Complete blood count (05/07/2025 8:25 AM EDT) [facility] WBC 4.5(L) 4.8 - 10.8 K/mcL LAB HEMETOLOGY METHOD 05/07/2025 10:02 AM [facility] RBC 3.00(L) 3.80 - 4.80 M/mcL LAB HEMETOLOGY METHOD 05/07/2025 10:02 AM [facility] Hemoglobin 10.5(L) 11.5 - 16.0 g/dL LAB HEMETOLOGY METHOD 05/07/2025 10:02 AM [facility] Hematocrit 32.1(L) 35.0 - 47.0 % LAB HEMETOLOGY METHOD 05/07/2025 10:02 AM [facility] MCV 108.1(H) 79.0 - 98.0 FL LAB HEMETOLOGY METHOD 05/07/2025 10:02 AM [facility] MCH 35.4(H) 27.0 - 32.0 pcg LAB HEMETOLOGY METHOD 05/07/2025 10:02 AM [facility] MCHC 32.7 32.0 - 37.0 g/dL LAB HEMETOLOGY METHOD 05/07/2025 10:02 AM [facility] RDW 13.5 11.0 - 15.0 % LAB HEMETOLOGY METHOD 05/07/2025 10:02 AM [facility] Platelets 163 130 - 400 K/mcL LAB HEMETOLOGY METHOD 05/07/2025 10:02 AM [facility] MPV 11.6(H) 7.0 - 11.0 FL LAB HEMETOLOGY METHOD 05/07/2025 10:02 AM [facility] NRBC 0.0 <1.0 % LAB HEMETOLOGY METHOD 05/07/2025 10:02 AM EDT [facility] NRBC Absolute 0.00 <0.10 K/mcL LAB HEMETOLOGY METHOD 05/07/2025 10:02 AM EDT [facility] Blood Venous blood specimen / Unknown Venipuncture / Unknown 05/07/2025 8:25 AM EDT 05/07/2025 8:53 AM EDT us Kolby Burgos MD LAB BLOOD ORDERABLES Final Result [facility] [address] [place] [address], documented in this encounter Visit Diagnoses Diagnosis Hypokalemia Hypopotassemia Anemia, unspecified [facility] (current) use of anticoagulants Long-term (current) use of anticoagulants documented in this encounter Additional Health Concerns Infection Onset Date Last Indicated Resolved Time C. difficile Rule-Out 05/14/2025 05/14/20252024 11:24 AM EDT C. difficile 05/14/2025 05/14/2025 06/07/2025 7:05 PM EDT documented as of this encounter Care Teams Senior Windows Systems Engineer Relationship Specialty Start Date End Date Luisito Gonzalez MD [address] [place] [address] Dr Kin [place] PCP - General 01/31/24 documented as of this encounter
--- OUTSIDE RECORDS SUMMARY | 2025-07-18 15:08 | XMS_ITS | Encounter Summary ---
Author Organization [employer] Address [address] [place] [address] Care Team Providers Care Executive Sales Manager Name Role Phone Luisito Gonzalez MD Primary Care Provider [phone] Encounter Details Date Type Department Care Team (Late st Contact Info) Description 05/06/2025 Lab Requisition [facility] - Main Lab [address] [facility] [place] [address] Kolby Burgos MD [address] [place], [place] [id number] Anemia, unspecified; Gastrointestinal hemorrhage, unspecified Social History [...] AM EDT) WBC 4.3(L) 4.8 - 10.8 [facility] LAB HEMETOLOGY METHOD 05/06/2025 7:18 AM EDT [facility] RBC 3.10(L) 3.80 - 4.80 M/mcL LAB HEMETOLOGY METHOD 05/06/2025 7:18 AM [facility] Hemoglobin 11.0(L) 11.5 - 16.0 g/dL LAB HEMETOLOGY METHOD 05/06/2025 7:18 AM [facility] Hematocrit 32.9(L) 35.0 - 47.0 % LAB HEMETOLOGY METHOD 05/06/2025 7:18 AM [facility] MCV 106.8(H) 79.0 - 98.0 FL LAB HEMETOLOGY METHOD 05/06/2025 7:18 AM [facility] MCH 35.7(H) 27.0 - 32.0 pcg LAB HEMETOLOGY METHOD 05/06/2025 7:18 AM [facility] MCHC 33.4 32.0 - 37.0 g/dL LAB HEMETOLOGY METHOD 05/06/2025 7:18 AM [facility] RDW 13.4 11.0 - 15.0 % LAB HEMETOLOGY METHOD 05/06/2025 7:18 AM [facility] Platelets 170 130 - 400 K/mcL LAB HEMETOLOGY METHOD 05/06/2025 7:18 AM [facility] MPV 11.8(H) 7.0 - 11.0 FL LAB HEMETOLOGY METHOD 05/06/2025 7:18 AM [facility] NRBC 0.0 <1.0 % LAB HEMETOLOGY METHOD 05/06/2025 7:18 AM [facility] NRBC Absolute 0.00 <0.10 K/mcL LAB HEMETOLOGY METHOD 05/06/2025 7:18 AM [facility] Neutrophils Relative 60.2 % LAB HEMETOLOGY METHOD 05/06/2025 7:18 AM [facility] Lymphocytes Relative 23.7 % LAB HEMETOLOGY METHOD 05/06/2025 7:18 AM [facility] Monocytes Relative 12.2 % LAB HEMETOLOGY METHOD 05/06/2025 7:18 AM [facility] Eosinophils Relative 2.8 % LAB HEMETOLOGY METHOD 05/06/2025 7:18 AM [facility] Basophils Relative 0.9 % LAB HEMETOLOGY METHOD 05/06/2025 7:18 AM [facility] Immature Granulocytes Relative 0.2 % LAB HEMETOLOGY METHOD 05/06/2025 7:18 AM [facility] Neutrophils Absolute 2.56 1.50 - 7.00 K/mcL LAB HEMETOLOGY METHOD 05/06/2025 7:18 AM [facility] Lymphocytes Absolute 1.01 1.00 - 5.00 K/mcL LAB HEMETOLOGY METHOD 05/06/2025 7:18 AM [facility] Monocytes Absolute 0.52 0.20 - 1.00 K/mcL LAB HEMETOLOGY METHOD 05/06/2025 7:18 AM [facility] Eosinophils Absolute 0.12 0.00 - 0.50 K/mcL LAB HEMETOLOGY METHOD 05/06/2025 7:18 AM [facility] Basophils Absolute 0.04 0.00 - 0.20 K/mcL LAB HEMETOLOGY METHOD 05/06/2025 7:18 AM [facility] Immature Granulocytes Absolute 0.01 0.00 - 0.03 K/mcL LAB HEMETOLOGY METHOD 05/06/2025 7:18 AM [facility] Blood Venous blood specimen / Unknown Venipuncture / Unknown 05/06/2025 5:10 AM EDT 05/06/2025 6:25 AM EDT us Kolby Burgos MD LAB BLOOD ORDERABLES Final Result [facility] [address] [place] [address], * (ABNORMAL) Comprehensive metabolic panel (05/06/2025 5:10 AM EDT) Sodium 135 133 - 145 mmol/L LAB CHEMISTRY METHOD 05/06/2025 8:57 AM [facility] Potassium 2.9(LL) 3.5 - 5.5 mmol/L LAB CHEMISTRY METHOD 05/06/2025 8:57 AM [facility] Chloride 98 96 - 110 mmol/L LAB CHEMISTRY METHOD 05/06/2025 8:57 AM [facility] CO2 31 21 - 32 mmol/L LAB CHEMISTRY METHOD 05/06/2025 8:57 AM [facility] Anion Gap 6 3 - 11 LAB CHEMISTRY METHOD 05/06/2025 8:57 AM [facility] Glucose 91 70 - 100 mg/dL LAB CHEMISTRY METHOD 05/06/2025 8:57 AM [facility] BUN 3(L) 5 - 25 mg/dL LAB CHEMISTRY METHOD 05/06/2025 8:57 AM [facility] Creatinine 0.41(L) 0.50 - 1.10 mg/dL LAB CHEMISTRY METHOD 05/06/2025 8:57 AM [facility] eGFR 109 >=60 mL/min/1. 73m2 LAB CHEMISTRY METHOD 05/06/2025 8:57 AM [facility] Comment:Calculation based on the Chronic Kidney Disease Epidemiology Collaboration (CKD-EPI) equation refit without adjustment for race. BUN/Creatinine Ratio 7.3 LAB CHEMISTRY METHOD 05/06/2025 8:57 AM [facility] Calcium 8.2(L) 8.5 - 10.5 mg/dL LAB CHEMISTRY METHOD 05/06/2025 8:57 AM EDT [facility] AST (SGOT) 93(H) 10 - 42 unit/L LAB CHEMISTRY METHOD 05/06/2025 8:57 AM T [facility] ALT (SGPT) 74(H) 10 - 60 unit/L LAB CHEMISTRY METHOD 05/06/2025 8:57 AM EDT [facility] Alkaline Phosphatase 134(H) 42 - 121 unit/L LAB CHEMISTRY METHOD 05/06/2025 8:57 AM EDT [facility] Total Protein 4.9(L) 6.0 - 8.0 g/dL LAB CHEMISTRY METHOD 05/06/2025 8:57 AM [facility] Albumin 2.2(L) 3.2 - 5.0 g/dL LAB CHEMISTRY METHOD 05/06/2025 8:57 AM [facility] Total Bilirubin 1.6(H) 0.0 - 1.4 mg/dL LAB CHEMISTRY METHOD 05/06/2025 8:57 AM [facility] Blood Venous blood specimen / Unknown Venipuncture / Unknown 05/06/2025 5:10 AM EDT 05/06/2025 6:25 AM EDT Kolby Burgos MD LAB BLOOD ORDERABLES Final Result [facility] [address] [place] [address], documented in this encounter Visit Diagnoses Diagnosis Anemia, unspecified Gastrointestinal hemorrhage, unspecified documented in this encounter Additional Health Concerns Infection Onset Date Last Indicated Resolved Time C. difficile Rule-Out 05/14/2025 05/14/20252024 11:24 AM EDT C. difficile 05/14/2025 05/14/2025 06/07/2025 7:05 PM EDT documented as of this encounter Care Teams Executive Sales Manager Relationship Specialty Start Date End Date Luisito Gonzalez MD [address] [facility] [address] Kin [place] PCP - General 01/31/24 documented as of this encounter
--- OUTSIDE RECORDS SUMMARY | 2025-07-18 15:08 | XMS_ITS | Encounter Summary ---
Author Organization [employer] Address [address] [place] [address] Care Team Providers Care Derrick Engineer Name Role Phone Luisito Gonzalez MD Primary Care Provider [phone] Encounter Details Date Type Department Care Team (Late st Contact Info) Description 05/26/2025 Lab Requisition [facility] - Main Lab [address] [place] [address] Kolby Burgos MD [address] [place], [place] [phone] Anemia, unspecified; Gastrointestinal hemorrhage, unspecified Social History [...] Procedure Name Priority Date/Time Associated Diagnosis Comments COMPLETE BLOOD COUNT Routine 05/27/2025 7:22 AM EDT Anemia, unspecified Gastrointestinal hemorrhage, unspecified BASIC METABOLIC PANEL Routine 05/27/2025 7:22 AM EDT Anemia, unspecified Gastrointestinal hemorrhage, unspecified documented in this encounter Results * (ABNORMAL) Basic metabolic panel (05/27/2025 7:22 AM EDT) Sodium 136 133 - 145 mmol/L LAB CHEMISTRY METHOD 05/27/2025 10:10 AM EDT [facility] Potassium 4.2 3.5 - 5.5 mmol/L LAB CHEMISTRY METHOD 05/27/2025 10:10 AM EDT [facility] Chloride 104 96 - 110 mmol/L LAB CHEMISTRY METHOD 05/27/2025 10:10 AM [facility] CO2 25 21 - 32 mmol/L LAB CHEMISTRY METHOD 05/27/2025 10:10 AM [facility] Anion Gap 7 3 - 11 LAB CHEMISTRY METHOD 05/27/2025 10:10 AM [facility] Glucose 85 70 - 100 mg/dL LAB CHEMISTRY METHOD 05/27/2025 10:10 AM [facility] BUN 4(L) 5 - 25 mg/dL LAB CHEMISTRY METHOD 05/27/2025 10:10 AM [facility] Creatinine 0.54 0.50 - 1.10 mg/dL LAB CHEMISTRY METHOD 05/27/2025 10:10 AM [facility] eGFR 102 >=60 mL/min/1. 73m2 LAB CHEMISTRY METHOD 05/27/2025 10:10 AM [facility] Comment:Calculation based on the Chronic Kidney Disease Epidemiology Collaboration (CKD-EPI) equation refit without adjustment for race. BUN/Creatinine Ratio 7.4 LAB CHEMISTRY METHOD 05/27/2025 10:10 AM [facility] Calcium 9.1 8.5 - 10.5 mg/dL LAB CHEMISTRY METHOD 05/27/2025 10:10 AM [facility] Blood Venous blood specimen / Unknown Venipuncture / Unknown 05/27/2025 7:22 AM EDT 05/27/2025 9:12 AM EDT us Kolby Burgos MD LAB BLOOD ORDERABLES Final Result [facility] [address] [place] [address], * (ABNORMAL) Complete blood count (05/27/2025 7:22 AM EDT) WBC 3.9(L) 4.8 - 10.8 K/mcL LAB HEMETOLOGY METHOD 05/27/2025 9:32 AM [facility] RBC 3.10(L) 3.80 - 4.80 M/mcL LAB HEMETOLOGY METHOD 05/27/2025 9:32 AM [facility] Hemoglobin 10.7(L) 11.5 - 16.0 g/dL LAB HEMETOLOGY METHOD 05/27/2025 9:32 AM [facility] Hematocrit 32.2(L) 35.0 - 47.0 % LAB HEMETOLOGY METHOD 05/27/2025 9:32 AM [facility] MCV 104.9(H) 79.0 - 98.0 FL LAB HEMETOLOGY METHOD 05/27/2025 9:32 AM [facility] MCH 34.9(H) 27.0 - 32.0 pcg LAB HEMETOLOGY METHOD 05/27/2025 9:32 AM [facility] MCHC 33.2 32.0 - 37.0 g/dL LAB HEMETOLOGY METHOD 05/27/2025 9:32 AM [facility] RDW 13.6 11.0 - 15.0 % LAB HEMETOLOGY METHOD 05/27/2025 9:32 AM [facility] Platelets 130 130 - 400 K/mcL LAB HEMETOLOGY METHOD 05/27/2025 9:32 AM [facility] MPV 12.4(H) 7.0 - 11.0 FL LAB HEMETOLOGY METHOD 05/27/2025 9:32 AM [facility] NRBC 0.0 <1.0 % LAB HEMETOLOGY METHOD 05/27/2025 9:32 AM [facility] NRBC Absolute 0.00 <0.10 K/mcL LAB HEMETOLOGY METHOD 05/27/2025 9:32 AM EDT [facility] Blood Venous blood specimen / Unknown Venipuncture / Unknown 05/27/2025 7:22 AM EDT 05/27/2025 9:12 AM EDT Kolby Burgos MD LAB BLOOD ORDERABLES Final Result [facility] [address] [place] [address], documented in this encounter Visit Diagnoses Diagnosis Anemia, unspecified Gastrointestinal hemorrhage, unspecified documented in this encounter Additional Health Concerns Infection Onset Date Last Indicated Resolved Time C. difficile 05/14/2025 05/14/2025 06/07/2025 7:05 PM EDT documented as of this encounter Care Teams Derrick Engineer Relationship Specialty Start Date End Date Luisito Gonzalez MD [address] [place] [address] Dr Sanderson [place] PCP - General 01/31/24 documented as of this encounter
--- OUTSIDE RECORDS SUMMARY | 2025-07-18 15:08 | XMS_ITS | Encounter Summary ---
Author Organization [employer] Address [address] [place] [address] Care Team Providers Care Traffic Lieutenant Name Role Phone Luisito Gonzalez MD Primary Care Provider [phone] Encounter Details Date Type Department Care Team (Late st Contact Info) Description 05/13/2025 Lab Requisition [facility] - Main Lab [address] [facility] [place] [address] Kolby Burgos MD [address] [place], [place] [id number] Urinary tract infection, site not specified Social History Tobacco Use Types Packs/Day Years [...] Procedure Name Priority Date/Time Associated Diagnosis Comments URINALYSIS WITH REFLEX MICROSCOPIC Routine 05/13/2025 4:00 AM EDT Urinary tract infection, site not specified URINALYSIS WITH REFLEX MICROSCOPIC Routine 05/13/2025 4:00 AM EDT Urinary tract infection, site not specified CULTURE URINE Routine 05/13/2025 4:00 AM EDT Urinary tract infection, site not specified documented in this encounter Results * (ABNORMAL) Urinalysis with reflex microscopic (05/13/2025 4:00 AM EDT) [employer] Urine 1.014 1.003 - 1.030 LAB URINALYSIS - AUTOMATED METHOD 05/13/2025 12:10 PM EDT [facility] pH, Urine 8.5(A) 5.0 - 8.0 pH LAB URINALYSIS - AUTOMATED METHOD 05/13/2025 12:10 PM [facility] Leukocytes, Urine Moderate(A) Negative LAB URINALYSIS - AUTOMATED METHOD 05/13/2025 12:10 PM [facility] Nitrite, Urine Negative Negative LAB URINALYSIS - AUTOMATED METHOD 05/13/2025 12:10 PM [facility] Protein, Urine Trace <=Trace mg/dL LAB URINALYSIS - AUTOMATED METHOD 05/13/2025 12:10 PM [facility] Glucose, Urine Negative Negative mg/dL LAB URINALYSIS - AUTOMATED METHOD 05/13/2025 12:10 PM [facility] Ketones, Urine Negative Negative mg/dL LAB URINALYSIS - AUTOMATED METHOD 05/13/2025 12:10 PM [facility] Urobilinogen , Urine 0.2 0.2 - 1.0 mg/dL LAB URINALYSIS - AUTOMATED METHOD 05/13/2025 12:10 PM [facility] Bilirubin, Urine Negative Negative LAB URINALYSIS - AUTOMATED METHOD 05/13/2025 12:10 PM [facility] Blood, Urine Negative Negative LAB URINALYSIS - AUTOMATED METHOD 05/13/2025 12:10 PM [facility] RBC, Urine 3.0 0 - 4 /HPF LAB URINALYSIS - AUTOMATED METHOD 05/13/2025 12:10 PM [facility] WBC, Urine 6.0(H) 0 - 4 /HPF LAB URINALYSIS - AUTOMATED METHOD 05/13/2025 12:10 PM [facility] Squamous Epithelial, Urine 80(H) 0 - 60 /LPF LAB URINALYSIS - AUTOMATED METHOD 05/13/2025 12:10 PM [facility] Bacteria, Urine Negative Negative /HPF LAB URINALYSIS - AUTOMATED METHOD 05/13/2025 12:10 PM EDT [facility] Hyaline Casts, Urine 3.0 0 - 3 /LPF LAB URINALYSIS - AUTOMATED METHOD 05/13/2025 12:10 PM EDT [facility] Urine Urine specimen obtained by clean catch procedure / Unknown 05/13/2025 4:00 AM EDT 05/13/2025 10:25 AM EDT us Kolby Burgos MD LAB URINE ORDERABLES Final Result Performing Organization Address City/[facility]/ZIP Co de Phone Number [facility] [address] [place] [address], [place] [phone] * Culture urine (05/13/2025 4:00 AM EDT) Culture, Urine 10,000-49,000 CFU/mL Mixed bacterial morphotypes present suggestive of possible contamination during collection. Suggest appropriate recollection if clinically indicated. 05/14/2025 10:00 AM EDT [facility] Urine Urine specimen obtained by clean catch procedure / Unknown 05/13/2025 4:00 AM EDT 05/13/2025 10:25 AM EDT us Kolby Burgos MD LAB MICROBIOLOGY - GENERAL ORDERABLES Final Result Performing Organization Address City/[facility]/ZIP Co de Phone Number [facility] [address] [place] [address], [place] [phone] documented in this encounter Visit Diagnoses Diagnosis Urinary tract infection, site not specified documented in this encounter Additional Health Concerns Infection Onset Date Last Indicated Resolved Time C. difficile Rule-Out 05/14/2025 05/14/20252024 11:24 AM EDT C. difficile 05/14/2025 05/14/2025 06/07/2025 7:05 PM EDT documented as of this encounter Care Teams Traffic Lieutenant Relationship Specialty Start Date End Date Luisito Gonzalez MD NPI: [id number] [place] [address] Dr Sanderson [place] PCP - General 01/31/24 documented as of this encounter
--- OUTSIDE RECORDS SUMMARY | 2025-07-18 15:09 | XMS_ITS | Encounter Summary ---
Author Organization [facility] Address [address] [place] [address] Care Team Providers Care Head Irrigator Name Role Phone Luisito Gonzalez MD Primary Care Provider [phone] Encounter Details Date Type Department Care Team (Late st Contact Info) Description 05/15/2025 Lab Requisition [facility] - Main Lab [address] [place] [address] Kolby Burgos MD [address] [place], [place] [phone] Diarrhea, unspecified Social History Tobacco Use Types Packs/Day [...] Associated Diagnosis Comments COMPLETE BLOOD COUNT Routine 05/15/2025 8:17 AM EDT Diarrhea, unspecified BASIC METABOLIC PANEL Routine 05/15/2025 8:17 AM EDT Diarrhea, unspecified documented in this encounter Results * (ABNORMAL) Basic metabolic panel (05/15/2025 8:17 AM EDT) Sodium 128(L) 133 - 145 mmol/L LAB CHEMISTRY METHOD 05/15/2025 11:[address] [facility] Potassium 3.4(L) 3.5 - 5.5 mmol/L LAB CHEMISTRY METHOD 05/15/2025 11:[address] [facility] Chloride 96 96 - 110 mmol/L LAB CHEMISTRY METHOD 05/15/2025 11:53 AM [facility] CO2 25 21 - 32 mmol/L LAB CHEMISTRY METHOD 05/15/2025 11:53 AM [facility] Anion Gap 7 3 - 11 LAB CHEMISTRY METHOD 05/15/2025 11:53 AM [facility] Glucose 75 70 - 100 mg/dL LAB CHEMISTRY METHOD 05/15/2025 11:53 AM [facility] BUN 4(L) 5 - 25 mg/dL LAB CHEMISTRY METHOD 05/15/2025 11:53 AM [facility] Creatinine 0.53 0.50 - 1.10 mg/dL LAB CHEMISTRY METHOD 05/15/2025 11:53 AM [facility] eGFR 102 >=60 mL/min/1. 73m2 LAB CHEMISTRY METHOD 05/15/2025 11:53 AM [facility] Comment:Calculation based on the Chronic Kidney Disease Epidemiology Collaboration (CKD-EPI) equation refit without adjustment for race. BUN/Creatinine Ratio 7.5 LAB CHEMISTRY METHOD 05/15/2025 11:53 AM [facility] Calcium 8.3(L) 8.5 - 10.5 mg/dL LAB CHEMISTRY METHOD 05/15/2025 11:53 AM [facility] Blood Venous blood specimen / Unknown Venipuncture / Unknown 05/15/2025 8:17 AM EDT 05/15/2025 10:17 AM EDT us Kolby Burgos MD LAB BLOOD ORDERABLES Final Result [facility] [address] [place] [address], * (ABNORMAL) Complete blood count (05/15/2025 8:17 AM EDT) WBC 3.4(L) 4.8 - 10.8 K/mcL LAB HEMETOLOGY METHOD 05/15/2025 11:05 AM [facility] RBC 3.10(L) 3.80 - 4.80 M/mcL LAB HEMETOLOGY METHOD 05/15/2025 11:05 AM [facility] Hemoglobin 10.7(L) 11.5 - 16.0 g/dL LAB HEMETOLOGY METHOD 05/15/2025 11:05 AM [facility] Hematocrit 32.1(L) 35.0 - 47.0 % LAB HEMETOLOGY METHOD 05/15/2025 11:05 AM [facility] MCV 104.9(H) 79.0 - 98.0 FL LAB HEMETOLOGY METHOD 05/15/2025 11:05 AM [facility] MCH 35.0(H) 27.0 - 32.0 pcg LAB HEMETOLOGY METHOD 05/15/2025 11:05 AM [facility] MCHC 33.3 32.0 - 37.0 g/dL LAB HEMETOLOGY METHOD 05/15/2025 11:05 AM [facility] RDW 13.9 11.0 - 15.0 % LAB HEMETOLOGY METHOD 05/15/2025 11:05 AM [facility] Platelets 95(L) 130 - 400 K/mcL LAB HEMETOLOGY METHOD 05/15/2025 11:05 AM [facility] Comment:previously verified by slide MPV 12.8(H) 7.0 - 11.0 FL LAB HEMETOLOGY METHOD 05/15/2025 11:05 AM [facility] NRBC 0.0 <1.0 % LAB HEMETOLOGY METHOD 05/15/2025 11:05 AM [facility] NRBC Absolute 0.00 <0.10 K/mcL LAB HEMETOLOGY METHOD 05/15/2025 11:[address] [facility] Blood Venous blood specimen / Unknown Venipuncture / Unknown 05/15/2025 8:17 AM EDT 05/15/2025 10:17 AM EDT us Kolby Burgos MD LAB BLOOD ORDERABLES Final Result [facility] [address] [place] [address], documented in this encounter Visit Diagnoses Diagnosis Diarrhea, unspecified documented in this encounter Additional Health Concerns Infection Onset Date Last Indicated Resolved Time C. difficile 05/14/2025 05/14/2025 06/07/2025 7:05 PM EDT documented as of this encounter Care Teams Head Irrigator Relationship Specialty Start Date End Date Luisito Gonzalez MD [address] [place] [address] Dr [place] PCP - General 01/31/24 documented as of this encounter
--- OUTSIDE RECORDS SUMMARY | 2025-07-18 15:09 | XMS_ITS | Encounter Summary ---
Author Organization [facility] Address [address] [place] [address] Care Team Providers Care Photo Stylist Name Role Phone Luisito Gonzalez MD Primary Care Provider Encounter Details Date Type Department Care Team (Late st Contact Info) Description 05/14/2025 Lab Requisition [facility] - Main Lab [address] [facility] [employer] [place] [address] Kolby Burgos MD [address] [place], [place] [phone] Diarrhea, unspecified Social History Tobacco Use Types [...] Procedure Name Priority Date/Time Associated Diagnosis Comments CLOSTRIDIUM DIFFICILE TOXIN Routine 05/14/2025 12:00 AM EDT Diarrhea, unspecified documented in this encounter Results * (ABNORMAL) Clostridium difficile toxin (05/14/2025 12:00 AM EDT) Clostridium difficile GDH Antigen Positive( A) Negative 05/14/2025 11:24 AM EDT [facility] C difficile Toxins A+B, EIA Positive( AA) Negative 05/14/2025 11:24 AM EDT [facility] Comment: CRITICAL RESULT POSITIVE FOR TOXIN PRODUCING CLOSTRIDIOIDES DIFFICILE, NO ADDITIONAL TESTING IS NECESSARY. REPEAT SAMPLES SHOULD NOT BE SUBMITTED FOR TEST OF CURE. Stool Rectum structure / Unknown Non-blood Collection / Unknown 05/14/2025 05/14/2025 9:26 AM EDT us Kolby Burgos MD LAB MICROBIOLOGY - GENERAL ORDERABLES Final Result [facility] [address] [place] [address], documented in this encounter Visit Diagnoses Diagnosis Diarrhea, unspecified documented in this encounter Additional Health Concerns Infection Onset Date Last Indicated Resolved Time C. difficile Rule-Out 05/14/2025 05/14/20252024 11:24 AM EDT C. difficile 05/14/2025 05/14/2025 06/07/2025 7:05 PM EDT documented as of this encounter Care Teams Photo Stylist Relationship Specialty Start Date End Date Luisito Gonzalez MD [address] [place] [address] Dr Kin [place] PCP - General 01/31/24 documented as of this encounter
--- OUTSIDE RECORDS SUMMARY | 2025-07-18 15:09 | XMS_ITS | Encounter Summary ---
Author Organization [employer] Address [address] [place] [address] Care Team Providers Care Broadcast Traffic Coordinator Name Role Phone Luisito Gonzalez MD Primary Care Provider [phone] Encounter Details Date Type Department Care Team (Late st Contact Info) Description 05/19/2025 Lab Requisition [facility] - Main Lab [address] [place] [address] Kolby Burgos MD [address] [place], [place] [phone] Anemia, unspecified; Gastrointestinal hemorrhage, unspecified Social History [...] Associated Diagnosis Comments COMPLETE BLOOD COUNT Routine 05/20/2025 6:39 AM EDT Anemia, unspecified Gastrointestinal hemorrhage, unspecified BASIC METABOLIC PANEL Routine 05/20/2025 6:39 AM EDT Anemia, unspecified Gastrointestinal hemorrhage, unspecified documented in this encounter Results * (ABNORMAL) Basic metabolic panel (05/20/2025 6:39 AM EDT) Sodium 134 133 - 145 mmol/L LAB CHEMISTRY METHOD 05/20/2025 11:25 AM EDT [facility] Potassium 3.8 3.5 - 5.5 mmol/L LAB CHEMISTRY METHOD 05/20/2025 11:25 AM EDT [facility] Chloride 101 96 - 110 mmol/L LAB CHEMISTRY METHOD 05/20/2025 11:25 AM [facility] CO2 26 21 - 32 mmol/L LAB CHEMISTRY METHOD 05/20/2025 11:25 AM [facility] Anion Gap 7 3 - 11 LAB CHEMISTRY METHOD 05/20/2025 11:25 AM [facility] Glucose 86 70 - 100 mg/dL LAB CHEMISTRY METHOD 05/20/2025 11:25 AM [facility] BUN 3(L) 5 - 25 mg/dL LAB CHEMISTRY METHOD 05/20/2025 11:25 AM [facility] Creatinine 0.47(L) 0.50 - 1.10 mg/dL LAB CHEMISTRY METHOD 05/20/2025 11:25 AM [facility] eGFR 105 >=60 mL/min/1. 73m2 LAB CHEMISTRY METHOD 05/20/2025 11:25 AM [facility] Comment:Calculation based on the Chronic Kidney Disease Epidemiology Collaboration (CKD-EPI) equation refit without adjustment for race. BUN/Creatinine Ratio 6.4 LAB CHEMISTRY METHOD 05/20/2025 11:25 AM [facility] Calcium 8.8 8.5 - 10.5 mg/dL LAB CHEMISTRY METHOD 05/20/2025 11:25 AM [facility] Blood Venous blood specimen / Unknown Venipuncture / Unknown 05/20/2025 6:39 AM EDT 05/20/2025 10:33 AM EDT us Kolby Burgos MD LAB BLOOD ORDERABLES Final Result [facility] [address] [place] [address], * (ABNORMAL) Complete blood count (05/20/2025 6:39 AM EDT) WBC 3.0(L) 4.8 - 10.8 K/mcL LAB HEMETOLOGY METHOD 05/20/2025 10:53 AM [facility] RBC 2.90(L) 3.80 - 4.80 M/mcL LAB HEMETOLOGY METHOD 05/20/2025 10:53 AM [facility] Hemoglobin 10.4(L) 11.5 - 16.0 g/dL LAB HEMETOLOGY METHOD 05/20/2025 10:53 AM [facility] Hematocrit 31.3(L) 35.0 - 47.0 % LAB HEMETOLOGY METHOD 05/20/2025 10:53 AM [facility] MCV 106.5(H) 79.0 - 98.0 FL LAB HEMETOLOGY METHOD 05/20/2025 10:53 AM [facility] MCH 35.4(H) 27.0 - 32.0 pcg LAB HEMETOLOGY METHOD 05/20/2025 10:53 AM [facility] MCHC 33.2 32.0 - 37.0 g/dL LAB HEMETOLOGY METHOD 05/20/2025 10:53 AM [facility] RDW 13.6 11.0 - 15.0 % LAB HEMETOLOGY METHOD 05/20/2025 10:53 AM [facility] Platelets 112(L) 130 - 400 K/mcL LAB HEMETOLOGY METHOD 05/20/2025 10:53 AM [facility] MPV 12.2(H) 7.0 - 11.0 FL LAB HEMETOLOGY METHOD 05/20/2025 10:53 AM [facility] NRBC 0.0 <1.0 % LAB HEMETOLOGY METHOD 05/20/2025 10:53 AM [facility] NRBC Absolute 0.00 <0.10 K/mcL LAB HEMETOLOGY METHOD 05/20/2025 10:53 AM EDT [facility] Blood Venous blood specimen / Unknown Venipuncture / Unknown 05/20/2025 6:39 AM EDT 05/20/2025 10:33 AM EDT us Kolby Burgos MD LAB BLOOD ORDERABLES Final Result [facility] [address] [place] [address], documented in this encounter Visit Diagnoses Diagnosis Anemia, unspecified Gastrointestinal hemorrhage, unspecified documented in this encounter Additional Health Concerns Infection Onset Date Last Indicated Resolved Time C. difficile 05/14/2025 05/14/2025 06/07/2025 7:05 PM EDT documented as of this encounter Care Teams Broadcast Traffic Coordinator Relationship Specialty Start Date End Date Luisito Gonzalez MD [address] [facility] [address] Sanderson [place] PCP - General 01/31/24 documented as of this encounter
== END 2025-07-18 15:06 | disposition home or self-care (01) ==
LOC: HO.NEURO 15:05
DX: R20.2 Paresthesia of skin (principal)
CPT/HCPCS: 95886; 95908

== ENCOUNTER → 2025-07-18 15:07 | Outpatient (BNV) | payer MEDICARE, MEDICAID, SELFPAY | PROVIDERS: Visit Provider Physical Medicine & Rehabilitation | DX: G58.8 Other specified mononeuropathies (principal) | CPT/HCPCS: 95886; 95908 ==

== ENCOUNTER 2025-08-06 09:48 | Outpatient (AMB) | payer MEDICARE, MEDICAID, SELFPAY ==
[2025-08-06 09:53] VITALS: BP 118/50; PULSE 82; RESP 18; TEMP 36.2; O2SAT 95; BMI 28.2
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
--- OUTSIDE RECORDS SUMMARY | 2025-08-06 11:52 | XMS_ITS | Encounter Summary ---
Author Organization [employer] Address [address] [place] [address] Care Team Providers Care Software Engineer Sales Name Role Phone Luisito Gonzalez MD Primary Care Provider [phone] Encounter Details Date Type Department Care Team (Late st Contact Info) Description 05/06/2025 Lab Requisition [facility] - Main Lab [address] [facility] [employer] ([place]) [place] [address] Kolyb Burgos MD [address] [place], [place] [id number] Anemia, unspecified; Gastrointestinal hemorrhage, unspecified Social History [...] AM EDT) WBC 4.3(L) 4.8 - 10.8 K/[facility] LAB HEMETOLOGY METHOD 05/06/2025 7:18 AM EDT [facility] RBC 3.10(L) 3.80 - 4.80 M/mcL LAB HEMETOLOGY METHOD 05/06/2025 7:18 AM [facility] Hemoglobin 11.0(L) 11.5 - 16.0 g/dL LAB HEMETOLOGY METHOD 05/06/2025 7:18 AM [facility] Hematocrit 32.9(L) 35.0 - 47.0 % LAB HEMETOLOGY METHOD 05/06/2025 7:18 AM [facility] MCV 106.8(H) 79.0 - 98.0 FL LAB HEMETOLOGY METHOD 05/06/2025 7:18 AM [facility] MCH 35.7(H) 27.0 - 32.0 pcg LAB HEMETOLOGY METHOD 05/06/2025 7:18 AM [facility] MCHC 33.4 32.0 - 37.0 g/dL LAB HEMETOLOGY METHOD 05/06/2025 7:18 AM [facility] RDW 13.4 11.0 - 15.0 % LAB HEMETOLOGY METHOD 05/06/2025 7:18 AM [facility] Platelets 170 130 - 400 K/mcL LAB HEMETOLOGY METHOD 05/06/2025 7:18 AM [facility] MPV 11.8(H) 7.0 - 11.0 FL LAB HEMETOLOGY METHOD 05/06/2025 7:18 AM [facility] NRBC 0.0 <1.0 % LAB HEMETOLOGY METHOD 05/06/2025 7:18 AM [facility] NRBC Absolute 0.00 <0.10 K/mcL LAB HEMETOLOGY METHOD 05/06/2025 7:18 AM [facility] Neutrophils Relative 60.2 % LAB HEMETOLOGY METHOD 05/06/2025 7:18 AM [facility] Lymphocytes Relative 23.7 % LAB HEMETOLOGY METHOD 05/06/2025 7:18 AM [facility] Monocytes Relative 12.2 % LAB HEMETOLOGY METHOD 05/06/2025 7:18 AM [facility] Eosinophils Relative 2.8 % LAB HEMETOLOGY METHOD 05/06/2025 7:18 AM [facility] Basophils Relative 0.9 % LAB HEMETOLOGY METHOD 05/06/2025 7:18 AM [facility] Immature Granulocytes Relative 0.2 % LAB HEMETOLOGY METHOD 05/06/2025 7:18 AM [facility] Neutrophils Absolute 2.56 1.50 - 7.00 K/mcL LAB HEMETOLOGY METHOD 05/06/2025 7:18 AM [facility] Lymphocytes Absolute 1.01 1.00 - 5.00 K/mcL LAB HEMETOLOGY METHOD 05/06/2025 7:18 AM [facility] Monocytes Absolute 0.52 0.20 - 1.00 K/mcL LAB HEMETOLOGY METHOD 05/06/2025 7:18 AM [facility] Eosinophils Absolute 0.12 0.00 - 0.50 K/mcL LAB HEMETOLOGY METHOD 05/06/2025 7:18 AM [facility] Basophils Absolute 0.04 0.00 - 0.20 K/mcL LAB HEMETOLOGY METHOD 05/06/2025 7:18 AM [facility] Immature Granulocytes Absolute 0.01 0.00 - 0.03 K/mcL LAB HEMETOLOGY METHOD 05/06/2025 7:18 AM [facility] Blood Venous blood specimen / Unknown Venipuncture / Unknown 05/06/2025 5:10 AM EDT 05/06/2025 6:25 AM EDT us Kolby Burgos MD LAB BLOOD ORDERABLES Final Result [facility] [address] [place] [address], * (ABNORMAL) Comprehensive metabolic panel (05/06/2025 5:10 AM EDT) Sodium 135 133 - 145 mmol/L LAB CHEMISTRY METHOD 05/06/2025 8:57 AM [facility] Potassium 2.9(LL) 3.5 - 5.5 mmol/L LAB CHEMISTRY METHOD 05/06/2025 8:57 AM [facility] Chloride 98 96 - 110 mmol/L LAB CHEMISTRY METHOD 05/06/2025 8:57 AM [facility] CO2 31 21 - 32 mmol/L LAB CHEMISTRY METHOD 05/06/2025 8:57 AM [facility] Anion Gap 6 3 - 11 LAB CHEMISTRY METHOD 05/06/2025 8:57 AM [facility] Glucose 91 70 - 100 mg/dL LAB CHEMISTRY METHOD 05/06/2025 8:57 AM [facility] BUN 3(L) 5 - 25 mg/dL LAB CHEMISTRY METHOD 05/06/2025 8:57 AM [facility] Creatinine 0.41(L) 0.50 - 1.10 mg/dL LAB CHEMISTRY METHOD 05/06/2025 8:57 AM [facility] eGFR 109 >=60 mL/min/1. 73m2 LAB CHEMISTRY METHOD 05/06/2025 8:57 AM [facility] Comment:Calculation based on the Chronic Kidney Disease Epidemiology Collaboration (CKD-EPI) equation refit without adjustment for race. BUN/Creatinine Ratio 7.3 LAB CHEMISTRY METHOD 05/06/2025 8:57 AM [facility] Calcium 8.2(L) 8.5 - 10.5 mg/dL LAB CHEMISTRY METHOD 05/06/2025 8:57 AM EDT [facility] AST (SGOT) 93(H) 10 - 42 unit/L LAB CHEMISTRY METHOD 05/06/2025 8:57 AM T [facility] ALT (SGPT) 74(H) 10 - 60 unit/L LAB CHEMISTRY METHOD 05/06/2025 8:57 AM EDT [facility] Alkaline Phosphatase 134(H) 42 - 121 unit/L LAB CHEMISTRY METHOD 05/06/2025 8:57 AM EDT [facility] Total Protein 4.9(L) 6.0 - 8.0 g/dL LAB CHEMISTRY METHOD 05/06/2025 8:57 AM [facility] Albumin 2.2(L) 3.2 - 5.0 g/dL LAB CHEMISTRY METHOD 05/06/2025 8:57 AM [facility] Total Bilirubin 1.6(H) 0.0 - 1.4 mg/dL LAB CHEMISTRY METHOD 05/06/2025 8:57 AM [facility] Blood Venous blood specimen / Unknown Venipuncture / Unknown 05/06/2025 5:10 AM EDT 05/06/2025 6:25 AM EDT Kolby Burgos MD LAB BLOOD ORDERABLES Final Result [facility] [address] [place] [address], documented in this encounter Visit Diagnoses Diagnosis Anemia, unspecified Gastrointestinal hemorrhage, unspecified documented in this encounter Additional Health Concerns Infection Onset Date Last Indicated Resolved Time C. difficile Rule-Out 05/14/2025 05/14/20252024 11:24 AM EDT C. difficile 05/14/2025 05/14/2025 06/07/2025 7:05 PM EDT documented as of this encounter Care Teams Software Engineer Sales Relationship Specialty Start Date End Date Luisito Gonzalez MD [address] [place] PCP - General 01/31/24 documented as of this encounter
--- OUTSIDE RECORDS SUMMARY | 2025-08-06 11:52 | XMS_ITS | Encounter Summary ---
Author Organization [employer] Address [address] [place] [address] Care Team Providers Care Planning Manager Name Role Phone Luisito Gonzalez MD Primary Care Provider [phone] Encounter Details Date Type Department Care Team (Late st Contact Info) Description 05/07/2025 Lab Requisition [facility] - Main Lab [address] [facility] [place] [address] Kolby Burgos MD [address] [place] [address] Hypokalemia; Anemia, unspecified; moth exterminator (current) use of anticoagulants Social History Tobacco [...] 05/07/2025 12:19 PM EDT Hypokalemia Anemia, unspecified moth exterminator (current) use of anticoagulants COMPLETE BLOOD COUNT Routine 05/07/2025 8:25 AM EDT Hypokalemia Anemia, unspecified moth exterminator (current) use of anticoagulants COMPREHENSIVE METABOLIC PANEL Routine 05/07/2025 8:25 AM EDT Hypokalemia Anemia, unspecified USP (current) use of anticoagulants documented in this encounter Results * (ABNORMAL) Prothrombin time with INR (05/07/2025 12:19 PM EDT) Protime 14.5(H) 10.6 - 13.9 sec LAB COAGULATION METHOD 05/07/2025 1:23 PM [facility] INR 1.2 LAB COAGULATION METHOD 05/07/2025 1:23 PM [facility] Blood Venous blood specimen / Unknown Venipuncture / Unknown 05/07/2025 12:19 PM EDT 05/07/2025 8:53 AM EDT Kolby Burgos MD LAB BLOOD ORDERABLES Final Result [facility] [address] [place] [address], * (ABNORMAL) Comprehensive metabolic panel (05/07/2025 8:25 AM EDT) Sodium 137 133 - 145 mmol/L LAB CHEMISTRY METHOD 05/07/2025 10:48 AM [facility] Potassium 3.7 3.5 - 5.5 mmol/L LAB CHEMISTRY METHOD 05/07/2025 10:48 AM [facility] Chloride 102 96 - 110 mmol/L LAB CHEMISTRY METHOD 05/07/2025 10:48 AM [facility] CO2 30 21 - 32 mmol/L LAB CHEMISTRY METHOD 05/07/2025 10:48 AM [facility] Anion Gap 5 3 - 11 LAB CHEMISTRY METHOD 05/07/2025 10:48 AM [facility] Glucose 81 70 - 100 mg/dL LAB CHEMISTRY METHOD 05/07/2025 10:48 AM [facility] BUN 5 5 - 25 mg/dL LAB CHEMISTRY METHOD 05/07/2025 10:48 AM [facility] Creatinine 0.36(L) 0.50 - 1.10 mg/dL LAB CHEMISTRY METHOD 05/07/2025 10:48 AM [facility] eGFR 112 >=60 mL/min/1. 73m2 LAB CHEMISTRY METHOD 05/07/2025 10:48 AM [facility] Comment:Calculation based on the Chronic Kidney Disease Epidemiology Collaboration (CKD-EPI) equation refit without adjustment for race. BUN/Creatinine Ratio 13.9 LAB CHEMISTRY METHOD 05/07/2025 10:48 AM [facility] Calcium 8.1(L) 8.5 - 10.5 mg/dL LAB CHEMISTRY METHOD 05/07/2025 10:48 AM [facility] AST (SGOT) 83(H) 10 - 42 unit/L LAB CHEMISTRY METHOD 05/07/2025 10:48 AM [facility] ALT (SGPT) 69(H) 10 - 60 unit/L LAB CHEMISTRY METHOD 05/07/2025 10:48 AM [facility] Alkaline Phosphatase 124(H) 42 - 121 unit/L LAB CHEMISTRY METHOD 05/07/2025 10:48 AM [facility] Total Protein 5.1(L) 6.0 - 8.0 g/dL LAB CHEMISTRY METHOD 05/07/2025 10:48 AM [facility] Albumin 2.2(L) 3.2 - 5.0 g/dL LAB CHEMISTRY METHOD 05/07/2025 10:48 AM [facility] Total Bilirubin 1.6(H) 0.0 - 1.4 mg/dL LAB CHEMISTRY METHOD 05/07/2025 10:48 AM [facility] Blood Venous blood specimen / Unknown Venipuncture / Unknown 05/07/2025 8:25 AM EDT 05/07/2025 8:53 AM EDT us Kolby Burgos MD LAB BLOOD ORDERABLES Final Result [facility] [address] [place] [address], * (ABNORMAL) Complete blood count (05/07/2025 8:25 AM EDT) [facility] WBC 4.5(L) 4.8 - 10.8 K/mcL LAB HEMETOLOGY METHOD 05/07/2025 10:02 AM [facility] RBC 3.00(L) 3.80 - 4.80 M/mcL LAB HEMETOLOGY METHOD 05/07/2025 10:02 AM [facility] Hemoglobin 10.5(L) 11.5 - 16.0 g/dL LAB HEMETOLOGY METHOD 05/07/2025 10:02 AM [facility] Hematocrit 32.1(L) 35.0 - 47.0 % LAB HEMETOLOGY METHOD 05/07/2025 10:02 AM [facility] MCV 108.1(H) 79.0 - 98.0 FL LAB HEMETOLOGY METHOD 05/07/2025 10:02 AM [facility] MCH 35.4(H) 27.0 - 32.0 pcg LAB HEMETOLOGY METHOD 05/07/2025 10:02 AM [facility] MCHC 32.7 32.0 - 37.0 g/dL LAB HEMETOLOGY METHOD 05/07/2025 10:02 AM [facility] RDW 13.5 11.0 - 15.0 % LAB HEMETOLOGY METHOD 05/07/2025 10:02 AM [facility] Platelets 163 130 - 400 K/mcL LAB HEMETOLOGY METHOD 05/07/2025 10:02 AM [facility] MPV 11.6(H) 7.0 - 11.0 FL LAB HEMETOLOGY METHOD 05/07/2025 10:02 AM [facility] NRBC 0.0 <1.0 % LAB HEMETOLOGY METHOD 05/07/2025 10:02 AM EDT [facility] NRBC Absolute 0.00 <0.10 K/mcL LAB HEMETOLOGY METHOD 05/07/2025 10:02 AM EDT [facility] Blood Venous blood specimen / Unknown Venipuncture / Unknown 05/07/2025 8:25 AM EDT 05/07/2025 8:53 AM EDT us Kolby Burgos MD LAB BLOOD ORDERABLES Final Result [facility] [address] [place] [address], documented in this encounter Visit Diagnoses Diagnosis Hypokalemia Hypopotassemia Anemia, unspecified moth exterminator (current) use of anticoagulants Long-term (current) use of anticoagulants documented in this encounter Additional Health Concerns Infection Onset Date Last Indicated Resolved Time C. difficile Rule-Out 05/14/2025 05/14/20252024 11:24 AM EDT C. difficile 05/14/2025 05/14/2025 06/07/2025 7:05 PM EDT documented as of this encounter Care Teams Planning Manager Relationship Specialty Start Date End Date Luisito Gonzalez MD [address] [place] [address] Dr Kin [place] PCP - General 01/31/24 documented as of this encounter
--- OUTSIDE RECORDS SUMMARY | 2025-08-06 11:52 | XMS_ITS | Clinical Summary ---
Author Organization [address] [facility] Address [address] [place] [address] Phone Care Team Providers Care Veterinary Poultry Inspector Name Role Phone Luisito Gonzalez MD Primary Care Provider [phone] Encounters Date Type Department Care Team Description 05/26/[address] [facility] Lab [address] [place] [address] Kolby Burgos MD Anemia, unspecified; Gastrointestinal hemorrhage, unspecified 05/19/[address] [facility] [address] [place] [phone] Kolby Burgos MD Anemia, unspecified; Gastrointestinal hemorrhage, unspecified 05/15/[address] [facility] [address] [place] [address] Kolby Burgos MD Diarrhea, unspecified 05/14/[address] [facility] [address] [place] [address] Kolby Burgos MD Diarrhea, unspecified 05/13/[address] [facility] [address] [place] [address] Kolby Burgos MD Urinary tract infection, site not specified 05/13/[address] [facility] Lab [address] [place] [address] Kolby Burgos MD Other specified anemias; Other disorders of electrolyte and fluid balance, not elsewhere classified; Bacteremia 05/12/2025 Lab Requisition [facility] Main Lab [address] [place] [address] Kolby Burgos MD Anemia, unspecified; Gastrointestinal hemorrhage, unspecified 05/07/2025 Lab Requisition [facility] Main Lab [address] [place] [address] Kolby Burgos MD Hypokalemia; Anemia, unspecified; prison (current) use of anticoagulants 05/06/[address] [facility] Lab [address] [place] [address] Kolby Burgos MD Anemia, unspecified; [...] 05/07/2025 12:19 PM EDT Hypokalemia Anemia, unspecified terminal operations manager (current) use of anticoagulants COMPREHENSIVE METABOLIC PANEL Routine 05/07/2025 8:25 AM EDT Hypokalemia Anemia, unspecified prison (current) use of anticoagulants COMPLETE BLOOD COUNT Routine 05/07/2025 8:25 AM EDT Hypokalemia Anemia, unspecified terminal operations manager (current) use of anticoagulants CBC WITH AUTO [...] LAB HEMETOLOGY METHOD 05/27/2025 9:[address] [facility] NRBC 0.0 <1.0 % LAB HEMETOLOGY METHOD 05/27/2025 9:[address] [facility] NRBC Absolute 0.00 <0.10 K/mcL LAB HEMETOLOGY METHOD 05/27/2025 9:[address] [facility] Blood Venous blood specimen / Unknown Venipuncture / Unknown 05/27/2025 7:22 AM EDT 05/27/2025 9:12 AM EDT Kolby Burgos MD LAB BLOOD ORDERABLES Final Result [facility] [address] [place] [address], [place] [phone] * (ABNORMAL) Basic metabolic panel (05/27/2025 7:22 AM EDT) Only the most recent of4 resultswithin the time period is included. Sodium 136 133 - 145 mmol/L LAB CHEMISTRY METHOD 05/27/2025 10:10 AM [facility] Potassium 4.2 3.5 - 5.5 mmol/L LAB CHEMISTRY METHOD 05/27/2025 10:10 AM [facility] Chloride 104 96 - [...] LAB CHEMISTRY METHOD 05/27/2025 10:[address] [facility] Creatinine 0.54 0.50 - 1.10 mg/dL LAB CHEMISTRY METHOD 05/27/2025 10:[address] [facility] eGFR 102 >=60 mL/min/1. 73m2 LAB CHEMISTRY METHOD 05/27/2025 10:[address] [facility] Comment:Calculation based on the Chronic Kidney Disease Epidemiology Collaboration (CKD-EPI) equation refit without adjustment for race. BUN/Creatinine Ratio 7.4 LAB CHEMISTRY METHOD 05/27/2025 10:[address] [facility] Calcium 9.1 8.5 - 10.5 mg/dL LAB CHEMISTRY METHOD 05/27/2025 10:[address] [facility] Blood Venous blood specimen / Unknown Venipuncture / Unknown 05/27/2025 7:22 AM EDT 05/27/2025 9:12 AM EDT us Kolby Burgos MD LAB BLOOD ORDERABLES Final Result [facility] [address] [place] [address], * (ABNORMAL) Clostridium difficile toxin (05/14/2025 12:00 AM EDT) Clostridium difficile GDH Antigen Positive( A) Negative 05/14/2025 11:[address] [facility] C difficile Toxins A+B, EIA Positive( AA) Negative 05/14/2025 11:[address] [facility] Comment: CRITICAL RESULT POSITIVE FOR TOXIN PRODUCING CLOSTRIDIOIDES DIFFICILE, NO ADDITIONAL TESTING IS NECESSARY. REPEAT SAMPLES SHOULD NOT BE SUBMITTED FOR TEST OF CURE. Stool Rectum structure / Unknown Non-blood Collection / Unknown 05/14/2025 05/14/2025 9:26 AM EDT us Kolby Burgos MD LAB MICROBIOLOGY - GENERAL ORDERABLES Final Result Performing Organization Address [facility]/ZIP Co de Phone Number [facility] [address] [place] [address], * Culture blood (05/13/2025 9:00 AM EDT) Only the most recent of2 resultswithin the time period is included. Pathologist [facility] Culture, Blood No growth at 5 days 05/18/2025 11:[address] [facility] Blood 05/13/2025 9:00 AM EDT 05/13/2025 9:37 AM EDT Kolby Burgos MD LAB MICROBIOLOGY - GENERAL ORDERABLES Final Result Performing Organization Address [facility] de Phone Number [facility] [address] [place] [address], * (ABNORMAL) CBC auto differential (05/13/2025 8:56 AM EDT) Only the most recent of2 resultswithin the time period is included. [facility] WBC 2.9(L) 4.8 - 10.8 K/mcL LAB HEMETOLOGY METHOD 05/13/2025 10:[address] [facility] RBC 3.00(L) 3.80 - 4.80 M/mcL LAB HEMETOLOGY METHOD 05/13/2025 10:[address] [facility] Hemoglobin 10.5(L) 11.5 - 16.0 g/dL LAB HEMETOLOGY METHOD 05/13/2025 10:[address] [facility] Hematocrit 30.8(L) 35.0 - 47.0 % LAB HEMETOLOGY METHOD 05/13/2025 10:[address] [facility] MCV 104.4(H) 79.0 - 98.0 FL LAB HEMETOLOGY METHOD 05/13/2025 10:12 AM [facility] MCH 35.6(H) 27.0 - 32.0 pcg LAB HEMETOLOGY METHOD 05/13/2025 10:12 AM [facility] MCHC 34.1 32.0 - 37.0 g/dL LAB HEMETOLOGY METHOD 05/13/2025 10:12 AM [facility] RDW 14.2 11.0 - 15.0 % LAB HEMETOLOGY METHOD 05/13/2025 10:12 AM [facility] Platelets 95(L) 130 - 400 K/mcL LAB HEMETOLOGY METHOD 05/13/2025 10:12 AM [facility] Comment:Large platelets seen . Reviewed by slide MPV 12.3(H) 7.0 - 11.0 FL LAB HEMETOLOGY METHOD 05/13/2025 10:12 AM [facility] NRBC 0.0 <1.0 % LAB HEMETOLOGY METHOD 05/13/2025 10:12 AM [facility] NRBC Absolute 0.00 <0.10 K/mcL LAB HEMETOLOGY METHOD 05/13/2025 10:12 AM [facility] Neutrophils Relative 65.7 % LAB HEMETOLOGY METHOD 05/13/2025 10:12 AM [facility] Lymphocytes Relative 15.6 % LAB HEMETOLOGY METHOD 05/13/2025 10:12 AM [facility] Monocytes Relative 16.3 % LAB HEMETOLOGY METHOD 05/13/2025 10:12 AM [facility] Eosinophils Relative 1.4 % LAB HEMETOLOGY METHOD 05/13/2025 10:12 AM [facility] Basophils Relative 0.7 % LAB HEMETOLOGY METHOD 05/13/2025 10:12 AM [facility] Immature Granulocytes Relative 0.3 % LAB HEMETOLOGY METHOD 05/13/2025 10:[address] [facility] Neutrophils Absolute 1.90 1.50 - 7.00 K/Health system LAB HEMETOLOGY METHOD 05/13/2025 10:[address] [facility] Lymphocytes Absolute 0.45(L) 1.00 - 5.00 K/Health system LAB HEMETOLOGY METHOD 05/13/2025 10:[address] [facility] Monocytes Absolute 0.47 0.20 - 1.00 K/Health system LAB HEMETOLOGY METHOD 05/13/2025 10:[address] [facility] Eosinophils Absolute 0.04 0.00 - 0.50 K/Health system LAB HEMETOLOGY METHOD 05/13/2025 10:[address] [facility] Basophils Absolute 0.02 0.00 - 0.20 K/mcL LAB HEMETOLOGY METHOD 05/13/2025 10:[address] [facility] Immature Granulocytes Absolute 0.01 0.00 - 0.03 K/Health system LAB HEMETOLOGY METHOD 05/13/2025 10:[address] [facility] Blood Venous blood specimen / Unknown Venipuncture / Unknown 05/13/2025 8:56 AM EDT 05/13/2025 9:33 AM EDT Kolby Burgos MD LAB BLOOD ORDERABLES Final Result [facility] [address] [place] [address], * Lactate (05/13/2025 8:56 AM EDT) Lactate 1.2 0.4 - 2.0 mmol/L LAB CHEMISTRY METHOD 05/13/2025 10:[address] [facility] Blood Venous blood specimen / Unknown Venipuncture / Unknown 05/13/2025 8:56 AM EDT 05/13/2025 9:33 AM EDT us Kolby Burgos MD LAB BLOOD ORDERABLES Final Result [facility] [address] [place] [address], [place] [phone] * (ABNORMAL) Urinalysis with reflex microscopic (05/13/2025 4:00 AM EDT) Specific [place] Urine 1.014 1.003 - 1.030 LAB URINALYSIS - AUTOMATED METHOD 05/13/2025 12:[address] [facility] pH, Urine 8.5(A) 5.0 - 8.0 pH LAB URINALYSIS - AUTOMATED METHOD 05/13/2025 12:10 PM [facility] Leukocytes, Urine Moderate(A) Negative LAB URINALYSIS - AUTOMATED METHOD 05/13/2025 12:10 PM [facility] Nitrite, Urine Negative Negative LAB URINALYSIS - AUTOMATED METHOD 05/13/2025 12:10 PM [facility] Protein, Urine Trace <=Trace mg/dL LAB URINALYSIS - AUTOMATED METHOD 05/13/2025 12:10 PM [facility] Glucose, Urine Negative Negative mg/dL LAB URINALYSIS - AUTOMATED METHOD 05/13/2025 12:10 PM [facility] Ketones, Urine Negative Negative mg/dL LAB URINALYSIS - AUTOMATED METHOD 05/13/2025 12:10 PM [facility] Urobilinogen , Urine 0.2 0.2 - 1.0 mg/dL LAB URINALYSIS - AUTOMATED METHOD 05/13/2025 12:10 PM [facility] Bilirubin, Urine Negative Negative LAB URINALYSIS - AUTOMATED METHOD 05/13/2025 12:10 PM [facility] Blood, Urine Negative Negative LAB URINALYSIS - AUTOMATED METHOD 05/13/2025 12:[address] [facility] RBC, Urine 3.0 0 - 4 /HPF LAB URINALYSIS - AUTOMATED METHOD 05/13/2025 12:[address] [facility] WBC, Urine 6.0(H) 0 - 4 /HPF LAB URINALYSIS - AUTOMATED METHOD 05/13/2025 12:[address] [facility] Squamous Epithelial, Urine 80(H) 0 - 60 /LPF LAB URINALYSIS - AUTOMATED METHOD 05/13/2025 12:[address] [facility] Bacteria, Urine Negative Negative /HPF LAB URINALYSIS - AUTOMATED METHOD 05/13/2025 12:10 PM [facility] Hyaline Casts, Urine 3.0 0 - 3 /LPF LAB URINALYSIS - AUTOMATED METHOD 05/13/2025 12:[address] [facility] Urine Urine specimen obtained by clean catch procedure / Unknown 05/13/2025 4:00 AM EDT 05/13/2025 10:25 AM EDT us Kolby Burgos MD LAB URINE ORDERABLES Final Result [facility] [address] [place] [address], * Culture urine (05/13/2025 4:00 AM EDT) Culture, Urine 10,000-49,000 CFU/mL Mixed bacterial morphotypes present suggestive of possible contamination during collection. Suggest appropriate recollection if clinically indicated. 05/14/2025 10:[address] [facility] Urine Urine specimen obtained by clean catch procedure / Unknown 05/13/2025 4:00 AM EDT 05/13/2025 10:25 AM EDT us Kolby Burgos MD LAB MICROBIOLOGY - GENERAL ORDERABLES Final Result [facility] [address] [place] [address], * (ABNORMAL) Prothrombin time with INR (05/07/2025 12:19 PM EDT) [facility] Protime 14.5(H) 10.6 - 13.9 sec LAB COAGULATION METHOD 05/07/2025 1:[address] [facility] INR 1.2 LAB COAGULATION METHOD 05/07/2025 1:[address] [facility] Blood Venous blood specimen / Unknown Venipuncture / Unknown 05/07/2025 12:19 PM EDT 05/07/2025 8:53 AM EDT Kolby Burgos MD LAB BLOOD ORDERABLES Final Result Performing Organization Address [facility]/ZIP Co de Phone Number [facility] [address] [place] [address], [place] [phone] * (ABNORMAL) Comprehensive metabolic panel (05/07/2025 8:25 AM EDT) Only the most recent of2 resultswithin the time period is included. [facility] Sodium 137 133 - 145 mmol/L LAB CHEMISTRY METHOD 05/07/2025 10:[address] [facility] Potassium 3.7 3.5 - 5.5 mmol/L LAB CHEMISTRY METHOD 05/07/2025 10:[address] [facility] Chloride 102 96 - 110 mmol/L LAB CHEMISTRY METHOD 05/07/2025 10:[address] [facility] CO2 30 21 - 32 mmol/L LAB CHEMISTRY METHOD 05/07/2025 10:[address] [facility] Anion Gap 5 3 - 11 LAB CHEMISTRY METHOD 05/07/2025 10:[address] [facility] Glucose 81 70 - 100 mg/dL LAB CHEMISTRY METHOD 05/07/2025 10:48 AM [facility] BUN 5 5 - 25 mg/dL LAB CHEMISTRY METHOD 05/07/2025 10:48 AM [facility] Creatinine 0.36(L) 0.50 - 1.10 mg/dL LAB CHEMISTRY METHOD 05/07/2025 10:48 AM [facility] eGFR 112 >=60 mL/min/1. 73m2 LAB CHEMISTRY METHOD 05/07/2025 10:48 AM [facility] Comment:Calculation based on the Chronic Kidney Disease Epidemiology Collaboration (CKD-EPI) equation refit without adjustment for race. BUN/Creatinine Ratio 13.9 LAB CHEMISTRY METHOD 05/07/2025 10:48 AM [facility] Calcium 8.1(L) 8.5 - 10.5 mg/dL LAB CHEMISTRY METHOD 05/07/2025 10:48 AM [facility] AST (SGOT) 83(H) 10 - 42 unit/L LAB CHEMISTRY METHOD 05/07/2025 10:48 AM [facility] ALT (SGPT) 69(H) 10 - 60 unit/L LAB CHEMISTRY METHOD 05/07/2025 10:48 AM [facility] Alkaline Phosphatase 124(H) 42 - 121 unit/L LAB CHEMISTRY METHOD 05/07/2025 10:48 AM [facility] Total Protein 5.1(L) 6.0 - 8.0 g/dL LAB CHEMISTRY METHOD 05/07/2025 10:48 AM [facility] Albumin 2.2(L) 3.2 - 5.0 g/dL LAB CHEMISTRY METHOD 05/07/2025 10:48 AM [facility] Total Bilirubin 1.6(H) 0.0 - 1.4 mg/dL LAB CHEMISTRY METHOD 05/07/2025 10:48 AM [facility] Blood Venous blood specimen / Unknown Venipuncture / Unknown 05/07/2025 8:25 AM EDT 05/07/2025 8:53 AM EDT Kolby Burgos MD LAB BLOOD ORDERABLES Final Result [facility] [address] [place] [address], from Last 3 Months Insurance MEDICARE MEDICAID - [place] Care Teams Veterinary Poultry Inspector Relationship Specialty Start Date End Date Luisito Gonzalez MD [address] [place] [address] Dr Kin [place] PCP - General 01/31/24
--- OUTSIDE RECORDS SUMMARY | 2025-08-06 11:53 | XMS_ITS | Encounter Summary ---
Author Organization [facility] Address [address] [place] [address] Care Team Providers Care Risk And Insurance Manager Name Role Phone Luisito Gonzalez MD Primary Care Provider [phone] Encounter Details Date Type Department Care Team (Late st Contact Info) Description 05/19/[address] [facility] - Main Lab [address] [place] [address] Kolby Burgos MD [address] [place], [place] [id number] Anemia, unspecified; Gastrointestinal hemorrhage, unspecified Social History [...] LAB CHEMISTRY METHOD 05/20/2025 11:25 AM EDT [facility] Potassium 3.8 3.5 - 5.5 mmol/L LAB CHEMISTRY METHOD 05/20/2025 11:25 AM EDT [facility] Chloride 101 96 - 110 mmol/L LAB CHEMISTRY METHOD 05/20/2025 11:25 AM [facility] CO2 26 21 - 32 mmol/L LAB CHEMISTRY METHOD 05/20/2025 11:25 AM [facility] Anion Gap 7 3 - 11 LAB CHEMISTRY METHOD 05/20/2025 11:25 AM [facility] Glucose 86 70 - 100 mg/dL LAB CHEMISTRY METHOD 05/20/2025 11:25 AM [facility] BUN 3(L) 5 - 25 mg/dL LAB CHEMISTRY METHOD 05/20/2025 11:25 AM [facility] Creatinine 0.47(L) 0.50 - 1.10 mg/dL LAB CHEMISTRY METHOD 05/20/2025 11:25 AM [facility] eGFR 105 >=60 mL/min/1. 73m2 LAB CHEMISTRY METHOD 05/20/2025 11:25 AM [facility] Comment:Calculation based on the Chronic Kidney Disease Epidemiology Collaboration (CKD-EPI) equation refit without adjustment for race. BUN/Creatinine Ratio 6.4 LAB CHEMISTRY METHOD 05/20/2025 11:25 AM [facility] Calcium 8.8 8.5 - 10.5 mg/dL LAB CHEMISTRY METHOD 05/20/2025 11:25 AM [facility] Blood Venous blood specimen / Unknown Venipuncture / Unknown 05/20/2025 6:39 AM EDT 05/20/2025 10:33 AM EDT us Kolby Burgos MD LAB BLOOD ORDERABLES Final Result [facility] [address] [place] [address], * (ABNORMAL) Complete blood count (05/20/2025 6:39 AM EDT) WBC 3.0(L) 4.8 - 10.8 K/mcL LAB HEMETOLOGY METHOD 05/20/2025 10:53 AM [facility] RBC 2.90(L) 3.80 - 4.80 M/mcL LAB HEMETOLOGY METHOD 05/20/2025 10:53 AM [facility] Hemoglobin 10.4(L) 11.5 - 16.0 g/dL LAB HEMETOLOGY METHOD 05/20/2025 10:53 AM [facility] Hematocrit 31.3(L) 35.0 - 47.0 % LAB HEMETOLOGY METHOD 05/20/2025 10:53 AM [facility] MCV 106.5(H) 79.0 - 98.0 FL LAB HEMETOLOGY METHOD 05/20/2025 10:53 AM [facility] MCH 35.4(H) 27.0 - 32.0 pcg LAB HEMETOLOGY METHOD 05/20/2025 10:53 AM [facility] MCHC 33.2 32.0 - 37.0 g/dL LAB HEMETOLOGY METHOD 05/20/2025 10:53 AM [facility] RDW 13.6 11.0 - 15.0 % LAB HEMETOLOGY METHOD 05/20/2025 10:53 AM [facility] Platelets 112(L) 130 - 400 K/mcL LAB HEMETOLOGY METHOD 05/20/2025 10:53 AM [facility] MPV 12.2(H) 7.0 - 11.0 FL LAB HEMETOLOGY METHOD 05/20/2025 10:53 AM [facility] NRBC 0.0 <1.0 % LAB HEMETOLOGY METHOD 05/20/2025 10:53 AM [facility] NRBC Absolute 0.00 <0.10 K/mcL LAB HEMETOLOGY METHOD 05/20/2025 10:53 AM EDT [facility] Blood Venous blood specimen / Unknown Venipuncture / Unknown 05/20/2025 6:39 AM EDT 05/20/2025 10:33 AM EDT us Kolby Burgos MD LAB BLOOD ORDERABLES Final Result [facility] [address] [place] [address], documented in this encounter Visit Diagnoses Diagnosis Anemia, unspecified Gastrointestinal hemorrhage, unspecified documented in this encounter Additional Health Concerns Infection Onset Date Last Indicated Resolved Time C. difficile 05/14/2025 05/14/2025 06/07/2025 7:05 PM EDT documented as of this encounter Care Teams Risk And Insurance Manager Relationship Specialty Start Date End Date Luisito Gonzalez MD [address] [place] PCP - General 01/31/24 documented as of this encounter
--- OUTSIDE RECORDS SUMMARY | 2025-08-06 11:53 | XMS_ITS | Encounter Summary ---
Author Organization [employer] Address [address] [place] [address] Care Team Providers Care Core Finisher Name Role Phone Luisito Gonzalez MD Primary Care Provider [phone] Encounter Details Date Type Department Care Team (Late st Contact Info) Description 05/14/2025 Lab Requisition [facility] - Main Lab 299 [facility] [place] [address] Kolby Burgos MD [address] [place], [place] [phone] Diarrhea, unspecified Social History Tobacco Use Types [...] Positive( A) Negative 05/14/2025 11:24 AM EDT [facility] C difficile Toxins A+B, EIA Positive( AA) Negative 05/14/2025 11:24 AM EDT [facility] Comment: CRITICAL RESULT POSITIVE FOR TOXIN PRODUCING CLOSTRIDIOIDES DIFFICILE, NO ADDITIONAL TESTING IS NECESSARY. REPEAT SAMPLES SHOULD NOT BE SUBMITTED FOR TEST OF CURE. Stool Rectum structure / Unknown Non-blood Collection / Unknown 05/14/2025 05/14/2025 9:26 AM EDT us Kolby Burgos MD LAB MICROBIOLOGY - GENERAL ORDERABLES Final Result [facility] [address] [place] [address], documented in this encounter Visit Diagnoses Diagnosis Diarrhea, unspecified documented in this encounter Additional Health Concerns Infection Onset Date Last Indicated Resolved Time C. difficile Rule-Out 05/14/2025 05/14/20252024 11:24 AM EDT C. difficile 05/14/2025 05/14/2025 06/07/2025 7:05 PM EDT documented as of this encounter Care Teams Core Finisher Relationship Specialty Start Date End Date Luisito Gonzalez MD [address] [place] [address] Dr Kin [place] PCP - General 01/31/24 documented as of this encounter
--- OUTSIDE RECORDS SUMMARY | 2025-08-06 11:53 | XMS_ITS | Encounter Summary ---
Author Organization [facility] [employer] [facility] Address [address] [place] [address] Care Team Providers Care Tool Adjuster Name Role Phone Luisito Gonzalez MD Primary Care Provider [phone] Encounter Details Date Type Department Care Team (Late st Contact Info) Description 05/26/2025 Lab Requisition [facility] - Main Lab [address] [place] [address] Kolby Burgos MD [address] [place], [place] [phone] Anemia, unspecified; Gastrointestinal hemorrhage, unspecified Social History [...] LAB CHEMISTRY METHOD 05/27/2025 10:10 AM EDT [facility] Potassium 4.2 3.5 - 5.5 mmol/L LAB CHEMISTRY METHOD 05/27/2025 10:10 AM EDT [facility] Chloride 104 96 - 110 mmol/L LAB CHEMISTRY METHOD 05/27/2025 10:10 AM [facility] CO2 25 21 - 32 mmol/L LAB CHEMISTRY METHOD 05/27/2025 10:10 AM [facility] Anion Gap 7 3 - 11 LAB CHEMISTRY METHOD 05/27/2025 10:10 AM [facility] Glucose 85 70 - 100 mg/dL LAB CHEMISTRY METHOD 05/27/2025 10:10 AM [facility] BUN 4(L) 5 - 25 mg/dL LAB CHEMISTRY METHOD 05/27/2025 10:10 AM [facility] Creatinine 0.54 0.50 - 1.10 mg/dL LAB CHEMISTRY METHOD 05/27/2025 10:10 AM [facility] eGFR 102 >=60 mL/min/1. 73m2 LAB CHEMISTRY METHOD 05/27/2025 10:10 AM [facility] Comment:Calculation based on the Chronic Kidney Disease Epidemiology Collaboration (CKD-EPI) equation refit without adjustment for race. BUN/Creatinine Ratio 7.4 LAB CHEMISTRY METHOD 05/27/2025 10:10 AM [facility] Calcium 9.1 8.5 - 10.5 mg/dL LAB CHEMISTRY METHOD 05/27/2025 10:10 AM [facility] Blood Venous blood specimen / Unknown Venipuncture / Unknown 05/27/2025 7:22 AM EDT 05/27/2025 9:12 AM EDT us Kolby Burgos MD LAB BLOOD ORDERABLES Final Result [facility] [address] [place] [address], * (ABNORMAL) Complete blood count (05/27/2025 7:22 AM EDT) WBC 3.9(L) 4.8 - 10.8 K/mcL LAB HEMETOLOGY METHOD 05/27/2025 9:32 AM [facility] RBC 3.10(L) 3.80 - 4.80 M/mcL LAB HEMETOLOGY METHOD 05/27/2025 9:32 AM [facility] Hemoglobin 10.7(L) 11.5 - 16.0 g/dL LAB HEMETOLOGY METHOD 05/27/2025 9:32 AM [facility] Hematocrit 32.2(L) 35.0 - 47.0 % LAB HEMETOLOGY METHOD 05/27/2025 9:32 AM [facility] MCV 104.9(H) 79.0 - 98.0 FL LAB HEMETOLOGY METHOD 05/27/2025 9:32 AM [facility] MCH 34.9(H) 27.0 - 32.0 pcg LAB HEMETOLOGY METHOD 05/27/2025 9:32 AM [facility] MCHC 33.2 32.0 - 37.0 g/dL LAB HEMETOLOGY METHOD 05/27/2025 9:32 AM [facility] RDW 13.6 11.0 - 15.0 % LAB HEMETOLOGY METHOD 05/27/2025 9:32 AM [facility] Platelets 130 130 - 400 K/mcL LAB HEMETOLOGY METHOD 05/27/2025 9:32 AM [facility] MPV 12.4(H) 7.0 - 11.0 FL LAB HEMETOLOGY METHOD 05/27/2025 9:32 AM [facility] NRBC 0.0 <1.0 % LAB HEMETOLOGY METHOD 05/27/2025 9:32 AM [facility] NRBC Absolute 0.00 <0.10 K/mcL LAB HEMETOLOGY METHOD 05/27/2025 9:32 AM EDT [facility] Blood Venous blood specimen / Unknown Venipuncture / Unknown 05/27/2025 7:22 AM EDT 05/27/2025 9:12 AM EDT Kolby Burgos MD LAB BLOOD ORDERABLES Final Result [facility] [address] [place] [address], documented in this encounter Visit Diagnoses Diagnosis Anemia, unspecified Gastrointestinal hemorrhage, unspecified documented in this encounter Additional Health Concerns Infection Onset Date Last Indicated Resolved Time C. difficile 05/14/2025 05/14/2025 06/07/2025 7:05 PM EDT documented as of this encounter Care Teams Tool Adjuster Relationship Specialty Start Date End Date Luisito Gonzalez MD [address] [place] [address] Dr Sanderson [place] PCP - General 01/31/24 documented as of this encounter
--- OUTSIDE RECORDS SUMMARY | 2025-08-06 11:53 | XMS_ITS | Encounter Summary ---
Author Organization [facility] Address [address] [place] [address] Care Team Providers Care Marriage Therapist Name Role Phone Luisito Gonzalez MD Primary Care Provider Encounter Details Date Type Department Care Team (Late st Contact Info) Description 05/15/2025 Lab Requisition [facility] - Main Lab [address] [place] [address] Kolby Burgos MD [address] [place], [place] [phone] Diarrhea, unspecified Social History Tobacco Use Types [...] LAB CHEMISTRY METHOD 05/15/2025 11:[address] [facility] Potassium 3.4(L) 3.5 - 5.5 mmol/L LAB CHEMISTRY METHOD 05/15/2025 11:[address] [facility] Chloride 96 96 - 110 mmol/L LAB CHEMISTRY METHOD 05/15/2025 11:53 AM [facility] CO2 25 21 - 32 mmol/L LAB CHEMISTRY METHOD 05/15/2025 11:53 AM [facility] Anion Gap 7 3 - 11 LAB CHEMISTRY METHOD 05/15/2025 11:53 AM [facility] Glucose 75 70 - 100 mg/dL LAB CHEMISTRY METHOD 05/15/2025 11:53 AM [facility] BUN 4(L) 5 - 25 mg/dL LAB CHEMISTRY METHOD 05/15/2025 11:53 AM [facility] Creatinine 0.53 0.50 - 1.10 mg/dL LAB CHEMISTRY METHOD 05/15/2025 11:53 AM [facility] eGFR 102 >=60 mL/min/1. 73m2 LAB CHEMISTRY METHOD 05/15/2025 11:53 AM [facility] Comment:Calculation based on the Chronic Kidney Disease Epidemiology Collaboration (CKD-EPI) equation refit without adjustment for race. BUN/Creatinine Ratio 7.5 LAB CHEMISTRY METHOD 05/15/2025 11:53 AM [facility] Calcium 8.3(L) 8.5 - 10.5 mg/dL LAB CHEMISTRY METHOD 05/15/2025 11:53 AM [facility] Blood Venous blood specimen / Unknown Venipuncture / Unknown 05/15/2025 8:17 AM EDT 05/15/2025 10:17 AM EDT us Kolby Burgos MD LAB BLOOD ORDERABLES Final Result [facility] [address] [place] [address], * (ABNORMAL) Complete blood count (05/15/2025 8:17 AM EDT) WBC 3.4(L) 4.8 - 10.8 K/mcL LAB HEMETOLOGY METHOD 05/15/2025 11:05 AM [facility] RBC 3.10(L) 3.80 - 4.80 M/mcL LAB HEMETOLOGY METHOD 05/15/2025 11:05 AM [facility] Hemoglobin 10.7(L) 11.5 - 16.0 g/dL LAB HEMETOLOGY METHOD 05/15/2025 11:05 AM [facility] Hematocrit 32.1(L) 35.0 - 47.0 % LAB HEMETOLOGY METHOD 05/15/2025 11:05 AM [facility] MCV 104.9(H) 79.0 - 98.0 FL LAB HEMETOLOGY METHOD 05/15/2025 11:05 AM [facility] MCH 35.0(H) 27.0 - 32.0 pcg LAB HEMETOLOGY METHOD 05/15/2025 11:05 AM [facility] MCHC 33.3 32.0 - 37.0 g/dL LAB HEMETOLOGY METHOD 05/15/2025 11:05 AM [facility] RDW 13.9 11.0 - 15.0 % LAB HEMETOLOGY METHOD 05/15/2025 11:05 AM [facility] Platelets 95(L) 130 - 400 K/mcL LAB HEMETOLOGY METHOD 05/15/2025 11:05 AM [facility] Comment:previously verified by slide MPV 12.8(H) 7.0 - 11.0 FL LAB HEMETOLOGY METHOD 05/15/2025 11:05 AM [facility] NRBC 0.0 <1.0 % LAB HEMETOLOGY METHOD 05/15/2025 11:05 AM [facility] NRBC Absolute 0.00 <0.10 K/mcL LAB HEMETOLOGY METHOD 05/15/2025 11:[address] [facility] Blood Venous blood specimen / Unknown Venipuncture / Unknown 05/15/2025 8:17 AM EDT 05/15/2025 10:17 AM EDT us Kolby Burgos MD LAB BLOOD ORDERABLES Final Result [facility] [address] [place] [address], documented in this encounter Visit Diagnoses Diagnosis Diarrhea, unspecified documented in this encounter Additional Health Concerns Infection Onset Date Last Indicated Resolved Time C. difficile 05/14/2025 05/14/2025 06/07/2025 7:05 PM EDT documented as of this encounter Care Teams Marriage Therapist Relationship Specialty Start Date End Date Luisito Gonzalez MD [address] [place] [address] Dr Sanderson MD PCP - General 01/31/24 documented as of this encounter
--- OUTSIDE RECORDS SUMMARY | 2025-08-06 11:53 | XMS_ITS | Encounter Summary ---
Author Organization [employer] Address [address] [place] [address] Care Team Providers Care School Speech Language Pathologist Name Role Phone Luisito Gonzalez MD Primary Care Provider [phone] Encounter Details Date Type Department Care Team (Late st Contact Info) Description 05/13/[address] [facility] - Main Lab 299 [facility] [place] [address] Kolby Burgos MD [address] [place], [place] [phone] Urinary tract infection, site not specified Social [...] reflex microscopic (05/13/2025 4:00 AM EDT) Specific [place] Urine 1.014 1.003 - 1.030 LAB URINALYSIS - AUTOMATED METHOD 05/13/2025 12:10 PM EDT [facility] pH, Urine 8.5(A) 5.0 - 8.0 pH LAB URINALYSIS - AUTOMATED METHOD 05/13/2025 12:10 PM [facility] Leukocytes, Urine Moderate(A) Negative LAB URINALYSIS - AUTOMATED METHOD 05/13/2025 12:10 PM [facility] Nitrite, Urine Negative Negative LAB URINALYSIS - AUTOMATED METHOD 05/13/2025 12:10 PM [facility] Protein, Urine Trace <=Trace mg/dL LAB URINALYSIS - AUTOMATED METHOD 05/13/2025 12:10 PM [facility] Glucose, Urine Negative Negative mg/dL LAB URINALYSIS - AUTOMATED METHOD 05/13/2025 12:10 PM [facility] Ketones, Urine Negative Negative mg/dL LAB URINALYSIS - AUTOMATED METHOD 05/13/2025 12:10 PM [facility] Urobilinogen , Urine 0.2 0.2 - 1.0 mg/dL LAB URINALYSIS - AUTOMATED METHOD 05/13/2025 12:10 PM [facility] Bilirubin, Urine Negative Negative LAB URINALYSIS - AUTOMATED METHOD 05/13/2025 12:10 PM [facility] Blood, Urine Negative Negative LAB URINALYSIS - AUTOMATED METHOD 05/13/2025 12:10 PM [facility] RBC, Urine 3.0 0 - 4 /HPF LAB URINALYSIS - AUTOMATED METHOD 05/13/2025 12:10 PM [facility] WBC, Urine 6.0(H) 0 - 4 /HPF LAB URINALYSIS - AUTOMATED METHOD 05/13/2025 12:10 PM [facility] Squamous Epithelial, Urine 80(H) 0 - 60 /LPF LAB URINALYSIS - AUTOMATED METHOD 05/13/2025 12:10 PM [facility] Bacteria, Urine Negative Negative /HPF LAB URINALYSIS - AUTOMATED METHOD 05/13/2025 12:10 PM EDT [facility] Hyaline Casts, Urine 3.0 0 - 3 /LPF LAB URINALYSIS - AUTOMATED METHOD 05/13/2025 12:10 PM EDT [facility] Urine Urine specimen obtained by clean catch procedure / Unknown 05/13/2025 4:00 AM EDT 05/13/2025 10:25 AM EDT us Kolby Burgos MD LAB URINE ORDERABLES Final Result Performing Organization Address City/[facility]/ZIP Co de Phone Number [facility] [address] [place] [address], [place] [phone] * Culture urine (05/13/2025 4:00 AM EDT) Culture, Urine 10,000-49,000 CFU/mL Mixed bacterial morphotypes present suggestive of possible contamination during collection. Suggest appropriate recollection if clinically indicated. 05/14/2025 10:00 AM EDT [facility] Urine Urine specimen obtained by clean catch procedure / Unknown 05/13/2025 4:00 AM EDT 05/13/2025 10:25 AM EDT us Kolby Burgos MD LAB MICROBIOLOGY - GENERAL ORDERABLES Final Result Performing Organization Address City/[facility]/ZIP Co de Phone Number [facility] [address] [place] [address], [place] [phone] documented in this encounter Visit Diagnoses Diagnosis Urinary tract infection, site not specified documented in this encounter Additional Health Concerns Infection Onset Date Last Indicated Resolved Time C. difficile Rule-Out 05/14/2025 05/14/20252024 11:24 AM EDT C. difficile 05/14/2025 05/14/2025 06/07/2025 7:05 PM EDT documented as of this encounter Care Teams School Speech Language Pathologist Relationship Specialty Start Date End Date Luisito Gonzalez MD NPI: [id number] [place] [address] Dr Sanderson [place] PCP - General 01/31/24 documented as of this encounter
--- OUTSIDE RECORDS SUMMARY | 2025-08-06 11:53 | XMS_ITS | Encounter Summary ---
Author Organization [employer] Address [address] [place] [address] Care Team Providers Care Dairy Store Manager Name Role Phone Luisito Gonzalez MD Primary Care Provider [phone] Encounter Details Date Type Department Care Team (Late st Contact Info) Description 05/12/2025 Lab Requisition [facility] - Main Lab 299 [facility] [place] [address] Kolby Burgos MD [address] [place], [place] [phone] Anemia, unspecified; Gastrointestinal hemorrhage, unspecified Social History [...] Results * Lactate (05/13/2025 8:56 AM EDT) [facility] Lactate 1.2 0.4 - 2.0 mmol/L LAB CHEMISTRY METHOD 05/13/2025 10:16 AM EDT [facility] Blood Venous blood specimen / Unknown Venipuncture / Unknown 05/13/2025 8:56 AM EDT 05/13/2025 9:33 AM EDT us Kolby Burgos MD LAB BLOOD ORDERABLES Final Result [facility] [address] [place] [address], [place] [phone] * Culture blood (05/13/2025 8:56 AM EDT) [facility] Culture, Blood No growth at 5 days 05/18/2025 11:01 AM EDT [facility] Blood Venipuncture / Unknown 05/13/2025 8:56 AM EDT 05/13/2025 9:33 AM EDT us Kolby Burgos MD LAB MICROBIOLOGY - GENERAL ORDERABLES Final Result Performing Organization Address City/[facility]/ZIP Co de Phone Number [facility] [address] [place] [address], [place] [phone] * (ABNORMAL) CBC auto differential (05/13/2025 8:56 AM EDT) [facility] WBC 2.9(L) 4.8 - 10.8 K/mcL LAB HEMETOLOGY METHOD 05/13/2025 10:12 AM EDT [facility] RBC 3.00(L) 3.80 - 4.80 M/mcL LAB HEMETOLOGY METHOD 05/13/2025 10:12 AM EDT [facility] Hemoglobin 10.5(L) 11.5 - 16.0 g/dL LAB HEMETOLOGY METHOD 05/13/2025 10:12 AM [facility] Hematocrit 30.8(L) 35.0 - 47.0 % LAB HEMETOLOGY METHOD 05/13/2025 10:12 AM [facility] MCV 104.4(H) 79.0 - 98.0 FL LAB HEMETOLOGY METHOD 05/13/2025 10:12 AM [facility] MCH 35.6(H) 27.0 - 32.0 pcg LAB HEMETOLOGY METHOD 05/13/2025 10:12 AM [facility] MCHC 34.1 32.0 - 37.0 g/dL LAB HEMETOLOGY METHOD 05/13/2025 10:12 AM [facility] RDW 14.2 11.0 - 15.0 % LAB HEMETOLOGY METHOD 05/13/2025 10:12 AM [facility] Platelets 95(L) 130 - 400 K/mcL LAB HEMETOLOGY METHOD 05/13/2025 10:12 AM [facility] Comment:Large platelets seen . Reviewed by slide MPV 12.3(H) 7.0 - 11.0 FL LAB HEMETOLOGY METHOD 05/13/2025 10:12 AM [facility] NRBC 0.0 <1.0 % LAB HEMETOLOGY METHOD 05/13/2025 10:12 AM [facility] NRBC Absolute 0.00 <0.10 K/mcL LAB HEMETOLOGY METHOD 05/13/2025 10:12 AM [facility] Neutrophils Relative 65.7 % LAB HEMETOLOGY METHOD 05/13/2025 10:12 AM [facility] Lymphocytes Relative 15.6 % LAB HEMETOLOGY METHOD 05/13/2025 10:12 AM [facility] Monocytes Relative 16.3 % LAB HEMETOLOGY METHOD 05/13/2025 10:12 AM EDT [facility] Eosinophils Relative 1.4 % LAB HEMETOLOGY METHOD 05/13/2025 10:12 AM EDT [facility] Basophils Relative 0.7 % LAB HEMETOLOGY METHOD 05/13/2025 10:12 AM EDT [facility] Immature Granulocytes Relative 0.3 % LAB HEMETOLOGY METHOD 05/13/2025 10:12 AM EDT [facility] Neutrophils Absolute 1.90 1.50 - 7.00 K/mcL LAB HEMETOLOGY METHOD 05/13/2025 10:12 AM EDT [facility] Lymphocytes Absolute 0.45(L) 1.00 - 5.00 K/mcL LAB HEMETOLOGY METHOD 05/13/2025 10:12 AM EDT [facility] Monocytes Absolute 0.47 0.20 - 1.00 K/mcL LAB HEMETOLOGY METHOD 05/13/2025 10:12 AM EDT [facility] Eosinophils Absolute 0.04 0.00 - 0.50 K/mcL LAB HEMETOLOGY METHOD 05/13/2025 10:12 AM EDT [facility] Basophils Absolute 0.02 0.00 - 0.20 K/mcL LAB HEMETOLOGY METHOD 05/13/2025 10:12 AM EDT [facility] Immature Granulocytes Absolute 0.01 0.00 - 0.03 K/mcL LAB HEMETOLOGY METHOD 05/13/2025 10:12 AM EDT [facility] Blood Venous blood specimen / Unknown Venipuncture / Unknown 05/13/2025 8:56 AM EDT 05/13/2025 9:33 AM EDT us Kolby Burgos MD LAB BLOOD ORDERABLES Final Result [facility] [address] [place] [address], [place] [phone] * (ABNORMAL) Basic metabolic panel (05/13/2025 8:56 AM EDT) Sodium 132(L) 133 - 145 mmol/L LAB CHEMISTRY METHOD 05/13/2025 10:27 AM [facility] Potassium 3.7 3.5 - 5.5 mmol/L LAB CHEMISTRY METHOD 05/13/2025 10:27 AM [facility] Chloride 101 96 - 110 mmol/L LAB CHEMISTRY METHOD 05/13/2025 10:27 AM [facility] CO2 23 21 - 32 mmol/L LAB CHEMISTRY METHOD 05/13/2025 10:27 AM [facility] Anion Gap 8 3 - 11 LAB CHEMISTRY METHOD 05/13/2025 10:27 AM [facility] Glucose 96 70 - 100 mg/dL LAB CHEMISTRY METHOD 05/13/2025 10:27 AM [facility] BUN 4(L) 5 - 25 mg/dL LAB CHEMISTRY METHOD 05/13/2025 10:27 AM [facility] Creatinine 0.62 0.50 - 1.10 mg/dL LAB CHEMISTRY METHOD 05/13/2025 10:27 AM [facility] eGFR 98 >=60 mL/min/1. 73m2 LAB CHEMISTRY METHOD 05/13/2025 10:27 AM [facility] Comment:Calculation based on the Chronic Kidney Disease Epidemiology Collaboration (CKD-EPI) equation refit without adjustment for race. BUN/Creatinine Ratio 6.5 LAB CHEMISTRY METHOD 05/13/2025 10:27 AM [facility] Calcium 8.1(L) 8.5 - 10.5 mg/dL LAB CHEMISTRY METHOD 05/13/2025 10:27 AM [facility] Blood Venous blood specimen / Unknown Venipuncture / Unknown 05/13/2025 8:56 AM EDT 05/13/2025 9:33 AM EDT us Kolby Burgos MD LAB BLOOD ORDERABLES Final Result [facility] [place] ([facility]) [facility] [address] [place] [address], documented in this encounter Visit Diagnoses Diagnosis Anemia, unspecified Gastrointestinal hemorrhage, unspecified documented in this encounter Additional Health Concerns Infection Onset Date Last Indicated Resolved Time C. difficile Rule-Out 05/14/2025 05/14/20252024 11:24 AM EDT C. difficile 05/14/2025 05/14/2025 06/07/2025 7:05 PM EDT documented as of this encounter Care Teams Dairy Store Manager Relationship Specialty Start Date End Date Luisito Gonzalez MD [address] [place] [address] Dr Kin [place] PCP - General 01/31/24 documented as of this encounter
--- OUTSIDE RECORDS SUMMARY | 2025-08-06 11:53 | XMS_ITS | Encounter Summary ---
Author Organization [facility] Address [address] [place] [address] Care Team Providers Care Hide And Skin Processing Worker Name Role Phone Luisito Gonzalez MD Primary Care Provider [phone] Encounter Details Date Type Department Care Team (Late st Contact Info) Description 05/13/2025 Lab Requisition [facility] - Main Lab [address] [place] [address] Kolby Burgos MD [address] [place], [place] [phone] Other specified anemias; Other disorders of electrolyte [...] at 5 days 05/18/2025 11:01 AM EDT [facility] Blood 05/13/2025 9:00 AM EDT 05/13/2025 9:37 AM EDT us Kolby Burgos MD LAB MICROBIOLOGY - GENERAL ORDERABLES Final Result [facility] [place] ([facility] [address] [place] [address], documented in this encounter Visit Diagnoses Diagnosis Other specified anemias Other disorders of electrolyte and fluid balance, not elsewhere classified Bacteremia documented in this encounter Additional Health Concerns Infection Onset Date Last Indicated Resolved Time C. difficile Rule-Out 05/14/2025 05/14/20252024 11:24 AM EDT C. difficile 05/14/2025 05/14/2025 06/07/2025 7:05 PM EDT documented as of this encounter Care Teams Hide And Skin Processing Worker Relationship Specialty Start Date End Date Luisito Gonzalez MD [address] [place] [address] Dr Kin [place] PCP - General 01/31/24 documented as of this encounter
== END 2025-08-06 10:44 | disposition home or self-care (01) ==
LOC: HO.HMCH 09:50
DX: I10 Essential (primary) hypertension (principal); I25.10 Atherosclerotic heart disease of native coronary artery without angina pectoris; R79.89 Other specified abnormal findings of blood chemistry; F17.200 Nicotine dependence, unspecified, uncomplicated; R20.0 Anesthesia of skin; M79.609 Pain in unspecified limb; R20.2 Paresthesia of skin; F10.10 Alcohol abuse, uncomplicated; D64.9 Anemia, unspecified; M79.89 Other specified soft tissue disorders; R20.8 Other disturbances of skin sensation

== ENCOUNTER → 2025-08-06 09:48 | Outpatient (BNVA) | payer MEDICARE, SELFPAY | DX: I10 Essential (primary) hypertension (principal); I25.10 Atherosclerotic heart disease of native coronary artery without angina pectoris; R79.89 Other specified abnormal findings of blood chemistry; R20.0 Anesthesia of skin; F10.10 Alcohol abuse, uncomplicated; D64.9 Anemia, unspecified; M79.89 Other specified soft tissue disorders; R20.8 Other disturbances of skin sensation; F17.200 Nicotine dependence, unspecified, uncomplicated; Z71.6 Tobacco abuse counseling | CPT/HCPCS: 99212 ==

== ENCOUNTER 2025-08-06 15:24 | Outpatient (REF) | payer MEDICARE, SELFPAY ==
--- NOTE | ~2025-08-06 | US_ITS ---
EXAMINATION: US TRIPLEX LOWER EXTREMITY, RIGHT CLINICAL INFORMATION: Right lower extremity pain COMPARISON: None available. TECHNIQUE: Color-flow triplex imaging with spectral analysis and compression Doppler were performed on the right lower extremity. FINDINGS: Respiratory variation, normal compression and augmented flow are noted throughout the right lower extremity. The visualized common femoral vein, superficial femoral vein, profunda femoral vein, popliteal vein and midcalf posterior tibial venous segments show no evidence of deep venous thrombosis. Peroneal vein is not visualized. Incidental note is made of varicosities in the calf region. US/US venous duplex LE RT IMPRESSION: No evidence of deep venous thrombosis involving the right lower extremity. Varicose veins in the calf region. Electronically signed by: Cuate Bueno MD 08/06/2025 04:15 PM EDT
== END 2025-08-06 15:25 | disposition home or self-care (01) ==
LOC: HO.US 15:24
DX: M79.604 Pain in right leg (principal); R60.0 Localized edema
CPT/HCPCS: 93971

== ENCOUNTER → 2025-08-06 15:26 | Outpatient (BNV) | payer MEDICARE, SELFPAY | PROVIDERS: Visit Provider Radiology Diagnostic Radiology | DX: M79.604 Pain in right leg (principal) | CPT/HCPCS: 93971 ==

== ENCOUNTER 2025-08-07 09:54 | Outpatient (REF) | payer MEDICARE, SELFPAY ==
--- OUTSIDE RECORDS SUMMARY | 2025-08-07 11:53 | XMS_ITS | Encounter Summary ---
Author Organization [employer] Address [address] [place] [address] Care Team Providers Care Heart Coordinator Name Role Phone Luisito Gonzalez MD Primary Care Provider [phone] Encounter Details Date Type Department Care Team (Late st Contact Info) Description 05/13/2025 Lab Requisition [facility] - Main Lab [address] [facility] [place] [address] Kolby Burgos MD [address] [place], [place] [phone] Urinary tract infection, site not specified Social [...] reflex microscopic (05/13/2025 4:00 AM EDT) Specific [place] Urine 1.014 1.003 - 1.030 LAB URINALYSIS - AUTOMATED METHOD 05/13/2025 12:10 PM EDT [facility] pH, Urine 8.5(A) 5.0 - 8.0 pH LAB URINALYSIS - AUTOMATED METHOD 05/13/2025 12:10 PM [facility] Leukocytes, Urine Moderate(A) Negative LAB URINALYSIS - AUTOMATED METHOD 05/13/2025 12:10 PM [facility] Nitrite, Urine Negative Negative LAB URINALYSIS - AUTOMATED METHOD 05/13/2025 12:10 PM [facility] Protein, Urine Trace <=Trace mg/dL LAB URINALYSIS - AUTOMATED METHOD 05/13/2025 12:10 PM [facility] Glucose, Urine Negative Negative mg/dL LAB URINALYSIS - AUTOMATED METHOD 05/13/2025 12:10 PM [facility] Ketones, Urine Negative Negative mg/dL LAB URINALYSIS - AUTOMATED METHOD 05/13/2025 12:10 PM [facility] Urobilinogen , Urine 0.2 0.2 - 1.0 mg/dL LAB URINALYSIS - AUTOMATED METHOD 05/13/2025 12:10 PM [facility] Bilirubin, Urine Negative Negative LAB URINALYSIS - AUTOMATED METHOD 05/13/2025 12:10 PM [facility] Blood, Urine Negative Negative LAB URINALYSIS - AUTOMATED METHOD 05/13/2025 12:10 PM [facility] RBC, Urine 3.0 0 - 4 /HPF LAB URINALYSIS - AUTOMATED METHOD 05/13/2025 12:10 PM [facility] WBC, Urine 6.0(H) 0 - 4 /HPF LAB URINALYSIS - AUTOMATED METHOD 05/13/2025 12:10 PM [facility] Squamous Epithelial, Urine 80(H) 0 - 60 /LPF LAB URINALYSIS - AUTOMATED METHOD 05/13/2025 12:10 PM [facility] Bacteria, Urine Negative Negative /HPF LAB URINALYSIS - AUTOMATED METHOD 05/13/2025 12:10 PM EDT [facility] Hyaline Casts, Urine 3.0 0 - 3 /LPF LAB URINALYSIS - AUTOMATED METHOD 05/13/2025 12:10 PM EDT [facility] Urine Urine specimen obtained by clean catch procedure / Unknown 05/13/2025 4:00 AM EDT 05/13/2025 10:25 AM EDT us Kolby Burgos MD LAB URINE ORDERABLES Final Result Performing Organization Address City/[facility]/ZIP Co de Phone Number [facility] [address] [place] [address], [place] [phone] * Culture urine (05/13/2025 4:00 AM EDT) Culture, Urine 10,000-49,000 CFU/mL Mixed bacterial morphotypes present suggestive of possible contamination during collection. Suggest appropriate recollection if clinically indicated. 05/14/2025 10:00 AM EDT [facility] Urine Urine specimen obtained by clean catch procedure / Unknown 05/13/2025 4:00 AM EDT 05/13/2025 10:25 AM EDT us Kolby Burgos MD LAB MICROBIOLOGY - GENERAL ORDERABLES Final Result Performing Organization Address City/[facility]/ZIP Co de Phone Number [facility] [address] [place] [address], [place] [phone] documented in this encounter Visit Diagnoses Diagnosis Urinary tract infection, site not specified documented in this encounter Additional Health Concerns Infection Onset Date Last Indicated Resolved Time C. difficile Rule-Out 05/14/2025 05/14/20252024 11:24 AM EDT C. difficile 05/14/2025 05/14/2025 06/07/2025 7:05 PM EDT documented as of this encounter Care Teams Heart Coordinator Relationship Specialty Start Date End Date Luisito Gonzalez MD NPI: [id number] [place] [address] Dr Sanderson [place] PCP - General 01/31/24 documented as of this encounter
--- OUTSIDE RECORDS SUMMARY | 2025-08-07 11:53 | XMS_ITS | Encounter Summary ---
Author Organization [employer] Address [address] [place] [address] Care Team Providers Care Director Franchise Sales Name Role Phone Luisito Gonzalez MD Primary Care Provider [phone] Encounter Details Date Type Department Care Team (Late st Contact Info) Description 05/06/2025 Lab Requisition [facility] - Main Lab [address] [facility] [place] [address] Kolby Burgos MD [address] [place], [place] [phone] Anemia, unspecified; Gastrointestinal hemorrhage, unspecified Social History [...] AM EDT) WBC 4.3(L) 4.8 - 10.8 K/[facility] LAB HEMETOLOGY METHOD 05/06/2025 7:18 AM EDT [facility] RBC 3.10(L) 3.80 - 4.80 [...] AM [facility] Immature Granulocytes Absolute 0.01 0.00 - 0.03 K/mcL LAB HEMETOLOGY METHOD 05/06/2025 7:18 AM [facility] Blood Venous blood specimen / Unknown Venipuncture / Unknown 05/06/2025 5:10 AM EDT 05/06/2025 6:25 AM EDT us Kolby Burgos MD LAB BLOOD ORDERABLES Final Result [facility] [address] [place] [address], * (ABNORMAL) Comprehensive metabolic panel (05/06/2025 5:10 [...] CHEMISTRY METHOD 05/06/2025 8:57 AM EDT [facility] AST (SGOT) 93(H) 10 - 42 unit/L LAB CHEMISTRY METHOD 05/06/2025 8:57 AM T [facility] ALT (SGPT) 74(H) 10 - 60 unit/L LAB CHEMISTRY METHOD 05/06/2025 8:57 AM EDT [facility] Alkaline Phosphatase 134(H) 42 - 121 unit/L LAB CHEMISTRY METHOD 05/06/2025 8:57 AM EDT [facility] Total Protein 4.9(L) 6.0 - [...] MD LAB BLOOD ORDERABLES Final Result [facility] [address] [place] [address], documented in this encounter Visit Diagnoses Diagnosis Anemia, unspecified Gastrointestinal hemorrhage, unspecified documented in this encounter Additional Health Concerns Infection Onset Date Last Indicated Resolved Time C. difficile Rule-Out 05/14/2025 05/14/20252024 11:24 AM EDT C. difficile 05/14/2025 05/14/2025 06/07/2025 7:05 PM EDT documented as of this encounter Care Teams Director Franchise Sales Relationship Specialty Start Date End Date Luisito Gonzalez MD [address] Kin [place] PCP - General 01/31/24 documented as of this encounter
--- OUTSIDE RECORDS SUMMARY | 2025-08-07 11:53 | XMS_ITS | Encounter Summary ---
Author Organization [employer] Address [address] [place] [address] Care Team Providers Care Accounts Receivable Collector Name Role Phone Luisito Gonzalez MD Primary Care Provider [phone] Encounter Details Date Type Department Care Team (Late st Contact Info) Description 05/19/2025 Lab Requisition [facility] - Main Lab [address] [place] [address] Kolby Burgos MD [address] [place], [place] [phone] Anemia, unspecified; Gastrointestinal hemorrhage, unspecified Social History [...] mmol/L LAB CHEMISTRY METHOD 05/20/2025 11:25 AM [facility] CO2 26 21 - 32 mmol/L LAB CHEMISTRY METHOD 05/20/2025 11:25 AM [facility] Anion Gap 7 3 - 11 LAB CHEMISTRY METHOD 05/20/2025 11:25 AM [facility] Glucose 86 70 - 100 mg/dL LAB CHEMISTRY METHOD 05/20/2025 11:25 AM [facility] BUN 3(L) 5 - 25 mg/dL LAB CHEMISTRY METHOD 05/20/2025 11:25 AM [facility] Creatinine 0.47(L) 0.50 - 1.10 mg/dL LAB CHEMISTRY METHOD 05/20/2025 11:25 AM [facility] eGFR 105 >=60 mL/min/1. 73m2 LAB CHEMISTRY METHOD 05/20/2025 11:25 AM [facility] Comment:Calculation based on the Chronic Kidney Disease Epidemiology Collaboration (CKD-EPI) equation refit without adjustment for race. BUN/Creatinine Ratio 6.4 LAB CHEMISTRY METHOD 05/20/2025 11:25 AM [facility] Calcium 8.8 8.5 - 10.5 mg/dL LAB CHEMISTRY METHOD 05/20/2025 11:25 AM [facility] Blood Venous blood specimen / Unknown Venipuncture / Unknown 05/20/2025 6:39 AM EDT 05/20/2025 10:33 AM EDT us Kolby Burgos MD LAB BLOOD ORDERABLES Final Result [facility] [address] [place] [address], * (ABNORMAL) Complete blood count (05/20/2025 6:39 AM EDT) WBC 3.0(L) 4.8 - 10.8 K/mcL LAB HEMETOLOGY METHOD 05/20/2025 10:53 AM [facility] RBC 2.90(L) 3.80 - 4.80 M/mcL LAB HEMETOLOGY METHOD 05/20/2025 10:53 AM [facility] Hemoglobin 10.4(L) 11.5 - 16.0 g/dL LAB HEMETOLOGY METHOD 05/20/2025 10:53 AM [facility] Hematocrit 31.3(L) 35.0 - 47.0 % LAB HEMETOLOGY METHOD 05/20/2025 10:53 AM [facility] MCV 106.5(H) 79.0 - 98.0 FL LAB HEMETOLOGY METHOD 05/20/2025 10:53 AM [facility] MCH 35.4(H) 27.0 - 32.0 pcg LAB HEMETOLOGY METHOD 05/20/2025 10:53 AM [facility] MCHC 33.2 32.0 - 37.0 g/dL LAB HEMETOLOGY METHOD 05/20/2025 10:53 AM [facility] RDW 13.6 11.0 - 15.0 % LAB HEMETOLOGY METHOD 05/20/2025 10:53 AM [facility] Platelets 112(L) 130 - 400 K/mcL LAB HEMETOLOGY METHOD 05/20/2025 10:53 AM [facility] MPV 12.2(H) 7.0 - 11.0 FL LAB HEMETOLOGY METHOD 05/20/2025 10:53 AM [facility] NRBC 0.0 <1.0 % LAB HEMETOLOGY METHOD 05/20/2025 10:53 AM [facility] NRBC Absolute 0.00 <0.10 K/mcL LAB HEMETOLOGY METHOD 05/20/2025 10:53 AM EDT [facility] Blood Venous blood specimen / Unknown Venipuncture / Unknown 05/20/2025 6:39 AM EDT 05/20/2025 10:33 AM EDT us Kolby Burgos MD LAB BLOOD ORDERABLES Final Result [facility] [address] [place] [address], documented in this encounter Visit Diagnoses Diagnosis Anemia, unspecified Gastrointestinal hemorrhage, unspecified documented in this encounter Additional Health Concerns Infection Onset Date Last Indicated Resolved Time C. difficile 05/14/2025 05/14/2025 06/07/2025 7:05 PM EDT documented as of this encounter Care Teams Accounts Receivable Collector Relationship Specialty Start Date End Date Luisito Gonzalez MD [address] [facility] [address] Sanderson [place] PCP - General 01/31/24 documented as of this encounter
--- OUTSIDE RECORDS SUMMARY | 2025-08-07 11:53 | XMS_ITS | Encounter Summary ---
Author Organization [employer] Address [address] [place] [address] Care Team Providers Care Food Service Ambassador Name Role Phone Luisito Gonzalez MD Primary Care Provider Encounter Details Date Type Department Care Team (Late st Contact Info) Description 05/26/2025 Lab Requisition [facility] - Main Lab [address] [place] [address] Kolby Burgos MD [address] [place], [place] [phone] Anemia, unspecified; Gastrointestinal hemorrhage, unspecified Social History [...] LAB CHEMISTRY METHOD 05/27/2025 10:10 AM EDT [facility] Potassium 4.2 3.5 - 5.5 mmol/L LAB CHEMISTRY METHOD 05/27/2025 10:10 AM EDT [facility] Chloride 104 96 - 110 mmol/L LAB CHEMISTRY METHOD 05/27/2025 10:10 AM [facility] CO2 25 21 - 32 mmol/L LAB CHEMISTRY METHOD 05/27/2025 10:10 AM [facility] Anion Gap 7 3 - 11 LAB CHEMISTRY METHOD 05/27/2025 10:10 AM [facility] Glucose 85 70 - 100 mg/dL LAB CHEMISTRY METHOD 05/27/2025 10:10 AM [facility] BUN 4(L) 5 - 25 mg/dL LAB CHEMISTRY METHOD 05/27/2025 10:10 AM [facility] Creatinine 0.54 0.50 - 1.10 mg/dL LAB CHEMISTRY METHOD 05/27/2025 10:10 AM [facility] eGFR 102 >=60 mL/min/1. 73m2 LAB CHEMISTRY METHOD 05/27/2025 10:10 AM [facility] Comment:Calculation based on the Chronic Kidney Disease Epidemiology Collaboration (CKD-EPI) equation refit without adjustment for race. BUN/Creatinine Ratio 7.4 LAB CHEMISTRY METHOD 05/27/2025 10:10 AM [facility] Calcium 9.1 8.5 - 10.5 mg/dL LAB CHEMISTRY METHOD 05/27/2025 10:10 AM [facility] Blood Venous blood specimen / Unknown Venipuncture / Unknown 05/27/2025 7:22 AM EDT 05/27/2025 9:12 AM EDT us Kolby Bugros MD LAB BLOOD ORDERABLES Final Result [facility] [address] [place] [address], * (ABNORMAL) Complete blood count (05/27/2025 7:22 AM EDT) WBC 3.9(L) 4.8 - 10.8 K/mcL LAB HEMETOLOGY METHOD 05/27/2025 9:32 AM [facility] RBC 3.10(L) 3.80 - 4.80 M/mcL LAB HEMETOLOGY METHOD 05/27/2025 9:32 AM [facility] Hemoglobin 10.7(L) 11.5 - 16.0 g/dL LAB HEMETOLOGY METHOD 05/27/2025 9:32 AM [facility] Hematocrit 32.2(L) 35.0 - 47.0 % LAB HEMETOLOGY METHOD 05/27/2025 9:32 AM [facility] MCV 104.9(H) 79.0 - 98.0 FL LAB HEMETOLOGY METHOD 05/27/2025 9:32 AM [facility] MCH 34.9(H) 27.0 - 32.0 pcg LAB HEMETOLOGY METHOD 05/27/2025 9:32 AM [facility] MCHC 33.2 32.0 - 37.0 g/dL LAB HEMETOLOGY METHOD 05/27/2025 9:32 AM [facility] RDW 13.6 11.0 - 15.0 % LAB HEMETOLOGY METHOD 05/27/2025 9:32 AM [facility] Platelets 130 130 - 400 K/mcL LAB HEMETOLOGY METHOD 05/27/2025 9:32 AM [facility] MPV 12.4(H) 7.0 - 11.0 FL LAB HEMETOLOGY METHOD 05/27/2025 9:32 AM [facility] NRBC 0.0 <1.0 % LAB HEMETOLOGY METHOD 05/27/2025 9:32 AM [facility] NRBC Absolute 0.00 <0.10 K/mcL LAB HEMETOLOGY METHOD 05/27/2025 9:32 AM EDT [facility] Blood Venous blood specimen / Unknown Venipuncture / Unknown 05/27/2025 7:22 AM EDT 05/27/2025 9:12 AM EDT Kolby Burgos MD LAB BLOOD ORDERABLES Final Result [facility] [address] [place] [address], documented in this encounter Visit Diagnoses Diagnosis Anemia, unspecified Gastrointestinal hemorrhage, unspecified documented in this encounter Additional Health Concerns Infection Onset Date Last Indicated Resolved Time C. difficile 05/14/2025 05/14/2025 06/07/2025 7:05 PM EDT documented as of this encounter Care Teams Food Service Ambassador Relationship Specialty Start Date End Date Luisito Gonzalez MD [address] [place] [address] Dr Sanderson [place] PCP - General 01/31/24 documented as of this encounter
--- OUTSIDE RECORDS SUMMARY | 2025-08-07 11:53 | XMS_ITS | Encounter Summary ---
Author Organization [employer] Address [address] [place] [address] Care Team Providers Care Port Captain Name Role Phone Luisito Gonzalez MD Primary Care Provider [phone] Encounter Details Date Type Department Care Team (Late st Contact Info) Description 05/07/2025 Lab Requisition [facility] - Main Lab [address] [facility] [place] [address] Kolby Burgos MD [address] [place] [address] Hypokalemia; Anemia, unspecified; assistant terminal manager (current) use of anticoagulants Social History Tobacco [...] 05/07/2025 12:19 PM EDT Hypokalemia Anemia, unspecified assistant terminal manager (current) use of anticoagulants COMPLETE BLOOD COUNT Routine 05/07/2025 8:25 AM EDT Hypokalemia Anemia, unspecified assistant terminal manager (current) use of anticoagulants COMPREHENSIVE METABOLIC PANEL Routine 05/07/2025 8:25 AM EDT Hypokalemia Anemia, unspecified [facility] (current) use of anticoagulants documented in this encounter Results * (ABNORMAL) Prothrombin time with INR (05/07/2025 12:19 PM EDT) Protime 14.5(H) 10.6 - 13.9 sec LAB COAGULATION METHOD 05/07/2025 1:23 PM [facility] INR 1.2 LAB COAGULATION METHOD 05/07/2025 1:23 PM [facility] Blood Venous blood specimen / Unknown Venipuncture / Unknown 05/07/2025 12:19 PM EDT 05/07/2025 8:53 AM EDT Kolby Burgos MD LAB BLOOD ORDERABLES Final Result [facility] [address] [place] [address], * (ABNORMAL) Comprehensive metabolic panel (05/07/2025 8:25 AM EDT) Sodium 137 133 - 145 mmol/L LAB CHEMISTRY METHOD 05/07/2025 10:48 AM [facility] Potassium 3.7 3.5 - 5.5 mmol/L LAB CHEMISTRY METHOD 05/07/2025 10:48 AM [facility] Chloride 102 96 - 110 mmol/L LAB CHEMISTRY METHOD 05/07/2025 10:48 AM [facility] CO2 30 21 - 32 mmol/L LAB CHEMISTRY METHOD 05/07/2025 10:48 AM [facility] Anion Gap 5 3 - 11 LAB CHEMISTRY METHOD 05/07/2025 10:48 AM [facility] Glucose 81 70 - 100 mg/dL LAB CHEMISTRY METHOD 05/07/2025 10:48 AM [facility] BUN 5 5 - 25 mg/dL LAB CHEMISTRY METHOD 05/07/2025 10:48 AM [facility] Creatinine 0.36(L) 0.50 - 1.10 mg/dL LAB CHEMISTRY METHOD 05/07/2025 10:48 AM [facility] eGFR 112 >=60 mL/min/1. 73m2 LAB CHEMISTRY METHOD 05/07/2025 10:48 AM [facility] Comment:Calculation based on the Chronic Kidney Disease Epidemiology Collaboration (CKD-EPI) equation refit without adjustment for race. BUN/Creatinine Ratio 13.9 LAB CHEMISTRY METHOD 05/07/2025 10:48 AM [facility] Calcium 8.1(L) 8.5 - 10.5 mg/dL LAB CHEMISTRY METHOD 05/07/2025 10:48 AM [facility] AST (SGOT) 83(H) 10 - 42 unit/L LAB CHEMISTRY METHOD 05/07/2025 10:48 AM [facility] ALT (SGPT) 69(H) 10 - 60 unit/L LAB CHEMISTRY METHOD 05/07/2025 10:48 AM [facility] Alkaline Phosphatase 124(H) 42 - 121 unit/L LAB CHEMISTRY METHOD 05/07/2025 10:48 AM [facility] Total Protein 5.1(L) 6.0 - 8.0 g/dL LAB CHEMISTRY METHOD 05/07/2025 10:48 AM [facility] Albumin 2.2(L) 3.2 - 5.0 g/dL LAB CHEMISTRY METHOD 05/07/2025 10:48 AM [facility] Total Bilirubin 1.6(H) 0.0 - 1.4 mg/dL LAB CHEMISTRY METHOD 05/07/2025 10:48 AM [facility] Blood Venous blood specimen / Unknown Venipuncture / Unknown 05/07/2025 8:25 AM EDT 05/07/2025 8:53 AM EDT us Kolby Burgos MD LAB BLOOD ORDERABLES Final Result [facility] [address] [place] [address], * (ABNORMAL) Complete blood count (05/07/2025 8:25 AM EDT) [facility] WBC 4.5(L) 4.8 - 10.8 K/mcL LAB HEMETOLOGY METHOD 05/07/2025 10:02 AM [facility] RBC 3.00(L) 3.80 - 4.80 M/mcL LAB HEMETOLOGY METHOD 05/07/2025 10:02 AM [facility] Hemoglobin 10.5(L) 11.5 - 16.0 g/dL LAB HEMETOLOGY METHOD 05/07/2025 10:02 AM [facility] Hematocrit 32.1(L) 35.0 - 47.0 % LAB HEMETOLOGY METHOD 05/07/2025 10:02 AM [facility] MCV 108.1(H) 79.0 - 98.0 FL LAB HEMETOLOGY METHOD 05/07/2025 10:02 AM [facility] MCH 35.4(H) 27.0 - 32.0 pcg LAB HEMETOLOGY METHOD 05/07/2025 10:02 AM [facility] MCHC 32.7 32.0 - 37.0 g/dL LAB HEMETOLOGY METHOD 05/07/2025 10:02 AM [facility] RDW 13.5 11.0 - 15.0 % LAB HEMETOLOGY METHOD 05/07/2025 10:02 AM [facility] Platelets 163 130 - 400 K/mcL LAB HEMETOLOGY METHOD 05/07/2025 10:02 AM [facility] MPV 11.6(H) 7.0 - 11.0 FL LAB HEMETOLOGY METHOD 05/07/2025 10:02 AM [facility] NRBC 0.0 <1.0 % LAB HEMETOLOGY METHOD 05/07/2025 10:02 AM EDT [facility] NRBC Absolute 0.00 <0.10 K/mcL LAB HEMETOLOGY METHOD 05/07/2025 10:02 AM EDT [facility] Blood Venous blood specimen / Unknown Venipuncture / Unknown 05/07/2025 8:25 AM EDT 05/07/2025 8:53 AM EDT us Kolby Burgos MD LAB BLOOD ORDERABLES Final Result [facility] [address] [place] [address], documented in this encounter Visit Diagnoses Diagnosis Hypokalemia Hypopotassemia Anemia, unspecified assistant terminal manager (current) use of anticoagulants Long-term (current) use of anticoagulants documented in this encounter Additional Health Concerns Infection Onset Date Last Indicated Resolved Time C. difficile Rule-Out 05/14/2025 05/14/20252024 11:24 AM EDT C. difficile 05/14/2025 05/14/2025 06/07/2025 7:05 PM EDT documented as of this encounter Care Teams Port Captain Relationship Specialty Start Date End Date Luisito Gonzalez MD [address] [place] [address] Dr Kin [place] PCP - General 01/31/24 documented as of this encounter
--- OUTSIDE RECORDS SUMMARY | 2025-08-07 11:53 | XMS_ITS | Encounter Summary ---
Author Organization [employer] Address [address] [place] [address] Care Team Providers Care Professional Advisor Name Role Phone Luisito Gonzalez MD Primary Care Provider [phone] Encounter Details Date Type Department Care Team (Late st Contact Info) Description 05/12/2025 Lab Requisition [facility] - Main Lab [address] [facility] [place] [address] Kolby Burgos MD [address] [place], [place] [phone] Anemia, unspecified; Gastrointestinal hemorrhage, unspecified Social History [...] Results * Lactate (05/13/2025 8:56 AM EDT) [facility] Lactate 1.2 0.4 - 2.0 mmol/L LAB CHEMISTRY METHOD 05/13/2025 10:16 AM EDT [facility] Blood Venous blood specimen / Unknown Venipuncture / Unknown 05/13/2025 8:56 AM EDT 05/13/2025 9:33 AM EDT us Kolby Burgos MD LAB BLOOD ORDERABLES Final Result [facility] [address] [place] [address], [place] [phone] * Culture blood (05/13/2025 8:56 AM EDT) [facility] Culture, Blood No growth at 5 days 05/18/2025 11:01 AM EDT [facility] Blood Venipuncture / Unknown 05/13/2025 8:56 AM EDT 05/13/2025 9:33 AM EDT us Kolby Burgos MD LAB MICROBIOLOGY - GENERAL ORDERABLES Final Result Performing Organization Address City/[facility]/ZIP Co de Phone Number [facility] [address] [place] [address], [place] [phone] * (ABNORMAL) CBC auto differential (05/13/2025 8:56 AM EDT) [facility] WBC 2.9(L) 4.8 - 10.8 K/mcL LAB HEMETOLOGY METHOD 05/13/2025 10:12 AM EDT [facility] RBC 3.00(L) 3.80 - 4.80 M/mcL LAB HEMETOLOGY METHOD 05/13/2025 10:12 AM EDT [facility] Hemoglobin 10.5(L) 11.5 - 16.0 g/dL LAB HEMETOLOGY METHOD 05/13/2025 10:12 AM [facility] Hematocrit 30.8(L) 35.0 - 47.0 % LAB HEMETOLOGY METHOD 05/13/2025 10:12 AM [facility] MCV 104.4(H) 79.0 - 98.0 FL LAB HEMETOLOGY METHOD 05/13/2025 10:12 AM [facility] MCH 35.6(H) 27.0 - 32.0 pcg LAB HEMETOLOGY METHOD 05/13/2025 10:12 AM [facility] MCHC 34.1 32.0 - 37.0 g/dL LAB HEMETOLOGY METHOD 05/13/2025 10:12 AM [facility] RDW 14.2 11.0 - 15.0 % LAB HEMETOLOGY METHOD 05/13/2025 10:12 AM [facility] Platelets 95(L) 130 - 400 K/mcL LAB HEMETOLOGY METHOD 05/13/2025 10:12 AM [facility] Comment:Large platelets seen . Reviewed by slide MPV 12.3(H) 7.0 - 11.0 FL LAB HEMETOLOGY METHOD 05/13/2025 10:12 AM [facility] NRBC 0.0 <1.0 % LAB HEMETOLOGY METHOD 05/13/2025 10:12 AM [facility] NRBC Absolute 0.00 <0.10 K/mcL LAB HEMETOLOGY METHOD 05/13/2025 10:12 AM [facility] Neutrophils Relative 65.7 % LAB HEMETOLOGY METHOD 05/13/2025 10:12 AM [facility] Lymphocytes Relative 15.6 % LAB HEMETOLOGY METHOD 05/13/2025 10:12 AM [facility] Monocytes Relative 16.3 % LAB HEMETOLOGY METHOD 05/13/2025 10:12 AM EDT [facility] Eosinophils Relative 1.4 % LAB HEMETOLOGY METHOD 05/13/2025 10:12 AM EDT [facility] Basophils Relative 0.7 % LAB HEMETOLOGY METHOD 05/13/2025 10:12 AM EDT [facility] Immature Granulocytes Relative 0.3 % LAB HEMETOLOGY METHOD 05/13/2025 10:12 AM EDT [facility] Neutrophils Absolute 1.90 1.50 - 7.00 K/mcL LAB HEMETOLOGY METHOD 05/13/2025 10:12 AM EDT [facility] Lymphocytes Absolute 0.45(L) 1.00 - 5.00 K/mcL LAB HEMETOLOGY METHOD 05/13/2025 10:12 AM EDT [facility] Monocytes Absolute 0.47 0.20 - 1.00 K/mcL LAB HEMETOLOGY METHOD 05/13/2025 10:12 AM EDT [facility] Eosinophils Absolute 0.04 0.00 - 0.50 K/mcL LAB HEMETOLOGY METHOD 05/13/2025 10:12 AM EDT [facility] Basophils Absolute 0.02 0.00 - 0.20 K/mcL LAB HEMETOLOGY METHOD 05/13/2025 10:12 AM EDT [facility] Immature Granulocytes Absolute 0.01 0.00 - 0.03 K/mcL LAB HEMETOLOGY METHOD 05/13/2025 10:12 AM EDT [facility] Blood Venous blood specimen / Unknown Venipuncture / Unknown 05/13/2025 8:56 AM EDT 05/13/2025 9:33 AM EDT us Kolby Burgos MD LAB BLOOD ORDERABLES Final Result [facility] [address] [place] [address], [place] [phone] * (ABNORMAL) Basic metabolic panel (05/13/2025 8:56 AM EDT) Sodium 132(L) 133 - 145 mmol/L LAB CHEMISTRY METHOD 05/13/2025 10:27 AM [facility] Potassium 3.7 3.5 - 5.5 mmol/L LAB CHEMISTRY METHOD 05/13/2025 10:27 AM [facility] Chloride 101 96 - 110 mmol/L LAB CHEMISTRY METHOD 05/13/2025 10:27 AM [facility] CO2 23 21 - 32 mmol/L LAB CHEMISTRY METHOD 05/13/2025 10:27 AM [facility] Anion Gap 8 3 - 11 LAB CHEMISTRY METHOD 05/13/2025 10:27 AM [facility] Glucose 96 70 - 100 mg/dL LAB CHEMISTRY METHOD 05/13/2025 10:27 AM [facility] BUN 4(L) 5 - 25 mg/dL LAB CHEMISTRY METHOD 05/13/2025 10:27 AM [facility] Creatinine 0.62 0.50 - 1.10 mg/dL LAB CHEMISTRY METHOD 05/13/2025 10:27 AM [facility] eGFR 98 >=60 mL/min/1. 73m2 LAB CHEMISTRY METHOD 05/13/2025 10:27 AM [facility] Comment:Calculation based on the Chronic Kidney Disease Epidemiology Collaboration (CKD-EPI) equation refit without adjustment for race. BUN/Creatinine Ratio 6.5 LAB CHEMISTRY METHOD 05/13/2025 10:27 AM [facility] Calcium 8.1(L) 8.5 - 10.5 mg/dL LAB CHEMISTRY METHOD 05/13/2025 10:27 AM [facility] Blood Venous blood specimen / Unknown Venipuncture / Unknown 05/13/2025 8:56 AM EDT 05/13/2025 9:33 AM EDT us Kolby Burgos MD LAB BLOOD ORDERABLES Final Result [facility] ([facility]) [facility] [address] [place] [address], documented in this encounter Visit Diagnoses Diagnosis Anemia, unspecified Gastrointestinal hemorrhage, unspecified documented in this encounter Additional Health Concerns Infection Onset Date Last Indicated Resolved Time C. difficile Rule-Out 05/14/2025 05/14/20252024 11:24 AM EDT C. difficile 05/14/2025 05/14/2025 06/07/2025 7:05 PM EDT documented as of this encounter Care Teams Professional Advisor Relationship Specialty Start Date End Date Luisito Gonzalez MD [address] [place] [address] Dr Kin [place] PCP - General 01/31/24 documented as of this encounter
--- OUTSIDE RECORDS SUMMARY | 2025-08-07 11:53 | XMS_ITS | Encounter Summary ---
Author Organization [facility] Address [address] [place] [address] Care Team Providers Care Online Marketing Specialist Name Role Phone Luisito Gonzalez MD Primary Care Provider [phone] Encounter Details Date Type Department Care Team (Late st Contact Info) Description 05/15/2025 Lab Requisition [facility] - Main Lab [address] [place] [address] Kolby Burgos MD [address] [place], [place] [phone] Diarrhea, unspecified Social History Tobacco Use Types [...] LAB CHEMISTRY METHOD 05/15/2025 11:53 AM EDT [facility] Potassium 3.4(L) 3.5 - 5.5 mmol/L LAB CHEMISTRY METHOD 05/15/2025 11:53 AM EDT [facility] Chloride 96 96 - 110 mmol/L LAB CHEMISTRY METHOD 05/15/2025 11:53 AM [facility] CO2 25 21 - 32 mmol/L LAB CHEMISTRY METHOD 05/15/2025 11:53 AM [facility] Anion Gap 7 3 - 11 LAB CHEMISTRY METHOD 05/15/2025 11:53 AM [facility] Glucose 75 70 - 100 mg/dL LAB CHEMISTRY METHOD 05/15/2025 11:53 AM [facility] BUN 4(L) 5 - 25 mg/dL LAB CHEMISTRY METHOD 05/15/2025 11:53 AM [facility] Creatinine 0.53 0.50 - 1.10 mg/dL LAB CHEMISTRY METHOD 05/15/2025 11:53 AM [facility] eGFR 102 >=60 mL/min/1. 73m2 LAB CHEMISTRY METHOD 05/15/2025 11:53 AM [facility] Comment:Calculation based on the Chronic Kidney Disease Epidemiology Collaboration (CKD-EPI) equation refit without adjustment for race. BUN/Creatinine Ratio 7.5 LAB CHEMISTRY METHOD 05/15/2025 11:53 AM [facility] Calcium 8.3(L) 8.5 - 10.5 mg/dL LAB CHEMISTRY METHOD 05/15/2025 11:53 AM [facility] Blood Venous blood specimen / Unknown Venipuncture / Unknown 05/15/2025 8:17 AM EDT 05/15/2025 10:17 AM EDT us Kolby Burgos MD LAB BLOOD ORDERABLES Final Result [facility] [address] [place] [address], * (ABNORMAL) Complete blood count (05/15/2025 8:17 AM EDT) WBC 3.4(L) 4.8 - 10.8 K/mcL LAB HEMETOLOGY METHOD 05/15/2025 11:05 AM [facility] RBC 3.10(L) 3.80 - 4.80 M/mcL LAB HEMETOLOGY METHOD 05/15/2025 11:05 AM [facility] Hemoglobin 10.7(L) 11.5 - 16.0 g/dL LAB HEMETOLOGY METHOD 05/15/2025 11:05 AM [facility] Hematocrit 32.1(L) 35.0 - 47.0 % LAB HEMETOLOGY METHOD 05/15/2025 11:05 AM [facility] MCV 104.9(H) 79.0 - 98.0 FL LAB HEMETOLOGY METHOD 05/15/2025 11:05 AM [facility] MCH 35.0(H) 27.0 - 32.0 pcg LAB HEMETOLOGY METHOD 05/15/2025 11:05 AM [facility] MCHC 33.3 32.0 - 37.0 g/dL LAB HEMETOLOGY METHOD 05/15/2025 11:05 AM [facility] RDW 13.9 11.0 - 15.0 % LAB HEMETOLOGY METHOD 05/15/2025 11:05 AM [facility] Platelets 95(L) 130 - 400 K/mcL LAB HEMETOLOGY METHOD 05/15/2025 11:05 AM [facility] Comment:previously verified by slide MPV 12.8(H) 7.0 - 11.0 FL LAB HEMETOLOGY METHOD 05/15/2025 11:05 AM [facility] NRBC 0.0 <1.0 % LAB HEMETOLOGY METHOD 05/15/2025 11:05 AM [facility] NRBC Absolute 0.00 <0.10 K/mcL LAB HEMETOLOGY METHOD 05/15/2025 11:05 AM EDT [facility] Blood Venous blood specimen / Unknown Venipuncture / Unknown 05/15/2025 8:17 AM EDT 05/15/2025 10:17 AM EDT us Kolby Burgos MD LAB BLOOD ORDERABLES Final Result [facility] [address] [place] [address], documented in this encounter Visit Diagnoses Diagnosis Diarrhea, unspecified documented in this encounter Additional Health Concerns Infection Onset Date Last Indicated Resolved Time C. difficile 05/14/2025 05/14/2025 06/07/2025 7:05 PM EDT documented as of this encounter Care Teams Online Marketing Specialist Relationship Specialty Start Date End Date Luisito Gonzalez MD [address] [place] [address] Dr Sanderson [place] PCP - General 01/31/24 documented as of this encounter
--- OUTSIDE RECORDS SUMMARY | 2025-08-07 11:53 | XMS_ITS | Encounter Summary ---
Author Organization [employer] Address [address] [place] [address] Care Team Providers Care Wood Model Maker Name Role Phone Luisito Gonzalez MD Primary Care Provider Encounter Details Date Type Department Care Team (Late st Contact Info) Description 05/14/2025 Lab Requisition [facility] - Main Lab [address] [facility] [place] [address] Kolby Burgos MD [address] [place], [place] [phone] Diarrhea, unspecified Social History Tobacco Use Types [...] Positive( A) Negative 05/14/2025 11:24 AM EDT [facility] C difficile Toxins A+B, EIA Positive( AA) Negative 05/14/2025 11:24 AM EDT [facility] Comment: CRITICAL RESULT POSITIVE FOR TOXIN PRODUCING CLOSTRIDIOIDES DIFFICILE, NO ADDITIONAL TESTING IS NECESSARY. REPEAT SAMPLES SHOULD NOT BE SUBMITTED FOR TEST OF CURE. Stool Rectum structure / Unknown Non-blood Collection / Unknown 05/14/2025 05/14/2025 9:26 AM EDT us Kolby Burgos MD LAB MICROBIOLOGY - GENERAL ORDERABLES Final Result [facility] [address] [place] [address], documented in this encounter Visit Diagnoses Diagnosis Diarrhea, unspecified documented in this encounter Additional Health Concerns Infection Onset Date Last Indicated Resolved Time C. difficile Rule-Out 05/14/2025 05/14/20252024 11:24 AM EDT C. difficile 05/14/2025 05/14/2025 06/07/2025 7:05 PM EDT documented as of this encounter Care Teams Wood Model Maker Relationship Specialty Start Date End Date Luisito Gonzalez MD [address] [place] [address] Dr Kin [place] PCP - General 01/31/24 documented as of this encounter
--- OUTSIDE RECORDS SUMMARY | 2025-08-07 11:53 | XMS_ITS | Encounter Summary ---
Author Organization [facility] Address [address] [place] [address] Care Team Providers Care Crown Attacher Name Role Phone Luisito Gonzalez MD Primary Care Provider [phone] Encounter Details Date Type Department Care Team (Late st Contact Info) Description 05/13/2025 Lab Requisition [facility] - Main Lab [address] [place] [address] Kolby Burgos MD [address] [place], [place] [phone] Other specified anemias; Other disorders of electrolyte [...] at 5 days 05/18/2025 11:01 AM EDT [facility] Blood 05/13/2025 9:00 AM EDT 05/13/2025 9:37 AM EDT us Kolby Burgos MD LAB MICROBIOLOGY - GENERAL ORDERABLES Final Result [facility] ([facility] [address] [place] [address], documented in this encounter Visit Diagnoses Diagnosis Other specified anemias Other disorders of electrolyte and fluid balance, not elsewhere classified Bacteremia documented in this encounter Additional Health Concerns Infection Onset Date Last Indicated Resolved Time C. difficile Rule-Out 05/14/2025 05/14/20252024 11:24 AM EDT C. difficile 05/14/2025 05/14/2025 06/07/2025 7:05 PM EDT documented as of this encounter Care Teams Crown Attacher Relationship Specialty Start Date End Date Luisito Gonzalez MD [address] [place] [address] Dr Kin [place] PCP - General 01/31/24 documented as of this encounter
--- OUTSIDE RECORDS SUMMARY | 2025-08-07 11:53 | XMS_ITS | Clinical Summary ---
Author Organization [address] [facility] Address [address] [place] [address] Phone Care Team Providers Care Vice President Industrial Relations Name Role Phone Luisito Gonzalez MD Primary Care Provider [phone] Encounters Date Type Department Care Team Description 05/26/2025 Lab Requisition [facility] Lab [address] [place] [address] Kolby Burgos MD Anemia, unspecified; Gastrointestinal hemorrhage, unspecified 05/19/2025 Lab Requisition [facility] [address] [place] [id number] Kolby Burgos MD Anemia, unspecified; Gastrointestinal hemorrhage, unspecified 05/15/2025 Lab Requisition [facility] [address] [place] [address] Kolby Burgos MD Diarrhea, unspecified 05/14/2025 Lab Requisition [facility] [address] [place] [address] Kolby Burgos MD Diarrhea, unspecified 05/13/2025 Lab Requisition [facility] [address] [place] [address] Kolby Burgos MD Urinary tract infection, site not specified 05/13/2025 Lab Requisition [facility] [address] [place] [address] Kolby Burgos MD Other specified anemias; Other disorders of electrolyte and fluid balance, not elsewhere classified; Bacteremia 05/12/2025 Lab Requisition [facility] [address] [place] [address] Kolby Burgos MD Anemia, unspecified; Gastrointestinal hemorrhage, unspecified 05/07/2025 Lab Requisition [facility] Lab [address] [facility] [place] [address] Kolby Burgos MD Hypokalemia; Anemia, unspecified; penitentiary (current) use of anticoagulants from Last 3 Months Social History Tobacco [...] 05/07/2025 12:19 PM EDT Hypokalemia Anemia, unspecified watermaster (current) use of anticoagulants COMPREHENSIVE METABOLIC PANEL Routine 05/07/2025 8:25 AM EDT Hypokalemia Anemia, unspecified penitentiary (current) use of anticoagulants COMPLETE BLOOD COUNT Routine 05/07/2025 8:25 AM EDT Hypokalemia Anemia, unspecified watermaster (current) use of anticoagulants from Last 3 Months Results * (ABNORMAL) Complete blood count (05/27/2025 7:22 AM EDT) Only the most recent of4 resultswithin the time period is included. WBC 3.9(L) 4.8 - 10.8 K/[facility] LAB HEMETOLOGY METHOD 05/27/2025 9:32 AM EDT [facility] RBC 3.10(L) 3.80 - 4.80 M/mcL LAB HEMETOLOGY METHOD 05/27/2025 9:32 AM [facility] LAB Hemoglobin 10.7(L) 11.5 - 16.0 g/dL LAB HEMETOLOGY METHOD 05/27/2025 9:32 AM [facility] LAB Hematocrit 32.2(L) 35.0 - 47.0 % LAB HEMETOLOGY METHOD 05/27/2025 9:32 AM [facility] LAB MCV 104.9(H) 79.0 - 98.0 FL LAB HEMETOLOGY METHOD 05/27/2025 9:32 AM [facility] LAB MCH 34.9(H) 27.0 - 32.0 pcg LAB HEMETOLOGY METHOD 05/27/2025 9:32 AM [facility] LAB MCHC 33.2 32.0 - 37.0 g/dL LAB HEMETOLOGY METHOD 05/27/2025 9:32 AM [facility] LAB RDW 13.6 11.0 - 15.0 % LAB HEMETOLOGY METHOD 05/27/2025 9:32 AM [facility] LAB Platelets 130 130 - 400 K/mcL LAB HEMETOLOGY METHOD 05/27/2025 9:32 AM [facility] LAB MPV 12.4(H) 7.0 - 11.0 FL LAB HEMETOLOGY METHOD 05/27/2025 9:32 AM [facility] LAB NRBC 0.0 <1.0 % LAB HEMETOLOGY METHOD 05/27/2025 9:32 AM [facility] LAB NRBC Absolute 0.00 <0.10 K/mcL LAB HEMETOLOGY METHOD 05/27/2025 9:32 AM [facility] LAB Blood Venous blood specimen / Unknown Venipuncture / Unknown 05/27/2025 7:22 AM EDT 05/27/2025 9:12 AM EDT us Kolby Burgos MD LAB BLOOD ORDERABLES Final Result [facility] [address] [place] [address], * (ABNORMAL) Basic metabolic panel (05/27/2025 7:22 AM EDT) Only the most recent of4 resultswithin the time period is included. Sodium 136 133 - 145 mmol/L LAB CHEMISTRY METHOD 05/27/2025 10:10 AM [facility] Potassium 4.2 3.5 - 5.5 mmol/L LAB CHEMISTRY METHOD 05/27/2025 10:10 AM [facility] LAB Chloride 104 96 - 110 mmol/L LAB CHEMISTRY METHOD 05/27/2025 10:10 AM [facility] LAB CO2 25 21 - 32 mmol/L LAB CHEMISTRY METHOD 05/27/2025 10:10 AM [facility] LAB Anion Gap 7 3 - 11 LAB CHEMISTRY METHOD 05/27/2025 10:10 AM [facility] Glucose 85 70 - 100 mg/dL LAB CHEMISTRY METHOD 05/27/2025 10:10 AM [facility] BUN 4(L) 5 - 25 mg/dL LAB CHEMISTRY METHOD 05/27/2025 10:10 AM [facility] LAB Creatinine 0.54 0.50 - 1.10 mg/dL LAB CHEMISTRY METHOD 05/27/2025 10:10 AM [facility] LAB eGFR 102 >=60 mL/min/1. 73m2 LAB CHEMISTRY METHOD 05/27/2025 10:10 AM [facility] LAB Comment:Calculation based on the Chronic Kidney Disease Epidemiology Collaboration (CKD-EPI) equation refit without adjustment for race. BUN/Creatinine Ratio 7.4 LAB CHEMISTRY METHOD 05/27/2025 10:10 AM [facility] Calcium 9.1 8.5 - 10.5 mg/dL LAB CHEMISTRY METHOD 05/27/2025 10:10 AM EDT [facility] Blood Venous blood specimen / Unknown Venipuncture / Unknown 05/27/2025 7:22 AM EDT 05/27/2025 9:12 AM EDT us Kolby Burgos MD LAB BLOOD ORDERABLES Final Result Performing Organization Address [facility] Co de Phone Number [facility] [address] [place] [address], [place] [phone] * (ABNORMAL) Clostridium difficile toxin (05/14/2025 12:00 [...] GENERAL ORDERABLES Final Result Performing Organization Address City/[facility]/ZIP Co de Phone Number [facility] [address] [place] [address], [place] [phone] * Culture blood (05/13/2025 9:00 AM EDT) Only the most recent of2 resultswithin the time period is included. Culture, Blood No growth at 5 days 05/18/2025 11:01 AM EDT [facility] Blood 05/13/2025 9:00 AM EDT 05/13/2025 9:37 AM EDT Kolby Burgos MD LAB MICROBIOLOGY - GENERAL ORDERABLES Final Result [facility] [address] [place] [address], * (ABNORMAL) CBC auto differential (05/13/2025 8:56 AM EDT) WBC 2.9(L) 4.8 - 10.8 K/mcL LAB HEMETOLOGY METHOD 05/13/2025 10:12 AM EDT [facility] RBC 3.00(L) 3.80 - 4.80 M/mcL LAB HEMETOLOGY METHOD 05/13/2025 10:12 AM EDT [facility] Hemoglobin 10.5(L) 11.5 - 16.0 g/dL LAB HEMETOLOGY METHOD 05/13/2025 10:12 AM [facility] LAB Hematocrit 30.8(L) 35.0 - 47.0 % LAB HEMETOLOGY METHOD 05/13/2025 10:12 AM [facility] LAB MCV 104.4(H) 79.0 - 98.0 FL LAB [facility]OLOGY [facility] MCH 35.6(H) 27.0 - 32.0 pcg LAB HEMETOLOGY [facility] MCHC 34.1 32.0 - 37.0 g/dL LAB HEMETOLOGY METHOD [facility] RDW 14.2 11.0 - 15.0 % LAB HEMETOLOGY METHOD 05/13/2025 10:12 AM EDT [facility] Platelets 95(L) 130 - 400 K/mcL LAB HEMETOLOGY METHOD 05/13/2025 10:12 AM EDT [facility] LAB Comment:Large platelets seen . Reviewed by slide MPV 12.3(H) 7.0 - 11.0 FL LAB HEMETOLOGY METHOD 05/13/2025 10:12 AM [facility] NRBC 0.0 <1.0 % LAB HEMETOLOGY METHOD 05/13/2025 10:12 AM [facility] NRBC Absolute 0.00 <0.10 K/mcL LAB HEMETOLOGY METHOD 05/13/2025 10:12 AM [facility] Neutrophils Relative 65.7 % LAB HEMETOLOGY METHOD 05/13/2025 10:12 AM [facility] Lymphocytes Relative 15.6 % LAB HEMETOLOGY METHOD 05/13/2025 10:12 AM [facility] Monocytes Relative 16.3 % LAB HEMETOLOGY METHOD 05/13/2025 10:12 AM [facility] Eosinophils Relative 1.4 % LAB HEMETOLOGY METHOD 05/13/2025 10:12 AM [facility] Basophils Relative 0.7 % LAB HEMETOLOGY METHOD 05/13/2025 10:12 AM [facility] Immature Granulocytes Relative 0.3 % LAB HEMETOLOGY METHOD 05/13/2025 10:12 AM [facility] Neutrophils Absolute 1.90 1.50 - 7.00 K/mcL LAB HEMETOLOGY METHOD 05/13/2025 10:12 AM [facility] Lymphocytes Absolute 0.45(L) 1.00 - 5.00 K/mcL LAB HEMETOLOGY METHOD 05/13/2025 10:12 AM [facility] Monocytes Absolute 0.47 0.20 - 1.00 K/mcL LAB HEMETOLOGY METHOD 05/13/2025 10:12 AM [facility] Eosinophils Absolute 0.04 0.00 - 0.50 K/mcL LAB HEMETOLOGY METHOD 05/13/2025 10:12 AM EDT [facility] Basophils Absolute 0.02 0.00 - 0.20 K/mcL LAB HEMETOLOGY METHOD 05/13/2025 10:12 AM EDT [facility] Immature Granulocytes Absolute 0.01 0.00 - 0.03 K/mcL LAB HEMETOLOGY METHOD 05/13/2025 10:12 AM EDT [facility] Blood Venous blood specimen / Unknown Venipuncture / Unknown 05/13/2025 8:56 AM EDT 05/13/2025 9:33 AM EDT us Kolby Burgos MD LAB BLOOD ORDERABLES Final Result Performing Organization Address [facility]/ZIP Co de Phone Number [facility] [address] [place] [address], [place] [phone] * Lactate (05/13/2025 8:56 AM EDT) [facility] Lactate 1.2 0.4 - 2.0 mmol/L LAB CHEMISTRY METHOD 05/13/2025 10:16 AM EDT [facility] Blood Venous blood specimen / Unknown Venipuncture / Unknown 05/13/2025 8:56 AM EDT 05/13/2025 9:33 AM EDT us Kolby Burgos MD LAB BLOOD ORDERABLES Final Result [facility] [address] [place] [address], [place] [phone] * (ABNORMAL) Urinalysis with reflex microscopic (05/13/2025 4:00 AM EDT) Specific [place] Urine 1.014 1.003 - 1.030 LAB URINALYSIS - AUTOMATED METHOD 05/13/2025 12:10 PM EDT [facility] pH, Urine 8.5(A) 5.0 - 8.0 pH LAB URINALYSIS - AUTOMATED METHOD 05/13/2025 12:10 PM [facility] Leukocytes, Urine Moderate(A) Negative LAB URINALYSIS - AUTOMATED METHOD 05/13/2025 12:10 PM [facility] Nitrite, Urine Negative Negative LAB URINALYSIS - AUTOMATED METHOD 05/13/2025 12:10 PM [facility] Protein, Urine Trace <=Trace mg/dL LAB URINALYSIS - AUTOMATED METHOD 05/13/2025 12:10 PM [facility] Glucose, Urine Negative Negative mg/dL LAB URINALYSIS - AUTOMATED METHOD 05/13/2025 12:10 PM [facility] Ketones, Urine Negative Negative mg/dL LAB URINALYSIS - AUTOMATED METHOD 05/13/2025 12:10 PM [facility] Urobilinogen , Urine 0.2 0.2 - 1.0 mg/dL LAB URINALYSIS - AUTOMATED METHOD 05/13/2025 12:10 PM [facility] Bilirubin, Urine Negative Negative LAB URINALYSIS - AUTOMATED METHOD 05/13/2025 12:10 PM [facility] Blood, Urine Negative Negative LAB URINALYSIS - AUTOMATED METHOD 05/13/2025 12:10 PM [facility] RBC, Urine 3.0 0 - 4 /HPF LAB URINALYSIS - AUTOMATED METHOD 05/13/2025 12:10 PM [facility] WBC, Urine 6.0(H) 0 - 4 /HPF LAB URINALYSIS - AUTOMATED METHOD 05/13/2025 12:10 PM [facility] Squamous Epithelial, Urine 80(H) 0 - 60 /LPF LAB URINALYSIS - AUTOMATED METHOD 05/13/2025 12:10 PM [facility] Bacteria, Urine Negative Negative [...] URINE ORDERABLES Final Result Performing Organization Address [facility]/ZIP Co de Phone Number [facility] [address] [place] [address], [place] [phone] * Culture urine (05/13/2025 4:00 AM EDT) [...] GENERAL ORDERABLES Final Result Performing Organization Address [facility]/ZIP Co de Phone Number [facility] [address] [place] [address], [place] [phone] * (ABNORMAL) Prothrombin time with INR (05/07/2025 12:19 PM EDT) Protime 14.5(H) 10.6 - 13.9 sec LAB COAGULATION METHOD 05/07/2025 1:23 PM EDT [facility] INR 1.2 LAB COAGULATION METHOD 05/07/2025 1:23 PM T [facility] Blood Venous blood specimen / Unknown Venipuncture / Unknown 05/07/2025 12:19 PM EDT 05/07/2025 8:53 AM EDT us Kolby Burgos MD LAB BLOOD ORDERABLES Final Result [facility] [address] [place] [address], [place] [phone] * (ABNORMAL) Comprehensive metabolic panel (05/07/2025 8:25 [...] mg/dL LAB CHEMISTRY METHOD 05/07/2025 10:48 AM T [facility] AST (SGOT) 83(H) 10 - 42 unit/L LAB CHEMISTRY METHOD 05/07/2025 10:48 AM [facility] ALT (SGPT) 69(H) 10 - 60 unit/L LAB CHEMISTRY METHOD 05/07/2025 10:48 AM T [facility] Alkaline Phosphatase 124(H) 42 - 121 unit/L LAB CHEMISTRY METHOD 05/07/2025 10:48 AM T [facility] Total Protein 5.1(L) 6.0 - [...] Result [facility] [address] [place] [address], from Last 3 Months Insurance MEDICARE MEDICAID - [place] Care Teams Vice President Industrial Relations Relationship Specialty Start Date End Date Luisito Gonzalez MD [address] [place] [address] [place] PCP - General 01/31/24
[2025-08-07 13:25] LABS: Appearance Urine Clear; Glucose Urine UA Negative (Negative); PH 6.5 (5.0-9.0); Specific Gravity - Urine <= 1.005 (1.005-1.025)
== END 2025-08-07 09:55 | disposition home or self-care (01) ==
LOC: HO.HMGCLDS 09:54
DX: R20.8 Other disturbances of skin sensation (principal)
CPT/HCPCS: 81003

== ENCOUNTER 2025-10-28 09:51 | Outpatient (AMB) | payer MEDICARE, MEDICAID, SELFPAY ==
[2025-10-28 09:57] VITALS: BP 132/50; PULSE 86; RESP 18; O2SAT 100; BMI 28.4
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
--- OUTSIDE RECORDS SUMMARY | 2025-10-28 11:52 | XMS_ITS | Encounter Summary ---
Author Organization [employer] Address [address] [place] [address] Care Team Providers Care Core Composer Machine Tender Name Role Phone Luisito Gonzalez MD Primary Care Provider [phone] Encounter Details Date Type Department Care Team (Late st Contact Info) Description 05/14/[address] [facility] - Main Lab [address] [facility] [place] [address] Kolby Burgos MD [address] [place], [place] [phone] Diarrhea, unspecified Social History Tobacco Use Types [...] MICROBIOLOGY - GENERAL ORDERABLES Final Result [facility] [address] [place] [address], documented in this encounter Visit Diagnoses Diagnosis Diarrhea, unspecified documented in this encounter Additional Health Concerns Infection Onset Date Last Indicated Resolved Time C. difficile Rule-Out 05/14/2025 05/14/20252024 11:24 AM EDT C. difficile 05/14/2025 05/14/2025 06/07/2025 7:05 PM EDT documented as of this encounter Care Teams Core Composer Machine Tender Relationship Specialty Start Date End Date Luisito Gonzalez MD [address] [place] [address] Dr Kin [place] PCP - General 01/31/24 documented as of this encounter
--- OUTSIDE RECORDS SUMMARY | 2025-10-28 11:52 | XMS_ITS | Encounter Summary ---
Author Organization [employer] Address [address] [place] [address] Care Team Providers Care Chair Maker Name Role Phone Luisito Gonzalez MD Primary Care Provider [phone] Encounter Details Date Type Department Care Team (Late st Contact Info) Description 05/12/2025 Lab Requisition [facility] - Main Lab [address] [facility] [place] [address] Kolby Burgos MD [address] [place], [place] [phone] Anemia, unspecified; Gastrointestinal hemorrhage, unspecified Social History [...] Results * Lactate (05/13/2025 8:56 AM EDT) [facility] Lactate 1.2 0.4 - 2.0 mmol/L LAB CHEMISTRY METHOD 05/13/2025 10:16 AM EDT [facility] Blood Venous blood specimen / Unknown Venipuncture / Unknown 05/13/2025 8:56 AM EDT 05/13/2025 9:33 AM EDT us Kolby Burgos MD LAB BLOOD ORDERABLES Final Result [facility] [address] [place] [address], [place] [phone] * Culture blood (05/13/2025 8:56 AM EDT) [facility] Culture, Blood No growth at 5 days 05/18/2025 11:01 AM EDT [facility] Blood Venipuncture / Unknown 05/13/2025 8:56 AM EDT 05/13/2025 9:33 AM EDT us Kolby Burgos MD LAB MICROBIOLOGY - GENERAL ORDERABLES Final Result Performing Organization Address City/[facility]/ZIP Co de Phone Number [facility] LAB [address] [place] [address], [place] [phone] * (ABNORMAL) CBC auto differential (05/13/2025 8:56 AM EDT) [facility] WBC 2.9(L) 4.8 - 10.8 K/mcL LAB HEMETOLOGY METHOD 05/13/2025 10:12 AM EDT [facility] RBC 3.00(L) 3.80 - 4.80 M/mcL LAB HEMETOLOGY METHOD 05/13/2025 10:12 AM EDT [facility] Hemoglobin 10.5(L) 11.5 - 16.0 g/dL LAB HEMETOLOGY METHOD 05/13/2025 10:12 AM [facility] Hematocrit 30.8(L) 35.0 - 47.0 % LAB HEMETOLOGY METHOD 05/13/2025 10:12 AM [facility] MCV 104.4(H) 79.0 - 98.0 FL LAB HEMETOLOGY METHOD 05/13/2025 10:12 AM [facility] LAB MCH 35.6(H) 27.0 - 32.0 pcg LAB HEMETOLOGY METHOD 05/13/2025 10:12 AM [facility] LAB MCHC 34.1 32.0 - 37.0 g/dL LAB HEMETOLOGY METHOD 05/13/2025 10:12 AM [facility] RDW 14.2 11.0 - 15.0 % LAB HEMETOLOGY METHOD 05/13/2025 10:12 AM [facility] Platelets 95(L) 130 - 400 K/mcL LAB HEMETOLOGY METHOD 05/13/2025 10:12 AM [facility] Comment:Large platelets seen . Reviewed by slide MPV 12.3(H) 7.0 - 11.0 FL LAB HEMETOLOGY METHOD 05/13/2025 10:12 AM [facility] NRBC 0.0 <1.0 % LAB HEMETOLOGY METHOD 05/13/2025 10:12 AM [facility] NRBC Absolute 0.00 <0.10 K/mcL LAB HEMETOLOGY METHOD 05/13/2025 10:12 AM [facility] Neutrophils Relative 65.7 % LAB HEMETOLOGY METHOD 05/13/2025 10:12 AM [facility] Lymphocytes Relative 15.6 % LAB HEMETOLOGY METHOD 05/13/2025 10:12 AM [facility] Monocytes Relative 16.3 % LAB HEMETOLOGY METHOD 05/13/2025 10:12 AM EDT [facility] Eosinophils Relative 1.4 % LAB HEMETOLOGY METHOD 05/13/2025 10:12 AM EDT [facility] Basophils Relative 0.7 % LAB HEMETOLOGY METHOD 05/13/2025 10:12 AM EDT [facility] Immature Granulocytes Relative 0.3 % LAB HEMETOLOGY METHOD 05/13/2025 10:12 AM EDT [facility] Neutrophils Absolute 1.90 1.50 - 7.00 K/mcL LAB HEMETOLOGY METHOD 05/13/2025 10:12 AM EDT [facility] Lymphocytes Absolute 0.45(L) 1.00 - 5.00 K/mcL LAB HEMETOLOGY METHOD 05/13/2025 10:12 AM EDT [facility] Monocytes Absolute 0.47 0.20 - 1.00 K/mcL LAB HEMETOLOGY METHOD 05/13/2025 10:12 AM EDT [facility] Eosinophils Absolute 0.04 0.00 - [...] Result [facility] [address] [place] [address], [place] [phone] * (ABNORMAL) Basic metabolic panel (05/13/2025 8:56 AM EDT) Sodium 132(L) 133 - 145 mmol/L LAB CHEMISTRY METHOD 05/13/2025 10:27 AM [facility] Potassium 3.7 3.5 - 5.5 mmol/L LAB CHEMISTRY METHOD 05/13/2025 10:27 AM [facility] Chloride 101 96 - 110 mmol/L LAB CHEMISTRY METHOD 05/13/2025 10:27 AM [facility] CO2 23 21 - 32 mmol/L LAB CHEMISTRY METHOD 05/13/2025 10:27 AM [facility] Anion Gap 8 3 - 11 LAB CHEMISTRY METHOD 05/13/2025 10:27 AM [facility] Glucose 96 70 - 100 mg/dL LAB CHEMISTRY METHOD 05/13/2025 10:27 AM [facility] BUN 4(L) 5 - 25 mg/dL LAB CHEMISTRY METHOD 05/13/2025 10:27 AM [facility] Creatinine 0.62 0.50 - 1.10 mg/dL LAB CHEMISTRY METHOD 05/13/2025 10:27 AM [facility] eGFR 98 >=60 mL/min/1. 73m2 LAB CHEMISTRY METHOD 05/13/2025 10:27 AM [facility] Comment:Calculation based on the Chronic Kidney Disease Epidemiology Collaboration (CKD-EPI) equation refit without adjustment for race. BUN/Creatinine Ratio 6.5 LAB CHEMISTRY METHOD 05/13/2025 10:27 AM [facility] Calcium 8.1(L) 8.5 - 10.5 mg/dL LAB CHEMISTRY METHOD 05/13/2025 10:27 AM [facility] Blood Venous blood specimen / Unknown Venipuncture / Unknown 05/13/2025 8:56 AM EDT 05/13/2025 9:33 AM EDT us Kolby Burgos MD LAB BLOOD ORDERABLES Final Result [facility] [address] [place] [address], documented in this encounter Visit Diagnoses Diagnosis Anemia, unspecified Gastrointestinal hemorrhage, unspecified documented in this encounter Additional Health Concerns Infection Onset Date Last Indicated Resolved Time C. difficile Rule-Out 05/14/2025 05/14/20252024 11:24 AM EDT C. difficile 05/14/2025 05/14/2025 06/07/2025 7:05 PM EDT documented as of this encounter Care Teams Chair Maker Relationship Specialty Start Date End Date Luisito Gonzalez MD [address] [place] [address] Dr Kin [place] PCP - General 01/31/24 documented as of this encounter
--- OUTSIDE RECORDS SUMMARY | 2025-10-28 11:52 | XMS_ITS | Encounter Summary ---
Author Organization [employer] Address [address] [place] [address] Care Team Providers Care Virtual Reality Specialist Name Role Phone Luisito Gonzalez MD Primary Care Provider [phone] Encounter Details Date Type Department Care Team (Late st Contact Info) Description 05/26/[address] [facility] - Main Lab [address] [place] [address] Kolby Burgos MD [address] [place], [place] [phone] Anemia, unspecified; Gastrointestinal hemorrhage, unspecified Social History [...] LAB CHEMISTRY METHOD 05/27/2025 10:10 AM EDT [facility] Potassium 4.2 3.5 - 5.5 mmol/L LAB CHEMISTRY METHOD 05/27/2025 10:10 AM EDT [facility] Chloride 104 96 - 110 mmol/L LAB CHEMISTRY METHOD 05/27/2025 10:10 AM [facility] CO2 25 21 - 32 mmol/L LAB CHEMISTRY METHOD 05/27/2025 10:10 AM [facility] Anion Gap 7 3 - 11 LAB CHEMISTRY METHOD 05/27/2025 10:10 AM [facility] Glucose 85 70 - 100 mg/dL LAB CHEMISTRY METHOD 05/27/2025 10:10 AM [facility] BUN 4(L) 5 - 25 mg/dL LAB CHEMISTRY METHOD 05/27/2025 10:10 AM [facility] Creatinine 0.54 0.50 - 1.10 mg/dL LAB CHEMISTRY METHOD 05/27/2025 10:10 AM [facility] eGFR 102 >=60 mL/min/1. 73m2 LAB CHEMISTRY METHOD 05/27/2025 10:10 AM [facility] Comment:Calculation based on the Chronic Kidney Disease Epidemiology Collaboration (CKD-EPI) equation refit without adjustment for race. BUN/Creatinine Ratio 7.4 LAB CHEMISTRY METHOD 05/27/2025 10:10 AM [facility] Calcium 9.1 8.5 - 10.5 mg/dL LAB CHEMISTRY METHOD 05/27/2025 10:10 AM [facility] Blood Venous blood specimen / Unknown Venipuncture / Unknown 05/27/2025 7:22 AM EDT 05/27/2025 9:12 AM EDT us Kolby Burgos MD LAB BLOOD ORDERABLES Final Result [facility] [address] [place] [address], * (ABNORMAL) Complete blood count (05/27/2025 7:22 AM EDT) WBC 3.9(L) 4.8 - 10.8 K/mcL LAB HEMETOLOGY METHOD 05/27/2025 9:32 AM [facility] RBC 3.10(L) 3.80 - 4.80 M/mcL LAB HEMETOLOGY METHOD 05/27/2025 9:32 AM [facility] Hemoglobin 10.7(L) 11.5 - 16.0 g/dL LAB HEMETOLOGY METHOD 05/27/2025 9:32 AM [facility] Hematocrit 32.2(L) 35.0 - 47.0 % LAB HEMETOLOGY METHOD 05/27/2025 9:32 AM [facility] MCV 104.9(H) 79.0 - 98.0 FL LAB HEMETOLOGY METHOD 05/27/2025 9:32 AM [facility] MCH 34.9(H) 27.0 - 32.0 pcg LAB HEMETOLOGY METHOD 05/27/2025 9:32 AM [facility] MCHC 33.2 32.0 - 37.0 g/dL LAB HEMETOLOGY METHOD 05/27/2025 9:32 AM [facility] RDW 13.6 11.0 - 15.0 % LAB HEMETOLOGY METHOD 05/27/2025 9:32 AM [facility] Platelets 130 130 - 400 K/mcL LAB HEMETOLOGY METHOD 05/27/2025 9:32 AM [facility] MPV 12.4(H) 7.0 - 11.0 FL LAB HEMETOLOGY METHOD 05/27/2025 9:32 AM [facility] NRBC 0.0 <1.0 % LAB HEMETOLOGY METHOD 05/27/2025 9:32 AM [facility] NRBC Absolute 0.00 <0.10 K/mcL LAB HEMETOLOGY METHOD 05/27/2025 9:32 AM EDT [facility] Blood Venous blood specimen / Unknown Venipuncture / Unknown 05/27/2025 7:22 AM EDT 05/27/2025 9:12 AM EDT Kolby Burgos MD LAB BLOOD ORDERABLES Final Result [facility] [address] [place] [address], documented in this encounter Visit Diagnoses Diagnosis Anemia, unspecified Gastrointestinal hemorrhage, unspecified documented in this encounter Additional Health Concerns Infection Onset Date Last Indicated Resolved Time C. difficile 05/14/2025 05/14/2025 06/07/2025 7:05 PM EDT documented as of this encounter Care Teams Virtual Reality Specialist Relationship Specialty Start Date End Date Luisito Gonzalez MD [address] [place] [address] Dr [place] PCP - General 01/31/24 documented as of this encounter
--- OUTSIDE RECORDS SUMMARY | 2025-10-28 11:52 | XMS_ITS | Encounter Summary ---
Author Organization [facility] Address [address] [place] [address] Care Team Providers Care Center Manager Name Role Phone Luisito Gonzalez MD Primary Care Provider [phone] Encounter Details Date Type Department Care Team (Late st Contact Info) Description 05/15/2025 Lab Requisition [facility] - Main Lab [address] [place] [address] Kolby Burgos MD [address] [place], [place] [phone] Diarrhea, unspecified Social History Tobacco Use Types [...] LAB CHEMISTRY METHOD 05/15/2025 11:53 AM EDT [facility] Potassium 3.4(L) 3.5 - 5.5 mmol/L LAB CHEMISTRY METHOD 05/15/2025 11:53 AM EDT [facility] Chloride 96 96 - 110 mmol/L LAB CHEMISTRY METHOD 05/15/2025 11:53 AM [facility] CO2 25 21 - 32 mmol/L LAB CHEMISTRY METHOD 05/15/2025 11:53 AM [facility] Anion Gap 7 3 - 11 LAB CHEMISTRY METHOD 05/15/2025 11:53 AM [facility] Glucose 75 70 - 100 mg/dL LAB CHEMISTRY METHOD 05/15/2025 11:53 AM [facility] BUN 4(L) 5 - 25 mg/dL LAB CHEMISTRY METHOD 05/15/2025 11:53 AM [facility] Creatinine 0.53 0.50 - 1.10 mg/dL LAB CHEMISTRY METHOD 05/15/2025 11:53 AM [facility] eGFR 102 >=60 mL/min/1. 73m2 LAB CHEMISTRY METHOD 05/15/2025 11:53 AM [facility] Comment:Calculation based on the Chronic Kidney Disease Epidemiology Collaboration (CKD-EPI) equation refit without adjustment for race. BUN/Creatinine Ratio 7.5 LAB CHEMISTRY METHOD 05/15/2025 11:53 AM [facility] Calcium 8.3(L) 8.5 - 10.5 mg/dL LAB CHEMISTRY METHOD 05/15/2025 11:53 AM [facility] Blood Venous blood specimen / Unknown Venipuncture / Unknown 05/15/2025 8:17 AM EDT 05/15/2025 10:17 AM EDT us Kolby Burgos MD LAB BLOOD ORDERABLES Final Result [facility] [address] [place] [address], * (ABNORMAL) Complete blood count (05/15/2025 8:17 AM EDT) WBC 3.4(L) 4.8 - 10.8 K/mcL LAB HEMETOLOGY METHOD 05/15/2025 11:05 AM [facility] RBC 3.10(L) 3.80 - 4.80 M/mcL LAB HEMETOLOGY METHOD 05/15/2025 11:05 AM [facility] Hemoglobin 10.7(L) 11.5 - 16.0 g/dL LAB HEMETOLOGY METHOD 05/15/2025 11:05 AM [facility] Hematocrit 32.1(L) 35.0 - 47.0 % LAB HEMETOLOGY METHOD 05/15/2025 11:05 AM [facility] MCV 104.9(H) 79.0 - 98.0 FL LAB HEMETOLOGY METHOD 05/15/2025 11:05 AM [facility] MCH 35.0(H) 27.0 - 32.0 pcg LAB HEMETOLOGY METHOD 05/15/2025 11:05 AM [facility] MCHC 33.3 32.0 - 37.0 g/dL LAB HEMETOLOGY METHOD 05/15/2025 11:05 AM [facility] RDW 13.9 11.0 - 15.0 % LAB HEMETOLOGY METHOD 05/15/2025 11:05 AM [facility] Platelets 95(L) 130 - 400 K/mcL LAB HEMETOLOGY METHOD 05/15/2025 11:05 AM [facility] Comment:previously verified by slide MPV 12.8(H) 7.0 - 11.0 FL LAB HEMETOLOGY METHOD 05/15/2025 11:05 AM [facility] NRBC 0.0 <1.0 % LAB HEMETOLOGY METHOD 05/15/2025 11:05 AM [facility] NRBC Absolute 0.00 <0.10 K/mcL LAB HEMETOLOGY METHOD 05/15/2025 11:05 AM EDT [facility] Blood Venous blood specimen / Unknown Venipuncture / Unknown 05/15/2025 8:17 AM EDT 05/15/2025 10:17 AM EDT us Kolby Burgos MD LAB BLOOD ORDERABLES Final Result [facility] [address] [place] [address], documented in this encounter Visit Diagnoses Diagnosis Diarrhea, unspecified documented in this encounter Additional Health Concerns Infection Onset Date Last Indicated Resolved Time C. difficile 05/14/2025 05/14/2025 06/07/2025 7:05 PM EDT documented as of this encounter Care Teams Center Manager Relationship Specialty Start Date End Date Luisito Gonzalez MD [address] [place] [address] Dr Sanderson [place] PCP - General 01/31/24 documented as of this encounter
--- OUTSIDE RECORDS SUMMARY | 2025-10-28 11:52 | XMS_ITS | Encounter Summary ---
Author Organization [employer] Address [address] [place] [address] Care Team Providers Care Workflow Developer Name Role Phone Luisito Gonzalez MD Primary Care Provider [phone] Encounter Details Date Type Department Care Team (Late st Contact Info) Description 05/13/2025 Lab Requisition [facility] - Main Lab [address] [facility] [address] [address] Kolby Burgos MD [address] [place], [place] [phone] Urinary tract infection, site not specified Social [...] reflex microscopic (05/13/2025 4:00 AM EDT) Specific [place] Urine 1.014 1.003 - 1.030 LAB URINALYSIS - AUTOMATED METHOD 05/13/2025 12:10 PM EDT [facility] pH, Urine 8.5(A) 5.0 - 8.0 pH LAB URINALYSIS - AUTOMATED METHOD 05/13/2025 12:10 PM [facility] Leukocytes, Urine Moderate(A) Negative LAB URINALYSIS - AUTOMATED METHOD 05/13/2025 12:10 PM [facility] Nitrite, Urine Negative Negative LAB URINALYSIS - AUTOMATED METHOD 05/13/2025 12:10 PM [facility] Protein, Urine Trace <=Trace mg/dL LAB URINALYSIS - AUTOMATED METHOD 05/13/2025 12:10 PM [facility] Glucose, Urine Negative Negative mg/dL LAB URINALYSIS - AUTOMATED METHOD 05/13/2025 12:10 PM [facility] Ketones, Urine Negative Negative mg/dL LAB URINALYSIS - AUTOMATED METHOD 05/13/2025 12:10 PM [facility] Urobilinogen , Urine 0.2 0.2 - 1.0 mg/dL LAB URINALYSIS - AUTOMATED METHOD 05/13/2025 12:10 PM [facility] Bilirubin, Urine Negative Negative LAB URINALYSIS - AUTOMATED METHOD 05/13/2025 12:10 PM [facility] Blood, Urine Negative Negative LAB URINALYSIS - AUTOMATED METHOD 05/13/2025 12:10 PM [facility] RBC, Urine 3.0 0 - 4 /HPF LAB URINALYSIS - AUTOMATED METHOD 05/13/2025 12:10 PM [facility] WBC, Urine 6.0(H) 0 - 4 /HPF LAB URINALYSIS - AUTOMATED METHOD 05/13/2025 12:10 PM [facility] Squamous Epithelial, Urine 80(H) 0 - 60 /LPF LAB URINALYSIS - AUTOMATED METHOD 05/13/2025 12:10 PM [facility] Bacteria, Urine Negative Negative /HPF LAB URINALYSIS - AUTOMATED METHOD 05/13/2025 12:10 PM EDT [facility] Hyaline Casts, Urine 3.0 0 - 3 /LPF LAB URINALYSIS - AUTOMATED METHOD 05/13/2025 12:10 PM EDT [facility] Urine Urine specimen obtained by clean catch procedure / Unknown 05/13/2025 4:00 AM EDT 05/13/2025 10:25 AM EDT us Kolby Burgos MD LAB URINE ORDERABLES Final Result Performing Organization Address City/[facility]/ZIP Co de Phone Number [facility] [address] [place] [address], [place] [phone] * Culture urine (05/13/2025 4:00 AM EDT) Culture, Urine 10,000-49,000 CFU/mL Mixed bacterial morphotypes present suggestive of possible contamination during collection. Suggest appropriate recollection if clinically indicated. 05/14/2025 10:00 AM EDT [facility] Urine Urine specimen obtained by clean catch procedure / Unknown 05/13/2025 4:00 AM EDT 05/13/2025 10:25 AM EDT us Kolby Burgos MD LAB MICROBIOLOGY - GENERAL ORDERABLES Final Result Performing Organization Address City/[facility]/ZIP Co de Phone Number [facility] [address] [place] [address], [place] [phone] documented in this encounter Visit Diagnoses Diagnosis Urinary tract infection, site not specified documented in this encounter Additional Health Concerns Infection Onset Date Last Indicated Resolved Time C. difficile Rule-Out 05/14/2025 05/14/20252024 11:24 AM EDT C. difficile 05/14/2025 05/14/2025 06/07/2025 7:05 PM EDT documented as of this encounter Care Teams Workflow Developer Relationship Specialty Start Date End Date Luisito Gonzalez MD NPI: [id number] [place] [address] Dr Sanderson [place] PCP - General 01/31/24 documented as of this encounter
--- OUTSIDE RECORDS SUMMARY | 2025-10-28 11:52 | XMS_ITS | Encounter Summary ---
Author Organization [employer] Address [address] [place] [address] Care Team Providers Care Butcherette Name Role Phone Luisito Gonzalez MD Primary Care Provider [phone] Encounter Details Date Type Department Care Team (Late st Contact Info) Description 05/06/2025 Lab Requisition [facility] - Main Lab [address] [facility] [place] [address] Kolby Burgos MD [address] [place], [place] [phone] Anemia, unspecified; Gastrointestinal hemorrhage, unspecified Social History [...] AM EDT) WBC 4.3(L) 4.8 - 10.8 K/[facility] LAB HEMETOLOGY METHOD 05/06/2025 7:18 AM EDT [facility] RBC 3.10(L) 3.80 - 4.80 M/mcL LAB HEMETOLOGY METHOD 05/06/2025 7:18 AM [facility] Hemoglobin 11.0(L) 11.5 - 16.0 g/dL LAB HEMETOLOGY METHOD 05/06/2025 7:18 AM [facility] Hematocrit 32.9(L) 35.0 - 47.0 % LAB HEMETOLOGY METHOD 05/06/2025 7:18 AM [facility] MCV 106.8(H) 79.0 - 98.0 FL LAB HEMETOLOGY METHOD 05/06/2025 7:18 AM [facility] MCH 35.7(H) 27.0 - 32.0 pcg LAB HEMETOLOGY METHOD 05/06/2025 7:18 AM [facility] MCHC 33.4 32.0 - 37.0 g/dL LAB HEMETOLOGY METHOD 05/06/2025 7:18 AM [facility] RDW 13.4 11.0 - 15.0 % LAB HEMETOLOGY METHOD 05/06/2025 7:18 AM [facility] Platelets 170 130 - 400 K/mcL LAB HEMETOLOGY METHOD 05/06/2025 7:18 AM [facility] MPV 11.8(H) 7.0 - 11.0 FL LAB HEMETOLOGY METHOD 05/06/2025 7:18 AM [facility] NRBC 0.0 <1.0 % LAB HEMETOLOGY METHOD 05/06/2025 7:18 AM [facility] NRBC Absolute 0.00 <0.10 K/mcL LAB HEMETOLOGY METHOD 05/06/2025 7:18 AM [facility] Neutrophils Relative 60.2 % LAB HEMETOLOGY METHOD 05/06/2025 7:18 AM [facility] Lymphocytes Relative 23.7 % LAB HEMETOLOGY METHOD 05/06/2025 7:18 AM [facility] Monocytes Relative 12.2 % LAB HEMETOLOGY METHOD 05/06/2025 7:18 AM [facility] Eosinophils Relative 2.8 % LAB HEMETOLOGY METHOD 05/06/2025 7:18 AM [facility] Basophils Relative 0.9 % LAB HEMETOLOGY METHOD 05/06/2025 7:18 AM [facility] Immature Granulocytes Relative 0.2 % LAB HEMETOLOGY METHOD 05/06/2025 7:18 AM [facility] Neutrophils Absolute 2.56 1.50 - 7.00 K/mcL LAB HEMETOLOGY METHOD 05/06/2025 7:18 AM [facility] Lymphocytes Absolute 1.01 1.00 - 5.00 K/mcL LAB HEMETOLOGY METHOD 05/06/2025 7:18 AM [facility] Monocytes Absolute 0.52 0.20 - 1.00 K/mcL LAB HEMETOLOGY METHOD 05/06/2025 7:18 AM [facility] Eosinophils Absolute 0.12 0.00 - 0.50 K/mcL LAB HEMETOLOGY METHOD 05/06/2025 7:18 AM [facility] Basophils Absolute 0.04 0.00 - 0.20 K/mcL LAB HEMETOLOGY METHOD 05/06/2025 7:18 AM [facility] Immature Granulocytes Absolute 0.01 0.00 - 0.03 K/mcL LAB HEMETOLOGY METHOD 05/06/2025 7:18 AM [facility] Blood Venous blood specimen / Unknown Venipuncture / Unknown 05/06/2025 5:10 AM EDT 05/06/2025 6:25 AM EDT us Kolby Burgos MD LAB BLOOD ORDERABLES Final Result [facility] [address] [place] [address], * (ABNORMAL) Comprehensive metabolic panel (05/06/2025 5:10 AM EDT) Sodium 135 133 - 145 mmol/L LAB CHEMISTRY METHOD 05/06/2025 8:57 AM [facility] Potassium 2.9(LL) 3.5 - 5.5 mmol/L LAB CHEMISTRY METHOD 05/06/2025 8:57 AM [facility] Chloride 98 96 - 110 mmol/L LAB CHEMISTRY METHOD 05/06/2025 8:57 AM [facility] CO2 31 21 - 32 mmol/L LAB CHEMISTRY METHOD 05/06/2025 8:57 AM [facility] Anion Gap 6 3 - 11 LAB CHEMISTRY METHOD 05/06/2025 8:57 AM [facility] Glucose 91 70 - 100 mg/dL LAB CHEMISTRY METHOD 05/06/2025 8:57 AM [facility] BUN 3(L) 5 - 25 mg/dL LAB CHEMISTRY METHOD 05/06/2025 8:57 AM [facility] Creatinine 0.41(L) 0.50 - 1.10 mg/dL LAB CHEMISTRY METHOD 05/06/2025 8:57 AM [facility] eGFR 109 >=60 mL/min/1. 73m2 LAB CHEMISTRY METHOD 05/06/2025 8:57 AM [facility] Comment:Calculation based on the Chronic Kidney Disease Epidemiology Collaboration (CKD-EPI) equation refit without adjustment for race. BUN/Creatinine Ratio 7.3 LAB CHEMISTRY METHOD 05/06/2025 8:57 AM [facility] Calcium 8.2(L) 8.5 - 10.5 mg/dL LAB CHEMISTRY METHOD 05/06/2025 8:57 AM EDT [facility] AST (SGOT) 93(H) 10 - 42 unit/L LAB CHEMISTRY METHOD 05/06/2025 8:57 AM T [facility] ALT (SGPT) 74(H) 10 - 60 unit/L LAB CHEMISTRY METHOD 05/06/2025 8:57 AM EDT [facility] Alkaline Phosphatase 134(H) 42 - 121 unit/L LAB CHEMISTRY METHOD 05/06/2025 8:57 AM EDT [facility] Total Protein 4.9(L) 6.0 - 8.0 g/dL LAB CHEMISTRY METHOD 05/06/2025 8:57 AM [facility] Albumin 2.2(L) 3.2 - 5.0 g/dL LAB CHEMISTRY METHOD 05/06/2025 8:57 AM [facility] Total Bilirubin 1.6(H) 0.0 - 1.4 mg/dL LAB CHEMISTRY METHOD 05/06/2025 8:57 AM [facility] Blood Venous blood specimen / Unknown Venipuncture / Unknown 05/06/2025 5:10 AM EDT 05/06/2025 6:25 AM EDT Kolby Burgos MD LAB BLOOD ORDERABLES Final Result [facility] [address] [place] [address], documented in this encounter Visit Diagnoses Diagnosis Anemia, unspecified Gastrointestinal hemorrhage, unspecified documented in this encounter Additional Health Concerns Infection Onset Date Last Indicated Resolved Time C. difficile Rule-Out 05/14/2025 05/14/20252024 11:24 AM EDT C. difficile 05/14/2025 05/14/2025 06/07/2025 7:05 PM EDT documented as of this encounter Care Teams Butcherette Relationship Specialty Start Date End Date Luisito Gonzalez MD [address] [facility] [address] Kin [place] PCP - General 01/31/24 documented as of this encounter
--- OUTSIDE RECORDS SUMMARY | 2025-10-28 11:52 | XMS_ITS | Encounter Summary ---
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 COMPLETE BLOOD COUNT Routine 05/07/2025 8:25 AM EDT Hypokalemia Anemia, 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 COMPREHENSIVE METABOLIC PANEL Routine 05/07/2025 8:25 AM EDT Hypokalemia Anemia, unspecified USP (current) use of anticoagulants documented in this encounter Results * (ABNORMAL) Prothrombin time with INR (05/07/2025 12:19 PM EDT) Protime 14.5(H) 10.6 - 13.9 sec LAB COAGULATION METHOD 05/07/2025 1:23 PM [facility] INR 1.2 LAB COAGULATION METHOD 05/07/2025 1:23 PM [facility] Blood Venous blood specimen / Unknown Venipuncture / Unknown 05/07/2025 12:19 PM EDT 05/07/2025 8:53 AM EDT Kolby Burgos MD LAB BLOOD ORDERABLES Final Result [facility] [address] [place] [address], * (ABNORMAL) Comprehensive metabolic panel (05/07/2025 8:25 AM EDT) Sodium 137 133 - 145 mmol/L LAB CHEMISTRY METHOD 05/07/2025 10:48 AM [facility] Potassium 3.7 3.5 - 5.5 mmol/L LAB CHEMISTRY METHOD 05/07/2025 10:48 AM [facility] Chloride 102 96 - 110 mmol/L LAB CHEMISTRY METHOD 05/07/2025 10:48 AM [facility] CO2 30 21 - 32 mmol/L LAB CHEMISTRY METHOD 05/07/2025 10:48 AM [facility] Anion Gap 5 3 - 11 LAB CHEMISTRY METHOD 05/07/2025 10:48 AM [facility] Glucose 81 70 - 100 mg/dL LAB CHEMISTRY METHOD 05/07/2025 10:48 AM [facility] BUN 5 5 - 25 mg/dL LAB CHEMISTRY METHOD 05/07/2025 10:48 AM [facility] Creatinine 0.36(L) 0.50 - 1.10 mg/dL LAB CHEMISTRY METHOD 05/07/2025 10:48 AM [facility] eGFR 112 >=60 mL/min/1. 73m2 LAB CHEMISTRY METHOD 05/07/2025 10:48 AM [facility] Comment:Calculation based on the Chronic Kidney Disease Epidemiology Collaboration (CKD-EPI) equation refit without adjustment for race. BUN/Creatinine Ratio 13.9 LAB CHEMISTRY METHOD 05/07/2025 10:48 AM [facility] Calcium 8.1(L) 8.5 - 10.5 mg/dL LAB CHEMISTRY METHOD 05/07/2025 10:48 AM [facility] AST (SGOT) 83(H) 10 - 42 unit/L LAB CHEMISTRY METHOD 05/07/2025 10:48 AM [facility] ALT (SGPT) 69(H) 10 - 60 unit/L LAB CHEMISTRY METHOD 05/07/2025 10:48 AM [facility] Alkaline Phosphatase 124(H) 42 - 121 unit/L LAB CHEMISTRY METHOD 05/07/2025 10:48 AM [facility] Total Protein 5.1(L) 6.0 - 8.0 g/dL LAB CHEMISTRY METHOD 05/07/2025 10:48 AM [facility] Albumin 2.2(L) 3.2 - 5.0 g/dL LAB CHEMISTRY METHOD 05/07/2025 10:48 AM [facility] Total Bilirubin 1.6(H) 0.0 - 1.4 mg/dL LAB CHEMISTRY METHOD 05/07/2025 10:48 AM [facility] Blood Venous blood specimen / Unknown Venipuncture / Unknown 05/07/2025 8:25 AM EDT 05/07/2025 8:53 AM EDT us Kolby Burgos MD LAB BLOOD ORDERABLES Final Result [facility] [address] [place] [address], * (ABNORMAL) Complete blood count (05/07/2025 8:25 AM EDT) [facility] WBC 4.5(L) 4.8 - 10.8 K/mcL LAB HEMETOLOGY METHOD 05/07/2025 10:02 AM [facility] RBC 3.00(L) 3.80 - 4.80 M/mcL LAB HEMETOLOGY METHOD 05/07/2025 10:02 AM [facility] Hemoglobin 10.5(L) 11.5 - 16.0 g/dL LAB HEMETOLOGY METHOD 05/07/2025 10:02 AM [facility] Hematocrit 32.1(L) 35.0 - 47.0 % LAB HEMETOLOGY METHOD 05/07/2025 10:02 AM [facility] MCV 108.1(H) 79.0 - 98.0 FL LAB HEMETOLOGY METHOD 05/07/2025 10:02 AM [facility] MCH 35.4(H) 27.0 - 32.0 pcg LAB HEMETOLOGY METHOD 05/07/2025 10:02 AM [facility] MCHC 32.7 32.0 - 37.0 g/dL LAB HEMETOLOGY METHOD 05/07/2025 10:02 AM [facility] RDW 13.5 11.0 - 15.0 % LAB HEMETOLOGY METHOD 05/07/2025 10:02 AM [facility] Platelets 163 130 - 400 K/mcL LAB HEMETOLOGY METHOD 05/07/2025 10:02 AM [facility] MPV 11.6(H) 7.0 - 11.0 FL LAB HEMETOLOGY METHOD 05/07/2025 10:02 AM [facility] NRBC 0.0 <1.0 % LAB HEMETOLOGY METHOD 05/07/2025 10:02 AM EDT [facility] NRBC Absolute 0.00 <0.10 K/mcL LAB HEMETOLOGY METHOD 05/07/2025 10:02 AM EDT [facility] Blood Venous blood specimen / Unknown Venipuncture / Unknown 05/07/2025 8:25 AM EDT 05/07/2025 8:53 AM EDT us Kolby Burgos MD LAB BLOOD ORDERABLES Final Result [facility] [address] [place] [address], documented in this encounter Visit Diagnoses Diagnosis Hypokalemia Hypopotassemia Anemia, 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 difficile Rule-Out 05/14/2025 05/14/20252024 11:24 AM EDT C. difficile 05/14/2025 05/14/2025 06/07/2025 7:05 PM EDT documented as of this encounter Care Teams [employer] Director Relationship Specialty Start Date End Date Luisito Gonzalez MD [address] [place] [address] Dr Kin [place] PCP - General 01/31/24 documented as of this encounter
--- OUTSIDE RECORDS SUMMARY | 2025-10-28 11:52 | XMS_ITS | Encounter Summary ---
Author Organization [employer] Address [address] [place] [address] Care Team Providers Care Physician Assistant Surgery Name Role Phone Luisito Gonzalez MD Primary Care Provider [phone] Encounter Details Date Type Department Care Team (Late st Contact Info) Description 05/19/2025 Lab Requisition [facility] - Main Lab [address] [place] [address] Kolby Burgos MD [address] [place], [place] [id number] Anemia, unspecified; Gastrointestinal hemorrhage, unspecified Social History [...] LAB CHEMISTRY METHOD 05/20/2025 11:25 AM EDT [facility] Potassium 3.8 3.5 - 5.5 mmol/L LAB CHEMISTRY METHOD 05/20/2025 11:25 AM EDT [facility] Chloride 101 96 - 110 mmol/L LAB CHEMISTRY METHOD 05/20/2025 11:25 AM [facility] CO2 26 21 - 32 mmol/L LAB CHEMISTRY METHOD 05/20/2025 11:25 AM [facility] Anion Gap 7 3 - 11 LAB CHEMISTRY METHOD 05/20/2025 11:25 AM [facility] Glucose 86 70 - 100 mg/dL LAB CHEMISTRY METHOD 05/20/2025 11:25 AM [facility] BUN 3(L) 5 - 25 mg/dL LAB CHEMISTRY METHOD 05/20/2025 11:25 AM [facility] Creatinine 0.47(L) 0.50 - 1.10 mg/dL LAB CHEMISTRY METHOD 05/20/2025 11:25 AM [facility] eGFR 105 >=60 mL/min/1. 73m2 LAB CHEMISTRY METHOD 05/20/2025 11:25 AM [facility] Comment:Calculation based on the Chronic Kidney Disease Epidemiology Collaboration (CKD-EPI) equation refit without adjustment for race. BUN/Creatinine Ratio 6.4 LAB CHEMISTRY METHOD 05/20/2025 11:25 AM [facility] Calcium 8.8 8.5 - 10.5 mg/dL LAB CHEMISTRY METHOD 05/20/2025 11:25 AM [facility] Blood Venous blood specimen / Unknown Venipuncture / Unknown 05/20/2025 6:39 AM EDT 05/20/2025 10:33 AM EDT us Kolby Burgos MD LAB BLOOD ORDERABLES Final Result [facility] [address] [place] [address], * (ABNORMAL) Complete blood count (05/20/2025 6:39 AM EDT) WBC 3.0(L) 4.8 - 10.8 K/mcL LAB HEMETOLOGY METHOD 05/20/2025 10:53 AM [facility] RBC 2.90(L) 3.80 - 4.80 M/mcL LAB HEMETOLOGY METHOD 05/20/2025 10:53 AM [facility] Hemoglobin 10.4(L) 11.5 - 16.0 g/dL LAB HEMETOLOGY METHOD 05/20/2025 10:53 AM [facility] Hematocrit 31.3(L) 35.0 - 47.0 % LAB HEMETOLOGY METHOD 05/20/2025 10:53 AM [facility] MCV 106.5(H) 79.0 - 98.0 FL LAB HEMETOLOGY METHOD 05/20/2025 10:53 AM [facility] MCH 35.4(H) 27.0 - 32.0 pcg LAB HEMETOLOGY METHOD 05/20/2025 10:53 AM [facility] MCHC 33.2 32.0 - 37.0 g/dL LAB HEMETOLOGY METHOD 05/20/2025 10:53 AM [facility] RDW 13.6 11.0 - 15.0 % LAB HEMETOLOGY METHOD 05/20/2025 10:53 AM [facility] Platelets 112(L) 130 - 400 K/mcL LAB HEMETOLOGY METHOD 05/20/2025 10:53 AM [facility] MPV 12.2(H) 7.0 - 11.0 FL LAB HEMETOLOGY METHOD 05/20/2025 10:53 AM [facility] NRBC 0.0 <1.0 % LAB HEMETOLOGY METHOD 05/20/2025 10:53 AM [facility] NRBC Absolute 0.00 <0.10 K/mcL LAB HEMETOLOGY METHOD 05/20/2025 10:53 AM EDT [facility] Blood Venous blood specimen / Unknown Venipuncture / Unknown 05/20/2025 6:39 AM EDT 05/20/2025 10:33 AM EDT us Kolby Burgos MD LAB BLOOD ORDERABLES Final Result [facility] [address] [place] [address], documented in this encounter Visit Diagnoses Diagnosis Anemia, unspecified Gastrointestinal hemorrhage, unspecified documented in this encounter Additional Health Concerns Infection Onset Date Last Indicated Resolved Time C. difficile 05/14/2025 05/14/2025 06/07/2025 7:05 PM EDT documented as of this encounter Care Teams Physician Assistant Surgery Relationship Specialty Start Date End Date Luisito Gonzalez MD [address] [facility] [address] Sanderson [place] PCP - General 01/31/24 documented as of this encounter
--- OUTSIDE RECORDS SUMMARY | 2025-10-28 11:52 | XMS_ITS | Encounter Summary ---
Author Organization [facility] Address [address] [place] [address] Care Team Providers Care Tape Editor Name Role Phone Luisito Gonzalez MD Primary Care Provider [phone] Encounter Details Date Type Department Care Team (Late st Contact Info) Description 05/13/2025 Lab Requisition [facility] - Main Lab [address] [place] [address] Kolby Burgos MD [address] [place], [place] [phone] Other specified anemias; Other disorders of electrolyte [...] at 5 days 05/18/2025 11:01 AM EDT [facility] Blood 05/13/2025 9:00 AM EDT 05/13/2025 9:37 AM EDT us Kolby Burgos MD LAB MICROBIOLOGY - GENERAL ORDERABLES Final Result [facility] [address] [place] [address], documented in this encounter Visit Diagnoses Diagnosis Other specified anemias Other disorders of electrolyte and fluid balance, not elsewhere classified Bacteremia documented in this encounter Additional Health Concerns Infection Onset Date Last Indicated Resolved Time C. difficile Rule-Out 05/14/2025 05/14/20252024 11:24 AM EDT C. difficile 05/14/2025 05/14/2025 06/07/2025 7:05 PM EDT documented as of this encounter Care Teams Tape Editor Relationship Specialty Start Date End Date Luisito Gonzalez MD [address] [place] [address] Dr Kin [place] PCP - General 01/31/24 documented as of this encounter
--- OUTSIDE RECORDS SUMMARY | 2025-10-28 11:52 | XMS_ITS | Clinical Summary ---
Author Organization [address] [place] [address] Address [address] [place] [address] Phone Care Team Providers Care Ornamental Iron Worker Helper Name Role Phone Luisito Gonzalez MD Primary Care Provider [phone] Social History Tobacco Use Types Packs/Day Years [...] Last Done Comments Breast Cancer Screening 1959 Colorectal Cancer Screening: Colonoscopy 1959 DTaP,Tdap,and Td Vaccines (1 - Tdap) 1978 Pneumococcal Vaccine: 50+ Ye ars (1 of 1 - PCV) 2009 Zoster Vaccines (1 of 2) 2009 Falls Risk Assessment 06/07/2024 Hepatitis C Screening 06/07/2024 Medicare Annual Wellness Visit 06/07/2024 Osteoporosis Screening (Bone Density Screening) 06/07/2024 Social Influencers of Health Screening 06/07/2024 Depression Screening 11/13/2024 COVID-19 Vaccine (1 - 2024-2 6 season) 2025 Influenza Vaccine (#1) 2025 RSV [...] on patient's age to complete this topic Insurance MEDICARE MEDICAID - [place] Care Teams Ornamental Iron Worker Helper Relationship Specialty Start Date End Date Luisito Gonzalez MD [address] [place] [address] Dr Kin [place] PCP - General 01/31/24
== END 2025-10-28 11:20 | disposition home or self-care (01) ==
LOC: HO.HMCH 09:52
DX: I10 Essential (primary) hypertension (principal); I25.10 Atherosclerotic heart disease of native coronary artery without angina pectoris; F17.200 Nicotine dependence, unspecified, uncomplicated; F10.10 Alcohol abuse, uncomplicated; D64.9 Anemia, unspecified; R20.2 Paresthesia of skin; M79.609 Pain in unspecified limb; R74.01 Elevation of levels of liver transaminase levels

== ENCOUNTER → 2025-10-28 09:51 | Outpatient (BNVA) | payer MEDICARE, SELFPAY | DX: I10 Essential (primary) hypertension (principal); I25.10 Atherosclerotic heart disease of native coronary artery without angina pectoris; F10.10 Alcohol abuse, uncomplicated; D64.9 Anemia, unspecified; M79.609 Pain in unspecified limb; F17.200 Nicotine dependence, unspecified, uncomplicated; R74.8 Abnormal levels of other serum enzymes; R74.01 Elevation of levels of liver transaminase levels; M79.604 Pain in right leg; M79.605 Pain in left leg; Z79.899 Other long term (current) drug therapy | CPT/HCPCS: 99212 ==

== ENCOUNTER 2025-11-01 07:31 | Outpatient (REF) | payer MEDICARE, SELFPAY ==
--- OUTSIDE RECORDS SUMMARY | 2025-11-01 07:34 | XMS_ITS | Encounter Summary ---
Author Organization [employer] Address [address] [place] [address] Care Team Providers Care Propellant Charge Loader Name Role Phone Luisito Gonzalez MD Primary Care Provider [phone] Encounter Details Date Type Department Care Team (Late st Contact Info) Description 05/13/2025 Lab Requisition [facility] - Main Lab [address] [facility] [place] [address] Kolby Burgos MD [address] [place], [place] [phone] Urinary tract infection, site not specified Social [...] reflex microscopic (05/13/2025 4:00 AM EDT) Specific [place] Urine 1.014 1.003 - 1.030 LAB URINALYSIS - AUTOMATED METHOD 05/13/2025 12:10 PM EDT [facility] pH, Urine 8.5(A) 5.0 - 8.0 pH LAB URINALYSIS - AUTOMATED METHOD 05/13/2025 12:[address] [facility] Leukocytes, Urine Moderate(A) Negative LAB URINALYSIS - AUTOMATED METHOD 05/13/2025 12:[address] [facility] Nitrite, Urine Negative Negative LAB URINALYSIS - AUTOMATED METHOD 05/13/2025 12:[address] [facility] Protein, Urine Trace <=Trace mg/dL LAB URINALYSIS - AUTOMATED METHOD 05/13/2025 12:[address] [facility] Glucose, Urine Negative Negative mg/dL LAB URINALYSIS - AUTOMATED METHOD 05/13/2025 12:[address] [facility] Ketones, Urine Negative Negative mg/dL LAB URINALYSIS - AUTOMATED METHOD 05/13/2025 12:[address] [facility] Urobilinogen , Urine 0.2 0.2 - 1.0 mg/dL LAB URINALYSIS - AUTOMATED METHOD 05/13/2025 12:[address] [facility] Bilirubin, Urine Negative Negative LAB URINALYSIS - AUTOMATED METHOD 05/13/2025 12:[address] [facility] Blood, Urine Negative Negative LAB URINALYSIS - AUTOMATED METHOD 05/13/2025 12:[address] [facility] RBC, Urine 3.0 0 - 4 /HPF LAB URINALYSIS - AUTOMATED METHOD 05/13/2025 12:[address] [facility] WBC, Urine 6.0(H) 0 - 4 /HPF LAB URINALYSIS - AUTOMATED METHOD 05/13/2025 12:[address] [facility] Squamous Epithelial, Urine 80(H) 0 - 60 /LPF LAB URINALYSIS - AUTOMATED METHOD 05/13/2025 12:[address] [facility] Bacteria, Urine Negative Negative /HPF LAB URINALYSIS - AUTOMATED METHOD 05/13/2025 12:10 PM EDT [facility] Hyaline Casts, Urine 3.0 0 - 3 /LPF LAB URINALYSIS - AUTOMATED METHOD 05/13/2025 12:10 PM EDT [facility] Urine Urine specimen obtained by clean catch procedure / Unknown 05/13/2025 4:00 AM EDT 05/13/2025 10:25 AM EDT us Kolby Burgos MD LAB URINE ORDERABLES Final Result Performing Organization Address City/[facility]/ZIP Co de Phone Number [facility] [address] [place] [address], [place] [phone] * Culture urine (05/13/2025 4:00 AM EDT) Culture, Urine 10,000-49,000 CFU/mL Mixed bacterial morphotypes present suggestive of possible contamination during collection. Suggest appropriate recollection if clinically indicated. 05/14/2025 10:00 AM EDT [facility] Urine Urine specimen obtained by clean catch procedure / Unknown 05/13/2025 4:00 AM EDT 05/13/2025 10:25 AM EDT us Kolby Burgos MD LAB MICROBIOLOGY - GENERAL ORDERABLES Final Result Performing Organization Address City/[facility]/ZIP Co de Phone Number [facility] [address] [place] [address], [place] [phone] documented in this encounter Visit Diagnoses Diagnosis Urinary tract infection, site not specified documented in this encounter Additional Health Concerns Infection Onset Date Last Indicated Resolved Time C. difficile Rule-Out 05/14/2025 05/14/20252024 11:24 AM EDT C. difficile 05/14/2025 05/14/2025 06/07/2025 7:05 PM EDT documented as of this encounter Care Teams Propellant Charge Loader Relationship Specialty Start Date End Date Luisito Gonzalez MD NPI: [id number] [place] [address] Dr Sanderson [place] PCP - General 01/31/24 documented as of this encounter
--- OUTSIDE RECORDS SUMMARY | 2025-11-01 07:34 | XMS_ITS | Encounter Summary ---
Author Organization [facility] Address [address] [place] [address] Care Team Providers Care Counseling Department Chair Name Role Phone Luisito Gonzalez MD Primary Care Provider [phone] Encounter Details Date Type Department Care Team (Late st Contact Info) Description 05/15/2025 Lab Requisition [facility] - Main Lab [address] [place] [address] Kolby Burgos MD [address] [place], [place] [phone] Diarrhea, unspecified Social History Tobacco Use Types [...] mmol/L LAB CHEMISTRY METHOD 05/15/2025 11:53 AM [facility] CO2 25 21 - 32 mmol/L LAB CHEMISTRY METHOD 05/15/2025 11:53 AM [facility] Anion Gap 7 3 - 11 LAB CHEMISTRY METHOD 05/15/2025 11:53 AM [facility] Glucose 75 70 - 100 mg/dL LAB CHEMISTRY METHOD 05/15/2025 11:53 AM [facility] BUN 4(L) 5 - 25 mg/dL LAB CHEMISTRY METHOD 05/15/2025 11:53 AM [facility] Creatinine 0.53 0.50 - 1.10 mg/dL LAB CHEMISTRY METHOD 05/15/2025 11:53 AM [facility] eGFR 102 >=60 mL/min/1. 73m2 LAB CHEMISTRY METHOD 05/15/2025 11:53 AM [facility] Comment:Calculation based on the Chronic Kidney Disease Epidemiology Collaboration (CKD-EPI) equation refit without adjustment for race. BUN/Creatinine Ratio 7.5 LAB CHEMISTRY METHOD 05/15/2025 11:53 AM [facility] Calcium 8.3(L) 8.5 - 10.5 mg/dL LAB CHEMISTRY METHOD 05/15/2025 11:53 AM [facility] Blood Venous blood specimen / Unknown Venipuncture / Unknown 05/15/2025 8:17 AM EDT 05/15/2025 10:17 AM EDT us Kolby Burgos MD LAB BLOOD ORDERABLES Final Result [facility] [address] [place] [address], * (ABNORMAL) Complete blood count (05/15/2025 8:17 AM EDT) WBC 3.4(L) 4.8 - 10.8 K/mcL LAB HEMETOLOGY METHOD 05/15/2025 11:05 AM [facility] RBC 3.10(L) 3.80 - 4.80 M/mcL LAB HEMETOLOGY METHOD 05/15/2025 11:05 AM [facility] Hemoglobin 10.7(L) 11.5 - 16.0 g/dL LAB HEMETOLOGY METHOD 05/15/2025 11:05 AM [facility] Hematocrit 32.1(L) 35.0 - 47.0 % LAB HEMETOLOGY METHOD 05/15/2025 11:05 AM [facility] MCV 104.9(H) 79.0 - 98.0 FL LAB HEMETOLOGY METHOD 05/15/2025 11:05 AM [facility] MCH 35.0(H) 27.0 - 32.0 pcg LAB HEMETOLOGY METHOD 05/15/2025 11:05 AM [facility] MCHC 33.3 32.0 - 37.0 g/dL LAB HEMETOLOGY METHOD 05/15/2025 11:05 AM [facility] RDW 13.9 11.0 - 15.0 % LAB HEMETOLOGY METHOD 05/15/2025 11:05 AM [facility] Platelets 95(L) 130 - 400 K/mcL LAB HEMETOLOGY METHOD 05/15/2025 11:05 AM [facility] Comment:previously verified by slide MPV 12.8(H) 7.0 - 11.0 FL LAB HEMETOLOGY METHOD 05/15/2025 11:05 AM [facility] NRBC 0.0 <1.0 % LAB HEMETOLOGY METHOD 05/15/2025 11:05 AM [facility] NRBC Absolute 0.00 <0.10 K/mcL LAB HEMETOLOGY METHOD 05/15/2025 11:05 AM EDT [facility] Blood Venous blood specimen / Unknown Venipuncture / Unknown 05/15/2025 8:17 AM EDT 05/15/2025 10:17 AM EDT us Kolby Burgos MD LAB BLOOD ORDERABLES Final Result [facility] [address] [place] [address], documented in this encounter Visit Diagnoses Diagnosis Diarrhea, unspecified documented in this encounter Additional Health Concerns Infection Onset Date Last Indicated Resolved Time C. difficile 05/14/2025 05/14/2025 06/07/2025 7:05 PM EDT documented as of this encounter Care Teams Counseling Department Chair Relationship Specialty Start Date End Date Luisito Gonzalez MD [address] [place] [address] Dr Sanderson [place] PCP - General 01/31/24 documented as of this encounter
--- OUTSIDE RECORDS SUMMARY | 2025-11-01 07:34 | XMS_ITS | Encounter Summary ---
Author Organization [employer] Address [address] [place] [address] Care Team Providers Care Private Equity Analyst Name Role Phone Luisito Gonzalez MD Primary Care Provider [phone] Encounter Details Date Type Department Care Team (Late st Contact Info) Description 05/14/2025 Lab Requisition [facility] - Main Lab [address] Count Includes [facility] [place] [address] Kolby Burgos MD [address] [place], [place] [phone] Diarrhea, unspecified Social History Tobacco Use Types [...] Positive( A) Negative 05/14/2025 11:24 AM EDT [facility] C difficile Toxins A+B, EIA Positive( AA) Negative 05/14/2025 11:24 AM EDT [facility] Comment: CRITICAL RESULT POSITIVE FOR TOXIN PRODUCING CLOSTRIDIOIDES DIFFICILE, NO ADDITIONAL TESTING IS NECESSARY. REPEAT SAMPLES SHOULD NOT BE SUBMITTED FOR TEST OF CURE. Stool Rectum structure / Unknown Non-blood Collection / Unknown 05/14/2025 05/14/2025 9:26 AM EDT us Kolby Burgos MD LAB MICROBIOLOGY - GENERAL ORDERABLES Final Result [facility] [address] [place] [address], documented in this encounter Visit Diagnoses Diagnosis Diarrhea, unspecified documented in this encounter Additional Health Concerns Infection Onset Date Last Indicated Resolved Time C. difficile Rule-Out 05/14/2025 05/14/20252024 11:24 AM EDT C. difficile 05/14/2025 05/14/2025 06/07/2025 7:05 PM EDT documented as of this encounter Care Teams Private Equity Analyst Relationship Specialty Start Date End Date Luisito Gonzalez MD [address] [place] [address] Dr Kin [place] PCP - General 01/31/24 documented as of this encounter
--- OUTSIDE RECORDS SUMMARY | 2025-11-01 07:34 | XMS_ITS | Encounter Summary ---
Author Organization [employer] Address [address] [place] [address] Care Team Providers Care Paper Bag Inspector Name Role Phone Luisito Gonzalez MD Primary Care Provider [phone] Encounter Details Date Type Department Care Team (Late st Contact Info) Description 05/19/2025 Lab Requisition [facility] - Main Lab [address] [place] [address] Kolby Burgos MD [address] [place], [place] [phone] Anemia, unspecified; Gastrointestinal hemorrhage, unspecified Social History [...] LAB CHEMISTRY METHOD 05/20/2025 11:[address] [facility] Potassium 3.8 3.5 - 5.5 mmol/L LAB CHEMISTRY METHOD 05/20/2025 11:[address] [facility] Chloride 101 96 - 110 [...] Final Result [facility] [address] [place] [address], * (ABNORMAL) Complete blood count (05/20/2025 6:39 [...] LAB HEMETOLOGY METHOD 05/20/2025 10:[address] [facility] Blood Venous blood specimen / Unknown Venipuncture / Unknown 05/20/2025 6:39 AM EDT 05/20/2025 10:33 AM EDT us Kolby Burgos MD LAB BLOOD ORDERABLES Final Result [facility] [address] [place] [address], documented in this encounter Visit Diagnoses Diagnosis Anemia, unspecified Gastrointestinal hemorrhage, unspecified documented in this encounter Additional Health Concerns Infection Onset Date Last Indicated Resolved Time C. difficile 05/14/2025 05/14/2025 06/07/2025 7:05 PM EDT documented as of this encounter Care Teams Paper Bag Inspector Relationship Specialty Start Date End Date Luisito Gonzalez MD [address] [facility] [address] Sanderson [place] PCP - General 01/31/24 documented as of this encounter
--- OUTSIDE RECORDS SUMMARY | 2025-11-01 07:34 | XMS_ITS | Encounter Summary ---
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 COMPLETE BLOOD COUNT Routine 05/07/2025 8:25 AM EDT Hypokalemia Anemia, unspecified regional intermodal truck driver (current) use of anticoagulants COMPREHENSIVE METABOLIC PANEL Routine 05/07/2025 8:25 AM EDT Hypokalemia Anemia, unspecified [facility] (current) use of anticoagulants documented in this encounter Results * (ABNORMAL) Prothrombin time with INR (05/07/2025 12:19 PM EDT) Protime 14.5(H) 10.6 - 13.9 sec LAB COAGULATION METHOD 05/07/2025 1:23 PM [facility] INR 1.2 LAB COAGULATION METHOD 05/07/2025 1:23 PM [facility] Blood Venous blood specimen / Unknown Venipuncture / Unknown 05/07/2025 12:19 PM EDT 05/07/2025 8:53 AM EDT Kolby Burgos MD LAB BLOOD ORDERABLES Final Result [facility] [address] [place] [address], * (ABNORMAL) Comprehensive metabolic panel (05/07/2025 8:25 AM EDT) Sodium 137 133 - 145 mmol/L LAB CHEMISTRY METHOD 05/07/2025 10:48 AM [facility] Potassium 3.7 3.5 - 5.5 mmol/L LAB CHEMISTRY METHOD 05/07/2025 10:48 AM [facility] Chloride 102 96 - 110 mmol/L LAB CHEMISTRY METHOD 05/07/2025 10:48 AM [facility] CO2 30 21 - 32 mmol/L LAB CHEMISTRY METHOD 05/07/2025 10:48 AM [facility] Anion Gap 5 3 - 11 LAB CHEMISTRY METHOD 05/07/2025 10:48 AM [facility] Glucose 81 70 - 100 mg/dL LAB CHEMISTRY METHOD 05/07/2025 10:48 AM [facility] BUN 5 5 - 25 mg/dL LAB CHEMISTRY METHOD 05/07/2025 10:48 AM [facility] Creatinine 0.36(L) 0.50 - 1.10 mg/dL LAB CHEMISTRY METHOD 05/07/2025 10:48 AM [facility] eGFR 112 >=60 mL/min/1. 73m2 LAB CHEMISTRY METHOD 05/07/2025 10:48 AM [facility] Comment:Calculation based on the Chronic Kidney Disease Epidemiology Collaboration (CKD-EPI) equation refit without adjustment for race. BUN/Creatinine Ratio 13.9 LAB CHEMISTRY METHOD 05/07/2025 10:48 AM [facility] Calcium 8.1(L) 8.5 - 10.5 mg/dL LAB CHEMISTRY METHOD 05/07/2025 10:48 AM [facility] AST (SGOT) 83(H) 10 - 42 unit/L LAB CHEMISTRY METHOD 05/07/2025 10:48 AM [facility] ALT (SGPT) 69(H) 10 - 60 unit/L LAB CHEMISTRY METHOD 05/07/2025 10:48 AM [facility] Alkaline Phosphatase 124(H) 42 - 121 unit/L LAB CHEMISTRY METHOD 05/07/2025 10:48 AM [facility] Total Protein 5.1(L) 6.0 - 8.0 g/dL LAB CHEMISTRY METHOD 05/07/2025 10:48 AM [facility] Albumin 2.2(L) 3.2 - 5.0 g/dL LAB CHEMISTRY METHOD 05/07/2025 10:48 AM [facility] Total Bilirubin 1.6(H) 0.0 - 1.4 mg/dL LAB CHEMISTRY METHOD 05/07/2025 10:48 AM [facility] Blood Venous blood specimen / Unknown Venipuncture / Unknown 05/07/2025 8:25 AM EDT 05/07/2025 8:53 AM EDT us Kolby Burgos MD LAB BLOOD ORDERABLES Final Result [facility] [address] [place] [address], * (ABNORMAL) Complete blood count (05/07/2025 8:25 AM EDT) [facility] WBC 4.5(L) 4.8 - 10.8 K/mcL LAB HEMETOLOGY METHOD 05/07/2025 10:02 AM [facility] RBC 3.00(L) 3.80 - 4.80 M/mcL LAB HEMETOLOGY METHOD 05/07/2025 10:02 AM [facility] Hemoglobin 10.5(L) 11.5 - 16.0 g/dL LAB HEMETOLOGY METHOD 05/07/2025 10:02 AM [facility] Hematocrit 32.1(L) 35.0 - 47.0 % LAB HEMETOLOGY METHOD 05/07/2025 10:02 AM [facility] MCV 108.1(H) 79.0 - 98.0 FL LAB HEMETOLOGY METHOD 05/07/2025 10:02 AM [facility] MCH 35.4(H) 27.0 - 32.0 pcg LAB HEMETOLOGY METHOD 05/07/2025 10:02 AM [facility] MCHC 32.7 32.0 - 37.0 g/dL LAB HEMETOLOGY METHOD 05/07/2025 10:02 AM [facility] RDW 13.5 11.0 - 15.0 % LAB HEMETOLOGY METHOD 05/07/2025 10:02 AM [facility] Platelets 163 130 - 400 K/mcL LAB HEMETOLOGY METHOD 05/07/2025 10:02 AM [facility] MPV 11.6(H) 7.0 - 11.0 FL LAB HEMETOLOGY METHOD 05/07/2025 10:02 AM [facility] NRBC 0.0 <1.0 % LAB HEMETOLOGY METHOD 05/07/2025 10:02 AM EDT [facility] NRBC Absolute 0.00 <0.10 K/mcL LAB HEMETOLOGY METHOD 05/07/2025 10:02 AM EDT [facility] Blood Venous blood specimen / Unknown Venipuncture / Unknown 05/07/2025 8:25 AM EDT 05/07/2025 8:53 AM EDT us Kolby Burgos MD LAB BLOOD ORDERABLES Final Result [facility] [address] [place] [address], documented in this encounter Visit Diagnoses Diagnosis Hypokalemia Hypopotassemia Anemia, unspecified regional intermodal truck driver (current) use of anticoagulants Long-term (current) use of anticoagulants documented in this encounter Additional Health Concerns Infection Onset Date Last Indicated Resolved Time C. difficile Rule-Out 05/14/2025 05/14/20252024 11:24 AM EDT C. difficile 05/14/2025 05/14/2025 06/07/2025 7:05 PM EDT documented as of this encounter Care Teams Aids Counselor Relationship Specialty Start Date End Date Luisito Gonzalez MD [address] [place] [address] Dr Kin [place] PCP - General 01/31/24 documented as of this encounter
--- OUTSIDE RECORDS SUMMARY | 2025-11-01 07:34 | XMS_ITS | Clinical Summary ---
Author Organization [address] [place] [address] Address [address] [place] [address] Phone Care Team Providers Care Barrel Loader Name Role Phone Luisito Gonzalez MD Primary Care Provider [phone] Social History Tobacco Use Types Packs/Day Years [...] Insurance MEDICARE [place]ICA[place] - [place] Care Teams Barrel Loader Relationship Specialty Start Date End Date Luisito Gonzalez MD [address] [place] [address] Dr Kin [place] PCP - General 01/31/24
--- OUTSIDE RECORDS SUMMARY | 2025-11-01 07:34 | XMS_ITS | Encounter Summary ---
Author Organization [employer] Address [address] [place] [address] Care Team Providers Care Work Order Clerk Name Role Phone Luisito Gonzalez MD Primary Care Provider Encounter Details Date Type Department Care Team (Late st Contact Info) Description 05/26/2025 Lab Requisition [facility] - Main Lab [address] [place] [address] Kolby Burgos MD [address] [place], [place] [id number] Anemia, unspecified; Gastrointestinal hemorrhage, unspecified Social History [...] 05/27/2025 10:10 AM [facility] Blood Venous blood specimen / Unknown Venipuncture / Unknown 05/27/2025 7:22 AM EDT 05/27/2025 9:12 AM EDT us Kolby Burgos MD LAB BLOOD ORDERABLES Final Result [facility] [address] [place] [address], * (ABNORMAL) Complete blood count (05/27/2025 7:22 AM EDT) WBC 3.9(L) 4.8 - 10.8 K/mcL LAB HEMETOLOGY METHOD 05/27/2025 9:32 AM [facility] RBC 3.10(L) 3.80 - [...] Result [facility] [address] [place] [address], documented in this encounter Visit Diagnoses Diagnosis Anemia, unspecified Gastrointestinal hemorrhage, unspecified documented in this encounter Additional Health Concerns Infection Onset Date Last Indicated Resolved Time C. difficile 05/14/2025 05/14/2025 06/07/2025 7:05 PM EDT documented as of this encounter Care Teams Work Order Clerk Relationship Specialty Start Date End Date Luisito Gonzalez MD [address] [place] [address] Dr [place] PCP - General 01/31/24 documented as of this encounter
--- OUTSIDE RECORDS SUMMARY | 2025-11-01 07:34 | XMS_ITS | Encounter Summary ---
Author Organization [employer] Address [address] [place] [address] Care Team Providers Care Food Service Counter Clerk Name Role Phone Luisito Gonzalez MD Primary Care Provider [phone] Encounter Details Date Type Department Care Team (Late st Contact Info) Description 05/12/2025 Lab Requisition [facility] - Main Lab [address] [facility] [place] [address] Kolby Burgos MD [address] [place], [place] [phone] Anemia, unspecified; Gastrointestinal hemorrhage, unspecified Social History [...] Results * Lactate (05/13/2025 8:56 AM EDT) [facility] Lactate 1.2 0.4 - 2.0 mmol/L LAB CHEMISTRY METHOD 05/13/2025 10:16 AM EDT [facility] Blood Venous blood specimen / Unknown Venipuncture / Unknown 05/13/2025 8:56 AM EDT 05/13/2025 9:33 AM EDT us Kolby Burgos MD LAB BLOOD ORDERABLES Final Result [facility] [address] [place] [address], [place] [phone] * Culture blood (05/13/2025 8:56 AM EDT) [facility] Culture, Blood No growth at 5 days 05/18/2025 11:01 AM EDT [facility] Blood Venipuncture / Unknown 05/13/2025 8:56 AM EDT 05/13/2025 9:33 AM EDT us Kolby Burgos MD LAB MICROBIOLOGY - GENERAL ORDERABLES Final Result Performing Organization Address City/[facility]/ZIP Co de Phone Number [facility] [address] [place] [address], [place] [phone] * (ABNORMAL) CBC auto differential (05/13/2025 8:56 AM EDT) [facility] WBC 2.9(L) 4.8 - 10.8 K/mcL LAB HEMETOLOGY METHOD 05/13/2025 10:12 AM EDT [facility] RBC 3.00(L) 3.80 - 4.80 M/mcL LAB HEMETOLOGY METHOD 05/13/2025 10:12 AM EDT [facility] Hemoglobin 10.5(L) 11.5 - 16.0 g/dL LAB HEMETOLOGY METHOD 05/13/2025 10:12 AM [facility] Hematocrit 30.8(L) 35.0 - 47.0 % LAB HEMETOLOGY METHOD 05/13/2025 10:12 AM [facility] MCV 104.4(H) 79.0 - 98.0 FL LAB HEMETOLOGY METHOD 05/13/2025 10:12 AM [facility] MCH 35.6(H) 27.0 - 32.0 pcg LAB HEMETOLOGY METHOD 05/13/2025 10:12 AM [facility] MCHC 34.1 32.0 - 37.0 g/dL LAB HEMETOLOGY METHOD 05/13/2025 10:12 AM [facility] RDW 14.2 11.0 - 15.0 % LAB HEMETOLOGY METHOD 05/13/2025 10:12 AM [facility] Platelets 95(L) 130 - 400 K/mcL LAB HEMETOLOGY METHOD 05/13/2025 10:12 AM [facility] Comment:Large platelets seen . Reviewed by slide MPV 12.3(H) 7.0 - 11.0 FL LAB HEMETOLOGY METHOD 05/13/2025 10:12 AM [facility] NRBC 0.0 <1.0 % LAB HEMETOLOGY METHOD 05/13/2025 10:12 AM [facility] NRBC Absolute 0.00 <0.10 K/mcL LAB HEMETOLOGY METHOD 05/13/2025 10:12 AM [facility] Neutrophils Relative 65.7 % LAB HEMETOLOGY METHOD 05/13/2025 10:12 AM [facility] Lymphocytes Relative 15.6 % LAB HEMETOLOGY METHOD 05/13/2025 10:12 AM [facility] Monocytes Relative 16.3 % LAB HEMETOLOGY METHOD 05/13/2025 10:12 AM EDT [facility] Eosinophils Relative 1.4 % LAB HEMETOLOGY METHOD 05/13/2025 10:12 AM EDT [facility] Basophils Relative 0.7 % LAB HEMETOLOGY METHOD 05/13/2025 10:12 AM EDT [facility] Immature Granulocytes Relative 0.3 % LAB HEMETOLOGY METHOD 05/13/2025 10:12 AM EDT [facility] Neutrophils Absolute 1.90 1.50 - 7.00 K/mcL LAB HEMETOLOGY METHOD 05/13/2025 10:12 AM EDT [facility] Lymphocytes Absolute 0.45(L) 1.00 - 5.00 K/mcL LAB HEMETOLOGY METHOD 05/13/2025 10:12 AM EDT [facility] Monocytes Absolute 0.47 0.20 - 1.00 K/mcL LAB HEMETOLOGY METHOD 05/13/2025 10:12 AM EDT [facility] Eosinophils Absolute 0.04 0.00 - 0.50 K/mcL LAB HEMETOLOGY METHOD 05/13/2025 10:12 AM EDT [facility] Basophils Absolute 0.02 0.00 - 0.20 K/mcL LAB HEMETOLOGY METHOD 05/13/2025 10:12 AM EDT [facility] Immature Granulocytes Absolute 0.01 0.00 - 0.03 K/mcL LAB HEMETOLOGY METHOD 05/13/2025 10:12 AM EDT [facility] Blood Venous blood specimen / Unknown Venipuncture / Unknown 05/13/2025 8:56 AM EDT 05/13/2025 9:33 AM EDT us Kolby Burgos MD LAB BLOOD ORDERABLES Final Result [facility] [address] [place] [address], [place] [phone] * (ABNORMAL) Basic metabolic panel (05/13/2025 8:56 AM EDT) Sodium 132(L) 133 - 145 mmol/L LAB CHEMISTRY METHOD 05/13/2025 10:27 AM [facility] Potassium 3.7 3.5 - 5.5 mmol/L LAB CHEMISTRY METHOD 05/13/2025 10:27 AM [facility] Chloride 101 96 - 110 mmol/L LAB CHEMISTRY METHOD 05/13/2025 10:27 AM [facility] CO2 23 21 - 32 mmol/L LAB CHEMISTRY METHOD 05/13/2025 10:27 AM [facility] Anion Gap 8 3 - 11 LAB CHEMISTRY METHOD 05/13/2025 10:27 AM [facility] Glucose 96 70 - 100 mg/dL LAB CHEMISTRY METHOD 05/13/2025 10:27 AM [facility] BUN 4(L) 5 - 25 mg/dL LAB CHEMISTRY METHOD 05/13/2025 10:27 AM [facility] Creatinine 0.62 0.50 - 1.10 mg/dL LAB CHEMISTRY METHOD 05/13/2025 10:27 AM [facility] eGFR 98 >=60 mL/min/1. 73m2 LAB CHEMISTRY METHOD 05/13/2025 10:27 AM [facility] Comment:Calculation based on the Chronic Kidney Disease Epidemiology Collaboration (CKD-EPI) equation refit without adjustment for race. BUN/Creatinine Ratio 6.5 LAB CHEMISTRY METHOD 05/13/2025 10:27 AM [facility] Calcium 8.1(L) 8.5 - 10.5 mg/dL LAB CHEMISTRY METHOD 05/13/2025 10:27 AM [facility] Blood Venous blood specimen / Unknown Venipuncture / Unknown 05/13/2025 8:56 AM EDT 05/13/2025 9:33 AM EDT us Kolby Burgos MD LAB BLOOD ORDERABLES Final Result [facility] [address] [place] [address], documented in this encounter Visit Diagnoses Diagnosis Anemia, unspecified Gastrointestinal hemorrhage, unspecified documented in this encounter Additional Health Concerns Infection Onset Date Last Indicated Resolved Time C. difficile Rule-Out 05/14/2025 05/14/20252024 11:24 AM EDT C. difficile 05/14/2025 05/14/2025 06/07/2025 7:05 PM EDT documented as of this encounter Care Teams Food Service Counter Clerk Relationship Specialty Start Date End Date Luisito Gonzalez MD [address] [place] [address] Dr Kin [place] PCP - General 01/31/24 documented as of this encounter
--- OUTSIDE RECORDS SUMMARY | 2025-11-01 07:34 | XMS_ITS | Encounter Summary ---
Author Organization [employer] Address [address] [place] [address] Care Team Providers Care Reliability Technician Name Role Phone Luisito Gonzalez MD Primary Care Provider [phone] Encounter Details Date Type Department Care Team (Late st Contact Info) Description 05/06/2025 Lab Requisition [facility] - Main Lab [address] [facility] [place] [address] Kolby Burgos MD [address] [place], [place] [phone] Anemia, unspecified; Gastrointestinal hemorrhage, unspecified Social History [...] AM EDT) WBC 4.3(L) 4.8 - 10.8 K/[facility] LAB HEMETOLOGY METHOD 05/06/2025 7:18 AM EDT [facility] RBC 3.10(L) 3.80 - [...] Final Result [facility] [address] [place] [address], * (ABNORMAL) Comprehensive metabolic panel (05/06/2025 5:10 [...] LAB CHEMISTRY METHOD 05/06/2025 8:57 AM EDT [facility] AST (SGOT) 93(H) 10 - 42 unit/L LAB CHEMISTRY METHOD 05/06/2025 8:57 AM T [facility] ALT (SGPT) 74(H) 10 - 60 unit/L LAB CHEMISTRY METHOD 05/06/2025 8:57 AM EDT [facility] Alkaline Phosphatase 134(H) 42 - 121 unit/L LAB CHEMISTRY METHOD 05/06/2025 8:57 AM EDT [facility] Total Protein 4.9(L) 6.0 [...] Final Result [facility] [address] [place] [address], documented in this encounter Visit Diagnoses Diagnosis Anemia, unspecified Gastrointestinal hemorrhage, unspecified documented in this encounter Additional Health Concerns Infection Onset Date Last Indicated Resolved Time C. difficile Rule-Out 05/14/2025 05/14/20252024 11:24 AM EDT C. difficile 05/14/2025 05/14/2025 06/07/2025 7:05 PM EDT documented as of this encounter Care Teams Reliability Technician Relationship Specialty Start Date End Date Luisito Gonzalez MD [address] [facility] [address] Kin [place] PCP - General 01/31/24 documented as of this encounter
--- OUTSIDE RECORDS SUMMARY | 2025-11-01 07:34 | XMS_ITS | Encounter Summary ---
Author Organization [facility] Address [address] [place] [address] Care Team Providers Care Plumbing Technician Name Role Phone Luisito Gonzalez MD Primary Care Provider [phone] Encounter Details Date Type Department Care Team (Late st Contact Info) Description 05/13/2025 Lab Requisition [facility] - Main Lab [address] [place] [address] Kolby Burgos MD [address] [place], [place] [phone] Other specified anemias; Other disorders of electrolyte [...] at 5 days 05/18/2025 11:01 AM EDT [facility] Blood 05/13/2025 9:00 AM EDT 05/13/2025 9:37 AM EDT us Kolby Burgos MD LAB MICROBIOLOGY - GENERAL ORDERABLES Final Result [facility] [address] [place] [address], documented in this encounter Visit Diagnoses Diagnosis Other specified anemias Other disorders of electrolyte and fluid balance, not elsewhere classified Bacteremia documented in this encounter Additional Health Concerns Infection Onset Date Last Indicated Resolved Time C. difficile Rule-Out 05/14/2025 05/14/20252024 11:24 AM EDT C. difficile 05/14/2025 05/14/2025 06/07/2025 7:05 PM EDT documented as of this encounter Care Teams Plumbing Technician Relationship Specialty Start Date End Date Luisito Gonzalez MD [address] [place] [address] Dr Kin [place] PCP - General 01/31/24 documented as of this encounter
[2025-11-01 11:42] LABS: Appearance Urine Clear; Glucose Urine UA Negative (Negative); PH 6.5 (5.0-9.0); Specific Gravity - Urine 1.010 (1.005-1.025)
[2025-11-01 11:49] LABS: MANUAL DIFF FLAG NO
[2025-11-01 11:55] LABS: Hematocrit 34.9 % (37.0-47.0); Hemoglobin 12.5 g/dl (12.0-16.0); Imm Gran Abs Auto 0.01 X10*3/uL (0.00-0.03); Imm Gran Pct Auto 0.2 % (0.0-0.4); Lymphocytes Absolute Auto 1.9 X10*3/uL (1.2-4.9); Mean Corpuscular HGB Conc 35.8 g/dl (31.0-35.0); Mean Corpuscular Hemoglobin 33.9 pg (27.0-33.0); Mean Corpuscular Volume 94.6 fL (80.0-98.0); NRBC Abs Auto 0.000 X10*3/uL (0.0-0.012); NRBC Pct Auto 0.0 /100WBC (0.0-0.2); Platelet Count 137 X10*3/uL (160-400); Red Blood Count 3.69 X10*6/uL (4.20-5.50); White Blood Count 4.6 X10*3/uL (4.8-10.8)
[2025-11-01 12:26] LABS: Alanine Aminotransferase 20 U/L (0-31); Albumin Level 4.1 g/dL (3.5-5.0); Alkaline Phosphatase 104 U/L (39-117); Anion Gap 12 (12-20); Aspartate Amino Transferase 29 U/L (5-31); Blood Urea Nitrogen 8 mg/dL (9-16); Calcium 9.6 mg/dL (8.4-10.2); Carbon Dioxide 24 mmol/L (22-29); Chloride 102 mmol/L (96-108); Cholesterol 128 mg/dL (<200); Estimated Glomerular Filt Rate > 60; HDL Cholesterol 50 mg/dL (>40); Potassium 4.0 mmol/L (3.3-5.1); Sodium 134 mmol/L (135-145); Total Protein 6.9 g/dL (6.5-8.0); Triglycerides 67 mg/dL (<150)
[2025-11-01 12:48] LABS: Folate 12.3 ng/mL (> or = 4.0); Vitamin B12 470 pg/mL (200-900)
[2025-11-01 14:44] LABS: Gamma Glutamyl Transpeptidase 61 U/L (7-33)
== END 2025-11-01 07:32 | disposition home or self-care (01) ==
LOC: HO.HMGCLDS 07:31
DX: I10 Essential (primary) hypertension (principal); I25.10 Atherosclerotic heart disease of native coronary artery without angina pectoris; R94.31 Abnormal electrocardiogram [ECG] [EKG]; R79.89 Other specified abnormal findings of blood chemistry; F17.200 Nicotine dependence, unspecified, uncomplicated; F10.10 Alcohol abuse, uncomplicated; M79.609 Pain in unspecified limb; R20.2 Paresthesia of skin; D64.9 Anemia, unspecified; K76.0 Fatty (change of) liver, not elsewhere classified; R74.8 Abnormal levels of other serum enzymes
CPT/HCPCS: 36415; 80053; 80061; 81003; 82306; 82607; 82746; 82977; 84443; 85025